=== PATIENT | female | born 1995 | race Caucasian/White ===

== ENCOUNTER 2023-01-01 10:57 | Outpatient (OUT) | payer MEDICAID, SELFPAY ==
--- NOTE | 2023-01-01 11:50 | ECG_ITS ---
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
--- NOTE | 2023-01-01 11:50 | XR_ITS ---
The [address] [address] Patient Name: LEYDA SEGAL MRN: [id number] date: 1995 Sex: F Assigned Patient Location: [facility] Current Patient Location: [facility] Accession/Order Number: [id number] Exam Date: 01/01/2023 12:02 Report Date: 01/01/2023 13:12 At the request of: TATY BALL Procedure: XR chest 2V EXAM: XR chest 2V HISTORY: Preop exam COMPARISON: None. TECHNIQUE: PA and lateral views of the chest. FINDINGS: The cardiomediastinal silhouette is normal. No focal consolidation is identified. There is no pneumothorax. No pleural effusion is noted. The osseous structures are intact. XR/XR chest 2V IMPRESSION: No acute cardiopulmonary process. Electronically authenticated by: OSWALD BARRERA Date: 01/01/2023 13:12
== END 2023-01-01 10:58 | disposition home or self-care (01) ==
LOC: PST 10:57
PROVIDERS: PCP Obstetrics & Gynecology; Visit Provider Obstetrics & Gynecology
DX: Z01.810 Encounter for preprocedural cardiovascular examination (principal); Z30.2 Encounter for sterilization
CPT/HCPCS: 71046; 93005

== ENCOUNTER 2023-01-13 07:46 | Day surgery (SDC) | payer MEDICAID, SELFPAY ==
[2023-01-01 11:23] VITALS: BMI 36.1
[2023-01-01 11:27] VITALS: BP 122/66; PULSE 82; RESP 16; TEMP 36.6; O2SAT 98
[2023-01-13] VITALS (9 sets, daily range): BP systolic 107–145; BP diastolic 76–91; PULSE 62–90; RESP 1–20; TEMP 36.3–36.4; O2SAT 96–100
[2023-01-13 07:58] LABS: Basophils Absolute Auto 0.1 10^3/uL (0.0-0.1); Basophils Percent Auto 0.6 % (0.2-2.0); Eosinophils Absolute Auto 0.4 10^3/uL (0.0-0.7); Eosinophils Percent Auto 3.9 % (0.9-7.0); Hematocrit 41.3 % (36.0-48.0); Hemoglobin 13.5 g/dL (12.0-16.0); Immature Granulocytes Abs Auto 0.01 10^3/uL (0.00-0.03); Immature Granulocytes Pct Auto 0.1 % (0.0-0.5); Lymphocytes Absolute Auto 2.3 10^3/uL (1.2-3.8); Lymphocytes Percent Auto 24.7 % (20.5-60.0); Mean Corpuscular HGB Conc 32.7 g/dL (29.9-35.2); Mean Corpuscular Hemoglobin 28.7 pg (26.7-34.0); Mean Corpuscular Volume 87.9 fL (81.0-99.0); Mean Platelet Volume 9.6 fL (9.5-13.5); Monocytes Absolute Auto 0.5 10^3/uL (0.3-0.8); Monocytes Percent Auto 5.6 % (1.7-12.0); Neutrophils Absolute Auto 6.1 10^3/uL (1.4-6.5); Neutrophils Percent Auto 65.1 % (43.0-75.0); Platelet Count 350 10^3/uL (150-450); Red Cell Distribution Width 11.9 % (11.0-15.0); White Blood Count 9.3 10^3/uL (4.0-11.0)
[2023-01-13 08:23] LABS: HCG Quantitative <1 mIU/mL
[2023-01-13] MEDS: LACTATED RINGER'S SOLUTION 1,000 ML 50 ML IV (08:24)
--- NOTE | 2023-01-13 10:28 | P.ON_ITS ---
Brief Operative Note Date of procedure: 01/13/23 Pre-op diagnosis: desires permenant sterilization Post-op diagnosis: same as pre-op Procedure: NAME OF PROCEDURE: robotic assisted bilateral laparoscopic salpingectomy with lt ovarian cystotomy PROCEDURE: The patient was taken back to the Operating Room where she was given general anesthesia without difficulty. She was then prepped and draped in the normal sterile fashion after being placed in a dorsal lithotomy position. A wet sponge stick was placed into the patient's vagina. Attention was then turned to the patient's abdomen, where a scalpel was used to make a small infraumbilical incision. The S retractors were then used to dissect the underlying layers until the fascia could be seen. The fascia was then grasped with Maurice clamps and tented up. A knife was then used to make a small incision to the fascia. The muscle was identified, at that time two sutures of #0 Vicryl on a GI needle was then used and placed through the fascia. the peritoneum was then identified and entered bluntly. The 10-4 Betty was then placed into the patient's abdomen. This was confirmed with direct visualization of the bowel, using the laparoscope. The patient's abdomen was then insufflated using approximately 4 liters of CO2 gas. Survey of the patient's abdomen demonstrated ovaries were normal in appearance as well as both tubes and uterus. A second and third rt and lt lateral robotic ports which were 8 mm in size, was then placed after the skin incision was made under direct visualization . The patient's tube on the patient's right side was identified and tented up using a grasper, the vessel sealer apparatus was then used to come across the mesosalpingx from the fimbriated end to the insertion site at the uterus, the tube was then amputated and removed in its entirety. This was done on the contralateral side. The tubes were the removed from the patients abdomen. Excellent hemostasis was noted. Please note vessel sealer was used to perform lt ovarian cystotomy. The lateral ports were then moved under direct visualization with excellent hemostasis. All instruments were removed from the patient's abdomen. The fascia was closed using the #0 Vicryl on GI needle. The skin was closed using 4-0 Vicryl subcuticularly. All instruments were removed from the patient's vagina as well. The patient was taken out of the dorsal lithotomy position and placed in the supine position and taken to recovery in stable condition. Sponge, lap and needle counts were correct x2. Anesthesia: EDOUARD Surgeon: Marcus Fields Framework Developer: Haley Clark Estimated blood loss (mL): 5 Pathology: other (tubes) Condition: stable Disposition: PACU
[2023-01-13] MEDS: PROMETHAZINE HCL 25 MG TABLET PO (11:56)
--- NOTE | 2023-01-13 12:07 | PC.NURSE ---
c/o nausea; no emesis; medicated with Phenergan oral as ordered; peripad dry
--- NOTE | 2023-01-13 12:39 | PC.NURSE ---
Up to bathroom and voids clear yellow without difficulty; peripad dry; no further c/o nausea
== END 2023-01-13 12:40 | disposition home or self-care (01) ==
PROVIDERS: Visit Provider Obstetrics & Gynecology
PROC: (CPT 840; principal; 2023-01-13 08:50)
DX: Z30.2 Encounter for sterilization (principal); N83.202 Unspecified ovarian cyst, left side; N83.8 Other noninflammatory disorders of ovary, fallopian tube and broad ligament; J45.909 Unspecified asthma, uncomplicated; E66.01 Morbid (severe) obesity due to excess calories; Z68.36 Body mass index [BMI] 36.0-36.9, adult
CPT/HCPCS: 49322; 58661; 36415; 84702; 85025; 88304; J2704

== ENCOUNTER 2023-03-10 22:02 | Outpatient (REF) | payer MEDICAID, SELFPAY ==
--- OUTSIDE RECORDS SUMMARY | 2023-03-10 22:05 | XMS_ITS | CCD ---
Author Name Unknown Address [address] [place] [address] Organization [facility] Care Team Providers Care Assistant Plant Controller Name Role Phone Damon BRUNER Primary Care Physician LIZZY ., DR POSEY Attending Unavailable REQUEST, DR MEDRANO LISTED Primary Care Unavaila ble LIZZY ., DR POSEY Admitting Unavailable HOY ., DR SERVIN Consulting Unavailable IRMA LLOYD Attending Unavailable IRMA LLOYD Admitting Unavailable MISC, DR ROCHA Primary Care Unavailable LIZZY ., DR POSEY Consulting Unavailable IRMA LLOYD Consulting Unavailable KARASIK ., DR ESTRADA Attending Unavailabl e KARASIK ., DR ESTRADA Consulting Unavailabl e KARASIK ., DR ESTRADA Admitting Unavailabl e MISC, DR ROCHA Primary Care Unavailable LIZZY ., DR POSEY Consulting Unavailable REQUEST, DR MEDRANO LISTED Primary Care Unavaila ble LIZZY ., DR POSEY Admitting Unavailable LIZZY ., DR POSEY Attending Unavailable LIZZY ., DR POSEY Admitting Unavailable LIZZY ., DR POSEY Attending Unavailable MISC, DR ROCHA Primary Care Unavailable REQUEST, DR MEDRANO LISTED Primary Care Unavaila ble LIZZY ., DR POSEY Admitting Unavailable LIZZY ., DR POSEY Attending Unavailable LIZZY ., DR POSEY Consulting Unavailable LIZZY ., DR POSEY Consulting Unavailable REQUEST, NONE LISTED Primary Care Unavaila ble LIZZY ., DR POSEY Admitting Unavailable LIZZY ., DR POSEY Attending Unavailable LIZZY ., DR POSEY Consulting Unavailable REQUEST, DR MEDRANO LISTED Primary Care Unavaila ble LIZZY ., DR POSEY Admitting Unavailable LIZZY ., DR POSEY Attending Unavailable ZIEBER, DR ELLEN Alfaro Consulting Unavailable LIZZY ., DR POSEY Attending Unavailable LIZZY ., DR POSEY Consulting Unavailable REQUEST, DR NONE LISTED Primary Care Unavaila ble LIZZY ., DR POSEY Admitting Unavailable LIZZY ., DR POSEY Admitting Unavailable MISC, DR ROCHA Primary Care Unavailable LIZZY ., DR POSEY Attending Unavailable KARASIK ., DR ESTRADA Admitting Unavailabl e REQUEST, DR NONE LISTED Primary Care Unavaila ble LIZZY ., DR POSEY Consulting Unavailable KARASIK ., DR ESTRADA Attending Unavailabl e LIZZY ., DR POSEY Procedure Practitioner Unavail able AGUBOSISriram, JIMMIE Consulting Unavailable JOEY, DR OSWALD Alfaro Consulting Unavailable MISC, DR ROCHA Primary Care Unavailable TERE ., BRIANNA Attending Unavailable TERE ., BRIANNA Admitting Unavailable KARASIK ., DR ESTRADA Consulting Unavailabl e TERE ., BRIANNA Consulting Unavailable STRAWSER, CARLO Consulting Unavailable Damon BRUNER Attending Unavailable FRANC, Damon Attending Unavailable FRANC, Damon Attending Unavailable Damon BRUNER Attending Unavailable Tabby Barnett Attending Unavailable Tabby Barnett Attending Unavailable Tabby Barnett Attending Unavailable NEIL SHARPE Attending Unavailable Allergies Allergy Classification Reported Allergen(s) Allergy Type Date of Onset Reaction(s) Facility (7 sources) Cat; Translations: [Cats] Drug allergy [facility] (7 sources) Dust; Translations: [Dust] Drug allergy [facility] (7 sources) Morphine; Translations: [morphine] Drug Allergy 4 Syncope (disorder) [facility] (7 sources) Ragweed; Translations: [Ragweed] Drug allergy [facility] (7 sources) Grass; Translations: [Grass] Drug allergy [facility] (1 source) Morphine Drug Allergy 2 [facility] Repository Medications Current Medications Medication Drug Class(es) Dates Sig (Normalized) Sig (Original) ARIPiprazole 2 mg oral tablet (4 sources) Atypical Antipsychotic Start: 10-23-2022 take 1 tablet by mouth once daily aripiprazole 2 mg Tab 2 mg = 1 tab(s), Oral, Daily, Refills(s) 0 Start Date: 10/23/22 Status: Ordered busPIRone hydrochloride 10 mg oral tablet (4 sources) Start: 10-23-2022 take 1 tablet by mouth twice daily busPIRone 10 mg Tab 10 mg = 1 tab(s), Oral, BID, Refills(s) 0 Start Date: 10/23/22 Status: Ordered dextromethorphan hydrobromide 3 mg/ml / promethazine hydrochloride 1.25 mg/ml oral solution (1 source) Phenothiazine, Uncompetitive T-gujlxk-P-aspartat e Receptor Antagonist, Sigma-1 Agonist Start: 02-20-2021 take 5 mL by mouth every six hours for cough dextromethorphan-pr omethazine 15 mg-6.25 mg/5 mL Oral Syrup 5 mL 5 mL, Oral, q6hr for cough, 120 mL, Refill(s) 0, [facility] [address], 165, cm, 02/20/21 11:45:00 EST, Height/Length Dosing, 114.9, kg, 02/20/21 11:45:00 EST, Weight Dosing Start Date: 02/20/21 Status: Ordered escitalopram 5 mg oral tablet (4 sources) Serotonin Reuptake Inhibitor Start: 10-23-2022 take 1 tablet by mouth once daily escitalopram 5 mg oral tablet TAKE 1 TABLET BY MOUTH EVERY DAY Start Date: 10/23/22 Status: Ordered fluticasone propionate 0.5 mg/ml topical cream (1 source) Corticosteroid Start: 02-13-2020 fluticasone topical 0.05% cream 1 kami, Topical, BID, 60 gram, Refill(s) 0, [facility] [address], 166, cm, 02/13/20 10:54:00 EST, Height/Length Dosing, 112.1, kg, 02/13/20 10:54:00 EST, Weight Dosing Start Date: 02/13/20 Status: Ordered ketoconazole 20 mg/ml topical cream (4 sources) Azole Antifungal Start: 10-23-2022 ketoconazole Top 2% Crm APPLY TOPICALLY TO AFFECTED AREAS twice a day if needed Start Date: 10/23/22 Status: Ordered 24 hr methylphenidate hydrochloride 18 mg extended release oral tablet (2 sources) Central Nervous System Stimulant Start: 12-28-2022 take 18 mg by mouth once daily in the morning methylphenidate 18 mg, Oral, qAM, Refills(s) 0 Start Date: 12/28/22 Status: Ordered ondansetron 4 mg oral tablet (1 source) Serotonin-3 Receptor Antagonist Start: 03-04-2021 take 1 tablet by mouth every eight hours as needed for nausea ondansetron 4 mg Tab 4 mg = 1 tab(s), Oral, q8hr, prn nausea, # 12 tab(s), Refills(s) 0, Pharmacy: [facility] [address], 165, cm, 02/20/21 11:45:00 EST, Height/Length Dosing, 114.9, kg, 02/20/21 11:45:00 EST, Weight Dosing Start Date: 03/04/21 Status: Ordered sodium fluoride 0.011 mg/mg toothpaste (2 sources) Start: 12-28-2022 PreviDent 5000 Booster 1.1% topical paste Refill(s) 0 Start Date: 12/28/22 Status: Ordered traZODone hydrochloride 50 mg oral tablet (4 sources) Serotonin Reuptake Inhibitor Start: 10-23-2022 take 1 tablet by mouth once daily at bedtime traZODONE 50 mg Tab 50 mg = 1 tab(s), Oral, Once a day (at bedtime), Refills(s) 0 Start Date: 10/23/22 Status: Ordered triamcinolone acetonide 0.25 mg/ml topical cream (1 source) Corticosteroid Start: 03-31-2022 triamcinolone Top 0.025% Crm 1 kami, Topical, BID, 60 gram, Refill(s) 1, [facility] [address], 165, cm, 03/31/22 17:35:00 EST, Height/Length Dosing, 100.5, kg, 03/31/22 17:35:00 EST, Weight Dosing Start Date: 03/31/22 Status: Ordered Completed/Discontinued Medications Medication Drug Class(es) Dates Sig (Normalized) Sig (Original) Albuterol (Eqv-ProAir HFA) 90 mcg/inh inhalation aerosol (6 sources) Start: 11-08-2020 take 1 dose by inhalation every six hours Albuterol (Eqv-ProAir HFA) 90 mcg/inh inhalation aerosol 2 puff(s), Inhalation, q6hr, 1 EA, Refill(s) 0, [facility] [address], 166, cm, 11/08/20 16:18:00 EDT, Height/Length Dosing, 113.5, kg, 11/08/20 16:18:00 EDT, Weight Dosing Start Date: 11/08/20 Status: Ordered betamethasone 0.5 mg/ml topical cream (4 sources) Corticosteroid Start: 10-23-2022 apply 45 g topically once daily betamethasone Top dipropionate 0.05% Crm 45 gram apply topically to affected area once daily AT THE SAME TIME EACH DAY Start Date: 10/23/22 Status: Ordered Problems Active Problems Problem Classification Problem Date Documented Date Episodic/Chronic Allergic reactions (7 sources) Atopic dermatitis; Translations: [Atopic dermatitis, unspecified] Onset: 03-29-2022 03-17-2020 Chronic Allergic reactions (6 sources) Eczema 03-17-2020 Episodic Asthma (9 sources) Asthma; Translations: [Intermittent asthma] Onset: 03-29-2022 03-11-2021 Chronic Attention-deficit, conduct, and disruptive behavior disorders (2 sources) Adult attention deficit hyperactivity disorder 03-31-2022 Chronic Disorders usually diagnosed in infancy, childhood, or adolescence (1 source) Behavioral and emotional disorder with onset in childhood; Translations: [Other specified behavioral and emotional disorders with onset usually occurring in childhood and adolescence] Onset: 03-31-2022 Chronic Menstrual disorders (4 sources) Irregular menstruation, unspecified; Translations: [IRREGULAR MENSTRUATION UNSPECIFIED] Onset: 05-23-2022 Chronic Mood disorders (6 sources) Depressive disorder; Translations: [Depression, unspecified] Onset: 10-23-2022 Chronic Other circulatory disease (6 sources) Postural orthostatic tachycardia syndrome ; Translations: [Postural orthostatic tachycardia syndrome [POTS]] Onset: 10-23-2022 Episodic Other nutritional; endocrine; and metabolic disorders (1 source) Body mass index 40+ - severely obese 03-19-2020 Chronic Other nutritional; endocrine; and metabolic disorders (12 sources) Severe obesity 03-19-2020 Chronic Other nutritional; endocrine; and metabolic disorders (1 source) Morbid obesity; Translations: [Morbid (severe) obesity due to excess calories] Onset: 03-29-2022 Chronic Other nutritional; endocrine; and metabolic disorders (3 sources) Obese class II; Translations: [Body mass index (BMI) 36.0-36.9, adult] Onset: 03-31-2022 Chronic Other nutritional; endocrine; and metabolic disorders (5 sources) Body mass index 30+ - obesity 03-31-2022 Chronic Other nutritional; endocrine; and metabolic disorders (7 sources) Obesity; Translations: [Other obesity due to excess calories] Onset: 10-21-2022 Chronic Other upper respiratory disease (7 sources) Allergic rhinitis; Translations: [Allergic rhinitis, unspecified] Onset: 10-21-2022 05-05-2013 Chronic Other upper respiratory infections (1 source) Common cold 02-20-2021 Episodic Skin and subcutaneous tissue infections (2 sources) Pilonidal cyst with abscess; Translations: [Pilonidal abscess] Onset: 01-03-2023 Episodic Unclassified (1 source) CONTACT W/AND (SUSP) EXPOS COVID-19; Translations: [CONTACT W/AND (SUSP) EXPOS COVID-19] Onset: 10-29-2021 Past or Other Problems Problem Classification Problem Date Documented Date Episodic/Chronic OB-related trauma to perineum and vulva (1 source) Other specified trauma to perineum and vulva; Translations: [OTHER SPEC TRAUMA PERINEUM AND VULVA] Onset: 10-29-2021 Episodic Other complications of (4 sources) Maternal care for excessive growth, third trimester, not applicable or unspecified; Translations: [MAT CARE EXCSS FTL GRTH 3RD TRI UNS] Onset: 09-09-2021 Episodic Other complications of (5 sources) Other specified related conditions, third trimester; Translations: [OTH SPEC PREG RELATED COND 3RD TRI] Onset: 08-07-2021 Episodic Other complications of (3 sources) Mild hyperemesis gravidarum; Translations: [MILD HYPEREMESIS GRAVIDARUM] Onset: 06-22-2021 Episodic Other complications of (4 sources) Hyperemesis gravidarum with metabolic disturbance; Translations: [HYPEREMESIS W/METAB DISTURB] Onset: 05-31-2021 Episodic Other and delivery including normal (2 sources) ; Translations: [Single live ] Onset: 10-29-2021 02-20-2021 Episodic Other screening for suspected conditions (not mental disorders or infectious disease) (6 sources) Encounter for screening for Streptococcus B; Translations: [Encounter for screening for diabetes mellitus] Onset: 06-04-2021 Episodic Residual codes; unclassified (1 source) Type O blood, Rh negative; Translations: [TYPE O BLOOD RH NEGATIVE] Onset: 10-29-2021 Episodic Residual codes; unclassified (1 source) 39 weeks gestation of ; Translations: [39 WEEKS GESTATION OF ] Onset: 10-29-2021 Episodic Residual codes; unclassified (1 source) 33 weeks gestation of ; Translations: [33 WEEKS GESTATION OF ] Onset: 09-09-2021 Episodic Residual codes; unclassified (1 source) Unspecified blood type, Rh negative; Translations: [UNSPECIFIED BLOOD TYPE RH NEGATIVE] Onset: 08-08-2021 Episodic Residual codes; unclassified (1 source) 28 weeks gestation of ; Translations: [28 WEEKS GESTATION OF ] Onset: 08-08-2021 Episodic Residual codes; unclassified (1 source) 22 weeks gestation of ; Translations: [22 WEEKS GESTATION OF ] Onset: 06-25-2021 Episodic Residual codes; unclassified (1 source) 19 weeks gestation of ; Translations: [19 WEEKS GESTATION OF ] Onset: 06-04-2021 Episodic Substance-related disorders (2 sources) Drug use complicating childbirth; Translations: [Cannabis use, unspecified, uncomplicated] Onset: 10-29-2021 Episodic Results Test Name Value Interpretation Reference Range Facility Family Medicine Office/Clini c Noteon 01-06-2023 Family Medicine Office/Clinic Note Chief Complaint Coccyx pain x 1 week HPI Staff C/O: Coccyx pain Onset: x1 week- had pain when wiping, now unable to sit. Location: coccyx Symptoms: Redness, unknown if any open areas or bumps History of Present Illness I have reviewed staff HPI and it is correct. Guerline Segal is a 27-year-old female presents to the office to discuss her concerns about pain at the top of her buttock. She experiences discomfort while wiping, and sitting is difficult for her. There is some redness, but it is uncertain if there are any visible lesions, masses, or areas of fluctuance. The patient is experiencing redness, and intense pain at the top of her buttock. She is unable to sleep. She takes ibuprofen to manage the pain, but it provided minimal relief. She also tried Epsom salt soaks. A similar symptom appeared between her chest, although it was not bothersome. The pain initially began 1 week ago, primarily during wiping, but it has persisted for 3 days. She denies having fever and chills but emphasizes the discomfort and pain. Patient has no other questions or concerns at this time. Review of Systems PHQ Score Initial Depression Screen Score: 0 All negative except as noted in the HPI. Physical Exam Vitals & Measurements T: 36.7 ?C(Temporal Artery) HR: 110(Peripheral) RR: 18 BP: 124/72 SpO2: 99% HT: 65 in HT: 165 cm WT: 97.1 kg WT: 213.62 lb BMI: 35.67 General:obese female, appears mildly uncomfortable in no acute distress Lungs: Normal respiratory effort and clear to auscultation Cardio: Regular rate and rhythm, normal S1 and S2, no murmur, no rub Neurologic: Grossly normal Lymph Nodes: No cervical adenopathy, nodes normal Mental Status: Alert and oriented x3. Normal mood and affect Procedure I&D Onset of lesion? 3 days Indication? infected lesion Consent? yes Size: baseball sized, erythematous, fluctuant, warm to the touch and tender. Location: superior to the gluteal cleft Procedure: I&D Instrument used: # 11 blade, foul smelling purulent material expressed, area flushed with sterile water until water ran clear. Anesthesia: 1% lidocaine with epinephrine Closure: none Deep Suture: none Wound prep: iodine Wound dressing: non-stick talfa dressing with tape, patient provided with feminine pad to put in underwear incase more drainage. Follow up in: 5-7 days Additional Comments or Instructions: Overall patient tolerated procedure fairly well. After procedure completed patient reported feeling lightheaded. Instructed to continue to lay down. Water provided. After 5 minutes patient felt significantly better. Assessment/Plan 1. Pilonidal abscess (L05.01: Pilonidal cyst with abscess) I & D preformed in office. Educated area will continue to drain. Advised warm soaks, tylenol/ibuprofen for pain management. If any concerns contact the office. FU for wound check in a week. Ordered: I&D pilonidal cyst simple 74021 2. BMI 35.0-35.9,adult (Z68.35: Body mass index [BMI] 35.0-35.9, adult) The standard range for ages 18 and older is >=18.5 and < 25 kg/m2. Your BMI today was above this range, this falls in the overweight to obese category and there are medical benefits to weight loss. We can offer counselling, referral, and/or medical support in addressing this problem. Your BMI and weight management will be followed at subsequent visits. 3. Class 2 obesity due to excess calories in adult (E66.09: Other obesity due to excess calories) see above Portions of this record may have been created with voice recognition artificial intelligence software, specifically [employer] and or [employer]. Substitutions may have occurred due to the inherent limitations of voice recognition and artificial intelligence software. Patient verbalized understanding and is agreeable to plan and course of treatment. This documentation was completed by voice-activated device and software. Inaccuracies compared to the original dictation of this provider are possible although this document has been overread and corrected. ATTESTATION: This note has been generated by [employer] and edited by Chandrika Moya, Quality Nurse Aide. Follow-up With When Contact Information Tabby Barnett PA-C In [address] [place] [phone] Additional Instructions: Problem List/Past Medical History Ongoing AD (atopic dermatitis) Allergic rhinitis BMI 36.0-36.9,adult Class 2 obesity due to excess calories in adult Mild intermittent asthma Moderate depressive episode POTS (postural orthostatic tachycardia syndrome) Historical Class 3 severe obesity due to excess calories with body mass index (BMI) of 40.0 to 44.9 in adult Class 3 severe obesity with body mass index (BMI) of 40.0 to 44.9 in adult Eczema Procedure/Surgical History None. Medications Albuterol (Eqv-ProAir HFA) 90 mcg/inh inhalation aerosol, 2 puff(s), Inhalation, q6hr aripiprazole 2 mg Tab, 2 mg= 1 (more content not included)... Normal [facility] Comment on above: Result Comment: Elec tronically Signed By: Tabby Barnett PA-C\.br\Date and Time Signed: 01/05/23 23:03 EST\.br\Electronically Co-Signed By: Chandrika Moya.br\Date and Time Co-Signed: 12/28/22 19:29 EST Patient Educationon 01-04-20 23 Patient Education Dermatology Pilonidal Cyst A pilonidal cyst is a fluid-filled sac that forms beneath the skin near the tailbone, at the top of the crease of the buttocks (pilonidal area). If the cyst is not large and not infected, it may not cause any problems. If the cyst becomes irritated or infected, it may get larger and fill with pus. An infected cyst is called an abscess. A pilonidal abscess may cause pain and swelling, and it may need to be drained or removed. What are the causes? The cause of this condition is not always known. In some cases, a hair that grows into your skin (ingrown hair) may be the cause. What increases the risk? You are more likely to get a pilonidal cyst if you: ? Are male. ? Have lots of hair near the crease of the buttocks. ? Are overweight. ? Have a dimple near the crease of the buttocks. ? Wear tight clothing. ? Do not bathe or shower often. ? Sit for long periods of time. What are the signs or symptoms? Signs and symptoms of a pilonidal cyst may include pain, swelling, redness, and warmth in the pilonidal area. Depending on how big the cyst is, you may be able to feel a lump near your tailbone. If your cyst becomes infected, symptoms may include: ? Pus or fluid drainage. ? Fever. ? Pain, swelling, and redness getting worse. ? The lump getting bigger. How is this diagnosed? This condition may be diagnosed based on: ? Your symptoms and medical history. ? A physical exam. ? A blood test to check for infection. ? Testing a pus sample, if applicable. How is this treated? If your cyst does not cause symptoms, you may not need any treatment. If your cyst bothers you or is infected, you may need a procedure to drain or remove the cyst. Depending on the size, location, and severity of your cyst, your health care provider may: ? Make an incision in the cyst and drain it (incision and drainage). ? Open and drain the cyst, and then stitch the wound so that it stays open while it heals (marsupialization). You will be given instructions about how to care for your open wound while it heals. ? Remove all or part of the cyst, and then close the wound (cyst removal). You may need to take antibiotic medicines before your procedure. Follow these instructions at home: Medicines ? Take [id number]-[id number] and prescription medicines only as told by your health care provider. ? If you were prescribed an antibiotic medicine, take it as told by your health care provider. Do not stop taking the antibiotic even if you start to feel better. General instructions ? Keep the area around your pilonidal cyst clean and dry. ? If there is fluid or pus draining from your cyst: ? Cover the area with a clean bandage (dressing) as needed. ? Wash the area gently with soap and water. Pat the area dry with a clean towel. Do not rub the area because that may cause bleeding. ? Remove hair from the area around the cyst only if your health care provider tells you to do this. ? Do not wear tight pants or sit in one position for long periods at a time. ? Keep all follow-up visits as told by your health care provider. This is important. Contact a health care provider if you have: ? New redness, swelling, or pain. ? A fever. ? Severe pain. Summary ? A pilonidal cyst is a fluid-filled sac that forms beneath the skin near the tailbone, at the top of the crease of the buttocks (pilonidal area). ? If the cyst becomes irritated or infected, it may get larger and fill with pus. An infected cyst is called an abscess. ? The cause of this condition is not always known. In some cases, a hair that grows into your skin (ingrown hair) may be the cause. ? If your cyst does not cause symptoms, you may not need any treatment. If your cyst bothers you or is infected, you may need a procedure to drain or remove the cyst. This information is not intended to replace advice given to you by your health care provider. Make sure you discuss any questions you have with your health care provider. Document Revised: 12/19/2020 Document Reviewed: 12/19/2020 [employer] Patient Education ? 2022 [employer] [facility] Ambulatory Visit Summaryon 1 02-27-2022 Ambulatory Visit Summary GUERLINE SEGAL :1995 Visit Date:12/28/2022 Ambulatory Visit Instructions Your Care Team Attending Physician - Anibal CUMMINGS, Tabby Gaytan Primary Care Physician - Damon BRUNER MD This Is Your Medications List albuterol (Albuterol (Eqv-ProAir HFA) 90 mcg/inh inhalation aerosol) aripiprazole (aripiprazole 2 mg Tab) betamethasone topical (betamethasone Top dipropionate 0.05% Crm 45 gram) busPIRone (busPIRone 10 mg Tab) escitalopram (escitalopram 5 mg oral tablet) fluoride topical (PreviDent 5000 Booster 1.1% topical paste) ketoconazole topical (ketoconazole Top 2% Crm) methylphenidate trazodone (traZODONE 50 mg Tab) Procedures Performed None. Discharge Vitals Temperature (Temporal Artery) 36.7 ?C Heart Rate (Peripheral) 110 Respiratory Rate 18 Blood Pressure 124/72 Height 165 cm Height 65 in Weight 97.1 kg Weight 213.62 lb BMI 35.67 What to do next Scheduled Follow-Up Appointments Wednesday 4:40 PM EST With: Damon BRUNER MD Where: [facility] [place] [facility] Provider Letteron 12-28-2022 Provider Letter December 28, 2022 GUERLINE SEGAL [address] [place] [address] : 1995 To Whom It May Concern, Please excuse above patient from work. Date of Illness: From: 12/28/2022 To: 12/29/2022 May Return to Work On: 12/30/2022 Sincerely, Family [facility] [address] [place] [address] [facility] Ambulatory Visit Summaryon 1 Ambulatory Visit Summary GUERLINE SEGAL :1995 Visit Date:12/21/2022 Ambulatory Visit Instructions Your Diagnosis Moderate depressive episode POTS (postural orthostatic tachycardia syndrome) Mild intermittent asthma Class 2 obesity due to excess calories in adult Your Care Team Attending Physician - Damon BRUNER MD Primary Care Physician - Damon BRUNER MD This Is Your Medications List albuterol (Albuterol (Eqv-ProAir HFA) 90 mcg/inh inhalation aerosol) aripiprazole (aripiprazole 2 mg Tab) betamethasone topical (betamethasone Top dipropionate 0.05% Crm 45 gram) busPIRone (busPIRone 10 mg Tab) escitalopram (escitalopram 5 mg oral tablet) ketoconazole topical (ketoconazole Top 2% Crm) trazodone (traZODONE 50 mg Tab) Procedures Performed None. Discharge Vitals Heart Rate (Peripheral) 84 Respiratory Rate 16 Blood Pressure 112/78 Height 165 cm Height 65 in Weight 98.2 kg Weight 216.04 lb BMI 36.07 What to do next You Need to Schedule the Following Appointments Follow Up with Damon BRUNER MD, FAM When: Only if needed Comments: pt to call pulse/HR to me in 4-6 weeks Where: Medications What How Much When Instructions Unchanged albuterol (Albuterol (Eqv-ProAir HFA) 90 mcg/ inh inhalation aerosol) 2 Puffs Inhalation Every 6 hours Unchanged aripiprazole (aripiprazole 2 mg Tab) 1 Tablets By Mouth Every day Unchanged betamethasone topical (betamethasone Top dipropionate 0.05% Crm 45 gram) apply topically to affected area once daily AT THE SAME TIME EACH DAY Unchanged busPIRone (busPIRone 10 mg Tab) 1 Tablets By Mouth 2 times a day Unchanged escitalopram (escitalopram 5 mg oral tablet) TAKE 1 TABLET BY MOUTH EVERY DAY Unchanged ketoconazole topical (ketoconazole Top 2% Crm) APPLY TOPICALLY TO AFFECTED AREAS twice a day if needed Unchanged trazodone (traZODONE 50 mg Tab) 1 Tablets By Mouth Once a day (at bedtime) Medications and Immunizations Administered Not Given influenza virus vaccine, inactivated, Postpone due to refusal SARS-CoV-2 mRNA (marcelln 5y-11y) vac, Postpone due to refusal Allergies Cats Dust Grass Ragweed morphine (Syncope) Problems Ongoing - Any problem that you are currently receiving treatment for. AD (atopic dermatitis) Adult attention deficit disorder Allergic rhinitis BMI 36.0-36.9,adult Class 2 obesity due to excess calories in adult Mild intermittent asthma Moderate depressive episode POTS (postural orthostatic tachycardia syndrome) Historical - Any problem that you are no longer receiving treatment for. Class 3 severe obesity due to excess calories with body mass index (BMI) of 40.0 to 44.9 in adult Class 3 severe obesity with body mass index (BMI) of 40.0 to 44.9 in adult Eczema Patient Survey You may receive a survey via text or e-mail asking about your office visit. Please share your experience with us by completing your survey. We appreciate your feedback and thank you for choosing us for your care. Education Materials Managing Depression, Adult Depression is a mental health condition that affects your thoughts, feelings, and actions. Being diagnosed with depression can bring you relief if you did not know why you have felt or behaved a certain way. It could also leave you feeling overwhelmed with uncertainty about your future. Preparing yourself to manage your symptoms can help you feel more positive about your future. How to manage lifestyle changes Managing stress Stress is your body's reaction to life changes and events, both good and bad. Stress can add to your feelings of depression. Learning to manage your stress can help lessen your feelings of depression. Try some of the following approaches to reducing your stress (stress reduction techniques): ? Listen to music that you enjoy and that inspires you. ? Try using a meditation kami or take a meditation class. ? Develop a practice that helps you connect with your spiritual self. Walk in nature, pray, or go to a place of baptist. ? Do some deep breathing. To do this, inhale slowly through your nose. Pause at the top of your inhale for a few seconds and then exhale slowly, letting your muscles relax. ? Practice yoga to help relax and work your muscles. Choose a stress reduction technique that suits your lifestyle and personality. These techniques take time and practice to develop. Set aside 5?15 minutes a day to do them. Therapists can offer training in these techniques. Other things you can do to manage stress include: ? Keeping a stress diary. ? Knowing your limits and saying no when you think something is too much. ? Paying attention to how you react to certain situations. You may not be able to control everything, but you can change your reaction. ? Adding humor to your life by watching funny films or TV shows. ? Making time for activities that yo (more content not included)... [facility] Medicine Office/Clini c Noteon 12-21-2022 Family Medicine Office/Clinic Note Chief Complaint 6wk rechk bp History of Present Illness The patient is here for recheck of mood and potential orthostasis. She has been checking her blood pressures at home and they have been normal. She is still having episodes as often but not as bad. She has not had any true pass out spells since she was last seen. The worst is when she is up and doing things. She went to the [employer] and was legitimately scared as her heart felt like it was about to explode states that she was climbing bleachers and this was aggravating.. She does not think she could physically make it up without passing out. When she is out and doing things, it is 10 times worse. She does not check her pulse when she feels dizzy Although she does have an Apple Watch which usually helps tell her if she is tachycardic. She just started back at work. 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 She is still following with psychiatry. She is on trazodone 50 mg for sleep. She has not adjusted her sleeping medication. She attributes sleep disturbance to being a new mother no matter what she takes. She is getting her tubes removed laparoscopically in 4 weeks. she thinks her anxiety is going to be through the roof because she has never had surgery. Reports that and thoughts of it caused PTSD symptomatology therefore she is very aware that this will be a permanent procedure. Review of Systems PHQ Score Initial Depression Screen Score: 0 See HPI otherwise negative Physical Exam Vitals & Measurements HR: 84(Peripheral) RR: 16 BP: 112/78 SpO2: 97% HT: 65 in HT: 165 cm WT: 98.2 kg WT: 216.04 lb BMI: 36.07 The patient is adequately groomed, reasonably hydrated. Normocephalic, atraumatic. Conjunctivae clear. Pupils are symmetric. Grossly normal hearing. Supple. No thyromegaly. Auscultation of lungs clear bilaterally. Currently regular rate and rhythm. No murmur, gallop, or rub. Abdomen: Overweight, nontender. No organomegaly. Well-developed. Reasonable posture. Pale. Cooperative, quite a bit anxious. Assessment/Plan 1. Moderate depressive episode (F32.A: Depression, unspecified) Patient is responded nicely with multidrug regimen under the care of psychiatry encouraging her to continue counseling appointments and compliance with meds. 2. POTS (postural orthostatic tachycardia syndrome) (G90.A: Postural orthostatic tachycardia syndrome [POTS]) Discussed with patient the tachycardia that she is experiencing. I would really like better documentation on what the heart rate is doing when she has these symptoms therefore she will wear the Apple Watch more compliantly and write down measurements that are consistently above 110?120 and note anything that she might be doing at the time. She will let me know what these are doing in 4 weeks and if there is persistent documented tachycardia would give consideration to a low-dose beta-mendoza but must exercise caution using this in light of her depression. Also understands potential need for Holter monitor or cardiac consult. 3. Mild intermittent asthma (J45.20: Mild intermittent asthma, uncomplicated) Currently not having any acute exacerbations but understands with winter weather and crops coming off this may be problematic she does keep albuterol available 4. Class 2 obesity due to excess calories in adult (E66.09: Other obesity due to excess calories) The standard range for ages 18 and older is >=18.5 and < 25 kg/m2. Your BMI today was above this range, this falls in the overweight to obese category and there are medical benefits to weight loss. We can offer counselling, referral, and/or medical support in addressing this problem. Your BMI and weight management will be followed at subsequent visits. 5. BMI 36.0-36.9,adult (Z68.36: Body mass index [BMI] 36.0-36.9, adult) See #4 Portions of this record may have been created with voice recognition artificial intelligence software, specifically [employer] and or [employer]. Substitutions may have occurred due to the inherent limitations of voice recognition and artificial intelligence software. Follow-up With When Contact Information Damon BRUNER MD, FAM Only if needed Additional Instructions: pt to call pulse/HR to me in 4-6 weeks Patient Education Managing Depression, Adult Problem List/Past Medical History Ongoing AD (atopic dermatitis) Allergic rhinitis BMI 36.0-36.9,adult Class 2 obesity due to excess calories in adult Mild intermittent asthma Moderate depressive episode POTS (postural orthostatic tachycardia syndrome) Historical Class 3 severe obesity due to excess calories with body mass index (BMI) of 40.0 to 44.9 in adult Class 3 severe obesity with body mass index (BMI) of 40.0 to 44.9 in adult Eczema Procedure/Surgical History None. Medications Albuterol (Eqv-ProAir HFA) 90 mcg/inh inhalation aerosol, 2 puff(s), Inhalation, q6hr aripiprazole 2 mg Tab, 2 mg= 1 tab(s), Oral, Da (more content not included)... [facility] Comment on above: Result Comment: Elec tronically Signed By: FRANC SULLIVAN, Damon\.br\Date and Time Signed: 12/21/22 12:34 EDT Patient Educationon 12-07-19 Patient Education Mental and Behavioral Health Managing Depression, Adult Depression is a mental health condition that affects your thoughts, feelings, and actions. Being diagnosed with depression can bring you relief if you did not know why you have felt or behaved a certain way. It could also leave you feeling overwhelmed with uncertainty about your future. Preparing yourself to manage your symptoms can help you feel more positive about your future. How to manage lifestyle changes Managing stress Stress is your body's reaction to life changes and events, both good and bad. Stress can add to your feelings of depression. Learning to manage your stress can help lessen your feelings of depression. Try some of the following approaches to reducing your stress (stress reduction techniques): ? Listen to music that you enjoy and that inspires you. ? Try using a meditation kami or take a meditation class. ? Develop a practice that helps you connect with your spiritual self. Walk in nature, pray, or go to a place of baptist. ? Do some deep breathing. To do this, inhale slowly through your nose. Pause at the top of your inhale for a few seconds and then exhale slowly, letting your muscles relax. ? Practice yoga to help relax and work your muscles. Choose a stress reduction technique that suits your lifestyle and personality. These techniques take time and practice to develop. Set aside 5?15 minutes a day to do them. Therapists can offer training in these techniques. Other things you can do to manage stress include: ? Keeping a stress diary. ? Knowing your limits and saying no when you think something is too much. ? Paying attention to how you react to certain situations. You may not be able to control everything, but you can change your reaction. ? Adding humor to your life by watching funny films or TV shows. ? Making time for activities that you enjoy and that relax you. Medicines Medicines, such as antidepressants, are often a part of treatment for depression. ? Talk with your pharmacist or health care provider about all the medicines, supplements, and herbal products that you take, their possible side effects, and what medicines and other products are safe to take together. ? Make sure to report any side effects you may have to your health care provider. Relationships Your health care provider may suggest family therapy, couples therapy, or individual therapy as part of your treatment. How to recognize changes Everyone responds differently to treatment for depression. As you recover from depression, you may start to: ? Have more interest in doing activities. ? Feel less hopeless. ? Have more energy. ? Overeat less often, or have a better appetite. ? Have better mental focus. It is important to recognize if your depression is not getting better or is getting worse. The symptoms you had in the beginning may return, such as: ? Tiredness (fatigue) or low energy. ? Eating too much or too little. ? Sleeping too much or too little. ? Feeling restless, agitated, or hopeless. ? Trouble focusing or making decisions. ? Unexplained physical complaints. ? Feeling irritable, angry, or aggressive. If you or your family members notice these symptoms coming back, let your health care provider know right away. Follow these instructions at home: Activity ? Try to get some form of exercise each day, such as walking, biking, swimming, or lifting weights. ? Practice stress reduction techniques. ? Engage your mind by taking a class or doing some volunteer work. Lifestyle ? Get the right amount and quality of sleep. ? Cut down on using caffeine, tobacco, alcohol, and other potentially harmful substances. ? Eat a healthy diet that includes plenty of vegetables, fruits, whole grains, low-fat dairy products, and lean protein. Do not eat a lot of foods that are high in solid fats, added sugars, or salt (sodium). General instructions ? Take [id number] and prescription medicines only as told by your health care provider. ? Keep all follow-up visits as told by your health care provider. This is important. Where to find support Talking to others Friends and family members can be sources of support and guidance. Talk to trusted friends or family members about your condition. Explain your symptoms to them, and let them know that you are working with a health care provider to treat your depression. Tell friends and family members how they also can be helpful. Finances ? Find appropriate mental health providers that fit with your financial situation. ? Talk with your health care provider about options to get reduced prices on your medicines. Where to find more information You can find support in your area from: ? Anxiety and Depression Association of [place] (ADAA): www.adaa.org ? Mental Health [place]: www.mentalhealth[place].ne (more content not included)... [facility] Ambulatory Visit Summaryon 0 10-23-2022 Ambulatory Visit Summary GUERLINE SEGAL :1995 Visit Date:10/23/2022 Ambulatory Visit Instructions Your Diagnosis POTS (postural orthostatic tachycardia syndrome) Moderate depressive episode Allergic rhinitis Class 2 obesity due to excess calories in adult BMI 36.0-36.9,adult Your Care Team Attending Physician - Damon BRUNER MD Primary Care Physician - Damon BRUNER MD This Is Your Medications List Contact prescribing physician if questions or concerns albuterol (Albuterol (Eqv-ProAir HFA) 90 mcg/inh inhalation aerosol) aripiprazole (aripiprazole 2 mg Tab) betamethasone topical (betamethasone Top dipropionate 0.05% Crm 45 gram) busPIRone (busPIRone 10 mg Tab) escitalopram (escitalopram 5 mg oral tablet) ketoconazole topical (ketoconazole Top 2% Crm) trazodone (traZODONE 50 mg Tab) Procedures Performed None. Discharge Vitals Heart Rate (Peripheral) 87 Respiratory Rate 16 Blood Pressure 118/78 Blood Pressure 118/78(Sitting) Blood Pressure 124/90(Standing) Blood Pressure 124/76(Supine) Height 65 in Height 165 cm Weight 215.6 lb Weight 98 kg BMI 36 What to do next Scheduled Follow-Up Appointments Wednesday 6:00 PM EDT With: Damon BRUNER MD Where: [facility] [place] [facility] Family Medicine Office/Clini c Noteon 10-23-2022 Family Medicine Office/Clinic Note Chief Complaint chk up, pt c/o dizziness with standing, needs tetanus, failed PHQ9 History of Present Illness Patient presenting with her toddler daughter. Complaints of dizziness primarily with position change. This been going on for several months. Has intensely worsened in the past 4 weeks. Does get occasional ringing in the ears. No severe hearing loss. Denies acute headaches or visual disturbances. Clearly recognizes that she gets tachycardia but has not actually measured the heart rate her Apple phone shows that it is fast. She has a friend that has POTS. She inquires if this could be the same. Unfortunately had a miscarriage requiring D&C back around [facility]. Has been very emotional since then. She is following with psychiatry and counseling receiving 4 different psych meds for mood anger sleep and irritability. Just started Lexapro this past week. Reports that she had tried Zoloft a year ago and that made her a zombie. Did not tolerate it. She denies any chest pains. Unaware of any acute shortness of breath. No acute bowel or bladder symptoms Review of Systems PHQ Score Initial Depression Screen Score: 6 Detailed Depression Screen Score: 13 Total Depression Screen Score: 19 See HPI otherwise negative Physical Exam Vitals & Measurements HR: 87(Peripheral) RR: 16 BP: 118/78 BP: 118/78(Sitting) BP: 124/90(Standing) BP: 124/76(Supine) SpO2: 98% HT: 65 in HT: 165 cm WT: 98 kg WT: 215.6 lb BMI: 36 Constitutional: Adequately groomed well-hydrated HEENT: Conjunctive are clear pupils are symmetric. Extraocular muscles intact. Neck is supple no JVD no bruits. No thyromegaly. TMs are clear scant cerumen. Grossly normal hearing. Oropharynx is pink and moist. Cardiothoracic: Regular rate and rhythm no murmur gallop or rub interestingly orthostatic blood pressure testing was unremarkable. Respiratory: CTA bilaterally Abdomen/GI: Overweight nontender no organomegaly Genitourinary: Deferred Musculoskeletal: Well-developed Neurologic: No acute neurologic deficits or tremors normal gait. Integument: Skin is pale adequate turgor Psychiatric: Cooperative extremely talkative. Fairly insightful but anxious Assessment/Plan 1. POTS (postural orthostatic tachycardia syndrome) (G90.A: Postural orthostatic tachycardia syndrome [POTS]) Discussed the possibility of POTS. Reviewed the importance of increasing fluids particularly sodium rich, more liberalization of salt in the diet. Recommend knee-high support stockings. She is already on an SSRI. Did review the potential for trial of beta-mendoza but hesitant as her blood pressure is relatively stable at this time. Also believe her symptoms could be related to her generalized anxiety therefore encouraging her to continue close observation and follow-up for recheck with me may need to give consideration of event monitor. 2. Moderate depressive episode (F32.A: Depression, unspecified) Applauded her efforts at continuing with psychiatry and multidrug regimen maintaining excellent sleep hygiene try to avoid stimulants such as monsters or energy drinks. 3. Allergic rhinitis (J30.9: Allergic rhinitis, unspecified) Allergies are relatively stable denies any significant decongestant use. Continue antihistamines as needed 4. Class 2 obesity due to excess calories in adult (E66.09: Other obesity due to excess calories) The standard range for ages 18 and older is >=18.5 and < 25 kg/m2. Your BMI today was above this range, this falls in the overweight to obese category and there are medical benefits to weight loss. We can offer counselling, referral, and/or medical support in addressing this problem. Your BMI and weight management will be followed at subsequent visits. 5. BMI 36.0-36.9,adult (Z68.36: Body mass index [BMI] 36.0-36.9, adult) See #4 Orders: triamcinolone topical, 1 kami, Topical, BID, 60 gram, Refill(s) 1, [facility] [place] #37, 165, cm, 03/31/22 17:35:00 EST, Height/Length Dosing, 100.5, kg, 03/31/22 17:35:00 EST, Weight Dosing Follow-up With When Contact Information FRANC SULLIVAN, JESUSITA Jose Within 6 weeks Additional Instructions: Patient Education Managing Depression, Adult Living With Attention Deficit Hyperactivity Disorder Problem List/Past Medical History Ongoing AD (atopic dermatitis) Adult attention deficit disorder Allergic rhinitis BMI 36.0-36.9,adult Class 2 obesity due to excess calories in adult Mild intermittent asthma Moderate depressive episode POTS (postural orthostatic tachycardia syndrome) Historical Class 3 severe obesity due to excess calories with body mass index (BMI) of 40.0 to 44.9 in adult Class 3 severe obesity with body mass index (BMI) of 40.0 to 44.9 in adult Eczema Procedure/Surgical History None. Medications Albuterol (Eqv-ProAir HFA) 90 mcg/inh inhalation aerosol, 2 puff(s), Inhalation, q6hr aripiprazole 2 mg Tab, 2 mg= 1 tab(s), Oral, Daily betamethasone Top dipropionate 0.05% Crm 45 gram busPIRone (more content not included)... [facility] Comment on above: Result Comment: Elec tronically Signed By: FRANC SULLIVAN, Damon\.br\Date and Time Signed: 10/23/22 15:27 EDT Patient Educationon 10-24-19 Patient Education Mental and Behavioral Health Managing Depression, Adult Depression is a mental health condition that affects your thoughts, feelings, and actions. Being diagnosed with depression can bring you relief if you did not know why you have felt or behaved a certain way. It could also leave you feeling overwhelmed with uncertainty about your future. Preparing yourself to manage your symptoms can help you feel more positive about your future. How to manage lifestyle changes Managing stress Stress is your body's reaction to life changes and events, both good and bad. Stress can add to your feelings of depression. Learning to manage your stress can help lessen your feelings of depression. Try some of the following approaches to reducing your stress (stress reduction techniques): ? Listen to music that you enjoy and that inspires you. ? Try using a meditation kami or take a meditation class. ? Develop a practice that helps you connect with your spiritual self. Walk in nature, pray, or go to a place of baptist. ? Do some deep breathing. To do this, inhale slowly through your nose. Pause at the top of your inhale for a few seconds and then exhale slowly, letting your muscles relax. ? Practice yoga to help relax and work your muscles. Choose a stress reduction technique that suits your lifestyle and personality. These techniques take time and practice to develop. Set aside 5?15 minutes a day to do them. Therapists can offer training in these techniques. Other things you can do to manage stress include: ? Keeping a stress diary. ? Knowing your limits and saying no when you think something is too much. ? Paying attention to how you react to certain situations. You may not be able to control everything, but you can change your reaction. ? Adding humor to your life by watching funny films or TV shows. ? Making time for activities that you enjoy and that relax you. Medicines Medicines, such as antidepressants, are often a part of treatment for depression. ? Talk with your pharmacist or health care provider about all the medicines, supplements, and herbal products that you take, their possible side effects, and what medicines and other products are safe to take together. ? Make sure to report any side effects you may have to your health care provider. Relationships Your health care provider may suggest family therapy, couples therapy, or individual therapy as part of your treatment. How to recognize changes Everyone responds differently to treatment for depression. As you recover from depression, you may start to: ? Have more interest in doing activities. ? Feel less hopeless. ? Have more energy. ? Overeat less often, or have a better appetite. ? Have better mental focus. It is important to recognize if your depression is not getting better or is getting worse. The symptoms you had in the beginning may return, such as: ? Tiredness (fatigue) or low energy. ? Eating too much or too little. ? Sleeping too much or too little. ? Feeling restless, agitated, or hopeless. ? Trouble focusing or making decisions. ? Unexplained physical complaints. ? Feeling irritable, angry, or aggressive. If you or your family members notice these symptoms coming back, let your health care provider know right away. Follow these instructions at home: Activity ? Try to get some form of exercise each day, such as walking, biking, swimming, or lifting weights. ? Practice stress reduction techniques. ? Engage your mind by taking a class or doing some volunteer work. Lifestyle ? Get the right amount and quality of sleep. ? Cut down on using caffeine, tobacco, alcohol, and other potentially harmful substances. ? Eat a healthy diet that includes plenty of vegetables, fruits, whole grains, low-fat dairy products, and lean protein. Do not eat a lot of foods that are high in solid fats, added sugars, or salt (sodium). General instructions ? Take lbcb-kxf-dqcetap and prescription medicines only as told by your health care provider. ? Keep all follow-up visits as told by your health care provider. This is important. Where to find support Talking to others Friends and family members can be sources of support and guidance. Talk to trusted friends or family members about your condition. Explain your symptoms to them, and let them know that you are working with a health care provider to treat your depression. Tell friends and family members how they also can be helpful. Finances ? Find appropriate mental health providers that fit with your financial situation. ? Talk with your health care provider about options to get reduced prices on your medicines. Where to find more information You can find support in your area from: ? Anxiety and Depression Association of [place] (ADAA): www.adaa.org ? Mental Health [place]: www.mentalhealth[place].ne (more content not included)... [facility] Consultation Noteon 06-24-19 Consultation Note [id number] #[id number]:[id number] [facility] PREG QUANT HCGon 05-23-2022 HCG QUANT 01131 mIU/mL Normal [facility] Comment on above: Performed By: #### U MICRO, UACSIND #### [facility] [address] [address] [address] Dillon Pepe HCG RANGE SEE BELOW [facility] Comment on above: Result Comment: 5-50 0.2-1 WEEK 50-500 1-2 WEEKS 100-5,000 2-3 WEEKS 500-10,000 3-4 WEEKS 1,000-50,000 4-5 WEEKS 10,000-100,000 5-6 WEEKS 15,000-200,000 6-8 WEEKS 10,000-100,000 2-3 MONTHS Performed By: #### U MICRO, UACSIND #### [facility] [address] [address] [address] Dillon Pepe Physician Referralon 023 Physician Referral [id number] #[id number] [facility] Ambulatory Visit Summaryon 0 05-05-2022 Ambulatory Visit Summary GUERLINE SEGAL :1995 Visit Date:05/05/2022 Ambulatory Visit Instructions Your Diagnosis Adult attention deficit disorder AD (atopic dermatitis) Class 2 obesity due to excess calories in adult BMI 37.0-37.9, adult Your Care Team Attending Physician - Damon BRUNER MD Primary Care Physician - Damon BRUNER MD This Is Your Medications List Contact prescribing physician if questions or concerns albuterol (Albuterol (Eqv-ProAir HFA) 90 mcg/inh inhalation aerosol) triamcinolone topical (triamcinolone Top 0.025% Crm) [Image Removed: STOP]Stop taking these medications methylphenidate (methylphenidate 5 mg oral tablet) Procedures Performed None. Discharge Vitals Heart Rate (Peripheral) 88 Respiratory Rate 16 Blood Pressure 120/76 Height 165 cm Height 65 in Weight 101.2 kg Weight 222.64 lb BMI 37.17 What to do next You Need to Schedule the Following Appointments Follow Up with FRANC SULLIVAN, JESUSITA Jose When: Only if needed Where: Someone Will Contact You Regarding These Appointments [facility] [place], Service not offered at [facility], [place]atology, Teofilo Bhardwaj and Daniella at [facility] please [facility] ok if needed, 05/05/22 17:41:00 EDT, AD (atopic dermatitis) Medications What How Much When Instructions Unchanged albuterol (Albuterol (Eqv-ProAir HFA) 90 mcg/ inh inhalation aerosol) 2 Puffs Inhalation Every 6 hours Contact prescribing physician if questions or concerns Unchanged triamcinolone topical (triamcinolone Top 0.025% Crm) 1 Application Topical 2 times a day Contact prescribing physician if questions or concerns What How Much When Why Comments Stop Taking methylphenidate (methylphenidate 5 mg oral tablet) 1 Tablets By Mouth 2 times a day Attention deficit disorder of adult Medications and Immunizations Administered Not Given influenza virus vaccine, inactivated, Postpone due to refusal SARS-CoV-2 mRNA (tozinameran 5y-11y) vac, Postpone due to refusal Allergies Cats Dust Grass Ragweed morphine (Syncope) Problems Ongoing - Any problem that you are currently receiving treatment for. AD (atopic dermatitis) Adult attention deficit disorder Allergic rhinitis BMI 37.0-37.9, adult Class 2 obesity due to excess calories in adult Mild intermittent asthma Historical - Any problem that you are no longer receiving treatment for. Class 3 severe obesity due to excess calories with body mass index (BMI) of 40.0 to 44.9 in adult Class 3 severe obesity with body mass index (BMI) of 40.0 to 44.9 in adult Eczema Education Materials Attention Deficit Hyperactivity Disorder, Adult Attention deficit hyperactivity disorder (ADHD) is a mental health disorder that starts during childhood (neurodevelopmental disorder). For many people with ADHD, the disorder continues into the adult years. Treatment can help you manage your symptoms. What are the causes? The exact cause of ADHD is not known. Most experts believe genetics and environmental factors contribute to ADHD. What increases the risk? The following factors may make you more likely to develop this condition: ? Having a family history of ADHD. ? Being male. ? Being born to a mother who smoked or drank alcohol during . ? Being exposed to lead or other toxins in the womb or early in life. ? Being born before 37 weeks of (prematurely) or at a low weight. ? Having experienced a brain injury. What are the signs or symptoms? Symptoms of this condition depend on the type of ADHD. The two main types are inattentive and hyperactive-impulsiv e. Some people may have symptoms of both types. Symptoms of the inattentive type include: ? Difficulty paying attention. ? Making careless mistakes. ? Not following instructions. ? Being disorganized. ? Avoiding tasks that require time and attention. ? Losing and forgetting things. ? Being easily distracted. Symptoms of the hyperactive-impulsiv e type include: ? Restlessness. ? Talking too much. ? Interrupting. ? Difficulty with: ? Sitting still. ? Feeling motivated. ? Relaxing. ? Waiting in line or waiting for a turn. In adults, this condition may lead to certain problems, such as: ? Keeping jobs. ? Performing tasks at work. ? Having stable relationships. ? Being on time or keeping to a schedule. How is this diagnosed? This condition is diagnosed based on your current symptoms and your history of symptoms. The diagnosis can be made by a health care provider such as a primary care provider or a mental health resident care manager rn. Your health care provider may use a symptom checklist or a behavior rating scale to evaluate your symptoms. He or she may also want to talk with people who have observed your behaviors throughout your life. How is this treated? This cond (more content not included)... [facility] Family Medicine Office/Clini c Noteon 03-14-2023 Family Medicine Office/Clinic Note Chief Complaint 6mo chk up, no rfs, pos home preg test History of Present Illness Patient presenting with her for discussion of attention deficit. When we had last met regarding her severe atopic dermatitis she had brought up the subject that she had chronic attention deficit was treated all through school and was recognizing further problems now with a 6-month-old child at home and wanted to try medication. Recommendation had been for methylphenidate once or twice a day and she was doing relatively well with this but then took a test this week finding it positive, I recognize that she was nauseated and had some suspicion. As stated first child is 6 months old. She is now planning to see Dr. Fields of gynecology. She would like a dermatology referral as she is still using triamcinolone but has some irritated skin. Not presently using a vitamin Review of Systems PHQ Score Initial Depression Screen Score: 0 See HPI otherwise negative Physical Exam Vitals & Measurements HR: 88(Peripheral) RR: 16 BP: 120/76 SpO2: 98% HT: 65 in HT: 165 cm WT: 101.2 kg WT: 222.64 lb BMI: 37.17 Constitutional: Adequately groomed well-hydrated HEENT: Grossly normal hearing. Conjunctive a clear pupils are symmetric neck is supple Cardiothoracic: Regular rate and rhythm no murmur gallop or rub Respiratory: CTA Abdomen/GI: Obese Genitourinary: Deferred Musculoskeletal: Well-developed Neurologic: No tremors Integument: Skin is pale. Does have eczematous patches primarily on the trunk and on the hands. Skin is pale Psychiatric: Talkative friendly insightful Assessment/Plan 1. Adult attention deficit disorder (F98.8: Other specified behavioral and emotional disorders with onset usually occurring in childhood and adolescence) Recommendation to discontinue the use of Ritalin. Will readdress possibility of retreatment after of next child. She will discuss with her lift electrician and even give consideration to counseling as that might be an option to provide some stabilization. 2. AD (atopic dermatitis) (L20.9: Atopic dermatitis, unspecified) May continue cautious use of triamcinolone referral was placed to wood floor layer Ordered: [facility] [place] Referral 3. Class 2 obesity due to excess calories in adult (E66.09: Other obesity due to excess calories) The standard range for ages 18 and older is >=18.5 and < 25 kg/m2. Your BMI today was above this range, this falls in the overweight to obese category and there are medical benefits to weight loss. We can offer counselling, referral, and/or medical support in addressing this problem. Your BMI and weight management will be followed at subsequent visits. 4. BMI 37.0-37.9, adult (Z68.37: Body mass index [BMI] 37.0-37.9, adult) See #3 5. (Z34.90: Encounter for supervision of normal , unspecified, unspecified trimester) Patient did have severe hyperemesis during her previous . Recommendation to try and restart the vitamin at this point for benefit of nutrition. She will contact lift electrician for immediate referral Follow-up With When Contact Information FRANC SULLIVAN, Damon [facility] Only if needed Additional Instructions: Patient Education Attention Deficit Hyperactivity Disorder, Adult Problem List/Past Medical History Ongoing AD (atopic dermatitis) Adult attention deficit disorder Allergic rhinitis BMI 37.0-37.9, adult Class 2 obesity due to excess calories in adult Mild intermittent asthma Historical Class 3 severe obesity due to excess calories with body mass index (BMI) of 40.0 to 44.9 in adult Class 3 severe obesity with body mass index (BMI) of 40.0 to 44.9 in adult Eczema Procedure/Surgical History None. 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 IV drug use: No. Drug use interferes with work/home: No. Ready to change: No. Household substance abuse concerns: No., 12/11/2020 Tobacco - Denies Tobacco Use, 08/05/2019 Never (less than 100 in lifetime) Tobacco Use:. Never Smokeless Tobacco Use:., 05/05/2022 Family History Depression: Mother. Diabetes mellitus type 2: Father. Peripheral vascular disease: Father. Psoriasis: Mother. Immunizations Vaccine Date Status Comments influenza virus vaccine, inactivated - Not Given Postpone due to refusal SARS-CoV-2 mRNA (tozinameran 5y-11y) vac - Not Given Postpone due to refu (more content not included)... [facility] Comment on above: Result Comment: Elec tronically Signed By: FRANC SULLIVAN, Damon\.br\Date and Time Signed: 05/05/22 17:47 EDT Patient Educationon 05-04-19 Patient Education Mental and Behavioral Health Attention Deficit Hyperactivity Disorder, Adult Attention deficit hyperactivity disorder (ADHD) is a mental health disorder that starts during childhood (neurodevelopmental disorder). For many people with ADHD, the disorder continues into the adult years. Treatment can help you manage your symptoms. What are the causes? The exact cause of ADHD is not known. Most experts believe genetics and environmental factors contribute to ADHD. What increases the risk? The following factors may make you more likely to develop this condition: ? Having a family history of ADHD. ? Being male. ? Being born to a mother who smoked or drank alcohol during . ? Being exposed to lead or other toxins in the womb or early in life. ? Being born before 37 weeks of (prematurely) or at a low weight. ? Having experienced a brain injury. What are the signs or symptoms? Symptoms of this condition depend on the type of ADHD. The two main types are inattentive and hyperactive-impulsiv e. Some people may have symptoms of both types. Symptoms of the inattentive type include: ? Difficulty paying attention. ? Making careless mistakes. ? Not following instructions. ? Being disorganized. ? Avoiding tasks that require time and attention. ? Losing and forgetting things. ? Being easily distracted. Symptoms of the hyperactive-impulsiv e type include: ? Restlessness. ? Talking too much. ? Interrupting. ? Difficulty with: ? Sitting still. ? Feeling motivated. ? Relaxing. ? Waiting in line or waiting for a turn. In adults, this condition may lead to certain problems, such as: ? Keeping jobs. ? Performing tasks at work. ? Having stable relationships. ? Being on time or keeping to a schedule. How is this diagnosed? This condition is diagnosed based on your current symptoms and your history of symptoms. The diagnosis can be made by a health care provider such as a primary care provider or a mental health resident care manager rn. Your health care provider may use a symptom checklist or a behavior rating scale to evaluate your symptoms. He or she may also want to talk with people who have observed your behaviors throughout your life. How is this treated? This condition can be treated with medicines and behavior therapy. Medicines may be the best option to reduce impulsive behaviors and improve attention. Your health care provider may recommend: ? Stimulant medicines. These are the most common medicines used for adult ADHD. They affect certain chemicals in the brain (neurotransmitters) and improve your ability to control your symptoms. ? A non-stimulant medicine for adult ADHD (atomoxetine). This medicine increases a neurotransmitter called norepinephrine. It may take weeks to months to see effects from this medicine. Counseling and behavioral management are also important for treating ADHD. Counseling is often used along with medicine. Your health care provider may suggest: ? Cognitive behavioral therapy (CBT). This type of therapy teaches you to replace negative thoughts and actions with positive thoughts and actions. When used as part of ADHD treatment, this therapy may also include: ? Coping strategies for organization, time management, impulse control, and stress reduction. ? Mindfulness and meditation training. ? Behavioral management. You may work with a dramatic coach who is specially trained to help people with ADHD manage and organize activities and function more effectively. Follow these instructions at home: Medicines ? Take bllq-tpp-xikrctc and prescription medicines only as told by your health care provider. ? Talk with your health care provider about the possible side effects of your medicines and how to manage them. Lifestyle ? Do not use drugs. ? Do not drink alcohol if: ? Your health care provider tells you not to drink. ? You are , may be , or are planning to become . ? If you drink alcohol: ? Limit how much you use to: ? 0?1 drink a day for women. ? 0?2 drinks a day for men. ? Be aware of how much alcohol is in your drink. In the [place] one drink equals one 12 oz bottle of beer (355 mL), one 5 oz glass of wine (148 mL), or one 1? oz glass of hard liquor (44 mL). ? Get enough sleep. ? Eat a healthy diet. ? Exercise regularly. Exercise can help to reduce stress and anxiety. General instructions ? Learn as much as you can about adult ADHD, and work closely with your health care providers to find the treatments that work best for you. ? Follow the same schedule each day. ? Use reminder devices like notes, calendars, and phone apps to stay on time and organized. ? Keep all follow-up visits as told by your health care provider and therapist. This is important. Where to find more information A health care provider may be able to recommend resources that are available online (more content not included)... [facility] Ambulatory Visit Summaryon 0 03-31-2022 Ambulatory Visit Summary GUERLINE SEGAL :1995 Visit Date:03/31/2022 Ambulatory Visit Instructions Your Diagnosis AD (atopic dermatitis) Mild intermittent asthma Adult attention deficit disorder Class 3 severe obesity due to excess calories with body mass index (BMI) of 40.0 to 44.9 in adult BMI 36.0-36.9,adult Your Care Team Attending Physician - Damon BRUNER MD Primary Care Physician - Damon BRUNER MD This Is Your Medications List albuterol (Albuterol (Eqv-ProAir HFA) 90 mcg/inh inhalation aerosol) triamcinolone topical (triamcinolone Top 0.025% Crm) [Image Removed: STOP]Stop taking these medications dextromethorphan-pro methazine (dextromethorphan-pr omethazine 15 mg-6.25 mg/5 mL Oral Syrup 5 mL) fluticasone topical (fluticasone topical 0.05% cream) ondansetron (ondansetron 4 mg Tab) Procedures Performed None. Discharge Vitals Heart Rate (Peripheral) 85 Respiratory Rate 20 Blood Pressure 122/74 Height 165 cm Height 65 in Weight 100.5 kg Weight 221.1 lb BMI 36.91 What to do next You Need to Schedule the Following Appointments Follow Up with Damon BRUNER MD, FAM When: Only if needed Comments: pt to call dermatology referral names to office soon Where: Medications What How Much When Instructions New triamcinolone topical (triamcinolone Top 0.025% Crm) 1 Application Topical 2 times a day Refills: 1 Pickup at [facility] Unchanged albuterol (Albuterol (Eqv-ProAir HFA) 90 mcg/ inh inhalation aerosol) 2 Puffs Inhalation Every 6 hours Pharmacy Information [facility]: [id number] [place], [place] [id number] [phone] What How Much When Comments Stop Taking dextromethorphan-pro methazine (dextromethorphan-pr omethazine 15 mg-6.25 mg/ 5 mL Oral Syrup 5 mL) 5 Milliliter By Mouth Every 6 hours as needed for for cough Stop Taking fluticasone topical (fluticasone topical 0.05% cream) 1 Application Topical 2 times a day Stop Taking ondansetron (ondansetron 4 mg Tab) 1 Tablets By Mouth Every 8 hours prn nausea Medications and Immunizations Administered Not Given influenza virus vaccine, inactivated, Postpone due to refusal Allergies Cats Dust Grass Ragweed morphine (Syncope) Problems Ongoing - Any problem that you are currently receiving treatment for. AD (atopic dermatitis) Adult attention deficit disorder Allergic rhinitis BMI 36.0-36.9,adult Class 3 severe obesity due to excess calories with body mass index (BMI) of 40.0 to 44.9 in adult Mild intermittent asthma Historical - Any problem that you are no longer receiving treatment for. Class 3 severe obesity with body mass index (BMI) of 40.0 to 44.9 in adult Eczema Education Materials BMI for Adults Body mass index (BMI) is a number that is calculated from a person's weight and height. BMI may help to estimate how much of a person's weight is composed of fat. BMI can help identify those who may be at higher risk for certain medical problems. How is BMI used with adults? BMI is used as a screening tool to identify possible weight problems. It is used to check whether a person is obese, overweight, healthy weight, or underweight. How is BMI calculated? BMI measures your weight and compares it to your height. This can be done either in [place] ([place] or metric measurements. Note that charts are available to help you find your BMI quickly and easily without having to do these calculations yourself. To calculate your BMI in [place] measurements, your health care provider will: 1. Measure your weight in pounds (lb). 2. Multiply the number of pounds by 703. ? For example, for a person who weighs 180 lb, multiply that number by 703, which equals 126,540. 3. Measure your height in inches (in). Then multiply that number by itself to get a measurement called inches squared. ? For example, for a person who is 70 in tall, the inches squared measurement is 70 in x 70 in, which equals 4900 inches squared. 4. Divide the total from Step 2 (number of lb x 703) by the total from Step 3 (inches squared): 126,540 ? 4900 = 25.8. This is your BMI. To calculate your BMI in metric measurements, your health care provider will: 1. Measure your weight in kilograms (kg). 2. Measure your height in meters (m). Then multiply that number by itself to get a measurement called meters squared. ? For example, for a person who is 1.75 m tall, the meters squared measurement is 1.75 m x 1.75 m, which is equal to 3.1 meters squared. 3. Divide the number of kilograms (your weight) by the meters squared number. In this example: 70 ? 3.1 = 22.6. This is your BMI. How is BMI interpreted? To interpret your results, your health care provider will use BMI charts to identify whether you are underweight, normal weight, overweight, or obese. The following guidelines will be used: ? Unde (more content not included)... [facility] Family Medicine Office/Clini c Noteon 03-31-2022 Family Medicine Office/Clinic Note Chief Complaint pt states eczema is flaring up and wants to discuss adhd med History of Present Illness Presents with her and her small . Had injured 5 months ago. Has done very nicely and enjoys motherhood. 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 accompanies her today. Reports recurrent increasing problems with chronic eczema which she has had since childhood. I took care of her when she was much younger and she had severe asthma and eczema necessitating constant topical regimens. Had improved into adulthood but has now become significantly worsened primarily the hands arms and back. She is very cautious about soaps lotions and creams. She takes cold showers very short only. Very cautious about any other topical exposures. She is using gloves for any dishes or work at home. Her asthma has been relatively stable does keep inhaler available as needed. Seldom using. She had very significant attention deficit when she was younger. Had utilized Adderall and Ritalin with good response. Clearly recognizes difficulty in maintaining consistent focus particularly with work and with items at home. Her confirms. Very frustrating for her. No sense of hyperactivity. Sleep is generally good except for breast-feeding every 3-4 hours. Review of Systems See HPI otherwise negative Physical Exam Vitals & Measurements HR: 85(Peripheral) RR: 20 BP: 122/74 SpO2: 99% HT: 65 in HT: 165 cm WT: 100.5 kg WT: 221.1 lb BMI: 36.91 Constitutional: Adequately groomed well-hydrated HEENT: Conjunctive a clear pupils are symmetric. Nares with clear rhinorrhea. Grossly normal hearing Cardiothoracic: Regular rate and rhythm no murmurs Respiratory: CTA Abdomen/GI: Obese hyperactive bowel sounds nontender Genitourinary: Deferred Musculoskeletal: Well-developed Neurologic: No acute neurologic deficits no tremors Integument: Skin is very dry. There are eczematous patches with erythema and slight scale various areas covering the hands arms upper back and thighs. Nothing appears impetiginous Psychiatric: Cooperative but difficult to keep on task. Assessment/Plan 1. AD (atopic dermatitis) (L20.9: Atopic dermatitis, unspecified) Chronic eczema. Suggesting triamcinolone topically, reduced frequency of bathing. Agreeable to seeking dermatology consult due to the many years she has had this understands that there are newer treatment regimen sometimes Biologics that can be beneficial. She will check insurance and let me know 2. Mild intermittent asthma (J45.20: Mild intermittent asthma, uncomplicated) May continue albuterol on a as needed basis avoid respiratory irritants. Suggesting flu vaccine 3. Adult attention deficit disorder (F98.8: Other specified behavioral and emotional disorders with onset usually occurring in childhood and adolescence) Patient would likely qualify for restart of medication as I had used this as a child for her many years but must be extremely cautious due to her breast-feeding. I would like to check to see with counseling centers what they recommend safely. May need to wait until she is done breast-feeding. 4. Class 3 severe obesity due to excess calories with body mass index (BMI) of 40.0 to 44.9 in adult (E66.01: Morbid (severe) obesity due to excess calories) The standard range for ages 18 and older is >=18.5 and < 25 kg/m2. Your BMI today was above this range, this falls in the overweight to obese category and there are medical benefits to weight loss. We can offer counselling, referral, and/or medical support in addressing this problem. Your BMI and weight management will be followed at subsequent visits. 5. BMI 36.0-36.9,adult (Z68.36: Body mass index [BMI] 36.0-36.9, adult) See #4 Orders: triamcinolone topical, 1 kami, Topical, BID, 60 gram, Refill(s) 1, [facility] #37, 165, cm, 03/31/22 17:35:00 EST, Height/Length Dosing, 100.5, kg, 03/31/22 17:35:00 EST, Weight Dosing Follow-up With When Contact Information Damon BRUNER MD, [facility] Only if needed Additional Instructions: pt to call dermatology referral names to office soon Patient Education Atopic Dermatitis BMI for Adults Problem List/Past Medical History Ongoing AD (atopic dermatitis) Adult attention deficit disorder Allergic rhinitis BMI 36.0-36.9,adult Class 3 severe obesity due to excess calories with body mass index (BMI) of 40.0 to 44.9 in adult Mild intermittent asthma Historical Class 3 severe obesity with body mass index (BMI) of 40.0 to 44.9 in adult Eczema Procedure/Surgical History None. Medications Albuterol (Eqv-ProAir HFA) 90 mcg/inh inhalation aerosol, 2 puff(s), Inhalation, q6hr triamcinolone Top 0.025% Crm, 1 kami, Topical, BID, 1 refills Allergies Cats Dust Grass Ragweed morphine (Syncope) Social History Alcohol - Denies Alcohol Use, 03/11/2021 Current, 12/11/2020 Employment/School Employed, Work/[employer] (more content not included)... Normal [facility] Comment on above: Result Comment: Elec tronically Signed By: Damon BRUNER MD\.br\Date and Time Signed: 03/31/22 18:04 EST Patient Educationon 03-31-19 Patient Education Immunology Atopic Dermatitis Atopic dermatitis is a skin disorder that causes inflammation of the skin. This is the most common type of eczema. Eczema is a group of skin conditions that cause the skin to be itchy, red, and swollen. This condition is generally worse during the cooler winter months and often improves during the warm summer months. Symptoms can vary from person to person. Atopic dermatitis usually starts showing signs in infancy and can last through adulthood. This condition cannot be passed from one person to another (non-contagious), but it is more common in families. Atopic dermatitis may not always be present. When it is present, it is called a flare-up. What are the causes? The exact cause of this condition is not known. Flare-ups of the condition may be triggered by: ? Contact with something that you are sensitive or allergic to. ? Stress. ? Certain foods. ? Extremely hot or cold weather. ? Harsh chemicals and soaps. ? Dry air. ? Chlorine. What increases the risk? This condition is more likely to develop in people who have a personal history or family history of eczema, allergies, asthma, or hay fever. What are the signs or symptoms? Symptoms of this condition include: ? Dry, scaly skin. ? Red, itchy rash. ? Itchiness, which can be severe. This may occur before the skin rash. This can make sleeping difficult. ? Skin thickening and cracking that can occur over time. How is this diagnosed? This condition is diagnosed based on your symptoms, a medical history, and a physical exam. How is this treated? There is no cure for this condition, but symptoms can usually be controlled. Treatment focuses on: ? Controlling the itchiness and scratching. You may be given medicines, such as antihistamines or steroid creams. ? Limiting exposure to things that you are sensitive or allergic to (allergens). ? Recognizing situations that cause stress and developing a plan to manage stress. If your atopic dermatitis does not get better with medicines, or if it is all over your body (widespread), a treatment using a specific type of light (phototherapy) may be used. Follow these instructions at home: Skin care ? Keep your skin well-moisturized. Doing this seals in moisture and helps to prevent dryness. ? Use unscented lotions that have petroleum in them. ? Avoid lotions that contain alcohol or water. They can dry the skin. ? Keep baths or showers short (less than 5 minutes) in warm water. Do not use hot water. ? Use mild, unscented cleansers for bathing. Avoid soap and bubble bath. ? Apply a moisturizer to your skin right after a bath or shower. ? Do not apply anything to your skin without checking with your health care provider. General instructions ? Dress in clothes made of cotton or cotton blends. Dress lightly because heat increases itchiness. ? When washing your clothes, rinse your clothes twice so all of the soap is removed. ? Avoid any triggers that can cause a flare-up. ? Try to manage your stress. ? Keep your fingernails cut short. ? Avoid scratching. Scratching makes the rash and itchiness worse. It may also result in a skin infection (impetigo) due to a break in the skin caused by scratching. ? Take or apply zlhy-[id number]-[id number] and prescription medicines only as told by your health care provider. ? Keep all follow-up visits as told by your health care provider. This is important. ? Do not be around people who have cold sores or fever blisters. If you get the infection, it may cause your atopic dermatitis to worsen. Contact a health care provider if: ? Your itchiness interferes with sleep. ? Your rash gets worse or it is not better within one week of starting treatment. ? You have a fever. ? You have a rash flare-up after having contact with someone who has cold sores or fever blisters. Get help right away if: ? You develop pus or soft yellow scabs in the rash area. Summary ? This condition causes a red rash and itchy, dry, scaly skin. ? Treatment focuses on controlling the itchiness and scratching, limiting exposure to things that you are sensitive or allergic to (allergens), recognizing situations that cause stress, and developing a plan to manage stress. ? Keep your skin well-moisturized. ? Keep baths or showers shorter than 5 minutes and use warm water. Do not use hot water. This information is not intended to replace advice given to you by your health care provider. Make sure you discuss any questions you have with your health care provider. Document Released: 02/05/2001 Document Revised: 05/30/2019 Document Reviewed: 03/12/2017 [employer] Patient Education ? 2019 [employer] Nutrition BMI for Adults Body mass index (BMI) is a number that is calculated from a person's weight and height. BMI may help to estimate how much of a person's weight is composed of fat. (more content not included)... Normal [facility] CANNABINOID (THC) CONFIRMATI ON, URINEon 10-24-2021 Cannabinoid Positive Abnormal [facility] Comment on above: Performed By: #### C MP #### [facility] [address] [place] [address] Dr. Dillon Pepe Carboxy THC GC/MS Conf >750 Normal Cutoff=10 Th e [facility] Comment on above: Performed By: #### C MP #### [facility] [address] [place] [address] Dr. Dillon Pepe CBC AUTO DIFFon 10-21-2021 BASO # 0.0 103/ul Normal 0.0-0.1 [facility] Comment on above: Performed By: #### C MP #### [facility] [address] [place] [address] Dr. Dillon Pepe Basophils/100 WBC (Bld) 0.2 % Normal 0.2-2.0 [facility] Comment on above: Performed By: #### C MP #### [facility] [address] [place] [address] Dr. Dillon Pepe EO # 0.4 103/ul Normal 0.0-0.7 [facility] Comment on above: Performed By: #### C MP #### [facility] [address] [place] [address] Dr. Dillon Pepe Eosinophils/100 WBC (Bld) 2.1 % Normal 0.9-7.0 [facility] Comment on above: Performed By: #### C MP #### [facility] [address] [place] [address] Dr. Dillon Pepe Erythrocyte distribution width (RBC) [Ratio] 13.7 % Normal 11.0-15.0 [facility] Comment on above: Performed By: #### C MP #### [facility] [address] [address] [address] Dillon Pepe Hematocrit (Bld) [Volume fraction] 32.7 % Critically low 36.0-48.0 [facility] Comment on above: Performed By: #### C MP #### [facility] [address] [address] [address] Dillon Pepe Hemoglobin (Bld) [Mass/Vol] 10.3 g/dL Critically low 12.0-16.0 [facility] Comment on above: Performed By: #### C MP #### [facility] [address] [address] [address] Dillon Pepe IG # 0.09 10e3/ul Critically high 0.00-0.03 [facility] Comment on above: Performed By: #### C MP #### [facility] [address] [address] [address] Dillon Pepe IG % 0.5 % Normal 0.0-0.5 [facility] Comment on above: Performed By: #### C MP #### [facility] [address] [address] [address] Dillon Pepe LYMPH # 2.2 103/ul Normal 1.2-3.8 [facility] Comment on above: Performed By: #### C MP #### [facility] [address] [address] [address] Dillon Pepe Lymphocytes/100 WBC (Bld) 13.2 % Critically low 20.5-60.0 [facility] Comment on above: Performed By: #### C MP #### [facility] [address] [address] [address] Dillon Pepe MANUAL DIFF REQ NO Normal [facility] Comment on above: Performed By: #### C MP #### [facility] [address] [address] [address] Dillon Pepe MCH (RBC) [Entitic mass] 27.2 pg Normal 26.7-34.0 [facility] Comment on above: Performed By: #### C MP #### [facility] [address] [address] [address] Dillon Pepe MCHC (RBC) [Mass/Vol] 31.5 g/dL Normal 29.9-35.2 [facility] Comment on above: Performed By: #### C MP #### [facility] [address] [address] [address] Dillon Pepe MCV (RBC) [Entitic vol] 86.3 fL Normal 81.0-99.0 [facility] Comment on above: Performed By: #### C MP #### [facility] [address] [address] [address] Dillon Pepe MONO # 1.5 103/ul Critically high 0.3-0.8 [facility] Comment on above: Performed By: #### C MP #### [facility] [address] [place] [address] Dr. Dillon Pepe Monocytes/100 WBC (Bld) 8.7 % Normal 1.7-12.0 [facility] Comment on above: Performed By: #### C MP #### [facility] [address] [address] [address] Dillon Pepe NEUT # 12.6 103/ul Critically high 1.4-6.5 [facility] Comment on above: Performed By: #### C MP #### [facility] [address] [place] [address] Dr. Dillon Pepe Neutrophils/100 WBC (Bld) 75.3 % Critically high 43.0-75.0 [facility] Comment on above: Performed By: #### C MP #### [facility] [address] [address] [address] Dillon Pepe Platelet mean volume (Bld) [Entitic vol] 10.5 fL Normal 9.5-13.5 [facility] Comment on above: Performed By: #### C MP #### [facility] [address] [address] [address] Dillon Peep PLT 331 103/ul Normal 150-450 [facility] Comment on above: Performed By: #### C MP #### [facility] [address] [address] [address] Dillon Pepe RBC 3.79 106/ul Critically low 4.20-5.40 [facility] Comment on above: Performed By: #### C MP #### [facility] [address] [place] [address] Dr. Dillon Pepe WBC 16.8 103/ul Critically high 4.0-11.0 [facility] Comment on above: Performed By: #### C MP #### [facility] [address] [place] [address] Dr. Dillon Pepe CBC AUTO DIFFon 10-19-2021 BASO # 0.0 103/ul Normal 0.0-0.1 [facility] Comment on above: Performed By: #### U MICRO, UACSIND #### [facility] [address] [place] [address] Dr. Dillon Pepe Basophils/100 WBC (Bld) 0.2 % Normal 0.2-2.0 [facility] Comment on above: Performed By: #### U MICRO, UACSIND #### [facility] [address] [place] [address] Dr. Dillon Pepe EO # 0.0 103/ul Normal 0.0-0.7 [facility] Comment on above: Performed By: #### U MICRO, UACSIND #### [facility] [address] [place] [address] Dr. Dillon Pepe Eosinophils/100 WBC (Bld) 0.2 % Critically low 0.9-7.0 [facility] Comment on above: Performed By: #### U MICRO, UACSIND #### [facility] [address] [place] [address] Dr. Dillon Pepe Erythrocyte distribution width (RBC) [Ratio] 13.2 % Normal 11.0-15.0 [facility] Comment on above: Performed By: #### U MICRO, UACSIND #### [facility] [address] [place] [address] Dr. Dillon Pepe Hematocrit (Bld) [Volume fraction] 37.7 % Normal 36.0-48.0 [facility] Comment on above: Performed By: #### U MICRO, UACSIND #### [facility] [address] [address] [address] Dillon Pepe Hemoglobin (Bld) [Mass/Vol] 12.1 g/dL Normal 12.0-16.0 [facility] Comment on above: Performed By: #### U MICRO, UACSIND #### [facility] [address] [address] [address] Dillon Pepe IG # 0.09 10e3/ul Critically high 0.00-0.03 [facility] Comment on above: Performed By: #### U MICRO, UACSIND #### [facility] [address] [place] [address] Dr. Dillon Pepe IG % 0.5 % Normal 0.0-0.5 [facility] Comment on above: Performed By: #### U MICRO, UACSIND #### [facility] [address] [address] [address] Dillon Pepe LYMPH # 0.9 103/ul Critically low 1.2-3.8 [facility] Comment on above: Performed By: #### U MICRO, UACSIND #### [facility] [address] [place] [address] Dr. Dillon Pepe Lymphocytes/100 WBC (Bld) 4.9 % Critically low 20.5-60.0 [facility] Comment on above: Performed By: #### U MICRO, UACSIND #### [facility] [address] [address] [address] Dillon Pepe MANUAL DIFF REQ NO Normal [facility] Comment on above: Performed By: #### U MICRO, UACSIND #### [facility] [address] [address] [address] Dillon Pepe MCH (RBC) [Entitic mass] 27.6 pg Normal 26.7-34.0 [facility] Comment on above: Performed By: #### U MICRO, UACSIND #### [facility] [address] [place] [address] Dr. Dillon Pepe MCHC (RBC) [Mass/Vol] 32.1 g/dL Normal 29.9-35.2 [facility] Comment on above: Performed By: #### U MICRO, UACSIND #### [facility] [address] [address] [address] Dillon Pepe MCV (RBC) [Entitic vol] 85.9 fL Normal 81.0-99.0 [facility] Comment on above: Performed By: #### U MICRO, UACSIND #### [facility] [address] [address] [address] Dillon Pepe MONO # 1.1 103/ul Critically high 0.3-0.8 [facility] Comment on above: Performed By: #### U MICRO, UACSIND #### [facility] [address] [place] [address] Dr. Dillon Pepe Monocytes/100 WBC (Bld) 5.8 % Normal 1.7-12.0 [facility] Comment on above: Performed By: #### U MICRO, UACSIND #### [facility] [address] [place] [address] Dr. Dillon Pepe NEUT # 16.4 103/ul Critically high 1.4-6.5 [facility] Comment on above: Performed By: #### U MICRO, UACSIND #### [facility] [address] [place] [address] Dr. Dillon Pepe Neutrophils/100 WBC (Bld) 88.4 % Critically high 43.0-75.0 [facility] Comment on above: Performed By: #### U MICRO, UACSIND #### [facility] [address] [place] [address] Dr. Dillon Pepe Platelet mean volume (Bld) [Entitic vol] 10.4 fL Normal 9.5-13.5 [facility] Comment on above: Performed By: #### U MICRO, UACSIND #### [facility] [address] [place] [address] Dr. Dillon Pepe PLT 357 103/ul Normal 150-450 [facility] Comment on above: Performed By: #### U MICRO, UACSIND #### [facility] [address] [address] [address] Dillon Pepe RBC 4.39 106/ul Normal 4.20-5.40 [facility] Comment on above: Performed By: #### U MICRO, UACSIND #### [facility] [address] [address] [address] Dillon Pepe WBC 18.5 103/ul Critically high 4.0-11.0 [facility] Comment on above: Performed By: #### U MICRO, UACSIND #### [facility] [address] [address] [address] Dillon Pepe Covid-19 PCR ([facility])on 09-23 SARS-CoV-2 (COVID-19) RNA ERIK+probe Ql (Unsp spec) Not detected Normal NOT DETECTED [facility] Comment on above: Result Comment: When diagnostic testing is negative, the possibility of a false negative should be considered in the context of a patient's recent exposures and the presence of clinical signs and symptoms consistent with SARS-CoV-2. This test is not yet approved or cleared by the [place] FDA. When there are no FDA-approved or cleared tests available, and other criteria are met, FDA can make tests available under an emergency access mechanism called an Emergency Use Authorization (EUA). The EUA for this test is supported by the [employer] of Health and Human Service's declaration that circumstances exist to justify the emergency use of in vitro diagnostics for the detection and/or diagnosis of the virus that causes COVID-19. This EUA will remain in effect for the duration of the COVID-19 declaration justifying emergency of IVDs, unless it is terminated or revoked by the FDA (after which the test may no longer be used). Performed By: #### U MICRO, UACSIND #### [facility] [address] [place] [address] Dr. Dillon Pepe DRUG SCREEN RAPID (URINE)on 10-19-2021 AMP Negative Normal NEGATIVE [facility] Comment on above: Performed By: #### D RUGRPD #### [facility] [address] [address] [address] Dillon Pepe BAR Negative Normal NEGATIVE [facility] Comment on above: Performed By: #### D RUGRPD #### [facility] [address] [place] [address] Dr. Dillon Pepe BUP Negative Normal NEGATIVE [facility] Comment on above: Performed By: #### D RUGRPD #### [facility] [address] [place] [address] Dr. Dillon Pepe BZO Negative Normal NEGATIVE [facility] Comment on above: Performed By: #### D RUGRPD #### [facility] [address] [place] [address] Dr. Dillon Pepe CECILIA Negative Normal NEGATIVE [facility] Comment on above: Performed By: #### D RUGRPD #### [facility] [address] [place] [address] Dr. Dillon Pepe CUT-OFFS SEE BELOW Normal [facility] Comment on above: Result Comment: AMP (Amphetamine): 500ng/mL, BAR (Barbituates): 200 ng/mL, BZO (Benzodiazepines): 150 ng/mL, BUP (Buprenorphine): 10 ng/mL, CECILIA (Cocaine): 150 ng/mL, mAMP (Methamphetamine): 500 ng/mL, MTD (Methadone): 200 ng/mL, OPI (Opiates): 100 ng/mL, OXY (Oxycodone): 100 ng/mL, PCP (Phencyclidine): 25 ng/mL, PPX (Propoxyphene): 300 ng/mL, THC (Cannabinoids): 50 ng/mL, TCA (Trycyclic Antidepressants): 300 ng/mL Performed By: #### D RUGRPD #### [facility] [address] [place] [address] Dr. Dillon Pepe DRUG CUT HEADER DRUG CLASS TEST SYSTEM CUT-OFF CONCENTRATIONS ARE FOLLOWS: Normal [facility] Comment on above: Performed By: #### D RUGRPD #### [facility] [address] [place] [address] Dr. Dillon Pepe mAMP Negative Normal NEGATIVE [facility] Comment on above: Performed By: #### D RUGRPD #### [facility] [address] [place] [address] Dr. Dillon Pepe MTD Negative Normal NEGATIVE [facility] Comment on above: Performed By: #### D RUGRPD #### [facility] [address] [place] [address] Dr. Dillon ePpe OPI Negative Normal NEGATIVE [facility] Comment on above: Performed By: #### D RUGRPD #### [facility] [address] [place] [address] Dr. Dillon Pepe OXY Negative Normal NEGATIVE [facility] Comment on above: Performed By: #### D RUGRPD #### [facility] [address] [place] [address] Dr. Dillon Pepe PCP Negative Normal NEGATIVE [facility] Comment on above: Performed By: #### D RUGRPD #### [facility] [address] [place] [address] Dr. Dillon Pepe PPX Negative Normal NEGATIVE [facility] Comment on above: Performed By: #### D RUGRPD #### [facility] [address] [place] [address] Dr. Dillon Pepe TCA Negative Normal NEGATIVE [facility] Comment on above: Performed By: #### D RUGRPD #### [facility] [address] [place] [address] Dr. Dillon Pepe THC Positive Abnormal NEGATIVE [facility] Comment on above: Performed By: #### D RUGRPD #### [facility] [address] [place] [address] Dr. Dillon Pepe TYPE AND SCREENon 10-19-2021 TYPE AND SCREEN Negative Normal [facility] Comment on above: Performed By: #### C MP #### [facility] [address] [place] [address] Dr. Dillon Pepe GROUP B STREP CULTUREon S. agalactiae Ag Ql (Unsp spec) Culture Observations: NEGATIVE FOR GROUP B STREPTOCOCCUS. Normal [facility] Comment on above: Performed By: #### G BSCX #### [facility] [address] [place] [address] Dr. Dillon Pepe US PREG GROWTHon 09-09-2021 US PREG GROWTH EXAMINATION: US PREG GROWTH HISTORY: Large for gestation age fetus COMPARISON: Ultrasound anatomy 05/31/2021 FINDINGS: Heart Rate: 153.0 bpm Number: 1.0 Position: CEPHALIC Amniotic Fluid Volume: 13.8 cm Maximum Vertical Pocket: 6.2 cm BIOMETRY: BPD: 8.5 cm cm; 34 weeks 2 days HC: 30.0 cmcm; 33 weeks 2 days AC: 28.9 cm cm; 32 weeks 6 days FL: 6.4 cm cm; 33 weeks 1 days EFW: 2124.6 grams; 33% FL/AC: 22.2 FL/BPD: 75.4 HC/AC: 1.0 GESTATIONAL AGE: Age by EDC: 33 weeks 3 days MIGUEL by EDC: 10/24/2021 Age by US: 33 weeks, 3 days MIGUEL by US: 10/24/2021 IMPRESSION: 1. Single live intrauterine with growth detailed above. Electronically authenticated by: ELLEN CORBETT Date: 2021-09-08 22:28 Normal [facility] GLYCOHEMOGLOBIN A1Con 2021 ADA RECOMMENDATION SEE BELOW Normal [facility] Comment on above: Result Comment: ADA RECOMMENDED LIMIT 4.0 - 6.0 ADA THERAPEUTIC TARGET < 7.0 ACTION SUGGESTED > 7.0 Performed By: #### C MP #### [facility] [address] [place] [address] Dr. Dillon Pepe Glucose [Mass/Vol] 105 mg/dL Normal [facility] Comment on above: Performed By: #### C MP #### [facility] [address] [address] [address] Dillon Pepe HbA1c (Bld) [Mass fraction] 5.3 % Normal 4.5-6.2 [facility] Comment on above: Performed By: #### C MP #### [facility] [address] [place] [address] Dr. Dillon Pepe HEMOGRAM AND PLATELon 2021 Hematocrit (Bld) [Volume fraction] 34.1 % Critically low 36.0-48.0 [facility] Comment on above: Performed By: #### U MICRO, UACSIND #### [facility] [address] [address] [address] Dillon Pepe Hemoglobin (Bld) [Mass/Vol] 11.4 g/dL Critically low 12.0-16.0 [facility] Comment on above: Performed By: #### U MICRO, UACSIND #### [facility] [address] [address] [address] Dillon Pepe MCH (RBC) [Entitic mass] 29.4 pg Normal 26.7-34.0 [facility] Comment on above: Performed By: #### U MICRO, UACSIND #### [facility] [address] [address] [address] Dillon Pepe MCHC (RBC) [Mass/Vol] 33.4 g/dL Normal 29.9-35.2 [facility] Comment on above: Performed By: #### U MICRO, UACSIND #### [facility] [address] [place] [address] Dr. iDllon Pepe MCV (RBC) [Entitic vol] 87.9 fL Normal 81.0-99.0 [facility] Comment on above: Performed By: #### U MICRO, UACSIND #### [facility] [address] [address] [address] Dillon Pepe PLT 398 103/ul Normal 150-450 [facility] Comment on above: Performed By: #### U MICRO, UACSIND #### [facility] [address] [address] [address] Dillon Pepe RBC 3.88 106/ul Critically low 4.20-5.40 [facility] Comment on above: Performed By: #### U MICRO, UACSIND #### [facility] [address] [address] [address] Dillon Pepe WBC 17.3 103/ul Critically high 4.0-11.0 [facility] Comment on above: Performed By: #### U MICRO, UACSIND #### [facility] [address] [place] [address] Dr. Dillon Pepe RHOGAMon 08-07-2021 RHOGAM Status Information Issued Quantity 1 Product ID Rh Immune Globulin Lot Number [id number] Issue Date/Time [id number] Normal [facility] Comment on above: Performed By: #### C MP #### [facility] [address] [address] [address] Dillon Pepe TYPE AND SCREENon 08-07-2021 TYPE AND SCREEN Negative Normal [facility] Comment on above: Performed By: #### T NS #### [facility] [address] [address] [address] Dillon Pepe CHEMISTRYOrdered By: Ran Armstrong on 08-06-2021 HbA1c (Bld) [Mass fraction] 5.1 % Normal <=5.9% [facility] HEMATOLOGYOrdered By: Elayne Chowdhury on 08-06-2021 Erythrocyte distribution width (RBC) [Ratio] 13.0 % Normal 10.9 - 14.2 % [facility] Hematocrit (Bld) [Volume fraction] 34.0 % Normal 34.0 - 46.0 % [facility] Hemoglobin (Bld) [Mass/Vol] 11.7 g/dL Low 12.0 - 16.0 gm/dL [facility] MCH (RBC) [Entitic mass] 29.2 pg Normal 27.0 - 34.0 pg [facility] MCHC (RBC) [Mass/Vol] 34.2 g/dL Normal 31.4 - 36.0 gm/dL [facility] MCV (RBC) [Entitic vol] 85.2 fL Normal 80.0 - 100.0 fL [facility] Platelet mean volume (Bld) [Entitic vol] 8.3 fL Normal 6.4 - 10.8 fL [facility] Platelets (Bld) [#/Vol] 390.0 E9/L Normal 150.0 - 500.0 E9/L [facility] RBC (Bld) [#/Vol] 4.0 E12/L Low 4.3 - 5.9 E12/L [facility] WBC corrected for nucl RBC Auto (Bld) [#/Vol] 16.6 E9/L High 4.0 - 11.0 E9/L [facility] PROF CHEM 8 (BAS METB)on Anion gap [Moles/Vol] 16.6 mmol/L Normal [facility] Comment on above: Performed By: #### C MP #### [facility] [address] [place] [address] Dr. Dillon Pepe Calcium [Mass/Vol] 8.4 mg/dL Critically low 8.5-10.1 [facility] Comment on above: Performed By: #### C MP #### [facility] [address] [place] [address] Dr. Dillon Pepe Chloride [Moles/Vol] 99 mmol/L Normal 98-107 [facility] Comment on above: Performed By: #### C MP #### [facility] [address] [place] [address] Dr. Dillon Pepe CO2 [Moles/Vol] 19.9 mmol/L Critically low 21.0-32.0 [facility] Comment on above: Performed By: #### C MP #### [facility] [address] [place] [address] Dr. Dillon Pepe Creatinine [Mass/Vol] 0.32 mg/dL Critically low 0.55-1.02 [facility] Comment on above: Performed By: #### C MP #### [facility] [address] [place] [address] Dr. Dillon Pepe EGFR-AF RUSSIAN >60 Normal >=60 [facility] Comment on above: Performed By: #### C MP #### [facility] [address] [place] [address] Dr. Dillon Pepe EGFR-NON AF RUSSIAN >60 Normal >=60 [facility] Comment on above: Performed By: #### C MP #### [facility] [address] [place] [address] Dr. Dillon Pepe Glucose [Mass/Vol] 97 mg/dL Normal 74-106 [facility] Comment on above: Performed By: #### C MP #### [facility] [address] [place] [address] Dr. Dillon Pepe Potassium [Moles/Vol] 3.5 mmol/L Normal 3.5-5.1 [facility] Comment on above: Performed By: #### C MP #### [facility] [address] [address] [address] Dillon Pepe Sodium [Moles/Vol] 132 mmol/L Critically low 136-145 [facility] Comment on above: Performed By: #### C MP #### [facility] [address] [address] [address] Dillon Pepe Urea nitrogen [Mass/Vol] 4.0 mg/dL Critically low 7.0-18.0 [facility] Comment on above: Performed By: #### C MP #### [facility] [address] [address] [address] Dillon Pepe Urea nitrogen/Creatinine [Mass ratio] 12.5 mg/mg Normal [facility] Comment on above: Performed By: #### C MP #### [facility] [address] [place] [address] Dr. Dillon Pepe PROF CHEM 8 (BAS METB)on Anion gap [Moles/Vol] 16.6 mmol/L Normal [facility] Comment on above: Performed By: #### B MP #### [facility] [address] [place] [address] Dr. Dillon Pepe Calcium [Mass/Vol] 8.3 mg/dL Critically low 8.5-10.1 [facility] Comment on above: Performed By: #### B MP #### [facility] [address] [place] [address] Dr. Dillon Pepe Chloride [Moles/Vol] 99 mmol/L Normal 98-107 [facility] Comment on above: Performed By: #### B MP #### [facility] [address] [address] [address] Dillon Pepe CO2 [Moles/Vol] 20.4 mmol/L Critically low 21.0-32.0 [facility] Comment on above: Performed By: #### B MP #### [facility] [address] [place] [address] Dr. Dillon Pepe Creatinine [Mass/Vol] 0.34 mg/dL Critically low 0.55-1.02 [facility] Comment on above: Performed By: #### B MP #### [facility] [address] [address] [address] Dillon Pepe EGFR-AF RUSSIAN >60 Normal >=60 [facility] Comment on above: Performed By: #### B MP #### [facility] [address] [address] [address] Dillon Pepe EGFR-NON AF RUSSIAN >60 Normal >=60 [facility] Comment on above: Performed By: #### B MP #### [facility] [address] [address] [address] Dillon Pepe Glucose [Mass/Vol] 94 mg/dL Normal 74-106 [facility] Comment on above: Performed By: #### B MP #### [facility] [address] [address] [address] Dillon Pepe Potassium [Moles/Vol] 3.0 mmol/L Critically low 3.5-5.1 [facility] Comment on above: Performed By: #### B MP #### [facility] [address] [address] [address] Dillon Pepe Sodium [Moles/Vol] 133 mmol/L Critically low 136-145 [facility] Comment on above: Performed By: #### B MP #### [facility] [address] [address] [address] Dillon Pepe Urea nitrogen [Mass/Vol] 4.0 mg/dL Critically low 7.0-18.0 [facility] Comment on above: Performed By: #### B MP #### [facility] [address] [address] [address] Dillon Pepe Urea nitrogen/Creatinine [Mass ratio] 11.8 mg/mg Normal [facility] Comment on above: Performed By: #### B MP #### [facility] [address] [address] [address] Dillon Pepe Anion gap [Moles/Vol] 17.7 mmol/L Normal [facility] Comment on above: Performed By: #### B MP #### [facility] [address] [address] [address] Dillon Pepe Calcium [Mass/Vol] 8.6 mg/dL Normal 8.5-10.1 [facility] Comment on above: Performed By: #### B MP #### [facility] [address] [address] [address] Dillon Pepe Chloride [Moles/Vol] 96 mmol/L Critically low 98-107 [facility] Comment on above: Performed By: #### B MP #### [facility] [address] [address] [address] Dillon Pepe CO2 [Moles/Vol] 22.4 mmol/L Normal 21.0-32.0 [facility] Comment on above: Performed By: #### B MP #### [facility] [address] [place] [address] Dr. Dillon Pepe Creatinine [Mass/Vol] 0.54 mg/dL Critically low 0.55-1.02 [facility] Comment on above: Performed By: #### B MP #### [facility] [address] [address] [address] Dillon Pepe EGFR-AF RUSSIAN >60 Normal >=60 [facility] Comment on above: Performed By: #### B MP #### [facility] [address] [place] [address] Dr. Dillon Pepe EGFR-NON AF RUSSIAN >60 Normal >=60 [facility] Comment on above: Performed By: #### B MP #### [facility] [address] [address] [address] Dillon Pepe Glucose [Mass/Vol] 116 mg/dL Critically high 74-106 [facility] Comment on above: Performed By: #### B MP #### [facility] [address] [address] [address] Dillon Pepe Potassium [Moles/Vol] 3.1 mmol/L Critically low 3.5-5.1 [facility] Comment on above: Performed By: #### B MP #### [facility] [address] [place] [address] Dr. Dillon Pepe Sodium [Moles/Vol] 133 mmol/L Critically low 136-145 [facility] Comment on above: Performed By: #### B MP #### [facility] [address] [place] [address] Dr. Dillon Pepe Urea nitrogen [Mass/Vol] 6.0 mg/dL Critically low 7.0-18.0 [facility] Comment on above: Performed By: #### B MP #### [facility] [address] [place] [address] Dr. Dillon Pepe Urea nitrogen/Creatinine [Mass ratio] 11.1 mg/mg Normal [facility] Comment on above: Performed By: #### B MP #### [facility] [address] [place] [address] Dr. Dillon Pepe UA (CLEAN/CATCH) CREATIVE SERVICES DESIGNER/MICRO I F IND.on 06-22-2021 Bilirubin Ql (U) Negative Normal NEGATIVE [facility] Comment on above: Performed By: #### U MICRO, UACSIND #### [facility] [address] [place] [address] Dr. Dillon Pepe Clarity (U) CLEAR Normal CLEAR [facility] Comment on above: Performed By: #### U MICRO, UACSIND #### [facility] [address] [place] [address] Dr. Dillon Pepe Color (U) YELLOW Normal YELLOW [facility] Comment on above: Performed By: #### U MICRO, UACSIND #### [facility] [address] [place] [address] Dr. Dillon Pepe Glucose Ql (U) Negative Normal NEGATIVE [facility] Comment on above: Performed By: #### U MICRO, UACSIND #### [facility] [address] [place] [address] Dr. Dillon Pepe Hemoglobin Ql (U) Negative Normal NEGATIVE [facility] Comment on above: Performed By: #### U MICRO, UACSIND #### [facility] [address] [place] [address] Dr. Dillon Pepe Ketones Ql (U) >=80 Abnormal NEGATIVE [facility] Comment on above: Performed By: #### U MICRO, UACSIND #### [facility] [address] [address] [address] Dillon Pepe LEUKOCYTES Negative Normal NEGATIVE [facility] Comment on above: Performed By: #### U MICRO, UACSIND #### [facility] [address] [address] [address] Dillon Pepe Nitrite Ql (U) Negative Normal NEGATIVE [facility] Comment on above: Performed By: #### U MICRO, UACSIND #### [facility] [address] [place] [address] Dr. Dillon Pepe pH (U) 6.0 [pH] Normal 5-9 [facility] Comment on above: Performed By: #### U MICRO, UACSIND #### [facility] [address] [place] [address] Dr. Dillon Pepe SPEC GRAVITY >=1.030 Abnormal 1.005-<=1.025 [facility] Comment on above: Performed By: #### U MICRO, UACSIND #### [facility] [address] [place] [address] Dr. Dillon Pepe UA PROTEIN 30 mg/dl Abnormal NEGATIVE/ TRACE [facility] Comment on above: Performed By: #### U MICRO, UACSIND #### [facility] [address] [place] [address] Dr. Dillon Pepe UR MICRO IND INDICATED Normal [facility] Comment on above: Performed By: #### U MICRO, UACSIND #### [facility] [address] [address] [address] Dillon Pepe Urobilinogen Qn (U) 0.2 {Elio'U}/dL Normal 0.2 - 1. 0 [facility] Comment on above: Performed By: #### U MICRO, UACSIND #### [facility] [address] [place] [address] Dr. Dillon Pepe URINE MICROSCOPIC ONLYon BACTERIA NONE SEEN Normal NONE SEEN [facility] Comment on above: Performed By: #### U MICRO, UACSIND #### [facility] [address] [place] [address] Dr. Dillon Pepe Bacteria identified Cx Nom (U) NOT INDICATED Normal [facility] Comment on above: Performed By: #### U MICRO, UACSIND #### [facility] [address] [place] [address] Dr. Dillon Pepe CAST NONE SEEN Normal NONE SEEN [facility] Comment on above: Performed By: #### U MICRO, UACSIND #### [facility] [address] [place] [address] Dr. Dillon Pepe Crystals LM Nom (Urine sed) NONE SEEN Normal NONE SEEN [facility] Comment on above: Performed By: #### U MICRO, UACSIND #### [facility] [address] [place] [address] Dr. Dillon Pepe Epithelial cells LM Ql (Urine sed) RARE Normal NONE SEEN /RARE [facility] Comment on above: Performed By: #### U MICRO, UACSIND #### [facility] [address] [place] [address] Dr. Dillon Pepe MUCOUS MODERATE Abnormal NONE SEEN [facility] Comment on above: Performed By: #### U MICRO, UACSIND #### [facility] [address] [place] [address] Dr. Dillon Pepe RBC NONE SEEN Abnormal 0-2 [facility] Comment on above: Performed By: #### U MICRO, UACSIND #### [facility] [address] [place] [address] Dr. Dillon Pepe WBC 0-2 Abnormal NONE SEEN [facility] Comment on above: Performed By: #### U MICRO, UACSIND #### [facility] [address] [place] [address] Dr. Dillon Pepe AMNISUREon 05-31-2021 AMNISURE Negative Normal NEGATIVE [facility] Comment on above: Performed By: #### A MNI #### [facility] [address] [place] [address] Dr. Dillon Pepe CBC AUTO DIFFon 05-31-2021 BASO # 0.0 103/ul Normal 0.0-0.1 [facility] Comment on above: Performed By: #### C BC #### [facility] [address] [address] [address] Dillon Pepe Basophils/100 WBC (Bld) 0.2 % Normal 0.2-2.0 [facility] Comment on above: Performed By: #### C BC #### [facility] [address] [place] [address] Dr. Dillon Pepe EO # 0.0 103/ul Normal 0.0-0.7 [facility] Comment on above: Performed By: #### C BC #### [facility] [address] [place] [address] Dr. Dillon Pepe Eosinophils/100 WBC (Bld) 0.0 % Critically low 0.9-7.0 [facility] Comment on above: Performed By: #### C BC #### [facility] [address] [place] [address] Dr. Dillon Pepe Erythrocyte distribution width (RBC) [Ratio] 12.5 % Normal 11.0-15.0 [facility] Comment on above: Performed By: #### C BC #### [facility] [address] [place] [address] Dr. Dillon Pepe Hematocrit (Bld) [Volume fraction] 38.2 % Normal 36.0-48.0 [facility] Comment on above: Performed By: #### C BC #### [facility] [address] [place] [address] Dr. Dillon Pepe Hemoglobin (Bld) [Mass/Vol] 13.2 g/dL Normal 12.0-16.0 [facility] Comment on above: Performed By: #### C BC #### [facility] [address] [place] [address] Dr. Dillon Pepe IG # 0.16 10e3/ul Critically high 0.00-0.03 [facility] Comment on above: Performed By: #### C BC #### [facility] [address] [place] [address] Dr. Dillon Pepe IG % 0.8 % Critically high 0.0-0.5 [facility] Comment on above: Performed By: #### C BC #### [facility] [address] [place] [address] Dr. Dillon Pepe LYMPH # 1.6 103/ul Normal 1.2-3.8 [facility] Comment on above: Performed By: #### C BC #### [facility] [address] [place] [address] Dr. Dillon Pepe Lymphocytes/100 WBC (Bld) 7.6 % Critically low 20.5-60.0 [facility] Comment on above: Performed By: #### C BC #### [facility] [address] [place] [address] Dr. Dillon Pepe MANUAL DIFF REQ NO Normal [facility] Comment on above: Performed By: #### C BC #### [facility] [address] [place] [address] Dr. Dillon Pepe MCH (RBC) [Entitic mass] 30.1 pg Normal 26.7-34.0 [facility] Comment on above: Performed By: #### C BC #### [facility] [address] [place] [address] Dr. Dillon Pepe MCHC (RBC) [Mass/Vol] 34.6 g/dL Normal 29.9-35.2 [facility] Comment on above: Performed By: #### C BC #### [facility] [address] [place] [address] Dr. Dillon Pepe MCV (RBC) [Entitic vol] 87.2 fL Normal 81.0-99.0 [facility] Comment on above: Performed By: #### C BC #### [facility] [address] [place] [address] Dr. Dillon Pepe MONO # 1.0 103/ul Critically high 0.3-0.8 [facility] Comment on above: Performed By: #### C BC #### [facility] [address] [place] [address] Dr. Dillon Pepe Monocytes/100 WBC (Bld) 4.6 % Normal 1.7-12.0 [facility] Comment on above: Performed By: #### C BC #### [facility] [address] [place] [address] Dr. Dillon Pepe NEUT # 18.4 103/ul Critically high 1.4-6.5 [facility] Comment on above: Performed By: #### C BC #### [facility] [address] [place] [address] Dr. Dillon Pepe Neutrophils/100 WBC (Bld) 86.8 % Critically high 43.0-75.0 [facility] Comment on above: Performed By: #### C BC #### [facility] [address] [place] [address] Dr. Dillon Pepe Platelet mean volume (Bld) [Entitic vol] 10.1 fL Normal 9.5-13.5 [facility] Comment on above: Performed By: #### C BC #### [facility] [address] [place] [address] Dr. Dillon Pepe PLT 402 103/ul Normal 150-450 [facility] Comment on above: Performed By: #### C BC #### [facility] [address] [place] [address] Dr. Dillon Pepe RBC 4.38 106/ul Normal 4.20-5.40 [facility] Comment on above: Performed By: #### C BC #### [facility] [address] [place] [address] Dr. Dillon Pepe WBC 21.2 103/ul Critically high 4.0-11.0 [facility] Comment on above: Performed By: #### C BC #### [facility] [address] [place] [address] Dr. Dillon Pepe CULTURE URINEon 05-31-2021 CULTURE URINE Culture Observations: MODERATE GROWTH OF MIXED GENITAL BLAIR. NO POTENTIAL PATHOGENS SEEN. Normal [facility] Comment on above: Performed By: #### C MP #### [facility] [address] [place] [address] Dr. Dillon Pepe [facility]on SARS-CoV-2 (COVID-19) RNA ERIK+probe Ql (Unsp spec) Not detected Normal NOT DETECTED [facility] Comment on above: Result Comment: This test is not yet approved or cleared by the [place] FDA. When there are no FDA-approved or cleared tests available, and other criteria are met, FDA can make tests available under an emergency access mechanism called an Emergency Use Authorization (EUA). The EUA for this test is supported by the [place] of Health and Human Service's (HHS's) declaration that circumstances exist to justify the emergency use of in vitro diagnostics for the detection and/or diagnosis of the virus that causes COVID-19. This EUA will remain in effect (meaning this test can be used) for the duration of the COVID-19 declaration justifying emergency of IVDs, unless it is terminated or revoked by FDA (after which the test may no longer be used). When diagnostic testing is negative, the possibility of a false negative should be considered in the context of a patient's recent exposures and the presence of clinical signs and symptoms consistent with SARS-CoV-2. Performed By: #### U MICRO, UACSIND #### [facility] [address] [place] [address] Dr. Dillon Pepe ER URINE PROFILEon 2 Bilirubin Ql (U) SMALL Abnormal NEGATIVE [facility] Comment on above: Performed By: #### C MP #### [facility] [address] [place] [address] Dr. Dillon Pepe Clarity (U) CLEAR Normal CLEAR [facility] Comment on above: Performed By: #### C MP #### [facility] [address] [place] [address] Dr. Dillon Pepe Color (U) YELLOW Normal YELLOW [facility] Comment on above: Performed By: #### C MP #### [facility] [address] [place] [address] Dr. Dillon Pepe ERUAHD A micrscopic examination will be performed if indicated. Normal [facility] Comment on above: Performed By: #### C MP #### [facility] [address] [place] [address] Dr. Dillon Pepe Glucose Ql (U) Negative Normal NEGATIVE [facility] Comment on above: Performed By: #### C MP #### [facility] [address] [address] [address] Dillon Pepe Hemoglobin Ql (U) Negative Normal NEGATIVE [facility] Comment on above: Performed By: #### C MP #### [facility] [address] [place] [address] Dr. Dillon Pepe Ketones Ql (U) >=80 Abnormal NEGATIVE [facility] Comment on above: Performed By: #### C MP #### [facility] [address] [address] [address] Dillon Pepe LEUKOCYTES Negative Normal NEGATIVE [facility] Comment on above: Performed By: #### C MP #### [facility] [address] [place] [address] Dr. Dillon Pepe Nitrite Ql (U) Negative Normal NEGATIVE [facility] Comment on above: Performed By: #### C MP #### [facility] [address] [place] [address] Dr. Dillon Pepe pH (U) 6.0 [pH] Normal 5-9 [facility] Comment on above: Performed By: #### C MP #### [facility] [address] [place] [address] Dr. Dillon Pepe Protein (U) [Mass/Vol] 30 mg/dL Abnormal NEGAT LENORE/ TRACE [facility] Comment on above: Performed By: #### C MP #### [facility] [address] [place] [address] Dr. Dillon Pepe SPEC GRAVITY >=1.030 Abnormal 1.005-<=1.025 [facility] Comment on above: Performed By: #### C MP #### [facility] [address] [place] [address] Dr. Dillon Pepe UR MICRO IND INDICATED Normal [facility] Comment on above: Performed By: #### C MP #### [facility] [address] [place] [address] Dr. Dillon Pepe Urobilinogen Qn (U) 1.0 {Elio'U}/dL Normal 0.2 - 1. 0 [facility] Comment on above: Performed By: #### C MP #### [facility] [address] [address] [address] Dillon Pepe PROF 14(COMP METB)on 022 Albumin [Mass/Vol] 3.5 g/dL Normal 3.4-5.0 [facility] Comment on above: Performed By: #### C MP #### [facility] [address] [address] [address] Dillon Pepe Albumin/Globulin [Mass ratio] 0.8 {ratio} Normal [facility] Comment on above: Performed By: #### C MP #### [facility] [address] [place] [address] Dr. Dillon Pepe ALP [Catalytic activity/Vol] 84 U/L Normal 46-116 [facility] Comment on above: Performed By: #### C MP #### [facility] [address] [place] [address] Dr. Dillon Pepe ALT [Catalytic activity/Vol] 17 U/L Normal 14-59 [facility] Comment on above: Performed By: #### C MP #### [facility] [address] [place] [address] Dr. Dillon Pepe Anion gap [Moles/Vol] 19.2 mmol/L Normal [facility] Comment on above: Performed By: #### C MP #### [facility] [address] [place] [address] Dr. Dillon Pepe AST [Catalytic activity/Vol] 10 U/L Critically low 15-37 [facility] Comment on above: Performed By: #### C MP #### [facility] [address] [place] [address] Dr. Dillon Pepe Bilirubin [Mass/Vol] 0.6 mg/dL Normal 0.2-1.3 [facility] Comment on above: Performed By: #### C MP #### [facility] [address] [place] [address] Dr. Dillon Pepe Calcium [Mass/Vol] 9.3 mg/dL Normal 8.5-10.1 [facility] Comment on above: Performed By: #### C MP #### [facility] [address] [address] [address] Dillon Pepe Chloride [Moles/Vol] 98 mmol/L Normal 98-107 [facility] Comment on above: Performed By: #### C MP #### [facility] [address] [address] [address] Dillon Pepe CO2 [Moles/Vol] 20.7 mmol/L Critically low 22.0-30.0 [facility] Comment on above: Performed By: #### C MP #### [facility] [address] [place] [address] Dr. Dillon Pepe Creatinine [Mass/Vol] 0.51 mg/dL Critically low 0.52-1.04 [facility] Comment on above: Performed By: #### C MP #### [facility] [address] [place] [address] Dr. Dillon Pepe EGFR-AF RUSSIAN =60 Normal >=60 [facility] Comment on above: Performed By: #### C MP #### [facility] [address] [place] [address] Dr. Dillon Pepe EGFR-NON AF RUSSIAN >60 Normal >=60 [facility] Comment on above: Performed By: #### C MP #### [facility] [address] [place] [address] Dr. Dillon Pepe Globulin (S) [Mass/Vol] 4.5 g/dL Normal [facility] Comment on above: Performed By: #### C MP #### [facility] [address] [place] [address] Dr. Dillon Pepe Glucose [Mass/Vol] 106 mg/dL Normal 74-106 [facility] Comment on above: Performed By: #### C MP #### [facility] [address] [place] [address] Dr. Dillon Pepe Potassium [Moles/Vol] 2.9 mmol/L Critically low 3.4-5.0 [facility] Comment on above: Performed By: #### C MP #### [facility] [address] [place] [address] Dr. Dillon Pepe Protein [Mass/Vol] 8.0 g/dL Normal 6.1-8.2 [facility] Comment on above: Performed By: #### C MP #### [facility] [address] [place] [address] Dr. Dillon Pepe Sodium [Moles/Vol] 136 mmol/L Critically low 137-145 [facility] Comment on above: Performed By: #### C MP #### [facility] [address] [place] [address] Dr. Dillon Pepe Urea nitrogen [Mass/Vol] 7.0 mg/dL Normal 7.0-18.0 [facility] Comment on above: Performed By: #### C MP #### [facility] [address] [place] [address] Dr. Dillon Pepe Urea nitrogen/Creatinine [Mass ratio] 13.7 mg/mg Normal [facility] Comment on above: Performed By: #### C MP #### [facility] [address] [place] [address] Dr. Dillon Pepe URINE MICROSCOPIC ONLYon BACTERIA SMALL Abnormal NONE SEEN [facility] Comment on above: Performed By: #### U MICRO, UACSIND #### [facility] [address] [place] [address] Dr. Dillon Pepe Bacteria identified Cx Nom (U) INDICATED Normal [facility] Comment on above: Performed By: #### U MICRO, UACSIND #### [facility] [address] [place] [address] Dr. Dillon Pepe CAST NONE SEEN Normal NONE SEEN [facility] Comment on above: Performed By: #### U MICRO, UACSIND #### [facility] [address] [place] [address] Dr. Dillon Pepe Crystals LM Nom (Urine sed) NONE SEEN Normal NONE SEEN [facility] Comment on above: Performed By: #### U MICRO, UACSIND #### [facility] [address] [place] [address] Dr. Dillon Pepe Epithelial cells LM Ql (Urine sed) FEW Abnormal NONE SEEN /RARE [facility] Comment on above: Performed By: #### U MICRO, UACSIND #### [facility] [address] [address] [address] Dillon Pepe MUCOUS LARGE Abnormal NONE SEEN [facility] Comment on above: Performed By: #### U MICRO, UACSIND #### [facility] [address] [address] [address] Dillon Pepe RBC NONE SEEN Abnormal 0-2 [facility] Comment on above: Performed By: #### U MICRO, UACSIND #### [facility] [address] [address] [address] Dillon Pepe WBC 0-2 Abnormal NONE SEEN [facility] Comment on above: Performed By: #### U MICRO, UACSIND #### [facility] [address] [address] [address] Dillon Pepe US PREG ANATOMY SINGLEon US PREG ANATOMY SINGLE OBSTETRICAL ULTRASOUND HISTORY: Supervision of normal . COMPARISON: 03/24/2021 TECHNIQUE: Real-time sonography of the fetus was performed. INTERPRETATION: Number: There is a live single intrauterine fetus. Presentation: The fetus is in breech position. Heart Rate: 153 beats per minute with a normal rhythm. Amniotic Fluid: Subjectively normal. Placenta: Normal anterior position with no placenta previa. anatomic survey: The lateral ventricles, cerebellum, posterior fossa looks/nose, orbits, four-chamber heart, outflow tracts, diaphragm, stomach, kidneys, abdominal cord insertion, bladder, umbilical arteries/three-vesse l cord, spine and extremities are visualized on this examination. No obvious suspicious anatomic defects are identified. Gestational Age Assessment: Biparietal Diameter: 4.63 cm 20 w 0 d Head Circumference: 17.26 cm 19 w 6 d Abdominal Circumference: 14.48 cm 19 w 6 d Femur Length: 3.49 cm 21 w 0 d Average gestational age based on current ultrasound: 20 w 1 d corresponding to an MIGUEL of 10/17/2021. There has been appropriate interval growth when compared to the previous exam. Estimated Weight: 344 gm +/- 51 gm, 96 percentile based on clinical dating. Growth assessment: Size is appropriate for dates. The cervical length is 3.4 cm without funneling. IMPRESSION: 1. Size is appropriate for dates. 2. anatomy is visualized as discussed above. No obvious abnormalities are identified. The amniotic fluid volume is visually within normal limits. Electronically authenticated by: CARLO DENNISON Date: 2021-05-31 19:53 Normal [facility] Vital Signs Date Time Vital Sign Value Performing Clinician Vineet pee 12-28-2022 15:50-0500 Blood Pressure Location Tabby Barnett [facility] 12-28-2022 15:50-0500 Body temperature 98.06 [degF] Tabby Barnett [facility] 12-28-2022 15:50-0500 Diastolic blood pressure 72 mm[Hg] Tabby Barnett [facility] 12-28-2022 15:50-0500 Heart rate 110 /min Tabby Barnett [facility] 12-28-2022 15:50-0500 Respiratory rate 18 /min Tabby Barnett [facility] 12-28-2022 15:50-0500 SaO2% (BldA) [Mass fraction] 99 % Tabby Barnett [facility] 12-28-2022 15:50-0500 Systolic blood pressure 124 mm[Hg] Tabby Barnett [facility] 12-21-2022 11:00-0400 Blood Pressure Location Damon BRUNER [facility] 12-21-2022 11:00-0400 Diastolic blood pressure 78 mm[Hg] Damon BRUNER [facility] 12-21-2022 11:00-0400 Heart rate 84 /min Damon BRUNER [facility] 12-21-2022 11:00-0400 Respiratory rate 16 /min Christopher BROWN [facility] 12-21-2022 11:00-0400 SaO2% (BldA) [Mass fraction] 97 % Christopher BROWN [facility] 12-21-2022 11:00-0400 Systolic blood pressure 112 mm[Hg] Christopher BROWN [facility] 10-23-2022 14:47-0400 Blood Pressure Location Christopher BROWN [facility] 10-23-2022 14:47-0400 Diastolic blood pressure 78 mm[Hg] Christopher BROWN [facility] 10-23-2022 14:47-0400 Heart rate 87 /min Christopher BROWN [facility] 10-23-2022 14:47-0400 Respiratory rate 16 /min Christopher BROWN [facility] 10-23-2022 14:47-0400 SaO2% (BldA) [Mass fraction] 98 % Christopher BROWN [facility] 10-23-2022 14:47-0400 Systolic blood pressure 118 mm[Hg] Christopher BROWN [facility] 03-31-2022 17:26-0500 Blood Pressure Location Christopher BROWN [facility] 03-31-2022 17:26-0500 Diastolic blood pressure 74 mm[Hg] Christopher BROWN [facility] 03-31-2022 17:26-0500 Heart rate 85 /min Damon BRUNER [facility] 03-31-2022 17:26-0500 Respiratory rate 20 /min Damon BRUNER [facility] 03-31-2022 17:26-0500 SaO2% (BldA) [Mass fraction] 99 % Damon BRUNER [facility] 03-31-2022 17:26-0500 Systolic blood pressure 122 mm[Hg] Damon BRUNER [facility] Encounters Encounter Date Encounter Type Care Provider Facility Start: 01-28-2023 End: 01-28-2023 ambulatory NEIL ANNEMARIE Not Available Start: 01-22-2023 ambulatory Tabby Barnett [facility] Start: 01-07-2023 End: 01-08-2023 ambulatory Tabby Barnett [facility] Start: 01-07-2023 End: 01-07-2023 Patient encounter procedure Tabby Barnett [facility] Start: 12-28-2022 End: 12-29-2022 ambulatory Tabby Barnett Facility: [place] Start: 12-28-2022 End: 12-28-2022 Patient encounter procedure Tabby Barnett [facility] [place] Start: 12-21-2022 End: 12-22-2022 ambulatory Damon BRUNER [facility]: [facility] Start: 12-21-2022 End: 12-21-2022 Patient encounter procedure Damon BRUNER [facility] [place] Start: 10-23-2022 End: 10-24-2022 ambulatory Damon BRUNER [facility]: [facility] Start: 10-23-2022 End: 10-23-2022 Patient encounter procedure Damon BRUNER [facility] Start: 05-23-2022 End: 05-24-[address] TATY FIELDS . Facility: Start: 05-09-[address] TATY FIELDS . Facili ty:[facility] Start: 05-05-2022 End: 05-06-2022 ambulatory [facility] Facility:[facility] Start: 03-31-2022 End: 04-01-2022 ambulatory [facility] Facility:[facility] Start: 03-31-2022 End: 03-31-2022 Patient encounter procedure Damon BRUNER [facility] Start: 10-19-2021 End: 10-21-2021 Evaluation and management of inpatient DR NATALIE ARTEAGA . Facility: Start: 09-29-2021 End: 09-29-[address] TATY FIELDS . Facility: Start: 09-08-2021 End: 09-09-[address] TATY FIELDS . Facility:[facility] Start: 08-08-[address] NONE LISTED REQUEST Facility: Start: 08-07-2021 End: 08-07-[address] NONE LISTED REQUEST Facility: Start: 08-06-2021 End: 08-06-2021 Patient encounter procedure Taty FIELDS [facility] Start: 07-17-[address] TATY FIELDS . Facili ty:[facility] Start: 06-22-2021 End: 06-23-[address] GARETH SANDS . Facility:[facility] Start: 06-17-[address] TATY FIELDS . Facili ty:[facility] Start: 05-31-2021 End: 06-01-[address] NATALIE ARTEAGA . Facility: Procedures Date Procedure Procedure Detail Performing Clinician Start: 10-20-2021 Delivery of Products of Conception, External Approach DR TATY FIELDS . Start: 10-20-2021 Repair Vulva, Shipping Lead al Approach DR TATY FIELDS . None (qualifier value) Taty FIELDS Immunizations Immunization Date Immunization Notes Care Provider [facility] 10-21-2021 measles, mumps and rubella virus vaccine Liamdamion BRUNER [facility] 01-08-2020 influenza virus vaccine, unspecified formulation Taty FIELDS [facility] NEGATED: Highlighted row has not occurred!12-21-2022 influenza virus vaccine, unspecified formulation Damon BRUNER [facility] [place] NEGATED: Highlighted row has not occurred!12-21-2022 SARS-CoV-2 mRNA (tozinameran 5y-11y) vaccine Damon BRUNER [facility] [place] NEGATED: Highlighted row has not occurred!10-23-2022 SARS-CoV-2 mRNA (tozinameran 5y-11y) vaccine Damon BRUNER [facility] [place] NEGATED: Highlighted row has not occurred!05-05-2022 influenza virus vaccine, unspecified formulation Damon BRUNER [facility] [place] NEGATED: Highlighted row has not occurred!05-05-2022 SARS-CoV-2 mRNA (tozinameran 5y-11y) vaccine Damon BRUNER [facility] [place] NEGATED: Highlighted row has not occurred!03-31-2022 influenza virus vaccine, unspecified formulation Damon BRUNER [facility] NEGATED: Highlighted row has not occurred!02-20-2021 SARS-CoV-2 (COVID-19) Ad26 vaccine, recombinant Taty FIELDS [facility] NEGATED: Highlighted row has not occurred!02-20-2021 influenza virus vaccine, unspecified formulation Taty FIELDS [facility] Payers Date Payer Category Payer Unknown [id number] 2.16.84 [id number] 1996 Unknown [id number] 2.16.84 [id number] 1996 Unknown [id number] 2.16.84 [id number] 1996 Unknown [id number] 2.16.84 [id number] 1996 Unknown [id number] 2.16.84 [id number] 1996 Unknown [id number] 2.16.84 [id number] 1996 Unknown [id number] 2.16.84 0.1.543994.3.579.2.593 1996 Unknown [id number] 2.16.84 [id number] 1996 Unknown [id number] 2.16.84 0.1.752935.3.579.2.593 1996 Unknown [id number] 2.16.84 0.1.497628.3.579.2.593 1996 Unknown [id number] 2.16.84 0.1.037141.3.579.2.593 1996 Unknown [id number] 2.16.84 0.1.777413.3.579.2.593 1996 Unknown [id number] 2.16.8 40.1.520333.3.579.2.727 1996 Unknown [id number] 2.16.8 40.1.521902.3.579.2.727 1996 Unknown [id number] 2.16.8 40.1.636245.3.579.2.727 1996 Unknown [id number] 2.16.8 40.1.209953.3.579.2.727 1996 Unknown [id number] 2.16.8 40.1.573777.3.579.2.727 1996 Unknown [id number] 2.16.8 40.1.613896.3.579.2.727 1996 Unknown [id number] 2.16.8 40.1.023705.3.579.2.727 1996 Unknown [id number] 2.16.840 .[id number] 1958 Medicaid [id number] 1958 Self-pay Social History Date Type Detail Facility Start: 02-20-2021 End: 12-28-2022 Tobacco smoking status Never smoked tobacco (finding) [facility] Sex Assigned At Female [facility] Functional Status Date Assessment Result Facility 12-28-2022 Functional Status N/A [facility] 12-21-2022 Functional Status N/A [facility] 10-23-2022 Functional Status N/A [facility] 03-31-2022 Functional Status N/A [facility] Hospital Discharge instructions 01-03-2023 Note Date & Type Note Facility 01-03-2023 Hospital Discharg e instructions Patient Education 01/03/2023 14:29:32 Pilonidal Cyst Pilonidal Cyst A pilonidal cyst is a fluid-filled sac that forms beneath the skin near the tailbone, at the top of the crease of the buttocks (pilonidal area). If the cyst is not large and not infected, it may not cause any problems. If the cyst becomes irritated or infected, it may get larger and fill with pus. An infected cyst is called an abscess. A pilonidal abscess may cause pain and swelling, and it may need to be drained or removed. What are the causes? The cause of this condition is not always known. In some cases, a hair that grows into your skin (ingrown hair) may be the cause. What increases the risk? You are more likely to get a pilonidal cyst if you: Are male. Have lots of hair near the crease of the buttocks. Are overweight. Have a dimple near the crease of the buttocks. Wear tight clothing. Do not bathe or shower often. Sit for long periods of time. What are the signs or symptoms? Signs and symptoms of a pilonidal cyst may include pain, swelling, redness, and warmth in the pilonidal area. Depending on how big the cyst is, you may be able to feel a lump near your tailbone. If your cyst becomes infected, symptoms may include: Pus or fluid drainage. Fever. Pain, swelling, and redness getting worse. The lump getting bigger. How is this diagnosed? This condition may be diagnosed based on: Your symptoms and medical history. A physical exam. A blood test to check for infection. Testing a pus sample, if applicable. How is this treated? If your cyst does not cause symptoms, you may not need any treatment. If your cyst bothers you or is infected, you may need a procedure to drain or remove the cyst. Depending on the size, location, and severity of your cyst, your health care provider may: Make an incision in the cyst and drain it (incision and drainage). Open and drain the cyst, and then stitch the wound so that it stays open while it heals (marsupialization). You will be given instructions about how to care for your open wound while it heals. Remove all or part of the cyst, and then close the wound (cyst removal). You may need to take antibiotic medicines before your procedure. Follow these instructions at home: Medicines Take gwux-gtn-xnoipev and prescription medicines only as told by your health care provider. If you were prescribed an antibiotic medicine, take it as told by your health care provider. Do not stop taking the antibiotic even if you start to feel better. General instructions Keep the area around your pilonidal cyst clean and dry. If there is fluid or pus draining from your cyst: ?Cover the area with a clean bandage (dressing) as needed. ?Wash the area gently with soap and water. Pat the area dry with a clean towel. Do not rub the area because that may cause bleeding. Remove hair from the area around the cyst only if your health care provider tells you to do this. Do not wear tight pants or sit in one position for long periods at a time. Keep all follow-up visits as told by your health care provider. This is important. Contact a health care provider if you have: New redness, swelling, or pain. A fever. Severe pain. Summary A pilonidal cyst is a fluid-filled sac that forms beneath the skin near the tailbone, at the top of the crease of the buttocks (pilonidal area). If the cyst becomes irritated or infected, it may get larger and fill with pus. An infected cyst is called an abscess. The cause of this condition is not always known. In some cases, a hair that grows into your skin (ingrown hair) may be the cause. If your cyst does not cause symptoms, you may not need any treatment. If your cyst bothers you or is infected, you may need a procedure to drain or remove the cyst. This information is not intended to replace advice given to you by your health care provider. Make sure you discuss any questions you have with your health care provider. Document Revised: 12/19/2020 Document Reviewed: 12/19/2020 [employer] Patient Education 2022 [employer]. [facility] Discharge instructions 12-06-2022 Note Date & Type Note Facility 12-06-2022 Hospital Discharg e instructions Patient Education 12/06/2022 20:23:50 Managing Depression, Adult Managing Depression, Adult Depression is a mental health condition that affects your thoughts, feelings, and actions. Being diagnosed with depression can bring you relief if you did not know why you have felt or behaved a certain way. It could also leave you feeling overwhelmed with uncertainty about your future. Preparing yourself to manage your symptoms can help you feel more positive about your future. How to manage lifestyle changes Managing stress Stress is your body's reaction to life changes and events, both good and bad. Stress can add to your feelings of depression. Learning to manage your stress can help lessen your feelings of depression. Try some of the following approaches to reducing your stress (stress reduction techniques): Listen to music that you enjoy and that inspires you. Try using a meditation kami or take a meditation class. Develop a practice that helps you connect with your spiritual self. Walk in nature, pray, or go to a place of baptist. Do some deep breathing. To do this, inhale slowly through your nose. Pause at the top of your inhale for a few seconds and then exhale slowly, letting your muscles relax. Practice yoga to help relax and work your muscles. Choose a stress reduction technique that suits your lifestyle and personality. These techniques take time and practice to develop. Set aside 5 15 minutes a day to do them. Therapists can offer training in these techniques. Other things you can do to manage stress include: Keeping a stress diary. Knowing your limits and saying no when you think something is too much. Paying attention to how you react to certain situations. You may not be able to control everything, but you can change your reaction. Adding humor to your life by watching funny films or TV shows. Making time for activities that you enjoy and that relax you. Medicines Medicines, such as antidepressants, are often a part of treatment for depression. Talk with your pharmacist or health care provider about all the medicines, supplements, and herbal products that you take, their possible side effects, and what medicines and other products are safe to take together. Make sure to report any side effects you may have to your health care provider. Relationships Your health care provider may suggest family therapy, couples therapy, or individual therapy as part of your treatment. How to recognize changes Everyone responds differently to treatment for depression. As you recover from depression, you may start to: Have more interest in doing activities. Feel less hopeless. Have more energy. Overeat less often, or have a better appetite. Have better mental focus. It is important to recognize if your depression is not getting better or is getting worse. The symptoms you had in the beginning may return, such as: Tiredness (fatigue) or low energy. Eating too much or too little. Sleeping too much or too little. Feeling restless, agitated, or hopeless. Trouble focusing or making decisions. Unexplained physical complaints. Feeling irritable, angry, or aggressive. If you or your family members notice these symptoms coming back, let your health care provider know right away. Follow these instructions at home: Activity Try to get some form of exercise each day, such as walking, biking, swimming, or lifting weights. Practice stress reduction techniques. Engage your mind by taking a class or doing some volunteer work. Lifestyle Get the right amount and quality of sleep. Cut down on using caffeine, tobacco, alcohol, and other potentially harmful substances. Eat a healthy diet that includes plenty of vegetables, fruits, whole grains, low-fat dairy products, and lean protein. Do not eat a lot of foods that are high in solid fats, added sugars, or salt (sodium). General instructions Take gqgu-lsk-rwwofot and prescription medicines only as told by your health care provider. Keep all follow-up visits as told by your health care provider. This is important. Where to find support Talking to others Friends and family members can be sources of support and guidance. Talk to trusted friends or family members about your condition. Explain your symptoms to them, and let them know that you are working with a health care provider to treat your depression. Tell friends and family members how they also can be helpful. Finances Find appropriate mental health providers that fit with your financial situation. Talk with your health care provider about options to get reduced prices on your medicines. Where to find more information You can find support in your area from: Anxiety and Depression Association of [place] (ADAA): www.adaa.org Mental Health [place]: www.mentalhealthamerica.net National [place] on Mental Illness: www.rakesh.org Contact a health care provider if: You stop taking your antidepressant medicines, and you have any of these symptoms: ?Nausea. ?Headache. ?Light-headedness. ?Chills and body aches. ?Not being able to sleep (insomnia). You or your friends and family think your depression is getting worse. Get help right away if: You have thoughts of hurting yourself or others. If you ever feel like you may hurt yourself or others, or have thoughts about taking your own life, get help right away. Go to your nearest emergency department or: Call your local emergency services (911 in the [place] Call a suicide crisis helpline, such as the National Suicide Prevention Lifeline at or 030 in the [place] This is open 24 hours a day in the [place] Text the Crisis Text Line at 366320 (in the [place] Summary If you are diagnosed with depression, preparing yourself to manage your symptoms is a good way to feel positive about your future. Work with your health care provider on a management plan that includes stress reduction techniques, medicines (if applicable), therapy, and healthy lifestyle habits. Keep talking with your health care provider about how your treatment is working. If you have thoughts about taking your own life, call a suicide crisis helpline or text a crisis text line. This information is not intended to replace advice given to you by your health care provider. Make sure you discuss any questions you have with your health care provider. Document Revised: 09/03/2021 Document Reviewed: 12/20/2019 [employer] Patient Education 2022 [employer]. Follow Up Care 10/23/2022 15:26:01 With:FRANC SULLIVAN, JESUSITA Jose Address: When: only if needed Comments:pt to call pulse/HR to me in 4-[address] [facility] Discharge instructions 10-23-2022 Note Date & Type Note Facility 10-23-2022 Hospital Discharg e instructions Patient Education 10/23/2022 15:27:29 Managing Depression, Adult Managing Depression, Adult Depression is a mental health condition that affects your thoughts, feelings, and actions. Being diagnosed with depression can bring you relief if you did not know why you have felt or behaved a certain way. It could also leave you feeling overwhelmed with uncertainty about your future. Preparing yourself to manage your symptoms can help you feel more positive about your future. How to manage lifestyle changes Managing stress Stress is your body's reaction to life changes and events, both good and bad. Stress can add to your feelings of depression. Learning to manage your stress can help lessen your feelings of depression. Try some of the following approaches to reducing your stress (stress reduction techniques): Listen to music that you enjoy and that inspires you. Try using a meditation kami or take a meditation class. Develop a practice that helps you connect with your spiritual self. Walk in nature, pray, or go to a place of baptist. Do some deep breathing. To do this, inhale slowly through your nose. Pause at the top of your inhale for a few seconds and then exhale slowly, letting your muscles relax. Practice yoga to help relax and work your muscles. Choose a stress reduction technique that suits your lifestyle and personality. These techniques take time and practice to develop. Set aside 5 15 minutes a day to do them. Therapists can offer training in these techniques. Other things you can do to manage stress include: Keeping a stress diary. Knowing your limits and saying no when you think something is too much. Paying attention to how you react to certain situations. You may not be able to control everything, but you can change your reaction. Adding humor to your life by watching funny films or TV shows. Making time for activities that you enjoy and that relax you. Medicines Medicines, such as antidepressants, are often a part of treatment for depression. Talk with your pharmacist or health care provider about all the medicines, supplements, and herbal products that you take, their possible side effects, and what medicines and other products are safe to take together. Make sure to report any side effects you may have to your health care provider. Relationships Your health care provider may suggest family therapy, couples therapy, or individual therapy as part of your treatment. How to recognize changes Everyone responds differently to treatment for depression. As you recover from depression, you may start to: Have more interest in doing activities. Feel less hopeless. Have more energy. Overeat less often, or have a better appetite. Have better mental focus. It is important to recognize if your depression is not getting better or is getting worse. The symptoms you had in the beginning may return, such as: Tiredness (fatigue) or low energy. Eating too much or too little. Sleeping too much or too little. Feeling restless, agitated, or hopeless. Trouble focusing or making decisions. Unexplained physical complaints. Feeling irritable, angry, or aggressive. If you or your family members notice these symptoms coming back, let your health care provider know right away. Follow these instructions at home: Activity Try to get some form of exercise each day, such as walking, biking, swimming, or lifting weights. Practice stress reduction techniques. Engage your mind by taking a class or doing some volunteer work. Lifestyle Get the right amount and quality of sleep. Cut down on using caffeine, tobacco, alcohol, and other potentially harmful substances. Eat a healthy diet that includes plenty of vegetables, fruits, whole grains, low-fat dairy products, and lean protein. Do not eat a lot of foods that are high in solid fats, added sugars, or salt (sodium). General instructions Take oaiy-zra-nfvcprq and prescription medicines only as told by your health care provider. Keep all follow-up visits as told by your health care provider. This is important. Where to find support Talking to others Friends and family members can be sources of support and guidance. Talk to trusted friends or family members about your condition. Explain your symptoms to them, and let them know that you are working with a health care provider to treat your depression. Tell friends and family members how they also can be helpful. Finances Find appropriate mental health providers that fit with your financial situation. Talk with your health care provider about options to get reduced prices on your medicines. Where to find more information You can find support in your area from: Anxiety and Depression Association of [place] (ADAA): www.adaa.org Mental Health [place]: www.mentalhealthamerica.net National [place] on Mental Illness: www.rakesh.org Contact a health care provider if: You stop taking your antidepressant medicines, and you have any of these symptoms: ?Nausea. ?Headache. ?Light-headedness. ?Chills and body aches. ?Not being able to sleep (insomnia). You or your friends and family think your depression is getting worse. Get help right away if: You have thoughts of hurting yourself or others. If you ever feel like you may hurt yourself or others, or have thoughts about taking your own life, get help right away. Go to your nearest emergency department or: Call your local emergency services (114 in the [place] Call a suicide crisis helpline, such as the National Suicide Prevention Lifeline at or 504 in the [place] This is open 24 hours a day in the [place] Text the Crisis Text Line at 888720 (in the [place] Summary If you are diagnosed with depression, preparing yourself to manage your symptoms is a good way to feel positive about your future. Work with your health care provider on a management plan that includes stress reduction techniques, medicines (if applicable), therapy, and healthy lifestyle habits. Keep talking with your health care provider about how your treatment is working. If you have thoughts about taking your own life, call a suicide crisis helpline or text a crisis text line. This information is not intended to replace advice given to you by your health care provider. Make sure you discuss any questions you have with your health care provider. Document Revised: 09/03/2021 Document Reviewed: 12/20/2019 [employer] Patient Education 2022 [employer]. 10/21/2022 20:33:36 Living With Attention Deficit Hyperactivity Disorder Living With Attention Deficit Hyperactivity Disorder If you have been diagnosed with attention deficit hyperactivity disorder (ADHD), you may be relieved that you now know why you have felt or behaved a certain way. Still, you may feel overwhelmed about the treatment ahead. You may also wonder how to get the support you need and how to deal with the condition day-to-day. With treatment and support, you can live with ADHD and manage your symptoms. How to manage lifestyle changes Managing stress Stress is your body's reaction to life changes and events, both good and bad. To cope with the stress of an ADHD diagnosis, it may help to: Learn more about ADHD. Exercise regularly. Even a short daily walk can lower stress levels. Participate in training or education programs (including social skills training classes) that teach you to deal with symptoms. Medicines Your health care provider may suggest certain medicines if he or she feels that they will help to improve your condition. Stimulant medicines are usually prescribed to treat ADHD, and therapy may also be prescribed. It is important to: Avoid using alcohol and other substances that may prevent your medicines from working properly (may interact). Talk with your pharmacist or health care provider about all the medicines that you take, their possible side effects, and what medicines are safe to take together. Make it your goal to take part in all treatment decisions (shared decision-making). Ask about possible side effects of medicines that your health care provider recommends, and tell him or her how you feel about having those side effects. It is best if shared decision-making with your health care provider is part of your total treatment plan. Relationships To strengthen your relationships with family members while treating your condition, consider taking part in family therapy. You might also attend self-help groups alone or with a loved one. Be honest about how your symptoms affect your relationships. Make an effort to communicate respectfully instead of fighting, and find ways to show others that you care. Psychotherapy may be useful in helping you cope with how ADHD affects your relationships. How to recognize changes in your condition The following signs may mean that your treatment is working well and your condition is improving: Consistently being on time for appointments. Being more organized at home and work. Other people noticing improvements in your behavior. Achieving goals that you set for yourself. Thinking more clearly. The following signs may mean that your treatment is not working very well: Feeling impatience or more confusion. Missing, forgetting, or being late for appointments. An increasing sense of disorganization and messiness. More difficulty in reaching goals that you set for yourself. Loved ones becoming angry or frustrated with you. Follow these instructions at home: Take xcdi-kgg-pljciga and prescription medicines only as told by your health care provider. Check with your health care provider before taking any new medicines. Create structure and an organized atmosphere at home. For example: ?Make a list of tasks, then rank them from most important to least important. Work on one task at a time until your listed tasks are done. ?Make a daily schedule and follow it consistently every day. ?Use an appointment calendar, and check it 2 or 3 times a day to keep on track. Keep it with you when you leave the house. ?Create spaces where you keep certain things, and always put things back in their places after you use them. Keep all follow-up visits as told by your health care provider. This is important. Where to find support Talking to others Keep emotion out of important discussions and speak in a calm, logical way. Listen closely and patiently to your loved ones. Try to understand their point of view, and try to avoid getting defensive. Take responsibility for the consequences of your actions. Ask that others do not take your behaviors personally. Aim to solve problems as they come up, and express your feelings instead of bottling them up. Talk openly about what you need from your loved ones and how they can support you. Consider going to family therapy sessions or having your family meet with a specialist who deals with ADHD-related behavior problems. Finances Not all insurance plans cover mental health care, so it is important to check with your insurance carrier. If paying for co-pays or counseling services is a problem, search for a local or community health mental health care center. Public mental health care services may be offered there at a low cost or no cost when you are not able to see a private health care provider. If you are taking medicine for ADHD, you may be able to get the generic form, which may be less expensive than brand-name medicine. Some makers of prescription medicines also offer help to patients who cannot afford the medicines that they need. Questions to ask your health care provider: What are the risks and benefits of taking medicines? Would I benefit from therapy? How often should I follow up with a health care provider? Contact a health care provider if: You have side effects from your medicines, such as: ?Repeated muscle twitches, coughing, or speech outbursts. ?Sleep problems. ?Loss of appetite. ?Depression. ?New or worsening behavior problems. ?Dizziness. ?Unusually fast heartbeat. ?Stomach pains. ?Headaches. Get help right away if: You have a severe reaction to a medicine. Your behavior suddenly gets worse. Summary With treatment and support, you can live with ADHD and manage your symptoms. The medicines that are most often prescribed for ADHD are stimulants. Consider taking part in family therapy or self-help groups with family members or friends. When you talk with friends and family about your ADHD, be patient and communicate openly. Take rxwf-xcr-lupdyxt and prescription medicines only as told by your health care provider. Check with your health care provider before taking any new medicines. This information is not intended to replace advice given to you by your health care provider. Make sure you discuss any questions you have with your health care provider. Document Revised: 06/21/2020 Document Reviewed: 07/24/2020 [employer] Patient Education 2022 [employer]. Follow Up Care 09/10/2022 14:54:18 With:Damon BRUNER MD, FAM Address: When:6 weeks Comments: [facility] Discharge instructions 03-31-2022 Note Date & Type Note Facility 03-31-2022 Hospital Discharg e instructions Patient Education 03/31/2022 18:03:45 Atopic Dermatitis Atopic Dermatitis Atopic dermatitis is a skin disorder that causes inflammation of the skin. This is the most common type of eczema. Eczema is a group of skin conditions that cause the skin to be itchy, red, and swollen. This condition is generally worse during the cooler winter months and often improves during the warm summer months. Symptoms can vary from person to person. Atopic dermatitis usually starts showing signs in infancy and can last through adulthood. This condition cannot be passed from one person to another (non-contagious), but it is more common in families. Atopic dermatitis may not always be present. When it is present, it is called a flare-up. What are the causes? The exact cause of this condition is not known. Flare-ups of the condition may be triggered by: Contact with something that you are sensitive or allergic to. Stress. Certain foods. Extremely hot or cold weather. Harsh chemicals and soaps. Dry air. Chlorine. What increases the risk? This condition is more likely to develop in people who have a personal history or family history of eczema, allergies, asthma, or hay fever. What are the signs or symptoms? Symptoms of this condition include: Dry, scaly skin. Red, itchy rash. Itchiness, which can be severe. This may occur before the skin rash. This can make sleeping difficult. Skin thickening and cracking that can occur over time. How is this diagnosed? This condition is diagnosed based on your symptoms, a medical history, and a physical exam. How is this treated? There is no cure for this condition, but symptoms can usually be controlled. Treatment focuses on: Controlling the itchiness and scratching. You may be given medicines, such as antihistamines or steroid creams. Limiting exposure to things that you are sensitive or allergic to (allergens). Recognizing situations that cause stress and developing a plan to manage stress. If your atopic dermatitis does not get better with medicines, or if it is all over your body (widespread), a treatment using a specific type of light (phototherapy) may be used. Follow these instructions at home: Skin care Keep your skin well-moisturized. Doing this seals in moisture and helps to prevent dryness. ?Use unscented lotions that have petroleum in them. ?Avoid lotions that contain alcohol or water. They can dry the skin. Keep baths or showers short (less than 5 minutes) in warm water. Do not use hot water. ?Use mild, unscented cleansers for bathing. Avoid soap and bubble bath. ?Apply a moisturizer to your skin right after a bath or shower. Do not apply anything to your skin without checking with your health care provider. General instructions Dress in clothes made of cotton or cotton blends. Dress lightly because heat increases itchiness. When washing your clothes, rinse your clothes twice so all of the soap is removed. Avoid any triggers that can cause a flare-up. Try to manage your stress. Keep your fingernails cut short. Avoid scratching. Scratching makes the rash and itchiness worse. It may also result in a skin infection (impetigo) due to a break in the skin caused by scratching. Take or apply puqi-pfk-erwkvtw and prescription medicines only as told by your health care provider. Keep all follow-up visits as told by your health care provider. This is important. Do not be around people who have cold sores or fever blisters. If you get the infection, it may cause your atopic dermatitis to worsen. Contact a health care provider if: Your itchiness interferes with sleep. Your rash gets worse or it is not better within one week of starting treatment. You have a fever. You have a rash flare-up after having contact with someone who has cold sores or fever blisters. Get help right away if: You develop pus or soft yellow scabs in the rash area. Summary This condition causes a red rash and itchy, dry, scaly skin. Treatment focuses on controlling the itchiness and scratching, limiting exposure to things that you are sensitive or allergic to (allergens), recognizing situations that cause stress, and developing a plan to manage stress. Keep your skin well-moisturized. Keep baths or showers shorter than 5 minutes and use warm water. Do not use hot water. This information is not intended to replace advice given to you by your health care provider. Make sure you discuss any questions you have with your health care provider. Document Released: 02/05/2001 Document Revised: 05/30/2019 Document Reviewed: 03/12/2017 [employer] Patient Education 2020 [employer] 03/29/2022 19:21:47 BMI for Adults BMI for Adults Body mass index (BMI) is a number that is calculated from a person's weight and height. BMI may help to estimate how much of a person's weight is composed of fat. BMI can help identify those who may be at higher risk for certain medical problems. How is BMI used with adults? BMI is used as a screening tool to identify possible weight problems. It is used to check whether a person is obese, overweight, healthy weight, or underweight. How is BMI calculated? BMI measures your weight and compares it to your height. This can be done either in [place] ([place] or metric measurements. Note that charts are available to help you find your BMI quickly and easily without having to do these calculations yourself. To calculate your BMI in [place] ([place] measurements, your health care provider will: 1.Measure your weight in pounds (lb). 2.Multiply the number of pounds by 703. For example, for a person who weighs 180 lb, multiply that number by 703, which equals 126,540. 3.Measure your height in inches (in). Then multiply that number by itself to get a measurement called inches squared. For example, for a person who is 70 in tall, the inches squared measurement is 70 in x 70 in, which equals 4900 inches squared. 4.Divide the total from Step 2 (number of lb x 703) by the total from Step 3 (inches squared): 126,540 4900 = 25.8. This is your BMI. To calculate your BMI in metric measurements, your health care provider will: 1.Measure your weight in kilograms (kg). 2.Measure your height in meters (m). Then multiply that number by itself to get a measurement called meters squared. For example, for a person who is 1.75 m tall, the meters squared measurement is 1.75 m x 1.75 m, which is equal to 3.1 meters squared. 3.Divide the number of kilograms (your weight) by the meters squared number. In this example: 70 3.1 = 22.6. This is your BMI. How is BMI interpreted? To interpret your results, your health care provider will use BMI charts to identify whether you are underweight, normal weight, overweight, or obese. The following guidelines will be used: Underweight: BMI less than 18.5. Normal weight: BMI between 18.5 and 24.9. Overweight: BMI between 25 and 29.9. Obese: BMI of 30 and above. Please note: Weight includes both fat and muscle, so someone with a muscular build, such as an athlete, may have a BMI that is higher than 24.9. In cases like these, BMI is not an accurate measure of body fat. To determine if excess body fat is the cause of a BMI of 25 or higher, further assessments may need to be done by a health care provider. BMI is usually interpreted in the same way for men and women. Why is BMI a useful tool? BMI is useful in two ways: Identifying a weight problem that may be related to a medical condition, or that may increase the risk for medical problems. Promoting lifestyle and diet changes in order to reach a healthy weight. Summary Body mass index (BMI) is a number that is calculated from a person's weight and height. BMI may help to estimate how much of a person's weight is composed of fat. BMI can help identify those who may be at higher risk for certain medical problems. BMI can be measured using [place] measurements or metric measurements. To interpret your results, your health care provider will use BMI charts to identify whether you are underweight, normal weight, overweight, or obese. This information is not intended to replace advice given to you by your health care provider. Make sure you discuss any questions you have with your health care provider. Document Released: 10/20/2004 Document Revised: 01/21/2018 Document Reviewed: 12/22/2017 [employer] Patient Education [employer]. Follow Up Care 03/19/2022 11:26:33 With:Damon BRUNER MD [facility] Address: When: only if needed Comments:pt to call dermatology referral names to office soon [facility] Evaluation + Plan note Note Date & Type Note Facility Evaluation + Plan note No data available for this section [facility] Evaluation + Plan note Note Date & Type Note Facility Evaluation + Plan note Future Appointments Appointment Date:12/08/2022 06:00:00 PM Scheduled Provider:Damon BRUNER MD Location:[facility] Appointment Type: Open [facility] [place] Evaluation + Plan note Note Date & Type Note Facility Evaluation + Plan note Future Appointments Appointment Date:01/04/2023 04:40:00 PM Scheduled Provider:Damon BRUNER MD Location:[facility] Appointment Type: Open [facility] Evaluation + Plan note Note Date & Type Note Facility Evaluation + Plan note Future Appointments Appointment Date:01/22/2023 11:00:00 AM Scheduled Provider:Tabby Barnett PA-C Location:[facility] Appointment Type:[facility] [facility] Discharge instructions Note Date & Type Note Facility Hospital Discharge instructions No data available for this section [facility] Progress note Note Date & Type Note Facility Progress note No data available for this section [facility] Summary Purpose Family History No Family History Records Found No data available for this section No data available for this section No data available for this section No Family History Records FoundNo Family History Records Found Advance Directives No Advanced Directives Records FoundNo Advanced Directives Records FoundNo Advanced Directives Records Found Additional Source Comments Care Team (unrecognized sect ion and content) Personnel Name: Damon BRUNER MD Address: [address] [place] [address] Personnel Name: Damon BRUNER MD Address: Address: [address] [place] [address] Personnel Name: Damon BRUNER MD Address: Address: [address] [place] [address] Personnel Name: Damon BRUNER MD Address: Address: [address] [place] [address] Personnel Name: Damon BRUNER MD Address: Address: [address] [place] [address] Personnel Name: Damon BRUNER MD Address: Address: [address] [place] [address] INFORMATION SOURCE (unrecogn ized section and content) DATE CREATED AUTHOR 05/30/[address] [facility] DATE CREATED AUTHOR AUTHOR'S ORGANIZ ATION 01/10/2023 [facility] DATE CREATED AUTHOR AUTHOR'S ORGANIZ ATION 01/30/2023 [facility] EPIC FOR RECORDS PERTAINING TO PATIENTS WHO ARE OR HAVE BEEN ENROLLED IN A CHEMICAL DEPENDENCY/SUBSTANCEABUSE PROGRAM, SOME INFORMATION MAY BE OMITTED. This clinical summary was aggregated from multiple sources. Caution should be exercised in using it in the provision of clinical care. This summary normalizes information from multiple sources, and as a consequence, information in this document may materially change the coding, format and clinical context of patient data. In addition, data may be omitted in some cases. CLINICAL DECISIONS SHOULD BE BASED ON THE PRIMARY CLINICAL RECORDS. [facility]. provides no warranty or guarantee of the accuracy or completeness of information in this document.
[2023-03-15 14:08] LABS: Age Gdln ACOG Testing Note (.); IGP, rfx Aptima HPV ASCU Note (.)
== END 2023-03-10 22:03 | disposition home or self-care (01) ==
LOC: LAB 22:02
PROVIDERS: Visit Provider Obstetrics & Gynecology
DX: Z01.419 Encounter for gynecological examination (general) (routine) without abnormal findings (principal)
CPT/HCPCS: G0145

== ENCOUNTER 2023-03-18 14:00 | Outpatient (REF) | payer MEDICAID, SELFPAY ==
--- OUTSIDE RECORDS SUMMARY | 2023-03-23 14:04 | XMS_ITS | CCD ---
Author Name Unknown Address [address] [place] [address] Organization [facility] Care Team Providers Care Confidential Investigator Name Role Phone Damon BRUNER Primary Care [...] ., DR POSEY Procedure Practitioner Unavail able AGUBCEDRICK, JIMMIE Consulting Unavailable JOEY, DR OSWALD Alfaro Consulting Unavailable MISC, DR ROCHA Primary Care Unavailable TERE ., BRIANNA Attending Unavailable TERE ., BRIANNA Admitting Unavailable KARASIK ., DR ESTRADA Consulting Unavailabl e TERE ., BRIANNA Consulting Unavailable STRAWSER, CARLO Consulting Unavailable FRANC, Damon Attending Unavailable FRANC, Christdamion Attending Unavailable FRANC, Christophshaq Attending Unavailable BROWN, Christophshaq Attending Unavailable Tabby Barnett Attending Unavailable Anibal, Tabby Gaytan Attending Unavailable Tabby Barnett Attending Unavailable LIZZYTATY Attending Unavailable LIZZYTATY Attending Unavailable ANNEMAIRENEIL Attending Unavailable Taty Fields Attending Unavailable Taty Fields Admitting Unavailable Allergies Allergy Classification Reported Allergen(s) Allergy Type Date of Onset Reaction(s) Facility (7 sources) Cat; Translations: [Cats] Drug allergy [facility] (7 sources) Dust; Translations: [Dust] Drug allergy [facility] (7 sources) Morphine; Translations: [morphine] Drug Allergy 4 Syncope (disorder) [facility] (7 sources) Ragweed; Translations: [Ragweed] Drug allergy [facility] (7 sources) Grass; Translations: [Grass] Drug allergy [facility] (1 source) Morphine Drug Allergy 2 [facility] Repository Medications Current Medications Medication Drug [...] mg/ml oral solution (1 source) Phenothiazine, Uncompetitive C-pvnogg-P-aspartat e Receptor Antagonist, Sigma-1 Agonist Start: 02-20-2021 take 5 mL by mouth every six hours for cough dextromethorphan-pr omethazine 15 mg-6.25 mg/5 mL Oral Syrup 5 mL 5 mL, Oral, q6hr for cough, 120 mL, Refill(s) 0, [facility], 165, cm, 02/20/21 11:45:00 EST, Height/Length [...] kami, Topical, BID, 60 gram, Refill(s) 0, [facility], 166, cm, 02/13/20 10:54:00 EST, Height/Length [...] nausea, # 12 tab(s), Refills(s) 0, Pharmacy: [facility], 165, cm, 02/20/21 11:45:00 EST, Height/Length [...] kami, Topical, BID, 60 gram, Refill(s) 1, [facility], 165, cm, 03/31/22 17:35:00 EST, Height/Length [...] puff(s), Inhalation, q6hr, 1 EA, Refill(s) 0, [facility], 166, cm, 11/08/20 16:18:00 EDT, Height/Length [...] Test Name Value Interpretation Reference Range Facility [facility] 03-18-2023 L Specimen: [id number] Received: 03/19/23 Status: KEON Rothman Num: [id number] Spec Type: Surgical Subm : Taty Fields Tissues: A Skin-Other than Cyst, tag, debridement or plastic repair (SKIN TAG MID BaCK) B Skin-Other than Cyst, tag, debridement or plastic repair (RT BREAST MOLE) Procedures: HE/2, Gross/Micro L4, Gross/Micro L3 Age/ Patient Sex Location Account Attending Physician Guerline Segal 28/ LABELL [id number] Taty Fields SPEC NUM: [id number] RECD: 03/19/23 STATUS: KEON ROTHMAN NUM: [id number] ALLISON: 03/18/23- SUBM DR: Taty Fields ENTERED: 03/19/23 [facility] DR: Juanito,Lab SPEC TYPE: Surgical DEPT: NEVAEH BARR ORDERED: HE/2, Gross/Micro L4, Gross/Micro L3 ORDERED: HE/2, Gross/Micro L4, Gross/Micro L3 Pathological Diagnosis A. 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 - Completely Excised. B. Skin lesion, Right Breast, Excision: Compound Melanocytic Nevus. Clinical Information Skin tags Gross Description A. Received in formalin labeled with the patient's name, date of and mid back is a 0.6 x 0.4 cm shave of a ochoa-birch granular papule. The margin is inked blue, and the specimen is bisected. Entirely submitted in one cassette labeled A1. B. Received in formalin labeled with the patient's name, date of and right breast mole is a shave of a 0.6 x 0.5 cm soft birch-ochoa papule. The margin is inked green, and the specimen is bisected. Entirely submitted in one cassette labeled B1. Specimen: [id number] Received: 03/19/23 Status: KEON Rothman Num: [id number] Spec Type: Surgical Subm Dr: Taty Fields Tissues: A Skin-Other than Cyst, tag, debridement or plastic repair (SKIN TAG MID BaCK) B Skin-Other than Cyst, tag, debridement or plastic repair (RT BREAST MOLE) Procedures: HE/2, Gross/Micro L4, Gross/Micro L3 Patient: Guerline Segal [id number] (Continued) Specimen: [id number] Received: 03/19/23 (Continued) Signed (signature on file) Aravind Duncan MD 03/22/23 2239 Specimen: [id number] Received: 03/19/23 Status: KEON Rothman Num: [id number] Spec Type: Surgical Subm Dr: Taty Fields Tissues: A Skin-Other than Cyst, tag, debridement or plastic repair (SKIN TAG MID BaCK) B Skin-Other than Cyst, tag, debridement or plastic repair (RT BREAST MOLE) Procedures: HE/2, Gross/Micro L4, Gross/Micro L3 Patient: Guerline Segal [id number] (Continued) Specimen: [id number] Received: 03/19/23 (Continued) CPT Codes 87129a6 Specimen: [id number] Received: 03/19/23 Status: KEON Rothman Num: [id number] Spec Type: Surgical Subm Dr: Taty Fields Tissues: A Skin-Other than Cyst, tag, debridement or plastic repair (SKIN TAG MID BaCK) B Skin-Other than Cyst, tag, debridement or plastic repair (RT BREAST MOLE) Procedures: HE/2, Gross/Micro L4, Gross/Micro L3 Patient: Guerline Segal [id number] (Continued) Signed (signature on file) Aravind Duncan MD 03/22/23 0766 [facility] Family Medicine Office/Clini c Noteon 01-06-2023 Family [...] a week. Ordered: I&D pilonidal cyst simple 83788 2. BMI 35.0-35.9,adult (Z68.35: Body mass index [...] with voice recognition artificial intelligence software, specifically [employer], [employer] and or [employer]. Substitutions may have occurred due to the inherent limitations of voice recognition and artificial intelligence software. Patient verbalized understanding and is agreeable to plan and course of treatment. This documentation was completed by voice-activated device and software. Inaccuracies compared to the original dictation of this provider are possible although this document has been overread and corrected. ATTESTATION: This note has been generated by [employer] and edited by Chandrika Moya, Quality Software Analyst. Follow-up With When Contact Information Tabby Barnett PA-C In 1 week [address] [place] [address]- [phone] Additional Instructions: Problem List/Past Medical History Ongoing [...] mg= 1 (more content not included)... [facility] Comment on above: Result Comment: Elec tronically Signed By: Tabby Barnett PA-C\.br\Date and Time Signed: 01/05/23 23:03 EST\.br\Electronically Co-Signed By: Chandrika Moya\.br\Date and Time Co-Signed: 12/28/22 19:29 EST Patient [...] these instructions at home: Medicines ? Take xzzb-ydk-sogkznm and prescription medicines only as told by [...] provider. Document Revised: 12/19/2020 Document Reviewed: 12/19/2020 [employer] Patient Education ? 2022 [employer] [facility] Ambulatory Visit Summaryon 1 02-27-2022 Ambulatory [...] PM EST With: Damon BRUNER MD Where: [facility] Provider Letteron 12-28-2022 Provider Letter December 28, 2022 GUERLINE SEGAL [address] [place] [address] : 1995 To Whom It May Concern, Please excuse above patient from work. Date of Illness: From: 12/28/2022 To: 12/29/2022 May Return to Work On: 12/30/2022 Sincerely, [address] [address] [facility] Ambulatory Visit Summaryon 1 Ambulatory Visit [...] SULLIVAN, JESUSITA Jose When: Only if needed Comments: pt to [...] pray, or go to a place of yarsani. ? Do some deep breathing. To do [...] that yo (more content not included)... [facility] Family Medicine Office/Clini c Noteon 12-21-2022 [...] and doing things. She went to the [employer] game and was legitimately scared as her heart [...] with voice recognition artificial intelligence software, specifically [employer], [employer] and or Kid[employer]om. Substitutions may have occurred due to the inherent limitations of voice recognition and artificial intelligence software. Follow-up With When Contact Information Damon BRUNER MD, [facility] Only if needed Additional Instructions: pt [...] Oral, Da (more content not included)... [facility] Comment on above: Result Comment: Elec tronically Signed By: Damon BRUNER MD\.br\Date and Time Signed: 12/21/22 12:34 EDT Patient [...] pray, or go to a place of yarsani. ? Do some deep breathing. To do [...] or salt (sodium). General instructions ? Take wgos-qbc-qsrgtjx and prescription medicines only as told by [...] www.mentalhealth[facility].ne (more content not included)... [facility] Ambulatory Visit Summaryon 0 10-23-2022 Ambulatory [...] PM EDT With: Damon BRUNER MD Where: [facility] [place] [facility] Family Medicine Office/Clini c Noteon 10-23-2022 [...] had a miscarriage requiring D&C back around [facility]. Has been very emotional since then. She [...] kami, Topical, BID, 60 gram, Refill(s) 1, [facility], 165, cm, 03/31/22 17:35:00 EST, Height/Length Dosing, 100.5, kg, 03/31/22 17:35:00 EST, Weight Dosing Follow-up With When Contact Information Damon BRUNER MD, FAM Within 6 weeks Additional Instructions: Patient Education [...] gram busPIRone (more content not included)... [facility] Comment on above: Result Comment: Elec tronically Signed By: Damon BRUNER MD\.br\Date and Time Signed: 10/23/22 15:27 EDT Patient [...] pray, or go to a place of yarsani. ? Do some deep breathing. To do [...] or salt (sodium). General instructions ? Take xjkz-zgh-setbvfu and prescription medicines only as told by [...] www.mentalhealth[facility].ne (more content not included)... [facility] Consultation Noteon 06-24-19 Consultation Note [id number] #1.00CD:127 [facility] PREG QUANT HCGon 05-23-2022 HCG QUANT 07450 mIU/mL [facility] Comment on above: Performed By: #### U MICRO, UACSIND #### [facility] [address] [address] [address] Dillon Pepe HCG RANGE SEE BELOW [facility] Comment on above: Result Comment: 5-50 0.2-1 WEEK 50-500 1-2 WEEKS 100-5,000 2-3 WEEKS 500-10,000 3-4 WEEKS 1,000-50,000 4-5 WEEKS 10,000-100,000 5-6 WEEKS 15,000-200,000 6-8 WEEKS 10,000-100,000 2-3 MONTHS Performed By: #### U MICRO, UACSIND #### [facility] [address] [place] [address] Dr. Dillon Pepe Physician Referralon 023 Physician Referral [id number] #1.00CD:127 [facility] Ambulatory Visit Summaryon 0 05-05-2022 Ambulatory [...] Someone Will Contact You Regarding These Appointments [facility] [place], Service not offered at [facility], [place]ermatology, Teofilo Bhardwaj and Daniella at [place] please NOMS ok if needed, 05/05/22 17:41:00 [...] primary care provider or a mental health childcare attendant. Your health care provider may use a symptom checklist or a behavior rating scale to evaluate your symptoms. He or she may also want to talk with people who have observed your behaviors throughout your life. How is this treated? This cond (more content not included)... [facility] Family Medicine Office/Clini c Noteon 05-05-2022 Family Medicine Office/Clinic Note Chief Complaint 6mo [...] next child. She will discuss with her traffic control flagger and even give consideration to counseling as that might be an option to provide some stabilization. 2. AD (atopic dermatitis) (L20.9: Atopic dermatitis, unspecified) May continue cautious use of triamcinolone referral was placed to sausage grinder Ordered: [facility] External Ambulatory Referral 3. Class 2 obesity [...] for benefit of nutrition. 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 [facility] Comment on above: Result Comment: Elec tronically Signed By: Damon BRUNER MD\.br\Date and Time Signed: 05/05/22 17:47 EDT Patient [...] primary care provider or a mental health childcare attendant. Your health care provider may use a [...] Behavioral management. You may work with a health coach who is specially trained to help people with ADHD manage and organize activities and function more effectively. Follow these instructions at home: Medicines ? Take ibnm-cqk-rcjzdul and prescription medicines only as told by [...] available online (more content not included)... [facility] Ambulatory Visit Summaryon 0 03-31-2022 Ambulatory [...] Schedule the Following Appointments Follow Up with RFANC SULLIVAN, JESUSITA Jose When: Only if needed Comments: pt to call dermatology referral names to office soon Where: Medications What How Much When Instructions New triamcinolone topical (triamcinolone Top 0.025% Crm) 1 Application Topical 2 times a day Refills: 1 Pickup at [facility] Unchanged albuterol (Albuterol (Eqv-ProAir HFA) 90 mcg/ inh inhalation aerosol) 2 Puffs Inhalation Every 6 hours Pharmacy Information [facility]: [address], [place] [phone] What How Much When Comments Stop Taking [...] height. This can be done either in [place]ian (U.S[place] or metric measurements. Note that charts are available to help you find your BMI quickly and easily without having to do these calculations yourself. To calculate your BMI in [place]ian ([place] measurements, your health care provider will: [...] ? Unde (more content not included)... [facility] Family Medicine Office/Clini c Noteon 03-31-2022 [...] kami, Topical, BID, 60 gram, Refill(s) 1, [facility], 165, cm, 03/31/22 17:35:00 EST, Height/Length Dosing, 100.5, kg, 03/31/22 17:35:00 EST, Weight Dosing Follow-up With When Contact Information FRANC SULLIVAN, Damon, JESUSITA Only if needed Additional Instructions: pt to [...] Employed, Work/Scho (more content not included)... [facility] Comment on above: Result Comment: Elec [...] caused by scratching. ? Take or apply nmtf-vgw-jgcfmcp and prescription medicines only as told by [...] 02/05/2001 Document Revised: 05/30/2019 Document Reviewed: 03/12/2017 [employer] Patient Education ? 2019 [employer] Nutrition BMI for Adults Body mass index (BMI) is a number that is calculated from a person's weight and height. BMI may help to estimate how much of a person's weight is composed of fat. (more content not included)... [facility] CANNABINOID (THC) CONFIRMATI ON, URINEon 10-24-2021 Cannabinoid Positive Abnormal [facility] Comment on above: Performed By: #### C MP #### [facility] [address] [address] [address] Dillon Pepe Carboxy THC GC/MS Conf >750 Normal Cutoff=10 Th e [facility] Comment on above: Performed By: #### C MP #### [facility] [address] [place] [address] Dr. Dillon Pepe CBC AUTO DIFFon 10-21-2021 BASO # 0.0 103/ul Normal 0.0-0.1 [facility] Comment on above: Performed By: #### C MP #### [facility] [address] [place] [address] Dr. Dillon Pepe Basophils/100 WBC (Bld) 0.2 % Normal 0.2-2.0 [facility] Comment on above: Performed By: #### C MP #### [facility] [address] [place] [address] Dr. Dillon Pepe EO # 0.4 103/ul Normal 0.0-0.7 [facility] Comment on above: Performed By: #### C MP #### [facility] [address] [place] [address] Dr. Dillon Pepe Eosinophils/100 WBC (Bld) 2.1 % Normal 0.9-7.0 [facility] Comment on above: Performed By: #### C MP #### [facility] [address] [place] [address] Dr. Dillon Pepe Erythrocyte distribution width (RBC) [Ratio] 13.7 % Normal 11.0-15.0 [facility] Comment on above: Performed By: #### C MP #### [facility] [address] [place] [address] Dr. Dillon Pepe Hematocrit (Bld) [Volume fraction] 32.7 % Critically low 36.0-48.0 [facility] Comment on above: Performed By: #### C MP #### [facility] [address] [place] [address] Dr. Dillon Pepe Hemoglobin (Bld) [Mass/Vol] 10.3 g/dL Critically low 12.0-16.0 [facility] Comment on above: Performed By: #### C MP #### [facility] [address] [place] [address] Dr. Dillon Pepe IG # 0.09 10e3/ul Critically high 0.00-0.03 [facility] Comment on above: Performed By: #### C MP #### [facility] [address] [place] [address] Dr. Dillon Pepe IG % 0.5 % Normal 0.0-0.5 [facility] Comment on above: Performed By: #### C MP #### [facility] [address] [place] [address] Dr. Dillon Pepe LYMPH # 2.2 103/ul Normal 1.2-3.8 [facility] Comment on above: Performed By: #### C MP #### [facility] [address] [place] [address] Dr. Dillon Pepe Lymphocytes/100 WBC (Bld) 13.2 % Critically low 20.5-60.0 [facility] Comment on above: Performed By: #### C MP #### [facility] [address] [place] [address] Dr. Dillon Pepe MANUAL DIFF REQ NO Normal [facility] Comment on above: Performed By: #### C MP #### [facility] [address] [place] [address] Dr. Dillon Pepe MCH (RBC) [Entitic mass] 27.2 pg Normal 26.7-34.0 [facility] Comment on above: Performed By: #### C MP #### [facility] [address] [place] [address] Dr. Dillon Pepe MCHC (RBC) [Mass/Vol] 31.5 g/dL Normal 29.9-35.2 [facility] Comment on above: Performed By: #### C MP #### [facility] [address] [place] [address] Dr. Dillon Pepe MCV (RBC) [Entitic vol] 86.3 fL Normal 81.0-99.0 [facility] Comment on above: Performed By: #### C MP #### [facility] [address] [place] [address] Dr. Dillon Pepe MONO # 1.5 103/ul Critically high 0.3-0.8 [facility] Comment on above: Performed By: #### C MP #### [facility] [address] [place] [address] Dr. Dillon Pepe Monocytes/100 WBC (Bld) 8.7 % Normal 1.7-12.0 [facility] Comment on above: Performed By: #### C MP #### [facility] [address] [place] [address] Dr. Dillon Pepe NEUT # 12.6 103/ul Critically high 1.4-6.5 [facility] Comment on above: Performed By: #### C MP #### [facility] [address] [place] [address] Dr. Dillon Pepe Neutrophils/100 WBC (Bld) 75.3 % Critically high 43.0-75.0 [facility] Comment on above: Performed By: #### C MP #### [facility] [address] [place] [address] Dr. Dillon Pepe Platelet mean volume (Bld) [Entitic vol] 10.5 fL Normal 9.5-13.5 [facility] Comment on above: Performed By: #### C MP #### [facility] [address] [place] [address] Dr. Dillon Pepe PLT 331 103/ul Normal 150-450 [facility] Comment on above: Performed By: #### C MP #### [facility] [address] [place] [address] Dr. Dillon Pepe RBC 3.79 106/ul Critically low 4.20-5.[address] [facility] Comment on above: Performed By: #### C MP #### [facility] [address] [place] [address] Dr. Dillon Pepe WBC 16.8 103/ul Critically high 4.0-11.0 [facility] Comment on above: Performed By: #### C MP #### [facility] [address] [place] [address] Dr. Dillon Pepe CBC AUTO DIFFon 10-19-2021 BASO # 0.0 103/ul Normal 0.0-0.1 [facility] Comment on above: Performed By: #### U MICRO, UACSIND #### [facility] [address] [place] [address] Dr. Dillon Pepe Basophils/100 WBC (Bld) 0.2 % Normal 0.2-2.0 [facility] Comment on above: Performed By: #### U MICRO, UACSIND #### [facility] [address] [place] [address] Dr. Dillon Pepe EO # 0.0 103/ul Normal 0.0-0.7 [facility] Comment on above: Performed By: #### U MICRO, UACSIND #### [facility] [address] [place] [address] Dr. Dillon Pepe Eosinophils/100 WBC (Bld) 0.2 % Critically low 0.9-7.0 [facility] Comment on above: Performed By: #### U MICRO, UACSIND #### [facility] [address] [place] [address] Dr. Dillon Pepe Erythrocyte distribution width (RBC) [Ratio] 13.2 % Normal 11.0-15.0 [facility] Comment on above: Performed By: #### U MICRO, UACSIND #### [facility] [address] [place] [address] Dr. Dillon Pepe Hematocrit (Bld) [Volume fraction] 37.7 % Normal 36.0-48.0 [facility] Comment on above: Performed By: #### U MICRO, UACSIND #### [facility] [address] [place] [address] Dr. Dillon Pepe Hemoglobin (Bld) [Mass/Vol] 12.1 g/dL Normal 12.0-16.0 [facility] Comment on above: Performed By: #### U MICRO, UACSIND #### [facility] [address] [place] [address] Dr. Dillon Pepe IG # 0.09 10e3/ul Critically high 0.00-0.03 [facility] Comment on above: Performed By: #### U MICRO, UACSIND #### [facility] [address] [address] [address] Dillon Pepe IG % 0.5 % Normal 0.0-0.5 [facility] Comment on above: Performed By: #### U MICRO, UACSIND #### [facility] [address] [place] [address] Dr. Dillon Pepe LYMPH # 0.9 103/ul Critically low 1.2-3.8 [facility] Comment on above: Performed By: #### U MICRO, UACSIND #### [facility] [address] [place] [address] Dr. Dillon Pepe Lymphocytes/100 WBC (Bld) 4.9 % Critically low 20.5-60.0 [facility] Comment on above: Performed By: #### U MICRO, UACSIND #### [facility] [address] [place] [address] Dr. Dillon Pepe MANUAL DIFF REQ NO Normal [facility] Comment on above: Performed By: #### U MICRO, UACSIND #### [facility] [address] [place] [address] Dr. Dillon Pepe MCH (RBC) [Entitic mass] 27.6 pg Normal 26.7-34.0 [facility] Comment on above: Performed By: #### U MICRO, UACSIND #### [facility] [address] [place] [address] Dr. Dillon Pepe MCHC (RBC) [Mass/Vol] 32.1 g/dL Normal 29.9-35.2 [facility] Comment on above: Performed By: #### U MICRO, UACSIND #### [facility] [address] [place] [address] Dr. Dillon Pepe MCV (RBC) [Entitic vol] 85.9 fL Normal 81.0-99.0 [facility] Comment on above: Performed By: #### U MICRO, UACSIND #### [facility] [address] [place] [address] Dr. Dillon Pepe MONO # 1.1 103/ul Critically high 0.3-0.[address] [facility] Comment on above: Performed By: #### U MICRO, UACSIND #### [facility] [address] [address] [address] Dillon Pepe Monocytes/100 WBC (Bld) 5.8 % Normal 1.7-12.0 [facility] Comment on above: Performed By: #### U MICRO, UACSIND #### [facility] [address] [address] [address] Dillon Pepe NEUT # 16.4 103/ul Critically high 1.4-6.5 [facility] Comment on above: Performed By: #### U MICRO, UACSIND #### [facility] [address] [address] [address] Dillon Pepe Neutrophils/100 WBC (Bld) 88.4 % Critically high 43.0-75.0 [facility] Comment on above: Performed By: #### U MICRO, UACSIND #### [facility] [address] [address] [address] Dillon Pepe Platelet mean volume (Bld) [Entitic vol] 10.4 fL Normal 9.5-13.5 [facility] Comment on above: Performed By: #### U MICRO, UACSIND #### [facility] [address] [address] [address] Dillon Pepe PLT 357 103/ul Normal 150-450 [facility] Comment on above: Performed By: #### U MICRO, UACSIND #### [facility] [address] [address] [address] Dillon Pepe RBC 4.39 106/ul Normal 4.20-5.40 [facility] Comment on above: Performed By: #### U MICRO, UACSIND #### [facility] [address] [address] [address] Dillon Pepe WBC 18.5 103/ul Critically high 4.0-11.0 [facility] Comment on above: Performed By: #### U MICRO, UACSIND #### [facility] [address] [place] [address] Dr. Dillon Pepe Covid-19 PCR (CVDTB)on 09-23 SARS-CoV-2 (COVID-19) RNA ERIK+probe Ql (Unsp spec) Not detected Normal NOT DETECTED [facility] Comment on above: Result Comment: When [...] for this test is supported by the [place] of [employer] and Human Service's declaration that [...] Performed By: #### U MICRO, UACSIND #### [facility] [address] [place] [address] Dr. Dillon Pepe DRUG SCREEN RAPID (URINE)on 10-19-2021 AMP Negative Normal NEGATIVE [facility] Comment on above: Performed By: #### D RUGRPD #### [facility] [address] [place] [address] Dr. Dillon Pepe BAR Negative Normal NEGATIVE [facility] Comment on above: Performed By: #### D RUGRPD #### [facility] [address] [place] [address] Dr. Dillon Pepe BUP Negative Normal NEGATIVE [facility] Comment on above: Performed By: #### D RUGRPD #### [facility] [address] [place] [address] Dr. Dillon Pepe BZO Negative Normal NEGATIVE [facility] Comment on above: Performed By: #### D RUGRPD #### [facility] [address] [place] [address] Dr. Dillon Pepe CECILIA Negative Normal NEGATIVE [facility] Comment on above: Performed By: #### D RUGRPD #### [facility] [address] [place] [address] Dr. Dillon Pepe CUT-OFFS SEE BELOW Normal [facility] Comment on above: Result Comment: AMP (Amphetamine): 500ng/mL, BAR (Barbituates): 200 ng/mL, BZO (Benzodiazepines): 150 ng/mL, BUP (Buprenorphine): 10 ng/mL, CECILIA (Cocaine): 150 ng/mL, mAMP (Methamphetamine): 500 ng/mL, MTD (Methadone): 200 ng/mL, OPI (Opiates): 100 ng/mL, OXY (Oxycodone): 100 ng/mL, PCP (Phencyclidine): 25 ng/mL, PPX (Propoxyphene): 300 ng/mL, THC (Cannabinoids): 50 ng/mL, TCA (Trycyclic Antidepressants): 300 ng/mL Performed By: #### D RUGRPD #### [facility] [address] [place] [address] Dr. Dillon Pepe DRUG CUT HEADER DRUG CLASS TEST SYSTEM CUT-OFF CONCENTRATIONS ARE FOLLOWS: Normal [facility] Comment on above: Performed By: #### D RUGRPD #### [facility] [address] [place] [address] Dr. Dillon Pepe mAMP Negative Normal NEGATIVE [facility] Comment on above: Performed By: #### D RUGRPD #### [facility] [address] [place] [address] Dr. Dillon Pepe MTD Negative Normal NEGATIVE [facility] Comment on above: Performed By: #### D RUGRPD #### [facility] [address] [place] [address] Dr. Dillon Pepe OPI Negative Normal NEGATIVE [facility] Comment on above: Performed By: #### D RUGRPD #### [facility] [address] [place] [address] Dr. Dillon Pepe OXY Negative Normal NEGATIVE [facility] Comment on above: Performed By: #### D RUGRPD #### [facility] [address] [place] [address] Dr. Dillon Pepe PCP Negative Normal NEGATIVE [facility] Comment on above: Performed By: #### D RUGRPD #### [facility] [address] [address] [address] Dillon Pepe PPX Negative Normal NEGATIVE [facility] Comment on above: Performed By: #### D RUGRPD #### [facility] [address] [place] [address] Dr. Dillon Pepe TCA Negative Normal NEGATIVE [facility] Comment on above: Performed By: #### D RUGRPD #### [facility] [address] [place] [address] Dr. Dillon Pepe THC Positive Abnormal NEGATIVE [facility] Comment on above: Performed By: #### D RUGRPD #### [facility] [address] [place] [address] Dr. Dillon Pepe TYPE AND SCREENon 10-19-2021 TYPE AND SCREEN Negative Normal [facility] Comment on above: Performed By: #### C MP #### [facility] [address] [place] [address] Dr. Dillon Pepe GROUP B STREP CULTUREon S. agalactiae Ag Ql (Unsp spec) Culture Observations: NEGATIVE FOR GROUP B STREPTOCOCCUS. Normal [facility] Comment on above: Performed By: #### G BSCX #### [facility] [address] [place] [address] Dr. Dillon Pepe US PREG GROWTHon 09-09-2021 [...] growth detailed above. Electronically authenticated by: ELLEN MACEDOSHAQ Date: 2021-09-08 22:28 Normal [facility] GLYCOHEMOGLOBIN A1Con 2021 ADA RECOMMENDATION SEE BELOW Normal [facility] Comment on above: Result Comment: ADA RECOMMENDED LIMIT 4.0 - 6.0 ADA THERAPEUTIC TARGET < 7.0 ACTION SUGGESTED > 7.0 Performed By: #### C MP #### [facility] [address] [address] [address] Dillon Pepe Glucose [Mass/Vol] 105 mg/dL Normal [facility] Comment on above: Performed By: #### C MP #### [facility] [address] [place] [address] Dr. Dillon Pepe HbA1c (Bld) [Mass fraction] 5.3 % Normal 4.5-6.2 [facility] Comment on above: Performed By: #### C MP #### [facility] [address] [address] [address] Dillon Pepe HEMOGRAM AND PLATELon 2021 Hematocrit (Bld) [Volume fraction] 34.1 % Critically low 36.0-48.0 [facility] Comment on above: Performed By: #### U MICRO, UACSIND #### [facility] [address] [address] [address] Dillon Pepe Hemoglobin (Bld) [Mass/Vol] 11.4 g/dL Critically low 12.0-16.0 [facility] Comment on above: Performed By: #### U MICRO, UACSIND #### [facility] [address] [address] [address] Dillon Pepe MCH (RBC) [Entitic mass] 29.4 pg Normal 26.7-34.0 [facility] Comment on above: Performed By: #### U MICRO, UACSIND #### [facility] [address] [address] [address] Dillon Pepe MCHC (RBC) [Mass/Vol] 33.4 g/dL Normal 29.9-35.2 [facility] Comment on above: Performed By: #### U MICRO, UACSIND #### [facility] [address] [address] [address] Dillon Pepe MCV (RBC) [Entitic vol] 87.9 fL Normal 81.0-99.0 [facility] Comment on above: Performed By: #### U MICRO, UACSIND #### [facility] [address] [address] [address] Dillon Pepe PLT 398 103/ul Normal 150-450 [facility] Comment on above: Performed By: #### U MICRO, UACSIND #### [facility] [address] [place] [address] Dr. Dillon Pepe RBC 3.88 106/ul Critically low 4.20-5.[address] [facility] Comment on above: Performed By: #### U MICRO, UACSIND #### [facility] [address] [place] [address] Dr. Dillon Pepe WBC 17.3 103/ul Critically high 4.0-11.0 [facility] Comment on above: Performed By: #### U MICRO, UACSIND #### [facility] [address] [place] [address] Dr. Dillon Pepe RHOGAMon 08-07-2021 RHOGAM Status Information Issued Quantity 1 Product ID Rh Immune Globulin Lot Number [id number] Issue Date/Time [id number] Normal [facility] Comment on above: Performed By: #### C MP #### [facility] [address] [place] [address] Dr. Dillon Pepe TYPE AND SCREENon 08-07-2021 TYPE AND SCREEN Negative Normal [facility] Comment on above: Performed By: #### T NS #### [facility] [address] [place] [address] Dr. Dillon Pepe CHEMISTRYOrdered By: Ran Armstrong on 08-06-2021 HbA1c (Bld) [Mass fraction] 5.1 % Normal <=5.9% [facility] HEMATOLOGYOrdered By: Elayne Chowdhury on 08-06-2021 Erythrocyte distribution width (RBC) [Ratio] 13.0 % Normal 10.9 - 14.2 % [facility] Hematocrit (Bld) [Volume fraction] 34.0 % Normal 34.0 - 46.0 % [facility] Hemoglobin (Bld) [Mass/Vol] 11.7 g/dL Low 12.0 - 16.0 gm/dL [facility] MCH (RBC) [Entitic mass] 29.2 pg Normal 27.0 - 34.0 pg [facility] MCHC (RBC) [Mass/Vol] 34.2 g/dL Normal 31.4 - 36.0 gm/dL [facility] MCV (RBC) [Entitic vol] 85.2 fL Normal 80.0 - 100.0 fL [facility] Platelet mean volume (Bld) [Entitic vol] 8.3 fL Normal 6.4 - 10.8 fL [facility] Platelets (Bld) [#/Vol] 390.0 E9/L Normal 150.0 - 500.0 E9/L [facility] RBC (Bld) [#/Vol] 4.0 E12/L Low 4.3 - 5.9 E12/L [facility] WBC corrected for nucl RBC Auto (Bld) [#/Vol] 16.6 E9/L High 4.0 - 11.0 E9/L [facility] PROF CHEM 8 (BAS METB)on Anion gap [Moles/Vol] 16.6 mmol/L Normal [facility] Comment on above: Performed By: #### C MP #### [facility] [address] [place] [address] Dr. Dillon Pepe Calcium [Mass/Vol] 8.4 mg/dL Critically low 8.5-10.1 [facility] Comment on above: Performed By: #### C MP #### [facility] [address] [address] [address] Dillon Pepe Chloride [Moles/Vol] 99 mmol/L Normal 98-107 [facility] Comment on above: Performed By: #### C MP #### [facility] [address] [address] [address] Dillon Pepe CO2 [Moles/Vol] 19.9 mmol/L Critically low 21.0-32.0 [facility] Comment on above: Performed By: #### C MP #### [facility] [address] [address] [address] Dillon Pepe Creatinine [Mass/Vol] 0.32 mg/dL Critically low 0.55-1.02 [facility] Comment on above: Performed By: #### C MP #### [facility] [address] [address] [address] Dillon Pepe EGFR-AF CENTRAL AFRICAN >60 Normal >=60 [facility] Comment on above: Performed By: #### C MP #### [facility] [address] [place] [address] Dr. Dillon Pepe EGFR-NON AF CENTRAL AFRICAN >60 Normal >=60 [facility] Comment on above: Performed By: #### C MP #### [facility] [address] [address] [address] Dillon Pepe Glucose [Mass/Vol] 97 mg/dL Normal 74-106 [facility] Comment on above: Performed By: #### C MP #### [facility] [address] [address] [address] Dillon Pepe Potassium [Moles/Vol] 3.5 mmol/L Normal 3.5-5.1 [facility] Comment on above: Performed By: #### C MP #### [facility] [address] [address] [address] Dillon Pepe Sodium [Moles/Vol] 132 mmol/L Critically low 136-145 [facility] Comment on above: Performed By: #### C MP #### [facility] [address] [place] [address] Dr. Dillon Pepe Urea nitrogen [Mass/Vol] 4.0 mg/dL Critically low 7.0-18.0 [facility] Comment on above: Performed By: #### C MP #### [facility] [address] [place] [address] Dr. Dillon Pepe Urea nitrogen/Creatinine [Mass ratio] 12.5 mg/mg Normal [facility] Comment on above: Performed By: #### C MP #### [facility] [address] [place] [address] Dr. Dillon Pepe PROF CHEM 8 (BAS METB)on Anion gap [Moles/Vol] 16.6 mmol/L Normal [facility] Comment on above: Performed By: #### B MP #### [facility] [address] [place] [address] Dr. Dillon Pepe Calcium [Mass/Vol] 8.3 mg/dL Critically low 8.5-10.1 [facility] Comment on above: Performed By: #### B MP #### [facility] [address] [place] [address] Dr. Dillon Pepe Chloride [Moles/Vol] 99 mmol/L Normal 98-107 [facility] Comment on above: Performed By: #### B MP #### [facility] [address] [place] [address] Dr. Dillon Pepe CO2 [Moles/Vol] 20.4 mmol/L Critically low 21.0-32.0 [facility] Comment on above: Performed By: #### B MP #### [facility] [address] [place] [address] Dr. Dillon Pepe Creatinine [Mass/Vol] 0.34 mg/dL Critically low 0.55-1.02 [facility] Comment on above: Performed By: #### B MP #### [facility] [address] [place] [address] Dr. Dillon Pepe EGFR-AF CENTRAL AFRICAN >60 Normal >=60 [facility] Comment on above: Performed By: #### B MP #### [facility] [address] [place] [address] Dr. Dillon Pepe EGFR-NON AF CENTRAL AFRICAN >60 Normal >=60 [facility] Comment on above: Performed By: #### B MP #### [facility] [address] [place] [address] Dr. Dillon Pepe Glucose [Mass/Vol] 94 mg/dL Normal 74-106 [facility] Comment on above: Performed By: #### B MP #### [facility] [address] [address] [address] Dillon Pepe Potassium [Moles/Vol] 3.0 mmol/L Critically low 3.5-5.1 [facility] Comment on above: Performed By: #### B MP #### [facility] [address] [address] [address] Dillon Pepe Sodium [Moles/Vol] 133 mmol/L Critically low 136-145 [facility] Comment on above: Performed By: #### B MP #### [facility] [address] [address] [address] Dillon Pepe Urea nitrogen [Mass/Vol] 4.0 mg/dL Critically low 7.0-18.0 [facility] Comment on above: Performed By: #### B MP #### [facility] [address] [address] [address] Dillon Pepe Urea nitrogen/Creatinine [Mass ratio] 11.8 mg/mg Normal [facility] Comment on above: Performed By: #### B MP #### [facility] [address] [address] [address] Dillon Pepe Anion gap [Moles/Vol] 17.7 mmol/L Normal [facility] Comment on above: Performed By: #### B MP #### [facility] [address] [address] [address] Dillon Pepe Calcium [Mass/Vol] 8.6 mg/dL Normal 8.5-10.1 [facility] Comment on above: Performed By: #### B MP #### [facility] [address] [address] [address] Dillon Pepe Chloride [Moles/Vol] 96 mmol/L Critically low 98-107 [facility] Comment on above: Performed By: #### B MP #### [facility] [address] [address] [address] Dillon Pepe CO2 [Moles/Vol] 22.4 mmol/L Normal 21.0-32.0 [facility] Comment on above: Performed By: #### B MP #### [facility] [address] [address] [address] Dillon Pepe Creatinine [Mass/Vol] 0.54 mg/dL Critically low 0.55-1.02 [facility] Comment on above: Performed By: #### B MP #### [facility] [address] [address] [address] Dillon Pepe EGFR-AF CENTRAL AFRICAN >60 Normal >=60 [facility] Comment on above: Performed By: #### B MP #### [facility] [address] [address] [address] Dillon Pepe EGFR-NON AF CENTRAL AFRICAN >60 Normal >=60 [facility] Comment on above: Performed By: #### B MP #### [facility] [address] [address] [address] Dillon Pepe Glucose [Mass/Vol] 116 mg/dL Critically high 74-[address] [facility] Comment on above: Performed By: #### B MP #### [facility] [address] [address] [address] Dillon Pepe Potassium [Moles/Vol] 3.1 mmol/L Critically low 3.5-5.1 [facility] Comment on above: Performed By: #### B MP #### [facility] [address] [address] [address] Dillon Pepe Sodium [Moles/Vol] 133 mmol/L Critically low 136-145 [facility] Comment on above: Performed By: #### B MP #### [facility] [address] [address] [address] Dillon Pepe Urea nitrogen [Mass/Vol] 6.0 mg/dL Critically low 7.0-18.0 [facility] Comment on above: Performed By: #### B MP #### [facility] [address] [address] [address] Dillon Pepe Urea nitrogen/Creatinine [Mass ratio] 11.1 mg/mg Normal [facility] Comment on above: Performed By: #### B MP #### [facility] [address] [address] [address] Dillon Pepe UA (CLEAN/CATCH) FAMILY MEDICINE PHYSICIAN ASSISTANT/MICRO I F IND.on 06-22-2021 Bilirubin Ql (U) Negative Normal NEGATIVE [facility] Comment on above: Performed By: #### U MICRO, UACSIND #### [facility] [address] [place] [address] Dr. Dillon Pepe Clarity (U) CLEAR Normal CLEAR [facility] Comment on above: Performed By: #### U MICRO, UACSIND #### [facility] [address] [address] [address] Dillon Pepe Color (U) YELLOW Normal YELLOW [facility] Comment on above: Performed By: #### U MICRO, UACSIND #### [facility] [address] [place] [address] Dr. Dillon Pepe Glucose Ql (U) Negative Normal NEGATIVE [facility] Comment on above: Performed By: #### U MICRO, UACSIND #### [facility] [address] [place] [address] Dr. Dillon Pepe Hemoglobin Ql (U) Negative Normal NEGATIVE [facility] Comment on above: Performed By: #### U MICRO, UACSIND #### [facility] [address] [place] [address] Dr. Dillon Pepe Ketones Ql (U) >=80 Abnormal NEGATIVE [facility] Comment on above: Performed By: #### U MICRO, UACSIND #### [facility] [address] [address] [address] Dillon Pepe LEUKOCYTES Negative Normal NEGATIVE [facility] Comment on above: Performed By: #### U MICRO, UACSIND #### [facility] [address] [address] [address] Dillon Pepe Nitrite Ql (U) Negative Normal NEGATIVE [facility] Comment on above: Performed By: #### U MICRO, UACSIND #### [facility] [address] [place] [address] Dr. Dillon Pepe pH (U) 6.0 [pH] Normal 5-9 [facility] Comment on above: Performed By: #### U MICRO, UACSIND #### [facility] [address] [address] [address] Dillon Pepe SPEC GRAVITY >=1.030 Abnormal 1.005-<=1.025 [facility] Comment on above: Performed By: #### U MICRO, UACSIND #### [facility] [address] [address] [address] Dillon Pepe UA PROTEIN 30 mg/dl Abnormal NEGATIVE/ TRACE [facility] Comment on above: Performed By: #### U MICRO, UACSIND #### [facility] [address] [address] [address] Dillon Pepe UR MICRO IND INDICATED Normal [facility] Comment on above: Performed By: #### U MICRO, UACSIND #### [facility] [address] [place] [address] Dr. Dillon Pepe Urobilinogen Qn (U) 0.2 {Elio'U}/dL Normal 0.2 - 1. 0 [facility] Comment on above: Performed By: #### U MICRO, UACSIND #### [facility] [address] [address] [address] Dillon Pepe URINE MICROSCOPIC ONLYon BACTERIA NONE SEEN Normal NONE SEEN [facility] Comment on above: Performed By: #### U MICRO, UACSIND #### [facility] [address] [address] [address] Dillon Pepe Bacteria identified Cx Nom (U) NOT INDICATED Normal [facility] Comment on above: Performed By: #### U MICRO, UACSIND #### [facility] [address] [address] [address] Dillon Pepe CAST NONE SEEN Normal NONE SEEN [facility] Comment on above: Performed By: #### U MICRO, UACSIND #### [facility] [address] [address] [address] Dillon Pepe Crystals LM Nom (Urine sed) NONE SEEN Normal NONE SEEN [facility] Comment on above: Performed By: #### U MICRO, UACSIND #### [facility] [address] [place] [address] Dr. Dillon Pepe Epithelial cells LM Ql (Urine sed) RARE Normal NONE SEEN /RARE [facility] Comment on above: Performed By: #### U MICRO, UACSIND #### [facility] [address] [place] [address] Dr. Dillon Pepe MUCOUS MODERATE Abnormal NONE SEEN [facility] Comment on above: Performed By: #### U MICRO, UACSIND #### [facility] [address] [place] [address] Dr. Dillon Pepe RBC NONE SEEN Abnormal 0-2 [facility] Comment on above: Performed By: #### U MICRO, UACSIND #### [facility] [address] [place] [address] Dr. Dillon Pepe WBC 0-2 Abnormal NONE SEEN [facility] Comment on above: Performed By: #### U MICRO, UACSIND #### [facility] [address] [place] [address] Dr. Dillon Pepe AMNISUREon 05-31-2021 AMNISURE Negative Normal NEGATIVE [facility] Comment on above: Performed By: #### A MNI #### [facility] [address] [place] [address] Dr. Dillon Pepe CBC AUTO DIFFon 05-31-2021 BASO # 0.0 103/ul Normal 0.0-0.1 [facility] Comment on above: Performed By: #### C BC #### [facility] [address] [place] [address] Dr. Dillon Pepe Basophils/100 WBC (Bld) 0.2 % Normal 0.2-2.0 [facility] Comment on above: Performed By: #### C BC #### [facility] [address] [place] [address] Dr. Dillon Pepe EO # 0.0 103/ul Normal 0.0-0.7 [facility] Comment on above: Performed By: #### C BC #### [facility] [address] [place] [address] Dr. Dillon Pepe Eosinophils/100 WBC (Bld) 0.0 % Critically low 0.9-7.0 [facility] Comment on above: Performed By: #### C BC #### [facility] [address] [place] [address] Dr. Dillon Pepe Erythrocyte distribution width (RBC) [Ratio] 12.5 % Normal 11.0-15.0 [facility] Comment on above: Performed By: #### C BC #### [facility] [address] [place] [address] Dr. Dillon Pepe Hematocrit (Bld) [Volume fraction] 38.2 % Normal 36.0-48.0 [facility] Comment on above: Performed By: #### C BC #### [facility] [address] [place] [address] Dr. Dillon Pepe Hemoglobin (Bld) [Mass/Vol] 13.2 g/dL Normal 12.0-16.0 [facility] Comment on above: Performed By: #### C BC #### [facility] [address] [place] [address] Dr. Dillon Pepe IG # 0.16 10e3/ul Critically high 0.00-0.03 [facility] Comment on above: Performed By: #### C BC #### [facility] [address] [place] [address] Dr. Dillon Pepe IG % 0.8 % Critically high 0.0-0.5 [facility] Comment on above: Performed By: #### C BC #### [facility] [address] [place] [address] Dr. Dillon Pepe LYMPH # 1.6 103/ul Normal 1.2-3.8 [facility] Comment on above: Performed By: #### C BC #### [facility] [address] [place] [address] Dr. Dillon Pepe Lymphocytes/100 WBC (Bld) 7.6 % Critically low 20.5-60.0 [facility] Comment on above: Performed By: #### C BC #### [facility] [address] [place] [address] Dr. Dillon Pepe MANUAL DIFF REQ NO Normal The [facility] Comment on above: Performed By: #### C BC #### [facility] [address] [place] [address] Dr. Dillon Pepe MCH (RBC) [Entitic mass] 30.1 pg Normal 26.7-34.0 [facility] Comment on above: Performed By: #### C BC #### [facility] [address] [place] [address] Dr. Dillon Pepe MCHC (RBC) [Mass/Vol] 34.6 g/dL Normal 29.9-35.2 [facility] Comment on above: Performed By: #### C BC #### [facility] [address] [place] [address] Dr. Dillon Pepe MCV (RBC) [Entitic vol] 87.2 fL Normal 81.0-99.0 [facility] Comment on above: Performed By: #### C BC #### [facility] [address] [place] [address] Dr. Dillon Pepe MONO # 1.0 103/ul Critically high 0.3-0.8 [facility] Comment on above: Performed By: #### C BC #### [facility] [address] [place] [address] Dr. Dillon Pepe Monocytes/100 WBC (Bld) 4.6 % Normal 1.7-12.0 [facility] Comment on above: Performed By: #### C BC #### [facility] [address] [place] [address] Dr. Dillon Pepe NEUT # 18.4 103/ul Critically high 1.4-6.5 [facility] Comment on above: Performed By: #### C BC #### [facility] [address] [place] [address] Dr. Dillon Pepe Neutrophils/100 WBC (Bld) 86.8 % Critically high 43.0-75.0 [facility] Comment on above: Performed By: #### C BC #### [facility] [address] [place] [address] Dr. Dillon Pepe Platelet mean volume (Bld) [Entitic vol] 10.1 fL Normal 9.5-13.5 [facility] Comment on above: Performed By: #### C BC #### [facility] [address] [place] [address] Dr. Dillon Pepe PLT 402 103/ul Normal 150-450 [facility] Comment on above: Performed By: #### C BC #### [facility] [id number] Dillon Pepe RBC 4.38 106/ul Normal 4.20-5.40 [facility] Comment on above: Performed By: #### C BC #### [facility] [address] [place] [address] Dr. Dillon Pepe WBC 21.2 103/ul Critically high 4.0-11.0 [facility] Comment on above: Performed By: #### C BC #### [facility] [address] [place] [address] Dr. Dillon Pepe CULTURE URINEon 05-31-2021 CULTURE URINE Culture Observations: MODERATE GROWTH OF MIXED GENITAL BLAIR. NO POTENTIAL PATHOGENS SEEN. Normal [facility] Comment on above: Performed By: #### C MP #### [facility] [address] [place] [address] Dr. Dillon Pepe Covid-19 PCR (CVDTB)on SARS-CoV-2 (COVID-19) RNA ERIK+probe Ql (Unsp spec) Not detected Normal NOT DETECTED [facility] Comment on above: Result Comment: This test is not yet approved or cleared by the [place] FDA. When there are no FDA-approved or cleared tests available, and other criteria are met, FDA can make tests available under an emergency access mechanism called an Emergency Use Authorization (EUA). The EUA for this test is supported by the Tutoring Clinician of Health and Human Service's (HHS's) declaration [...] Performed By: #### U MICRO, UACSIND #### [facility] [address] [place] [address] Dr. Dillon Pepe ER URINE PROFILEon 2 Bilirubin Ql (U) SMALL Abnormal NEGATIVE [facility] Comment on above: Performed By: #### C MP #### [facility] [address] [place] [address] Dr. Dillon Pepe Clarity (U) CLEAR Normal CLEAR [facility] Comment on above: Performed By: #### C MP #### [facility] [address] [place] [address] Dr. Dillon Pepe Color (U) YELLOW Normal YELLOW [facility] Comment on above: Performed By: #### C MP #### [facility] [address] [place] [address] Dr. Dillon Pepe ERUAHD A micrscopic examination will be performed if indicated. Normal [facility] Comment on above: Performed By: #### C MP #### [facility] [address] [place] [address] Dr. Dillon Pepe Glucose Ql (U) Negative Normal NEGATIVE [facility] Comment on above: Performed By: #### C MP #### [facility] [address] [place] [address] Dr. Dillon Pepe Hemoglobin Ql (U) Negative Normal NEGATIVE The [facility] Comment on above: Performed By: #### C MP #### [facility] [address] [place] [address] Dr. Dillon Pepe Ketones Ql (U) >=80 Abnormal NEGATIVE [facility] Comment on above: Performed By: #### C MP #### [facility] [address] [place] [address] Dr. Dillon Pepe LEUKOCYTES Negative Normal NEGATIVE [facility] Comment on above: Performed By: #### C MP #### [facility] [address] [place] [address] Dr. Dillon Pepe Nitrite Ql (U) Negative Normal NEGATIVE [facility] Comment on above: Performed By: #### C MP #### [facility] [address] [place] [address] Dr. Dillon Pepe pH (U) 6.0 [pH] Normal 5-9 [facility] Comment on above: Performed By: #### C MP #### [facility] [address] [place] [address] Dr. Dillon Pepe Protein (U) [Mass/Vol] 30 mg/dL Abnormal NEGAT LENORE/ TRACE [facility] Comment on above: Performed By: #### C MP #### [facility] [address] [place] [address] Dr. Dillon Pepe SPEC GRAVITY >=1.030 Abnormal 1.005-<=1.025 [facility] Comment on above: Performed By: #### C MP #### [facility] [address] [place] [address] Dr. Dillon Pepe UR MICRO IND INDICATED Normal [facility] Comment on above: Performed By: #### C MP #### [facility] [address] [place] [address] Dr. Dillon Pepe Urobilinogen Qn (U) 1.0 {Elio'U}/dL Normal 0.2 - 1. 0 [facility] Comment on above: Performed By: #### C MP #### [facility] [address] [place] [address] Dr. Dillon Pepe PROF 14(COMP METB)on 022 Albumin [Mass/Vol] 3.5 g/dL Normal 3.4-5.0 [facility] Comment on above: Performed By: #### C MP #### [facility] [address] [place] [address] Dr. Dillon Pepe Albumin/Globulin [Mass ratio] 0.8 {ratio} Normal [facility] Comment on above: Performed By: #### C MP #### [facility] [address] [place] [address] Dr. Dillon Pepe ALP [Catalytic activity/Vol] 84 U/L Normal 46-116 [facility] Comment on above: Performed By: #### C MP #### [facility] [address] [place] [address] Dr. Dillon Pepe ALT [Catalytic activity/Vol] 17 U/L Normal 14-59 [facility] Comment on above: Performed By: #### C MP #### [facility] [address] [address] [address] Dillon Ppee Anion gap [Moles/Vol] 19.2 mmol/L Normal [facility] Comment on above: Performed By: #### C MP #### [facility] [address] [place] [address] Dr. Dillon Pepe AST [Catalytic activity/Vol] 10 U/L Critically low 15-37 [facility] Comment on above: Performed By: #### C MP #### [facility] [address] [place] [address] Dr. Dillon Pepe Bilirubin [Mass/Vol] 0.6 mg/dL Normal 0.2-1.3 [facility] Comment on above: Performed By: #### C MP #### [facility] [address] [place] [address] Dr. Dillon Pepe Calcium [Mass/Vol] 9.3 mg/dL Normal 8.5-10.1 [facility] Comment on above: Performed By: #### C MP #### [facility] [address] [address] [address] Dillon Pepe Chloride [Moles/Vol] 98 mmol/L Normal 98-107 [facility] Comment on above: Performed By: #### C MP #### [facility] [address] [address] [address] Dillon Pepe CO2 [Moles/Vol] 20.7 mmol/L Critically low 22.0-30.0 [facility] Comment on above: Performed By: #### C MP #### [facility] [address] [place] [address] Dr. Dillon Pepe Creatinine [Mass/Vol] 0.51 mg/dL Critically low 0.52-1.04 [facility] Comment on above: Performed By: #### C MP #### [facility] [address] [address] [address] Dillon Pepe EGFR-AF CENTRAL AFRICAN =60 Normal >=60 [facility] Comment on above: Performed By: #### C MP #### [facility] [address] [address] [address] Dillon Pepe EGFR-NON AF CENTRAL AFRICAN >60 Normal >=60 [facility] Comment on above: Performed By: #### C MP #### [facility] [address] [address] [address] Dillon Pepe Globulin (S) [Mass/Vol] 4.5 g/dL Normal [facility] Comment on above: Performed By: #### C MP #### [facility] [address] [place] [address] Dr. Dillon Pepe Glucose [Mass/Vol] 106 mg/dL Normal 74-106 [facility] Comment on above: Performed By: #### C MP #### [facility] [address] [address] [address] Dillon Pepe Potassium [Moles/Vol] 2.9 mmol/L Critically low 3.4-5.0 [facility] Comment on above: Performed By: #### C MP #### [facility] [address] [place] [address] Dr. Dillon Pepe Protein [Mass/Vol] 8.0 g/dL Normal 6.1-8.2 [facility] Comment on above: Performed By: #### C MP #### [facility] [address] [address] [address] Dillon Pepe Sodium [Moles/Vol] 136 mmol/L Critically low 137-145 [facility] Comment on above: Performed By: #### C MP #### [facility] [address] [address] [address] Dillon Pepe Urea nitrogen [Mass/Vol] 7.0 mg/dL Normal 7.0-18.0 [facility] Comment on above: Performed By: #### C MP #### [facility] [address] [address] [address] Dillon Pepe Urea nitrogen/Creatinine [Mass ratio] 13.7 mg/mg Normal [facility] Comment on above: Performed By: #### C MP #### [facility] [address] [place] [address] Dr. Dillon Pepe URINE MICROSCOPIC ONLYon BACTERIA SMALL Abnormal NONE SEEN [facility] Comment on above: Performed By: #### U MICRO, UACSIND #### [facility] [address] [place] [address] Dr. Dillon Pepe Bacteria identified Cx Nom (U) INDICATED Normal [facility] Comment on above: Performed By: #### U MICRO, UACSIND #### [facility] [address] [place] [address] Dr. Dillon Pepe CAST NONE SEEN Normal NONE SEEN [facility] Comment on above: Performed By: #### U MICRO, UACSIND #### [facility] [address] [place] [address] Dr. Dillon Pepe Crystals LM Nom (Urine sed) NONE SEEN Normal NONE SEEN [facility] Comment on above: Performed By: #### U MICRO, UACSIND #### [facility] [address] [place] [address] Dr. Dillon Pepe Epithelial cells LM Ql (Urine sed) FEW Abnormal NONE SEEN /RARE [facility] Comment on above: Performed By: #### U MICRO, UACSIND #### [facility] [address] [place] [address] Dr. Dillon Pepe MUCOUS LARGE Abnormal NONE SEEN [facility] Comment on above: Performed By: #### U MICRO, UACSIND #### [facility] [address] [place] [address] Dr. Dillon Pepe RBC NONE SEEN Abnormal 0-2 [facility] Comment on above: Performed By: #### U MICRO, UACSIND #### [facility] [address] [place] [address] Dr. Dillon Pepe WBC 0-2 Abnormal NONE SEEN [facility] Comment on above: Performed By: #### U MICRO, UACSIND #### [facility] [address] [address] [address] Dillon Pepe US PREG ANATOMY SINGLEon [...] by: CARLO DENNISON Date: 2021-05-31 19:53 Normal [facility] Vital Signs Date Time Vital Sign Value Performing Clinician Vineet glasgow 12-28-2022 15:50-0500 Blood Pressure Location Tabby Barnett [facility] 12-28-2022 15:50-0500 Body temperature 98.06 [degF] Tabby Barnett [facility] 12-28-2022 15:50-0500 Diastolic blood pressure 72 mm[Hg] Tabby Bainzier [facility] 12-28-2022 15:50-0500 Heart rate 110 /min Tabby Bainzier [facility] 12-28-2022 15:50-0500 Respiratory rate 18 /min Tabby Bainzier [facility] 12-28-2022 15:50-0500 SaO2% (BldA) [Mass fraction] 99 % Tabby Bainzier [facility] 12-28-2022 15:50-0500 Systolic blood pressure 124 mm[Hg] Tabby Bainzier [facility] 12-21-2022 11:00-0400 Blood Pressure Location Damon BRUNER [facility] 12-21-2022 11:00-0400 Diastolic blood pressure 78 mm[Hg] Christopher BROWN [facility] 12-21-2022 11:00-0400 Heart rate 84 /min Anthonyer FRANC [facility] 12-21-2022 11:00-0400 Respiratory rate 16 /min Damon BRUNER [facility] 12-21-2022 11:00-0400 SaO2% (BldA) [Mass fraction] 97 % Christcarler BROWN [facility] 12-21-2022 11:00-0400 Systolic blood pressure 112 mm[Hg] Anthonyer BROWN [facility] 10-23-2022 14:47-0400 Blood Pressure Location Christopher BROWN [facility] 10-23-2022 14:47-0400 Diastolic blood pressure 78 mm[Hg] Christopher BROWN [facility] 10-23-2022 14:47-0400 Heart rate 87 /min Christopher BROWN [facility] 10-23-2022 14:47-0400 Respiratory rate 16 /min Christopher BROWN [facility] 10-23-2022 14:47-0400 SaO2% (BldA) [Mass fraction] 98 % Christopher BROWN [facility] 10-23-2022 14:47-0400 Systolic blood pressure 118 mm[Hg] Christopher BROWN [facility] 03-31-2022 17:26-0500 Blood Pressure Location Christopher BROWN [facility] 03-31-2022 17:26-0500 Diastolic blood pressure 74 mm[Hg] Christopher BROWN [facility] 03-31-2022 17:26-0500 Heart rate 85 /min Christopher BROWN [facility] 03-31-2022 17:26-0500 Respiratory rate 20 /min Christopher BROWN [facility] 03-31-2022 17:26-0500 SaO2% (BldA) [Mass fraction] 99 % Christopher BROWN [facility] 03-31-2022 17:26-0500 Systolic blood pressure 122 mm[Hg] Christopher BROWN [facility] Encounters Encounter Date Encounter Type Care Provider Facility Start: 03-18-2023 End: 03-18-2023 ambulatory TATY FIELDS Not Available Start: 03-10-2023 End: 03-10-2023 ambulatory TATY FIELDS Not Available Start: 01-28-2023 End: 01-28-2023 ambulatory NEIL SHARPE Not Available Start: 01-22-2023 ambulatory Tabby Barnett Facili ty: [facility] Start: 01-07-2023 End: 01-08-2023 ambulatory Tabby Barnett [facility] Start: 01-07-2023 End: 01-07-2023 Patient encounter procedure Tabby Barnett [facility] Start: 12-28-2022 End: 12-29-2022 ambulatory Tabby Barnett Facility:[facility] Start: 12-28-2022 End: 12-28-2022 Patient encounter procedure Tabby Barnett [facility] Start: 12-21-2022 End: 12-22-2022 ambulatory Damon BRUNER Facility:[facility] Start: 12-21-2022 End: 12-21-2022 Patient encounter procedure Damon BRUNER [facility] Start: 10-23-2022 End: 10-24-2022 ambulatory Damon BRUNER Facility:[facility] Start: 10-23-2022 End: 10-23-2022 Patient encounter procedure Damon BRUNER [facility] Start: 05-23-2022 End: 05-24-[address] TATY FIELDS . Facility:[facility] Start: 05-09-[address] TATY FIELDS . Facili ty:[facility] Start: 05-05-2022 End: 05-06-2022 ambulatory Damon FRANC Facility: [facility] Start: 03-31-2022 End: 04-01-2022 ambulatory Liamdamion BRUNER [facility] Start: 03-31-2022 End: 03-31-2022 Patient encounter procedure Damon BRUNER [facility] Start: 10-19-2021 End: 10-21-2021 Evaluation and management of inpatient DR NATALIE ARTEAGA . Facility: Start: 09-29-2021 End: 09-29-[address] TATY FIELDS . Facility:[facility] Start: 09-08-2021 End: 09-09-[address] TATY FIELDS . Facility: Start: 08-08-2021 ambulatory NONE LISTED REQUEST Facility: Start: 08-07-2021 End: 08-07-2021 ambulatory NONE LISTED REQUEST Facility: Start: 08-06-2021 End: 08-06-2021 Patient encounter procedure Taty FIELDS [facility] Start: 07-17-[address] TATY FIELDS . Facili ty:[facility] Start: 06-22-2021 End: 06-23-[address] GARETH SANDS . Facility: Start: 06-17-[address] TATY FIELDS . Facili ty:[facility] Start: 05-31-2021 End: 06-01-[address] NATALIE ARTEAGA . Facility: Procedures Date Procedure Procedure Detail Performing Clinician Start: 10-20-2021 Delivery of Products of Conception, External Approach DR TATY FIELDS . Start: 10-20-2021 Repair Vulva, Lead Installer al Approach DR TATY FIELDS . None (qualifier value) Taty FIELDS Immunizations Immunization Date Immunization Notes Care Provider Fa cili 10-21-2021 measles, mumps and rubella virus vaccine Liamdamion BRUNER [facility] 01-08-2020 influenza virus vaccine, unspecified formulation Taty LIZZY [facility] NEGATED: Highlighted row has not occurred!12-21-2022 influenza virus vaccine, unspecified formulation [facility]: Highlighted row has not occurred!12-21-2022 SARS-CoV-2 mRNA (tozinameran 5y-11y) vaccine Damon BRUNER [facility] NEGATED: Highlighted row has not occurred!10-23-2022 SARS-CoV-2 mRNA (tozinameran 5y-11y) vaccine Damon BRUNER [facility] NEGATED: Highlighted row has not occurred!05-05-2022 influenza virus vaccine, unspecified formulation [facility] NEGATED: Highlighted row has not occurred!05-05-2022 SARS-CoV-2 mRNA (tozinameran 5y-11y) vaccine [facility] NEGATED: Highlighted row has not occurred!03-31-2022 influenza virus vaccine, unspecified formulation Damon BRUNER [facility] NEGATED: Highlighted row has not occurred!02-20-2021 SARS-CoV-2 (COVID-19) Ad26 vaccine, recombinant Taty LIZZY [facility] NEGATED: Highlighted row has not occurred!02-20-2021 influenza virus vaccine, unspecified formulation Taty LIZZY [facility] Payers Date Payer Category Payer Unknown [id number] 2.16.84 [id number] 1996 Unknown [id number] 2.16.84 [id number] 1996 Unknown [id number] 2.16.84 0.1.006577.3.579.2.593 1996 Unknown [id number] 2.16.84 0.1.031606.3.579.2.593 1996 Unknown [id number] 2.16.84 0.1.971162.3.579.2.593 1996 Unknown [id number] 2.16.84 0.1.928193.3.579.2.593 1996 Unknown [id number] 2.16.84 0.1.565203.3.579.2.593 1996 Unknown [id number] 2.16.84 0.1.247179.3.579.2.593 1996 Unknown [id number] 2.16.84 0.1.694087.3.579.2.593 1996 Unknown [id number] 2.16.84 0.1.069516.3.579.2.593 1996 Unknown [id number] 2.16.84 0.1.545759.3.579.2.593 1996 Unknown [id number] 2.16.84 0.1.956503.3.579.2.593 1996 Unknown [id number] 2.16.8 40.1.562600.3.579.2.727 1996 Unknown [id number] 2.16.8 40.1.085493.3.579.2.727 1996 Unknown [id number] 2.16.8 40.1.380029.3.579.2.727 1996 Unknown [id number] 2.16.8 40.1.300248.3.579.2.727 1996 Unknown [id number] 2.16.8 40.1.756872.3.579.2.727 1996 Unknown [id number] 2.16.8 40.1.879810.3.579.2.727 1996 Unknown [id number] 2.16.8 40.1.140684.3.579.2.727 1996 Unknown [id number] 2.16.84 0.1.766925.3.579.2.1259 1996 Unknown [id number] 2.16.84 0.1.761258.3.579.2.1259 1996 Unknown [id number] 2.16.840 .1.308822.3.579.2.1259 1958 Medicaid [id number] 1958 Self-pay Unknown [id number] 2.16.8 40.1.965353.3.579.2.531 Social History Date Type Detail Facility Start: 02-20-2021 End: 12-28-2022 Tobacco smoking status Never smoked tobacco (finding) [facility] Tobacco smoking status Never [facility] Sex Assigned At Female [facility] Functional Status Date Assessment Result Facility 12-28-2022 Functional Status N/A [facility] 12-21-2022 Functional Status N/A [facility] 10-23-2022 Functional Status N/A [facility] 03-31-2022 Functional Status N/A [facility] Hospital Discharge instructions 01-03-2023 Note Date [...] Follow these instructions at home: Medicines Take [id number] and prescription medicines only as told by [...] provider. Document Revised: 12/19/2020 Document Reviewed: 12/19/2020 [employer] Patient Education 2022 [employer]. [facility] Discharge instructions 12-06-2022 [...] pray, or go to a place of yarsani. Do some deep breathing. To do this, [...] sugars, or salt (sodium). General instructions Take rhzu-yru-qbhsflw and prescription medicines only as told by [...] (ADAA): www.adaa.org Mental Health Saritha: www.mentalhealthamerica.net National [place] on Mental Illness: www.rakesh.org Contact a health [...] department or: Call your local emergency services (416 in the [place] Call a suicide crisis helpline, such as the National Suicide Prevention Lifeline at or 915 in the [place] This is open 24 hours a day in the [place] Text the Crisis Text Line at 444446 (in the [place] Summary If you are [...] provider. Document Revised: 09/03/2021 Document Reviewed: 12/20/2019 [employer] Patient Education 2022 [employer]. Follow Up Care 10/23/2022 15:26:01 With:FRANC SULLIVAN, JESUSITA Jose Address: When: only if needed Comments:pt to call pulse/HR to me in 4-6 weeks [facility] Discharge instructions 10-23-2022 [...] pray, or go to a place of yarsani. Do some deep breathing. To do this, [...] sugars, or salt (sodium). General instructions Take vgpy-zyi-ernposg and prescription medicines only as told by [...] (ADAA): www.adaa.org Mental Health Saritha: www.mentalhealthamerica.net National [place] on Mental Illness: www.rakesh.org Contact a health [...] department or: Call your local emergency services (424 in the [place] Call a suicide crisis helpline, such as the National Suicide Prevention Lifeline at or 908 in the [place] This is open 24 hours a day in the [place] Text the Crisis Text Line at 397209 (in the [place] Summary If you are [...] provider. Document Revised: 09/03/2021 Document Reviewed: 12/20/2019 [employer] Patient Education 2022 [employer]. 10/21/2022 20:33:36 Living With Attention Deficit Hyperactivity [...] you. Follow these instructions at home: Take msqk-pxl-qrcegbr and prescription medicines only as told by [...] a problem, search for a local or [facility]. Public mental health [...] ADHD, be patient and communicate openly. Take kivd-bjc-raipawj and prescription medicines only as told by your health care provider. Check with your health care provider before taking any new medicines. This information is not intended to replace advice given to you by your health care provider. Make sure you discuss any questions you have with your health care provider. Document Revised: 06/21/2020 Document Reviewed: 07/24/2020 [employer] Patient Education 2022 [employer]. Follow Up Care 09/10/2022 14:54:18 With:Damon BRUNER MD [facility] Address: When:6 weeks Comments: [facility] Discharge instructions 03-31-2022 Note Date & [...] skin caused by scratching. Take or apply abrg-qkr-xqxirvc and prescription medicines only as told by [...] 02/05/2001 Document Revised: 05/30/2019 Document Reviewed: 03/12/2017 [employer] Patient Education 2020 [employer]. 03/29/2022 19:21:47 BMI for Adults BMI for [...] height. This can be done either in [place] ([place] or metric measurements. Note that charts are available to help you find your BMI quickly and easily without having to do these calculations yourself. To calculate your BMI in [place] ([place] measurements, your health care provider will: [...] medical problems. BMI can be measured using Estonian measurements or metric measurements. To interpret your [...] 10/20/2004 Document Revised: 01/21/2018 Document Reviewed: 12/22/2017 [employer] Patient Education [employer]. Follow Up Care 03/19/2022 11:26:33 With:Damon BRUNER MD [facility] Address: When: only if needed Comments:pt to call dermatology referral names to office soon [facility] + Plan note Note Date & Type Note Facility Evaluation + Plan note No data available for this section [facility] Evaluation + Plan note Note Date & Type Note Facility Evaluation + Plan note Future Appointments Appointment Date:12/08/2022 06:00:00 PM Scheduled Provider:Damon BRUNER MD Location:[facility] Appointment Type: Open [facility] + Plan note Note Date & Type Note Facility Evaluation + Plan note Future Appointments Appointment Date:01/04/2023 04:40:00 PM Scheduled Provider:Damon BRUNER MD Location:[facility] Appointment Type: Open [facility] Evaluation + Plan note Note Date & Type Note Facility Evaluation + Plan note Future Appointments Appointment Date:01/22/2023 11:00:00 AM Scheduled Provider:Tabby Barnett PA-C Location:[facility] Appointment Type: Open [facility] Discharge instructions Note Date & Type Note Facility Hospital Discharge instructions No data available for this section [facility] Progress note Note Date & Type Note Facility Progress note No data available for this section [facility] Summary Purpose Family History No Family History Records Found No data available for this section No data available for this section No data available for this section No Family History Records FoundNo Family History Records FoundNo Family History Records Found Advance Directives No Advanced Directives Records FoundNo Advanced Directives Records FoundNo Advanced Directives Records FoundNo Advanced Directives Records Found Additional Source Comments Care Team (unrecognized sect ion and content) Personnel Name: Damon BRUNER MD Address: [address] [place] [address] Personnel Name: Damon BRUNER MD Address: Address: [address] [place] [address] Personnel Name: Damon BRUNER MD Address: Address: [address] [place] [address] Personnel Name: Damon BRUNER MD Address: Address: [address] [place] [address] Personnel Name: Damon BRUNER MD Address: Address: [address] [place] [address] Personnel Name: Damon BRUNER MD Address: Address: [address] [place] [address] INFORMATION SOURCE (unrecogn ized section and content) DATE CREATED AUTHOR 05/30/2022 [facility] DATE CREATED AUTHOR AUTHOR'S ORGANIZ ATION 01/10/2023 [facility] DATE CREATED AUTHOR AUTHOR'S ORGANIZ ATION 03/19/2023 [facility] DATE CREATED AUTHOR AUTHOR'S ORGANIZ ATION 03/23/2023 [facility] FOR RECORDS PERTAINING TO PATIENTS WHO ARE [...] BE BASED ON THE PRIMARY CLINICAL RECORDS. [employer] [facility]. provides no warranty or guarantee of the accuracy or completeness of information in this document.
== END 2023-03-18 14:01 | disposition home or self-care (01) ==
LOC: LAB 14:00
PROVIDERS: Visit Provider Obstetrics & Gynecology
DX: L91.8 Other hypertrophic disorders of the skin (principal)
CPT/HCPCS: 88305

== ENCOUNTER 2024-08-02 15:22 | Outpatient (REF) | payer MEDICAID, SELFPAY ==
--- OUTSIDE RECORDS SUMMARY | 2024-08-10 15:41 | XMS_ITS | CCD ---
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 Name Role Phone Damon KIRBY Primary Care Physician DIAMOND ., DR POSEY Attending Unavailable REQUEST, NONE LISTED Primary Care Unavaila ble DIAMOND ., DR POSEY Admitting Unavailable HOY ., DR SERVIN Consulting Unavailable IRMA LLOYD Attending Unavailable IRMA LLOYD Admitting Unavailable MISC, DR ROCHA Primary Care Unavailable DIAMOND ., DR POSEY Consulting Unavailable IRMA LLOYD Consulting Unavailable KARASIK ., DR ESTRADA Attending Unavailabl e KARASIK ., DR ESTRADA Consulting Unavailabl e KARASIK ., DR ESTRADA Admitting Unavailabl e MISC, DR ROCHA Primary Care Unavailable DIAMOND ., DR POSEY Consulting Unavailable REQUEST, NONE LISTED Primary Care Unavaila ble DIAMOND ., DR POSEY Admitting Unavailable DIAMOND ., DR POSEY Attending Unavailable DIAMOND ., DR POSEY Admitting Unavailable DIAMOND ., DR POSEY Attending Unavailable MISC, DR ROCHA Primary Care Unavailable REQUEST, NONE LISTED Primary Care Unavaila ble DIAMOND ., DR POSEY Admitting Unavailable DIAMOND ., DR POSEY Attending Unavailable DIAMOND ., DR POSEY Consulting Unavailable DIAMOND ., DR POSEY Consulting Unavailable REQUEST, NONE LISTED Primary Care Unavaila ble DIAMOND ., DR POSEY Admitting Unavailable DIAMOND ., DR POSEY Attending Unavailable DIAMOND ., DR POSEY Consulting Unavailable REQUEST, NONE LISTED Primary Care Unavaila ble DIAMOND ., DR POSEY Admitting Unavailable DIAMOND ., DR POSEY Attending Unavailable ZIEBER, DR ELLEN Alfaro Consulting Unavailable DIAMOND ., DR POSEY Attending Unavailable DIAMOND ., DR POSEY Consulting Unavailable REQUEST, DR NONE LISTED Primary Care Unavaila ble DIAMOND ., DR POSEY Admitting Unavailable DIAMOND ., DR POSEY Admitting Unavailable MISC, DR ROCHA Primary Care Unavailable DIAMOND ., DR POSEY Attending Unavailable KARASIK ., DR ESTRADA Admitting Unavailabl e REQUEST, DR MEDRANO LISTED Primary Care Unavaila ble DIAMOND ., DR POSEY Consulting Unavailable KARASIK ., DR ESTRADA Attending Unavailabl e DIAMOND ., DR POSEY Procedure Practitioner Unavail able JIMMIE BAZAN Consulting Unavailable JOEY, DR OSWALD Alfaro Consulting Unavailable MISC, DR ROCHA Primary Care Unavailable TERE ., BRIANNA Attending Unavailable TERE ., BRIANNA Admitting Unavailable KARASIK ., DR ESTRADA Consulting Unavailabl e TERE ., BRIANNA Consulting Unavailable STRAWSER, CARLO Consulting Unavailable Damon KIRBY Primary Care Physician [phone] Damon KIRBY Attending Unavailable Damon KIRBY Attending Unavailable Pedro Mckeon Attending Unavailable Mallory Leary Attending Unavailable Damon Kirby MD Primary Care Provider [phone] MARCUS FIELDS Attending Unavailable MARCUS FIELDS Attending Unavailable Marcus Fields Attending Unavailable Marcus Fields Admitting Unavailable Allergies Allergy Classification Reported Allergen(s) Allergy Type Date of Onset Reaction(s) Facility Cats (1 source) Cat Animal Allergy (Dander) [facility] Dust (1 source) Dust Substance Allergy [facility] Opioid Agonists (1 source) Morphine; Translations: [morphine] Drug Allergy 02-22-19 14 Syncope (disorder) [facility] Sulfamethoxazole / Trimethoprim (1 source) Sulfamethoxazole / Trimethoprim; Translations: [sulfamethoxazole-t rimethoprim] Drug Allergy 02-22-19 23 Hemoptysis (finding) [facility] Ruth Comment on above: seen thru [facility] (11 sources) Cat; Translations: [Cats] Drug allergy [facility] (11 sources) Dust; Translations: [Dust] Drug allergy [facility] (15 sources) Morphine; Translations: [morphine] Drug Allergy 02-22-19 14 Syncope (disorder), Unknown [facility] (12 sources) Ragweed; Translations: [Ragweed] Drug allergy [facility] (12 sources) Grass; Translations: [Grass] Drug allergy [facility] (1 source) Morphine Drug Allergy 03-11-19 [facility] Repository (5 sources) Sulfamethoxazole / Trimethoprim; Translations: [sulfamethoxazole-t rimethoprim] Drug Allergy 02-22-19 Hemoptysis (finding) [facility] Dick Comment on above: seen thru [facility] (1 source) Sulfamethoxazole / Trimethoprim; Translations: [Bactrim] Drug Allergy 02-17-20 23 [facility] Repository (4 sources) Grass pollen Drug Allergy 03-10-19 24 [facility] (4 sources) House dust mite Allergy to substance 03-10-19 [facility] (4 sources) Cat Dander Allergy to substance 03-10-19 [facility] Work Phone: (4 sources) Tall Ragweed Drug Allergy 03-10-19 [facility] Medications Current Medications Medication Drug Class(es) Dates Sig (Normalized) Sig (Original) ARIPiprazole 10 mg oral tablet (15 sources) Atypical Antipsychotic Start: 03-04-2023 End: 07-24-2024 ARIPiprazole (Abilify) 10 MG tablet 03/04/2023 07/24/2024 Discontinued (Other) Start: 10-23-2022 End: 07-24-2024 take 1 tablet by mouth once daily aripiprazole 2 mg Tab 2 mg = 1 tab(s), Oral, Daily, Refills(s) 0 Start Date: 10/23/22 Status: Ordered busPIRone hydrochloride 10 mg oral tablet (12 sources) Start: 10-23-2022 End: 07-24-2024 take 1 tablet by mouth twice daily busPIRone 10 mg Tab 10 mg = 1 tab(s), Oral, BID, Refills(s) 0 Start Date: 10/23/22 Status: Ordered cephalexin 500 mg oral capsule (2 sources) Cephalosporin Antibacterial Start: 07-19-2023 End: 07-26-2023 take 1 capsule by mouth every six hours Keflex 500 mg Cap 500 mg = 1 cap(s), Oral, q6hr, X 7 day(s), # 28 cap(s), Refills(s) 0, Pharmacy: [facility], 764.1, cm, 07/19/23 15:05:00 EDT, Height/Length Dosing, 113.2, kg, 07/19/23 15:05:00 EDT, Weight Dosing Start Date: 07/19/23 Stop Date: 07/26/23 Status: Ordered dextromethorphan hydrobromide 3 mg/ml / promethazine hydrochloride 1.25 mg/ml oral solution (1 source) Phenothiazine, Uncompetitive T-dwmfre-X-aspartat e Receptor Antagonist, Sigma-1 Agonist Start: 02-20-2021 take 5 mL by mouth every six hours for cough dextromethorphan- promethazine 15 mg-6.25 mg/5 mL Oral Syrup 5 mL 5 mL, Oral, q6hr for cough, 120 mL, Refill(s) 0, [facility], 165, cm, 02/20/21 11:45:00 EST, Height/Length Dosing, 114.9, kg, 02/20/21 11:45:00 EST, Weight Dosing Start Date: 02/20/21 Status: Ordered escitalopram 10 mg oral tablet (15 sources) Serotonin Reuptake Inhibitor Start: 02-11-2023 End: 07-24-2024 take 1 tablet by mouth in the morning escitalopram (Lexapro) 10 MG tablet Take 10 mg by mouth in the morning. 02/11/2023 07/24/2024 Discontinued (Other) Start: 10-23-2022 End: 07-24-2024 take 1 tablet by mouth once daily escitalopram 5 mg oral tablet TAKE 1 TABLET BY MOUTH EVERY DAY Start Date: 10/23/22 Status: Ordered fluticasone propionate 0.5 mg/ml topical cream (1 source) Corticosteroid Start: 02-13-2020 fluticasone topical 0.05% cream 1 kami, Topical, BID, 60 gram, Refill(s) 0, [facility], 166, cm, 02/13/20 10:54:00 EST, Height/Length Dosing, 112.1, kg, 02/13/20 10:54:00 EST, Weight Dosing Start Date: 02/13/20 Status: Ordered ketoconazole 20 mg/ml topical cream (9 sources) Azole Antifungal Start: 10-23-2022 ketoconazole Top 2% Crm APPLY TOPICALLY TO AFFECTED AREAS twice a day if needed Start Date: 10/23/22 Status: Ordered bx rating 24 hr methylphenidate hydrochloride 27 mg extended release oral tablet (13 sources) Central Nervous System Stimulant Start: 02-26-2023 End: 07-24-2024 take 1 tablet by mouth in the morning, then take 1 tablet by mouth every twenty-four hours Methylphenidate HCl (methylphenidate ER) 27 MG 24 hr tablet Take 27 mg by mouth in the morning. 02/26/2023 07/24/2024 Discontinued (Other) Start: 12-23-2022 End: 07-24-2024 take 1 tablet by mouth in the morning methylphenidate ER (Concerta) 18 MG CR tablet Take 18 mg by mouth in the morning. 12/23/2022 07/24/2024 Discontinued (Other) ondansetron 4 mg oral tablet (1 source) Serotonin-3 Receptor Antagonist Start: 03-04-2021 take 1 tablet by mouth every eight hours as needed for nausea ondansetron 4 mg Tab 4 mg = 1 tab(s), Oral, q8hr, prn nausea, # 12 tab(s), Refills(s) 0, Pharmacy: [facility]37, 165, cm, 02/20/21 11:45:00 EST, Height/Length Dosing, 114.9, kg, 02/20/21 11:45:00 EST, Weight Dosing Start Date: 03/04/21 Status: Ordered pantoprazole 20 mg delayed release oral tablet (5 sources) Proton Pump Inhibitor Start: 07-22-2023 take 2 tablets by mouth once daily Protonix 20 mg Tab-DR 40 mg = 2 tab(s), Oral, Daily, # 60 tab(s), Refills(s) 2, Pharmacy: [facility]37, 165, cm, 07/22/23 10:36:00 EDT, Height/Length Dosing, 114, kg, 07/22/23 10:36:00 EDT, Weight Dosing Start Date: 07/22/23 Status: Ordered Start: 07-19-2023 take 2 tablets by mo [facility] once daily Protonix 20 mg Tab-DR 40 mg = 2 tab(s), Oral, Daily, # 60 tab(s), Refills(s) 0, Pharmacy: [facility]37, 165, cm, 07/19/23 17:41:00 EDT, Height/Length Dosing, 113, kg, 07/19/23 17:41:00 EDT, Weight Dosing Start Date: 07/19/23 Status: Ordered QUEtiapine 25 mg oral tablet (6 sources) Atypical Antipsychotic Start: 11-19-2022 End: 07-24-2024 QUEtiapine (SEROquel) 25 MG tablet 1 (one) time each day at the same time 11/19/2022 07/24/2024 Discontinued (Other) sodium fluoride 0.011 mg/mg toothpaste (10 sources) Start: 12-28-2022 PreviDent 5000 Booster 1.1% topical paste Refill(s) 0 Start Date: 12/28/22 Status: Ordered Start: 12-28-2022 End: 07-24-2024 sodium flouride (PreviDent) 1.1 % dental gel Refill(s) 0 12/28/2022 07/24/2024 Discontinued (Other) sucralfate 1000 mg oral tablet (2 sources) Aluminum Complex Start: 07-19-2023 End: 07-26-2023 take 1 tablet by mouth four times daily Carafate 1 gram Tab 1 gm = 1 tab(s), Oral, QID, X 7 day(s), # 28 tab(s), Refills(s) 0, Pharmacy: [facility]37, 165, cm, 07/19/23 17:41:00 EDT, Height/Length Dosing, 113, kg, 07/19/23 17:41:00 EDT, Weight Dosing Start Date: 07/19/23 Stop Date: 07/26/23 Status: Ordered sulfamethoxazole 800 mg / trimethoprim 160 mg oral tablet (2 sources) Dihydrofolate Reductase Inhibitor Antibacterial, Sulfonamide Antimicrobial Start: 07-19-2023 End: 07-26-2023 Bactrim D.S. 800 mg-160 mg Tab 1 tab(s), Oral, BID for 7 day(s), 14 tab(s), Refill(s) 0, [facility]37, 165.1, cm, 07/19/23 15:05:00 EDT, Height/Length Dosing, 113.2, kg, 07/19/23 15:05:00 EDT, Weight Dosing Start Date: 07/19/23 Stop Date: 07/26/23 Status: Ordered traZODone hydrochloride 50 mg oral tablet (6 sources) Serotonin Reuptake Inhibitor Start: 10-23-2022 take 1 tablet by mouth once daily at bedtime traZODONE 50 mg Tab 50 mg = 1 tab(s), Oral, Once a day (at bedtime), Refills(s) 0 Start Date: 10/23/22 Status: Ordered triamcinolone acetonide 0.25 mg/ml topical cream (1 source) Corticosteroid Start: 03-31-2022 triamcinolone Top 0.025% Crm 1 kami, Topical, BID, 60 gram, Refill(s) 1, [facility]37, 165, cm, 03/31/22 17:35:00 EST, Height/Length Dosing, 100.5, kg, 03/31/22 17:35:00 EST, Weight Dosing Start Date: 03/31/22 Status: Ordered Zofran ODT 4 mg Tab-Dis (5 sources) Start: 07-19-2023 take 1 tablet by mouth every eight hours as needed for nausea Zofran ODT 4 mg Tab-Dis 4 mg = 1 tab(s), Oral, q8hr, PRN Nausea/Vomiting, # 12 tab(s), Refills(s) 0, Pharmacy: [facility] #37, 165, cm, 07/19/23 17:41:00 EDT, Height/Length Dosing, 113, kg, 07/19/23 17:41:00 EDT, Weight Dosing Start Date: 07/19/23 Status: Ordered Completed/Discontinued Medications Medication Drug Class(es) Dates Sig (Normalized) Sig (Original) Albuterol (Eqv-ProAir HFA) 90 mcg/inh inhalation aerosol (11 sources) Start: 11-17-2023 take 1 dose by inhalation every six hours Albuterol (Eqv-ProAir HFA) 90 mcg/inh inhalation aerosol 2 puff(s), Inhalation, q6hr, 1 EA, Refill(s) 1, [facility], 166, cm, 11/17/23 11:30:00 EDT, Height/Length Dosing, 121.3, kg, 11/17/23 11:30:00 EDT, Weight Dosing Start Date: 11/17/23 Status: Ordered Start: 11-08-2020 take 1 dose by inhal ation every six hours Albuterol (Eqv-ProAir HFA) 90 mcg/inh inhalation aerosol 2 puff(s), Inhalation, q6hr, 1 EA, Refill(s) 0, [facility] #37, 166, cm, 11/08/20 16:18:00 EDT, Height/Length Dosing, 113.5, kg, 11/08/20 16:18:00 EDT, Weight Dosing Start Date: 11/08/20 Status: Ordered betamethasone 0.5 mg/ml topical cream (9 sources) Corticosteroid Start: 10-23-2022 apply 45 g topically once daily betamethasone Top dipropionate 0.05% Crm 45 gram apply topically to affected area once daily AT THE SAME TIME EACH DAY Start Date: 10/23/22 Status: Ordered Problems Active Problems Problem Classification Problem Date Documented Da te Episodic/Chronic Abdominal pain (1 source) Pain in pelvis; Translations: [Pelvic and perineal pain] 08-02-2024 Episodic Allergic reactions (16 sources) Atopic dermatitis; Translations: [Atopic dermatitis, unspecified] Onset: 03-29-2022 03-17-2020 Chronic Allergic reactions (11 sources) Eczema 03-17-2020 Episodic Asthma (15 sources) Asthma; Translations: [Intermittent asthma] Onset: 03-29-2022 03-11-2021 Chronic Attention-deficit, conduct, and disruptive behavior disorders (2 sources) Adult attention deficit hyperactivity disorder 03-31-2022 Chronic Disorders usually diagnosed in infancy, childhood, or adolescence (1 source) Behavioral and emotional disorder with onset in childhood; Translations: [Other specified behavioral and emotional disorders with onset usually occurring in childhood and adolescence] Onset: 03-31-2022 Chronic Esophageal disorders (5 sources) Gastro-esophageal reflux disease with esophagitis; Translations: [Gastro-esophageal reflux disease with esophagitis, without bleeding] Onset: 07-22-2023 Chronic Gastrointestinal hemorrhage (3 sources) Hematemesis; Translations: [Hematemesis] Onset: 07-19-2023 Episodic Menstrual disorders (7 sources) Irregular menstruation, unspecified; Translations: [Menorrhagia] Onset: 05-23-2022 Chronic Mood disorders (14 sources) Depressive disorder; Translations: [Depression, unspecified] Onset: 10-23-2022 Chronic Nausea and vomiting (2 sources) Nausea and vomiting; Translations: [Nausea with vomiting, unspecified] Onset: 07-22-2023 Episodic Other circulatory disease (11 sources) Postural orthostatic tachycardia syndrome ; Translations: [Postural orthostatic tachycardia syndrome [POTS]] Onset: 10-23-2022 Episodic Other female genital disorders (3 sources) Pain in female genitalia on intercourse; Translations: [Unspecified dyspareunia] 07-24-2024 Chronic Other nutritional; endocrine; and metabolic disorders (6 sources) Body mass index 40+ - severely obese; Translations: [Body mass index (BMI) 40.0-44.9, adult] Onset: 07-22-2023 03-19-2020 Chronic Other nutritional; endocrine; and metabolic disorders (20 sources) Severe obesity 03-19-2020 Chronic Other nutritional; endocrine; and metabolic disorders (4 sources) Morbid obesity; Translations: [Morbid (severe) obesity due to excess calories] Onset: 03-29-2022 Chronic Other nutritional; endocrine; and metabolic disorders (3 sources) Obese class II; Translations: [Body mass index (BMI) 36.0-36.9, adult] Onset: 03-31-2022 Chronic Other nutritional; endocrine; and metabolic disorders (7 sources) Body mass index 30+ - obesity 03-31-2022 Chronic Other nutritional; endocrine; and metabolic disorders (12 sources) Obesity; Translations: [Other obesity due to excess calories] Onset: 10-21-2022 Chronic Other nutritional; endocrine; and metabolic disorders (1 source) Obese class III 11-17-2023 Chronic Other upper respiratory disease (12 sources) Allergic rhinitis; Translations: [Allergic rhinitis, unspecified] Onset: 10-21-2022 05-05-2013 Chronic Other upper respiratory infections (1 source) Common cold 02-20-2021 Episodic Poisoning by other medications and drugs (3 sources) Adverse reaction to cannabis 07-22-2023 Episodic Skin and subcutaneous tissue infections (7 sources) Pilonidal cyst with abscess; Translations: [Pilonidal abscess] Onset: 01-03-2023 Episodic Substance-related disorders (3 sources) Drug use complicating childbirth; Translations: [Cannabis use, unspecified, uncomplicated] Onset: 10-29-2021 Episodic Unclassified (1 source) CONTACT W/AND (SUSP) [...] WEEKS GESTATION OF ] Onset: 06-04-2021 Episodic Results Test Name Value Interpretation Reference Range Facility Biopsy endometriumon 025 Alethea Hadley LPN 08/02/2024 4:43 PM Biopsy endometrium Date/Time: 08/02/2024 4:38 PM Performed by: Marcus Fields DO Authorized by: Marcus Fields DO Consent: Consent obtained: written Consent given by: patient Risks discussed: bleeding Alternatives discussed: alternative treatment Patient agrees, verbalizes understanding, and wants to proceed: yes Procedure explained and questions answered to patient or proxy's satisfaction: yes Indications: Indications: abnormal uterine bleeding and abnormal bleeding from female genital tract Pre-procedure: Urine test: negative Procedure: A bimanual exam was performed: no Prepped with: none Tenaculum used: yes A local block was performed: no Local anesthetic: none Cervix dilated: no Findings: Cervix: normal Specimen collected: specimen collected and sent to pathology Patient tolerance: tolerated well, no immediate complications Comments: Procedure comments: EMBX: Patient was placed in dorsal lithotomy position with feet in stirrups. A sterile speculum was placed into the vagina and the cervix was visualized. The cervix was grasped with a single tooth tenaculum. The endometrial pipette was placed through the cervix into the uterus, endometrial curettage was performed and sampling was obtained, endometrial curettings were placed in formalin, and single tooth tenaculum was removed. Excellent hemostasis was assured. All instruments were removed from vagina. Follow Up: Patient is to return for annual preop exam. [facility] HCG ( test) Ql (U)o n 08-02-2024 Interpretation and review of laboratory results Normal [facility] Preg Test, Ur Negative Negative [facility] Alfred 08-02-2024 L -- ---- Specimen: [id number] Received: 08/03/24 Status: KEON Rothman Num: [id number] Spec Type: Surgical Subm Dr: Marcus Fields Tissues: A Endometrium - Biopsy (ENDOMETRIAL BIOPSY) Procedures: HE/2, Gross/Micro L4 ---- Age/ Patient Sex Location Account Attending Physician ---- Leyda Segal 29/F [place] [id number] Marcus Fields ---- SPEC NUM: [id number] RECD: 08/03/24 STATUS: KEON ROTHMAN NUM: [id number] ALLISON: 08/02/24-0000 SUBM : Marcus Fields ENTERED: 08/03/[address] [facility] [address]: Juanito,Lab SPEC TYPE: Surgical DEPT: NEVAEH BARR ENTERED BY: [id number] RECV BY: [id number] ORDERED: HE/2, Gross/Micro L4 ORDERED: HE/2, Gross/Micro L4 Pathological Diagnosis Endometrium, biopsy: - Proliferative phase endometrium. - No evidence of hyperplasia or malignancy identified. Clinical Information Menorrhagia N92.0, dyspareunia in female N94.10 Gross Description Received in formalin labeled with the patients name, date of , and EM BX are ochoa-pink to red-brown, delicate tissue fragments, 1.2 x 1 x 0.2 cm in aggregate. The specimen is filtered and entirely submitted in a single cassette. (1, ns, [id number]) Microscopic Description Microscopic examination is performed. CPT Codes 81696 ---- ---- Specimen: [id number] Received: 08/03/24 Status: KEON Rothman Num: [id number] Spec Type: Surgical Subm Dr: Marcus Fields Tissues: A Endometrium - Biopsy (ENDOMETRIAL BIOPSY) Procedures: HE/2, Gross/Micro L4 ---- Patient: Leyda Segal [id number] (Continued) ---- Signed (signature on file) Mook Alexander MD 08/07/24 [id number] Normal [facility] Patient Letter FTon 2024 Patient Letter [facility] Patient Letter [facility] July 14, 2024 LEYDA SEGAL [address] [place] [address] : 1995 To Whom it May Concern: 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 Sincerely, [place] [id number] Normal [facility] Ambulatory Visit Summaryon 0 11-17-2023 Ambulatory Visit Summary Ambulatory Visit Summary LEYDA SEGAL :1995 Visit Date:11/17/2023 Ambulatory Visit Instructions Your Diagnosis Abnormal physical evaluation Mild intermittent asthma Bipolar 2 disorder BMI 40.0-44.9, adult Class 3 obesity Your Care Team Attending Physician - Gibran CIFUENTES, Mallory Sánchez Primary Care Physician - Damon KIRBY MD This Is Your Medications List albuterol (Albuterol (Eqv-ProAir HFA) 90 mcg/inh inhalation aerosol) Contact prescribing physician if questions or concerns aripiprazole (aripiprazole 2 mg Tab) betamethasone topical (betamethasone Top dipropionate 0.05% Crm 45 gram) busPIRone (busPIRone 10 mg Tab) escitalopram (escitalopram 5 mg oral tablet) fluoride topical (PreviDent 5000 Booster 1.1% topical paste) ketoconazole topical (ketoconazole Top 2% Crm) methylphenidate ondansetron (Zofran ODT 4 mg Tab-Dis) pantoprazole (Protonix 20 mg Tab-DR) quetiapine (quetiapine 25 mg Tab) Procedures Performed Bilateral tubal ligation (12/2022), None. Discharge Vitals Temperature (Oral) 37 ?C Heart Rate (Peripheral) 88 Respiratory Rate 18 Blood Pressure 130/72 Height 166 cm Height 65 in Weight 121.3 kg Weight 266.86 lb BMI 44.02 Medications What How Much When Instructions Unchanged albuterol (Albuterol (Eqv-ProAir HFA) 90 mcg/ inh inhalation aerosol) 2 Puffs Inhalation Every 6 hours Pickup at [facility] Unchanged aripiprazole (aripiprazole 2 mg Tab) 1 Tablets By Mouth Every day Contact prescribing physician if questions or concerns Unchanged betamethasone topical (betamethasone Top dipropionate 0.05% Crm 45 gram) apply topically to affected area once daily AT THE SAME TIME EACH DAY Contact prescribing physician if questions or concerns Unchanged busPIRone (busPIRone 10 mg Tab) 1 Tablets By Mouth 2 times a day Contact prescribing physician if questions or concerns Unchanged escitalopram (escitalopram 5 mg oral tablet) TAKE 1 TABLET BY MOUTH EVERY DAY Contact prescribing physician if questions or concerns Unchanged fluoride topical (PreviDent 5000 Booster 1.1% topical paste) Contact prescribing physician if questions or concerns Unchanged ketoconazole topical (ketoconazole Top 2% Crm) APPLY TOPICALLY TO AFFECTED AREAS twice a day if needed Contact prescribing physician if questions or concerns Unchanged methylphenidate 18 Milligram By Mouth Once a day (in the morning) Contact prescribing physician if questions or concerns Unchanged ondansetron (Zofran ODT 4 mg Tab-Dis) 1 Tablets By Mouth Every 8 hours as needed for Nausea/Vomiting Contact prescribing physician if questions or concerns Unchanged pantoprazole (Protonix 20 mg Tab-DR) 2 Tablets By Mouth Every day Contact prescribing physician if questions or concerns Unchanged quetiapine (quetiapine 25 mg Tab) 1 Tablets By Mouth Every day TAKE 1 TABLET BY MOUTH EVERY DAY Contact prescribing physician if questions or concerns Pharmacy Information [facility]: [address] [place], [place] [id number] [phone] Allergies Bactrim (Hemoptysis) Cats Dust Grass Ragweed morphine (Syncope) Problems Ongoing - Any problem that you are currently receiving treatment for. AD (atopic dermatitis) Allergic rhinitis Bipolar 2 disorder BMI 40.0-44.9, adult Cannabinoid hyperemesis syndrome Class 3 obesity GERD with esophagitis Mild intermittent asthma POTS (postural orthostatic tachycardia syndrome) Historical - Any problem that you are no longer receiving treatment for. Class 2 obesity due to excess calories in adult Class 3 severe obesity due to excess [...] choosing us for your care. Education Materials Asthma Action Plan, Adult An asthma action plan helps you understand how to manage your asthma and what to do when you have an asthma attack. The action plan is a color-coded plan that lists the symptoms that indicate whether or not your condition is under control and what actions to take. ? If you have symptoms in the green zone, you are doing well. ? If you have symptoms in the yellow zone, you are having problems. ? If you have symptoms in the red zone, you need medical care right away. Follow the plan that you and your health care provider develop. Review your plan with your health care provider at each visit. What triggers your asthma? Knowing the things that can trigger an asthma attack or make your asthma symptoms worse is very important. Talk to your health care provider about your asthma triggers and how to avoid them. Record your known asthma triggers here: (more content not included)... Normal [facility] Family Medicine Office/Clini c Noteon 11-17-2023 Family Medicine Office/Clinic Note Family Medicine Office/Clinic Note HPI Staff AWV Concerns: Patient fasting? _ last labs 06/2023 Any changes to medical history? no Recent hospitalizations/ER visits? no Do you see any specialists for any chronic conditions? no If yes, list: Sleep: Good, 6-8 hours Appetite: adequate Diet: Balanced: Fruits, Vegetables, Protein, some Carbs Vitamins or supplements? no Fatigue? no Mood concerns: depression/anxiety? Yes, depressionWelbutrin Last dental exam? Goes every 6 months UTD: yes Last eye exam? Once a year UTD no Corrective lenses: no Last Pap/Pelvic: Within the last 3 years Result: Normal Mammogram: N/A DEXA: N/A Colon cancer screening: N/A Influenza vaccine: no _ History of Present Illness Pt is a 28 yr old female presenting in office today for employee wellness physical exam. She states she is in over all good health and has no health concerns. She has a hx of mild intermittent asthma which she reports is well controlled with albuterol inhaler as needed. She also reports she is doing well with Abilify for mood stability. She denies any recent complaints of chest pain, SOB, or fever. Pt reports she is UTD on PAP / pelvic exam as her last exam was less than three years ago. Review of Systems PHQ Score Initial Depression Screen Score: 0 SCORE See HPI otherwise negative. Physical Exam Vitals & Measurements T: 37 ?C(Oral) HR: 88(Peripheral) RR: 18 BP: 130/72 SpO2: 99% HT: 65 in HT: 166 cm WT: 121.3 kg WT: 266.86 lb BMI: 44.02 Constitutional: Well-groomed, well-nourished, no signs of acute distress. HEENT: Head normocephalic, sclera is clear. Cardiothoracic: Heart rate and rhythm is regular strong, normal S1 and S2. No murmurs, rubs, or bruits auscultated. No peripheral edema, peripheral pulses +2 Respiratory: Lung sounds are clear throughout, respirations regular nonlabored. Abdomen/GI: Abdomen soft nondistended. Musculoskeletal: Gait is steady, full range of motion. Integument: No rashes or lesions noted to the exposed skin. Psychiatric: Alert and oriented x 3, pleasant, no mood changes. Assessment/Plan 1. Abnormal physical evaluation (Z00.01: Encounter for general adult medical examination with abnormal findings) physical exam with abnormalities as noted. Pt given completed paperwork at the end of her exam for her work physical. 2. Mild intermittent asthma (J45.20: Mild intermittent asthma, uncomplicated) Well controlled with albuterol inhaler. 3. Bipolar 2 disorder (F31.81: Bipolar II disorder) Pt reports controlled and stable with Abilify 2mg daily 4. BMI 40.0-44.9, adult (Z68.41: Body mass index [BMI] 40.0-44.9, adult) The standard range for ages 18 and older is >=18.5 and < 25 kg/m2. Your BMI today was above this range, this falls in the overweight to obese category and there are medical benefits to weight loss. We can offer counselling, referral, and/or medical support in addressing this problem. Your BMI and weight management will be followed at subsequent visits. 5. Class 3 obesity (E66.01: Morbid (severe) obesity due to excess calories) See #4 Orders: albuterol, 2 puff(s), Inhalation, q6hr, 1 EA, Refill(s) 1, [facility], 166, cm, 11/17/23 11:30:00 EDT, Height/Length Dosing, 121.3, kg, 11/17/23 11:30:00 EDT, Weight Dosing Follow-up No qualifying data available Patient Education Asthma Action Plan, Adult Problem List/Past Medical History Ongoing AD (atopic dermatitis) Allergic rhinitis Bipolar 2 disorder BMI 40.0-44.9, adult Cannabinoid hyperemesis syndrome Class 3 obesity GERD with esophagitis Mild intermittent asthma POTS (postural orthostatic tachycardia syndrome) Historical Class 2 obesity due to excess calories in adult Class 3 severe obesity due to excess calories with body mass index (BMI) of 40.0 to 44.9 in adult Class 3 severe obesity with body mass index (BMI) of 40.0 to 44.9 in adult Eczema Procedure/Surgical History Bilateral tubal ligation (12/2022), None. Medications Albuterol (Eqv-ProAir HFA) 90 mcg/inh inhalation aerosol, 2 puff(s), Inhalation, q6hr, 1 refills aripiprazole 2 mg Tab, 2 mg= 1 tab(s), Oral, Daily betamethasone Top dipropionate 0.05% Crm 45 gram busPIRone 10 mg Tab, 10 mg= 1 tab(s), Oral, BID escitalopram 5 mg oral tablet, Not taking ketoconazole Top 2% Crm, Not taking methylphenidate, 18 mg, Oral, qAM, Not taking PreviDent 5000 Booster 1.1% topical paste, Not taking Protonix 20 mg Tab-DR, 40 mg= 2 tab(s), Oral, Daily, 2 refills, Not taking quetiapine 25 mg Tab, 25 mg= 1 tab(s), Oral, Daily, Not taking Zofran ODT 4 mg Tab-Dis, 4 mg= 1 tab(s), Oral, q8hr, PRN Allergies Bactrim (Hemoptysis) Cats Dust Grass Ragweed morphine (Syncope) Social History Alcohol - Denies Alcohol Use, 03/11/2021 Current, 12/11/2020 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 Normal [facility] Comment on above: Result Comment: Elec tronically Signed By: Mallory Wu\.br\Date and Time Signed: 11/17/23 11:57 EDT Ambulatory Visit Summaryon 0 07-22-2023 Ambulatory Visit Summary SEGAL LEYDA JUAREZ :1995 Visit Date:07/22/2023 Ambulatory Visit Instructions Your Diagnosis Abscess of right thigh Hematemesis Class 3 severe obesity due to excess calories in adult Cannabinoid hyperemesis syndrome GERD with esophagitis Cannabis use, unspecified, uncomplicated Your Care Team Attending Physician - Damon KIRBY MD Primary Care Physician - Damon KIRBY MD This Is Your Medications List pantoprazole (Protonix 20 mg Tab-DR) Contact prescribing physician if questions or concerns albuterol (Albuterol (Eqv-ProAir HFA) 90 mcg/inh inhalation aerosol) aripiprazole (aripiprazole 2 mg Tab) betamethasone topical (betamethasone Top dipropionate 0.05% Crm 45 gram) busPIRone (busPIRone 10 mg Tab) escitalopram (escitalopram 5 mg oral tablet) fluoride topical (PreviDent 5000 Booster 1.1% topical paste) ketoconazole topical (ketoconazole Top 2% Crm) methylphenidate ondansetron (Zofran ODT 4 mg Tab-Dis) quetiapine (quetiapine 25 mg Tab) [Image Removed: STOP]Stop taking these medications cephalexin (Keflex 500 mg Cap) sucralfate (Carafate 1 gram Tab) sulfamethoxazole-trime thoprim (Bactrim D.S. 800 mg-160 mg Tab) trazodone (traZODONE 50 mg Tab) Procedures Performed Bilateral tubal ligation (12/2022), None. Discharge Vitals Heart Rate (Peripheral) 88 Respiratory Rate 16 Blood Pressure 134/80 Height 165 cm Height 65 in Weight 114 kg Weight 250.8 lb BMI 41.87 What to do next You Need to Schedule the Following Appointments Follow Up with FRANC SULLIVAN, JESUSITA Jose When: In 2 months Where: Medications What How Much When Instructions Unchanged pantoprazole (Protonix 20 mg Tab-DR) 2 Tablets By Mouth Every day Pickup at [facility] Unchanged albuterol (Albuterol (Eqv-ProAir HFA) 90 mcg/ inh inhalation aerosol) 2 Puffs Inhalation Every 6 hours Contact prescribing physician if questions or concerns Unchanged aripiprazole (aripiprazole 2 mg Tab) 1 Tablets By Mouth Every day Contact prescribing physician if questions or concerns Unchanged betamethasone topical (betamethasone Top dipropionate 0.05% Crm 45 gram) apply topically to affected area once daily AT THE SAME TIME EACH DAY Contact prescribing physician if questions or concerns Unchanged busPIRone (busPIRone 10 mg Tab) 1 Tablets By Mouth 2 times a day Contact prescribing physician if questions or concerns Unchanged escitalopram (escitalopram 5 mg oral tablet) TAKE 1 TABLET BY MOUTH EVERY DAY Contact prescribing physician if questions or concerns Unchanged fluoride topical (PreviDent 5000 Booster 1.1% topical paste) Contact prescribing physician if questions or concerns Unchanged ketoconazole topical (ketoconazole Top 2% Crm) APPLY TOPICALLY TO AFFECTED AREAS twice a day if needed Contact prescribing physician if questions or concerns Unchanged methylphenidate 18 Milligram By Mouth Once a day (in the morning) Contact prescribing physician if questions or concerns Unchanged ondansetron (Zofran ODT 4 mg Tab-Dis) 1 Tablets By Mouth Every 8 hours as needed for Nausea/Vomiting Contact prescribing physician if questions or concerns Unchanged quetiapine (quetiapine 25 mg Tab) 1 Tablets By Mouth Every day TAKE 1 TABLET BY MOUTH EVERY DAY Contact prescribing physician if questions or concerns Pharmacy Information [facility]: [address] [place] [id number] [phone] What How Much When Comments Stop Taking cephalexin (Keflex 500 mg Cap) 1 Capsules By Mouth Every 6 hours Duration: 7 Days Stop Taking sucralfate (Carafate 1 gram Tab) 1 Tablets By Mouth 4 times a day Duration: 7 Days Stop Taking sulfamethoxazole-trime thoprim (Bactrim D.S. 800 mg-160 mg Tab) 1 Tablets By Mouth 2 times a day Duration: 7 Days Stop Taking trazodone (traZODONE 50 mg Tab) 1 Tablets By Mouth Once a day (at bedtime) Allergies Bactrim (Hemoptysis) Cats Dust Grass Ragweed morphine (Syncope) Problems Ongoing - Any problem that you are currently receiving treatment for. Abscess of right thigh AD (atopic dermatitis) Allergic rhinitis BMI 40.0-44.9, adult Cannabinoid hyperemesis syndrome GERD with esophagitis Hematemesis Mild intermittent asthma Moderate depressive episode POTS (postural orthostatic tachycardia syndrome) Historical - Any problem that you are no longer receiving treatment for. Class 2 obesity due to excess calories in adult Class 3 severe obesity due to excess [...] choosing us for your care. Education Materials Cannabinoid Hyperemesis Syndrome (more content not included)... Normal [facility] Family Medicine Office/Clini c Noteon 07-22-2023 Family Medicine Office/Clinic Note Chief Complaint pt presents today for [facility] er f/u for rt inner thigh fold abscess that was I&D and rx'ed atb, same day 2nd er visit for rxn to bactrim (chest pain and hemoptysis) History of Present Illness The patient presents for follow-up for abscess on the thigh and chest pain. The patient sought emergency care on two separate occasions same day due to two non-coexisting conditions. The initial episode was an abscess on her thigh, which was subsequently incised and drained. She was initially prescribed two antibiotics, Bactrim and Keflex, but discontinued Bactrim during her second emergency room visit. Currently, she is on a regimen of cephalexin, administered thrice daily. She has no history of MRSA. The abscess has shown significant improvement, but she continues to experience pain upon palpation. The patient experienced an episode of hematemesis, a symptom she had not previously encountered. Emergency room physician thought this was related to complications of chronic GERD as well as the antibiotic. The patient experiences significant vomiting and heartburn chronic in nature, which impedes her ability to lie flat. She was advised to consult a metal dealer but has not seen one in the past.. She was prescribed pantoprazole and sucralfate during her ER visit. Prior to her ER visit, she experienced daily heartburn. Her dietary habits have significantly impacted her ability to consume pizza or orange juice. She consumes a Monster energy drink every three days, albeit not daily. She denies tobacco use but admits to smoking marijuana for mood regulation on a daily basis she has to sleep on her left side due to the constant heartburn and vomiting. Supplemental Information She is still on Abilify, buspirone, Lexapro, Seroquel, and methylphenidate. She follows with psychiatry. Review of Systems PHQ Score Initial Depression Screen Score: 0 SCORE See HPI otherwise negative Physical Exam Vitals & Measurements HR: 88(Peripheral) RR: 16 BP: 134/80 SpO2: 100% HT: 65 in HT: 165 cm WT: 114 kg WT: 250.8 lb BMI: 41.87 Patient is well-groomed, hydrated, very talkative, fairly insightful, maybe a little bit anxious. No psychomotor agitation. Head is normocephalic and atraumatic. Hearing is grossly normal. Pierced nostrils bilaterally present. Conjunctiva is clear. Oropharynx is pink and moist. No obvious lesions or excoriations. Neck is thick, but supple. No thyromegaly. Lungs are diminished but clear. Heart has a regular rate and rhythm. No murmur, gallop, or rub. Abdomen is obese with hyperactive bowel sounds. Tenderness is present in the epigastric region, but no rebound or guarding. Rectal and genital exam deferred. Well-developed somewhat stooped posture Assessment/Plan 1. Abscess of right thigh (L02.415: Cutaneous abscess of right lower limb) Lesion appears to be healing nicely with complete the oral antibiotic. Continue moist heat do not manipulate the area notify me of any recurrence continue exercising caution to prevent any transmission to others at home in case this was MRSA 2. Hematemesis (K92.0: Hematemesis) Likely related to reflux complicated by the use of oral antibiotics. Would not consider her allergic to Bactrim but more of an intolerance. At this point we will aggressively treat with pantoprazole twice daily sucralfate for up to a week 4 times daily. See #3 3. GERD with esophagitis (K21.00: Gastro-esophageal reflux disease with esophagitis, without bleeding) Suggesting the pantoprazole up to 6 weeks and then tried to cut back to a as needed basis. Strong recommendation for dietary compliance. See problem #4 would be happy to make a referral to gastroenterology if symptoms persist 4. Cannabinoid hyperemesis syndrome (R11.2: Nausea with vomiting, unspecified) We did discuss the etiology of this and recommendations for cessation of THC. Chronic long-term use can certainly lead to recurrent bouts of emesis and even Rosalva-Cao tears 5. Cannabis use, unspecified, uncomplicated (F12.90: Cannabis use, unspecified, uncomplicated) Strong recommendation to cease illicit substance use. Would ask her to discuss this with her psychiatrist recognizing that this could certainly exacerbate mental health. 6. Bipolar 2 disorder (F31.81: Bipolar II disorder) Very important to continue with multidrug regimen under the care of psychiatry 7. Class 3 severe obesity due to excess calories in adult (E66.01: Morbid (severe) obesity due [...] management will be followed at subsequent visits. 8. BMI 40.0-44.9, adult (Z68.41: Body mass index [BMI] 40.0-44.9, adult) See #7 Orders: pantoprazole, 40 mg = 2 tab(s), Oral, Daily, # (more content not included)... Normal [facility] Comment on above: Result Comment: Elec tronically Signed By: FRANC SULLIVAN, Damon\.br\Date and Time Signed: 07/22/23 11:18 EDT Patient Educationon 05-30-20 24 Patient Education Gastroenterology Cannabinoid Hyperemesis Syndrome Cannabinoid hyperemesis syndrome (CHS) is a condition that causes repeated nausea, vomiting, and abdominal pain after long-term use of marijuana (cannabis). People with CHS typically use marijuana 3?5 times a day for many years before they have symptoms, although it is possible to develop CHS with far less daily use. Symptoms of CHS may be mild at first but can get worse and more frequent. In some cases, CHS may cause severe daily vomiting, which can lead to weight loss and dehydration. What are the causes? The exact cause of CHS is not known. Long-term use of marijuana may overstimulate certain proteins in the brain and digestive tract that react with chemicals in marijuana (cannabinoid receptors). This overstimulation may cause CHS. What are the signs or symptoms? Symptoms of CHS are often mild during the first few episodes, but they can get worse over time. Symptoms may include: ? Frequent nausea, especially early in the morning. ? Vomiting. This can become severe. ? Abdominal pain. ? Feeling very tired (lethargic). ? Headaches. CHS may go away and come back many times (recur). People may not have symptoms or may otherwise be healthy in between CHS episodes. Taking hot showers can relieve the symptoms of CHS, so feeling the need to take several hot showers throughout the day can be a sign of this condition. How is this diagnosed? CHS may be diagnosed based on: ? Your symptoms and medical history, including any drug use. ? A physical exam. You may have tests done to rule out other problems that could cause your symptoms. These tests may include: ? Blood tests. ? Urine tests. ? Imaging tests, such as an X-ray or a CT scan. How is this treated? Treatment for this condition involves stopping marijuana use. Treatment may include: ? A drug rehab program, if you have trouble stopping marijuana use. ? Medicines for nausea. These may be given at the hospital through an IV inserted into one of your veins, or they may be medicines that you take by mouth (orally). ? Certain creams that contain a substance called capsaicin. These may improve symptoms when applied to the abdomen. ? Hot showers to help relieve symptoms. In severe cases, you may need treatment at a hospital. You may be given IV fluids to prevent or treat dehydration as well as medicines to treat nausea, vomiting, and pain. Follow these instructions at home: During an episode of CHS ? Stay in bed and rest in a dark, quiet room. ? Take anti-nausea medicine as told by your health care provider. ? Try taking hot showers to relieve your symptoms. After an episode of CHS ? Drink small amounts of clear fluids. Slowly add more if you can keep the fluids down without vomiting. ? Once you are able to eat without vomiting, eat soft foods in small amounts every 3?4 hours. General instructions ? Do not use any products that contain marijuana.If you need help quitting, ask your health care provider for resources and treatment options. ? Drink enough fluid to keep your urine pale yellow. Avoid drinking fluids that have a lot of sugar or caffeine, such as coffee and soda. ? Take and apply [id number] and prescription medicines only as told by your health care provider. Ask your health care provider before starting any new medicines or treatments. ? Keep all follow-up visits. This includes any recommended programs for substance use disorders. Contact a health care provider if: ? Your symptoms get worse. ? You cannot drink fluids without vomiting or severe pain. ? You have pain and trouble swallowing after an episode. Get help right away if: ? You cannot stop vomiting. ? You have blood in your vomit or your vomit looks like coffee grounds. ? You have severe abdominal pain. ? You have stools that are bloody or black, or stools that look like tar. ? You have symptoms of dehydration, such as: ? Sunken eyes. ? Inability to make tears. ? Cracked lips or dry mouth. ? Decreased urine production. ? Weakness. ? Sleepiness. ? Dizziness, light-headedness, or fainting. These symptoms may be an emergency. Get help right away. Call 911. ? Do not wait to see if the symptoms will go away. ? Do not drive yourself to the hospital. Summary ? Cannabinoid hyperemesis syndrome (CHS) is a condition that causes repeated nausea, vomiting, and abdominal pain after long-term use of marijuana. ? Treatment for this condition involves stopping marijuana use. Hot showers and capsaicin creams may also help relieve symptoms. ? Your health care provider may prescribe medicines to help with nausea. ? Ask your health care provider before starting any medicines or other treatments. This information is not intended to replace advice given to you by your health care provider. Make sure you discuss any questions you have with your health care provider. Document Revised: 06/08/2022 Docu (more content not included)... Normal [facility] ED Note-Physicianon 07-20-19 24 ED Note-Physician Basic Information Time Seen: George CUMMINGS Henrique ChenErin 07/19/2023 17:39 Chief Complaint started around 530pm with chest pain and vomiting blood History of Present Illness 28-year-old female reports to the emergency department with a chief complaint of vomiting blood. Reports this happened at 530 this evening. Reports that she ate, and immediately threw up. Reports it was bright red blood. States that the only new medication that she started was Bactrim and Keflex, which she took care after incision and drainage. She states that she still feels little nauseous. Reports only 1 episode of throwing up. She states never had this before. Denies any fevers or chills. States that again it hurts in her chest because she threw up. Denies any abdominal pain at this time. Denies any blood thinner use. Review of Systems A 10 point review of systems is negative except as noted above. Medical and Surgical History: Reviewed and noted Social history: Lives at home Family History: Reviewed. Tobacco: denies Physical Exam Vitals & Measurements T: 37.4 ?C(Tympanic) HR: 87(Monitored) RR: 16 BP: 118/80 SpO2: 100% HT: 165 cm WT: 113 kg BMI: 41.51 General: The patient appears well and in no apparent distress. Patient is resting comfortably on bed. Afebrile Skin: Warm, dry, no pallor noted. Head: Normocephalic, atraumatic Neck: No JVD Eye: PERRLA, EOMI ENT: Moist mucus membranes Cardiovascular: Regular rate normal peripheral perfusion. Radial pulses +2 bilaterally Respiratory: No respiratory distress no accessory muscle use no obvious audible wheezing. Lung sounds clear to auscultation Chest Wall: no deformity Musculoskeletal: normal ROM, no deformity, no swelling GI: No obvious distention soft nontender nondistended no guarding rebounding or rigidity Neurological: A&O moves all extremities equal strength and symmetry Psychiatric: Cooperative and appropriate Medical Decision Making MEDICAL DECISION MAKING Number and Complexity of Problems Differential Diagnosis: [] [facility] Data External documents reviewed: [] My EKG interpretation: [Reviewed My CT interpretation: [Reviewed My X-ray interpretation: Reviewed My Ultrasound interpretation: [] Decision rules/scores evaluated: [] Discussed with: [] Treatment and Disposition ED Course: 28-year-old female reports to the emergency department after an episode of hematemesis. Reports that this happened after she ate lunch. Reports that she did take Bactrim and Keflex which only new medications that she is recently taken. Denies any preceding symptoms. Reports that she had belly time returned, and then threw up. She states is not on any blood thinners. Exam of the patient relatively benign. No acute findings. Due to concerns, did do a full workup on the patient. Lab work reviewed noted. No acute changes seen. Negative troponin. Patient was given Zofran, did not vomit again. Did feel improved after GI cocktail, and was given pantoprazole. Discussed unknown origin of the hematemesis, but likely from new antibiotic that may have been started. She denies any red food that she eaten recently. No obvious findings on screening labs. Did not have another episode. Camargo comfortable with follow-up as outpatient. Discussed return precautions. Follow-up with your primary care provider in 3 to 5 days. If symptoms worsen, do not improve, or new symptoms arise please report back to emergency department for further evaluation. The patient was understanding and agreeable to plan moving forward. Shared decision making: [] Code status: [] Assessment/Plan Hematemesis (K92.0: Hematemesis) Orders: Al hydroxide/Mg hydroxide/simethicone, 30 mL, Susp-Oral, Oral, Once, Stop date 07/19/23 18:25:00 EDT, STAT, Start date 07/19/23 18:25:00 EDT atropine/hyoscyamine/P B/scopolamine, 10 mL, Elixir, Oral, Once, Stop date 07/19/23 18:25:00 EDT, STAT, Start date 07/19/23 18:25:00 EDT cephalexin, 500 mg = 1 cap(s), Cap, Oral, Once, Stop date 07/19/23 15:26:00 EDT, STAT, Start date 07/19/23 15:26:00 EDT, 07/19/23 15:26:00 EDT cephalexin, 500 mg = 1 cap(s), Oral, q6hr, X 7 day(s), # 28 cap(s), Refills(s) 0, Pharmacy: [facility], 165.1, cm, 07/19/23 15:05:00 EDT, Height/Length Dosing, 113.2, kg, 07/19/23 15:05:00 EDT, Weight Dosing famotidine, 20 mg = 1 tab(s), Tab, Oral, Once, Stop date 07/19/23 19:29:00 EDT, STAT, Start date 07/19/23 19:29:00 EDT, 07/19/23 19:29:00 EDT lidocaine, 100 mg, 10 mL, Injection, TransDermal, Once, Stop date 07/19/23 15:13:00 EDT, STAT, Start date 07/19/23 15:13:00 EDT lidocaine topical, 200 mg, 10 mL, Soln-Oral, Oral, Once, Stop date 07/19/23 18:25:00 EDT, STAT, Start date 07/19/23 18:25:00 EDT ondansetron, 4 mg = 2 mL, Injection, IV Push, Once, Stop date 07/19/23 17:46:00 EDT, STAT, Start date 07/19/23 17:46:00 EDT, 07/19/23 17:46:00 EDT ondansetron, 12 mg = 3 tab(s), Tab-Dis, Oral, Once, Stop date 07/19/23 19:31:00 EDT, STAT, Start date 07/19/23 19:31:00 ED (more content not included)... Normal [facility] Comment on above: Result Comment: Elec tronically Signed By: Henrique Vazquez PA-C\.br\Date and Time Signed: 07/19/23 22:41 EDT\.br\Electronically Co-Signed By: Pedro Mckeon DO\.br\Date and Time Co-Signed: 07/20/23 09:03 EDT XR Chest Single Viewon 07-19 XR Chest Single View Exam Date/Time: 07/19/2023 18:21 EDT Reason for Exam: Chest pain Report IMPRESSION: NO RADIOGRAPHIC EVIDENCE OF ACUTE INTRATHORACIC PROCESS. EXAM: XR Chest Single View History: Chest pain Technique: Portable AP view of the chest. Comparison: None available Findings: The cardiomediastinal silhouette is within normal limits. No pneumothorax, pleural effusion, or consolidation. Chronic deformity of the right clavicle. No acute osseous abnormality. Ordering Provider: Henrique Vazquez FINAL REPORT Dictated: 07/20/2023 9:42 am Cortez Dangelo DO Signed (Electronic Signature): 07/20/2023 9:42 am Signed by: Cortez Dangelo DO Transcribed by: JORDYN Technologist: JARRET Technical Comments Radiation Dose: Ka,r in mGy = 0 DAP = 0 Normal [facility] BMPon 07-19-2023 Anion gap [Moles/Vol] 10 mmol/L Normal 6-16 [facility] Comment on above: Performed By: #### 2 [id number] #### [facility] [address] [place] [address] Calcium [Mass/Vol] 8.2 mg/dL Low 8.9-11.1 [facility] Comment on above: Performed By: #### 2 [id number] #### [facility] [address] [place] [address] Chloride [Moles/Vol] 109 mmol/L Normal 101-111 [facility] Comment on above: Performed By: #### 2 [id number] #### [facility] [address] [place] [address] CO2 [Moles/Vol] 22 mmol/L Normal 21-31 [facility] Comment on above: Performed By: #### 2 [id number] #### [facility] [address] [place] [address] Creatinine [Mass/Vol] 0.7 mg/dL Normal 0.5-1.3 [facility] Comment on above: Performed By: #### 2 [id number] #### [facility] [address] [place] [address] Glucose [Mass/Vol] 70 mg/dL Normal 55-199 [facility] Comment on above: Performed By: #### 2 [id number] #### [facility] [address] [place] [address] Potassium [Moles/Vol] 4.0 mmol/L Normal 3.5-5.3 [facility] Comment on above: Performed By: #### 2 [id number] #### [facility] [address] [place] [address] Sodium [Moles/Vol] 137 mmol/L Normal 135-145 [facility] Comment on above: Performed By: #### 2 110855 #### [facility] [address] [place] [address] Urea nitrogen [Mass/Vol] 14 mg/dL Normal 5-21 [facility] Comment on above: Performed By: #### 2 [id number] #### [facility] [address] [place] [address] Urea nitrogen/Creatinine [Mass ratio] 20 No Units Normal 10-20 [facility] Comment on above: Performed By: #### 2 [id number] #### [facility] [address] [place] [address] CBC w/ Auto Diffon 4 Basophils/100 WBC (Bld) 0.6 % Normal 0.0-2.0 [facility] Comment on above: Performed By: #### 2 [id number] #### [facility] [address] [place] [address] Basophils/Leukocytes Auto (Bld) [Pure # fraction] 0.1 E9/L Normal 0.0-0.2 [facility] Comment on above: Performed By: #### 2 [id number] #### [facility] [address] [place] [address] Eosinophils (Bld) [#/Vol] 0.6 E9/L High 0.0-0.5 [facility] Comment on above: Performed By: #### 2 [id number] #### [facility] [address] [place] [address] Eosinophils/100 WBC (Bld) 4.1 % Normal 0.0-8.0 [facility] Comment on above: Performed By: #### 2 [id number] #### [facility] [address] [place] [address] Erythrocyte distribution width (RBC) [Ratio] 12.8 % Normal 10.9-14.2 [facility] Comment on above: Performed By: #### 2 777778 #### [facility] [address] [place] [address] Hematocrit (Bld) [Volume fraction] 37.9 % Normal 34.0-46.0 [facility] Comment on above: Performed By: #### 2 [id number] #### [facility] [address] [place] [address] Hemoglobin (Bld) [Mass/Vol] 12.7 g/dL Normal 12.0-16.0 [facility] Comment on above: Performed By: #### 2 [id number] #### [facility] [address] [place] [address] Lymphocytes (Bld) [#/Vol] 2.9 E9/L Normal 1.0-4.0 [facility] Comment on above: Performed By: #### 2 [id number] #### [facility] [address] [place] [address] Lymphocytes/100 WBC (Bld) 20.8 % Normal 14.0-50.0 [facility] Comment on above: Performed By: #### 2 [id number] #### [facility] [address] [place] [address] MCH (RBC) [Entitic mass] 28.3 pg Normal 27.0-34.0 [facility] Comment on above: Performed By: #### 2 [id number] #### [facility] [address] [place] [address] MCHC (RBC) [Mass/Vol] 33.4 g/dL Normal 31.4-36.0 [facility] Comment on above: Performed By: #### 2 198775 #### [facility] [address] [place] [address] MCV (RBC) [Entitic vol] 84.9 fL Normal 80.0-100.0 [facility] Comment on above: Performed By: #### 2 [id number] #### [facility] [address] [place] [address] Monocytes (Bld) [#/Vol] 0.9 E9/L Normal 0.2-1.0 [facility] Comment on above: Performed By: #### 2 122945 #### [facility] [address] [place] [address] Neutrophils (Bld) [#/Vol] 9.6 E9/L High 2.0-7.5 [facility] Comment on above: Performed By: #### 2 501177 #### [facility] [address] [place] [address] Neutrophils/100 WBC (Bld) 68.0 % Normal 36.0-75.0 [facility] Comment on above: Performed By: #### 2 [id number] #### [facility] [address] [place] [address] Platelet mean volume (Bld) [Entitic vol] 7.8 fL Normal 6.4-10.8 [facility] Comment on above: Performed By: #### 2 [id number] #### [facility] [address] [place] [address] Platelets (Bld) [#/Vol] 356.0 E9/L Normal 150.0-500.0 [facility] Comment on above: Performed By: #### 2 [id number] #### [facility] [address] [place] [address] RBC (Bld) [#/Vol] 4.5 E12/L Normal 4.3-5.9 [facility] Comment on above: Performed By: #### 2 [id number] #### [facility] [address] [place] [address] WBC corrected for nucl RBC Auto (Bld) [#/Vol] 14.2 E9/L High 4.0-11.0 [facility] Comment on above: Performed By: #### 2 [id number] #### [facility] [address] [place] [address] CHEMISTRYOrdered By: SYSTEM SYSTEM on 07-19-2023 Albumin [Mass/Vol] 4.0 g/dL Normal 3.3 - 5.0 gm/dL [facility] Albumin/Globulin [Mass ratio] 1.3 {ratio} Normal 1.1 - 2.2 [facility] ALP [Catalytic activity/Vol] 65 [iU]/d Normal 21 - 98 Int._Unit/L [facility] ALT No additional P-5'-P [Catalytic activity/Vol] 12 [iU]/d Normal 6 - 46 Int._Unit/L [facility] Anion gap [Moles/Vol] 10 mmol/L Normal 6 - 16 mEq/L R emisol Chem AST [Catalytic activity/Vol] 12 [iU]/d Normal 5 - 43 Int._Unit/L [facility] Bilirubin [Mass/Vol] 0.2 mg/dL Normal 0.0 - 1 .1 mg/dL [facility] Bilirubin.direct [Mass/Vol] 0.0 mg/dL Normal 0.0 - 0.4 mg/dL [facility] Bilirubin.indirect [Mass or moles/Vol] 0.2 mg/dL Normal 0.1 - 0.9 mg/dL [facility] Calcium [Mass/Vol] 8.2 mg/dL Low 8.9 - 11. 1 mg/dL [facility] Chloride [Moles/Vol] 109 mmol/L Normal 101 - 1 11 mmol/L [facility] CO2 [Moles/Vol] 22 mmol/L Normal 21 - 31 mmol/L [facility] Creatinine [Mass/Vol] 0.7 mg/dL Normal 0.5 - 1.3 mg/dL [facility] eGFR 121 mL/min/1.73 m2 Normal >=59mL/mi n/1 .73 m2 [facility] Globulin (S) [Mass/Vol] 3.1 g/dL Normal 1.4 - 4.0 gm/dL [facility] Glucose [Mass/Vol] 70 mg/dL Normal 55 - 199 mg/dL [facility] Lipase [Catalytic activity/Vol] 29 U/L Normal 13 - 58 unit/L [facility] Magnesium [Mass/Vol] 2.0 mg/dL Normal 1.3 - 2 .4 mg/dL [facility] Potassium [Moles/Vol] 4.0 mmol/L Normal 3.5 - 5.3 mmol/L [facility] Protein [Mass/Vol] 7.1 g/dL Normal 6.0 - 7.8 gm/dL [facility] Sodium [Moles/Vol] 137 mmol/L Normal 135 - 145 mmol/L [facility] Troponin pg/mL Low 10.10 - 27.10 pg/mL [facility] Comment on above: Interpretive Data: T he 95% CI (Confidence Interval) PPV (Positive Predictive Value) for myocardial infarction in females is 38 pg/mL, in males 51 pg/mL. The results should be used in conjunction with clinical conditions of myocardial infarction. (Access High Sensitivity Troponin I Instructions For Use, Jaden Caryl, September 2017) Urea nitrogen [Mass/Vol] 14 mg/dL Normal 5 - 21 mg/dL [facility] Urea nitrogen/Creatinine [Mass ratio] 20 mg/mg Normal 10 - 20 [facility] COAGULATIONOrdered By: Марина Mccollum on 07-19-2023 aPTT Coag (PPP) [Time] 38.6 s High 25.1 - 36.5 second(s) [facility] Comment on above: Interpretive Data: P arameter 15 days - 4 weeks 1 - 5 months 6 - 11 months 1 - 5 years 6 - 10 years 11 - 17 years PTT Mean: 35.4 (27.6-45.6) Mean: 33.5 (24.8-40.7) Mean: 32.4 (25.1-40.7) Mean: 31.6 (24.0-39.2) Mean: 31.6 (26.9-38.7) Mean: 31.0 (24.6-38.4) Pediatric Reference ranges were obtained from a study by Adalberto Donato et al. prepared from 1437 samples obtained at 7 different centers using the same coagulation reagent and instrumentation as [facility]. Currently there are no coagulation studies available worldwide for children to 14 days, and no normal ranges. Heparin therapeutic range (represented by Anti-Factor Xa activity of 0.2 - 0.4 U/mL) corresponds to PTT of 56.6 - 109.0 sec. INR Coag (PPP) [Relative time] 0.94 {INR} Invalid Interpretation Code [facility] Comment on above: Interpretive Data: I NR results are specifically intended to assess patients stabilized on long-term Anticoagulation therapy suggested INR s Less Intensive Anticoagulation 2.0 3.0 Conventional Range 3.0 4.5 PT Coag (PPP) [Time] 10.5 s Normal 9.4 - 1 2.5 second(s) [facility] Comment on above: Interpretive Data: 1 5 days - 4 weeks 1 - 5 months 6 -11 months 1 5 years 6 10 years 11 -17 years Mean: 11.2 (9.5 12.6) Mean: 11.0 (9.7 12.8) Mean: 11.0 (9.8 13.0) Mean: 11.3 (9.9 13.4) Mean: 11.7 (10.0 14.6) Mean: 11.8 (10.0 - 14.1) Pediatric Reference ranges were obtained from a study by mariel Saldaña al. prepared from 1437 samples obtained at 7 different centers using the same coagulation reagent and instrumentation as [facility]. Currently there are no coagulation studies available worldwide for children to 14 days, and no normal ranges. Discharge Instructionson Discharge Instructions [id number] Normal [facility] ED Clinical Summaryon 2023 ED Clinical Summary [place] [id number] ED Clinical Summary Person Information Name: LEYDA SEGAL Saritha/[facility] Age: 28 Years : 1995 Sex: Female Language: Micronesian PCP: Damon KIRBY MD Marital Status: Single Phone: [phone] Visit Id: Visit Reason: Vomiting; Chest pain; VOMITTING BLOOD, CHEST PAIN Speciality: Acuity: 3 Enc Type: Emergency Med Service: Emergency Arrival: 07/19/2023 17:35:48 Discharge: 07/19/2023 20:03:49 LOS: 000 02:28 Checkin: 07/19/2023 17:35:48 Checkout: 07/19/2023 20:03:49 Dispo Type: Home (Routine DC) EVENTS: Event Name Event Status Request Date/Time Start Date/Time Complete Date/Time Arrive Complete 07/19/2023 17:35:48 07/19/2023 17:35:48 07/19/2023 17:35:48 Document Home Meds Request 07/19/2023 17:35:48 Triage Complete 07/19/2023 17:35:48 07/19/2023 17:41:32 07/19/2023 17:41:32 Bed Assign Complete 07/19/2023 17:38:37 07/19/2023 17:38:37 07/19/2023 17:38:37 Dr Exam Complete 07/19/2023 17:38:37 07/19/2023 17:39:40 07/19/2023 17:39:40 RN Exam Complete 07/19/2023 17:38:37 07/19/2023 18:05:20 07/19/2023 18:05:20 Registration Complete 07/19/2023 17:38:43 07/19/2023 17:38:43 07/19/2023 17:38:43 Reg Complete Request 07/19/2023 17:38:43 Reg Bed Request Complete 07/19/2023 17:38:43 07/19/2023 17:38:43 07/19/2023 17:38:43 Registration Request 07/19/2023 17:39:40 EKG Complete 07/19/2023 17:40:12 07/19/2023 17:42:32 Dr Exam Complete 07/19/2023 17:44:18 07/19/2023 17:44:18 07/19/2023 17:44:18 Meds Admin Complete 07/19/2023 17:47:28 07/19/2023 18:00:44 Pending Labs Request 07/19/2023 17:47:28 Lab Complete 07/19/2023 17:47:28 07/19/2023 18:20:29 Patient Care Request 07/19/2023 17:47:28 X-Ray Complete 07/19/2023 17:47:28 07/19/2023 17:57:10 07/19/2023 18:21:10 Pending Labs Complete 07/19/2023 17:57:38 07/19/2023 17:57:38 07/19/2023 18:20:29 Lab Complete 07/19/2023 17:57:38 07/19/2023 17:57:38 07/19/2023 18:20:29 Wet Read Request 07/19/2023 18:21:10 Meds Admin Complete 07/19/2023 18:26:10 07/19/2023 18:38:24 Pending Labs Complete 07/19/2023 18:47:14 07/19/2023 18:47:14 07/19/2023 18:47:14 Meds Admin Complete 07/19/2023 19:30:55 07/19/2023 19:46:59 Meds Admin Complete 07/19/2023 19:31:19 07/19/2023 19:48:18 Discharge Complete 07/19/2023 19:32:55 07/19/2023 20:03:53 07/19/2023 20:03:53 Transfer Complete 07/19/2023 20:03:53 07/19/2023 20:03:53 07/19/2023 20:03:53 ADDRESS: [address] [facility] [id number] PHYS DOC NOTES: MEDICAL INFORMATION: Prescriptions Given: New Medications [facility], [address] [place], [place] [id number], [phone] ondansetron (Zofran ODT 4 mg Tab-Dis) 1 Tablets By Mouth every 8 hours as needed Nausea/Vomiting. Refills: 0. pantoprazole (Protonix 20 mg Tab-DR) 2 Tablets By Mouth every day. Refills: 0. sucralfate (Carafate 1 gram Tab) 1 Tablets By Mouth 4 times a day for 7 Days. Refills: 0. Medications to Continue with No Changes Other Medications albuterol (Albuterol (Eqv-ProAir HFA) 90 mcg/inh inhalation aerosol) 2 Puffs Inhalation every 6 hours. Refills: 0. aripiprazole (aripiprazole 2 mg Tab) 1 Tablets By Mouth every day. betamethasone topical (betamethasone Top dipropionate 0.05% Crm 45 gram) apply topically to affected area once daily AT THE SAME TIME EACH DAY. busPIRone (busPIRone 10 mg Tab) 1 Tablets By Mouth 2 times a day. cephalexin (Keflex 500 mg Cap) 1 Capsules By Mouth every 6 hours for 7 Days. Refills: 0. escitalopram (escitalopram 5 mg oral tablet) TAKE 1 TABLET BY MOUTH EVERY DAY. fluoride topical (PreviDent 5000 Booster 1.1% topical paste) ketoconazole topical (ketoconazole Top 2% Crm) APPLY TOPICALLY TO AFFECTED AREAS twice a day if needed. methylphenidate 18 Milligram By Mouth once a day (in the morning). sulfamethoxazole-trime thoprim (Bactrim D.S. 800 mg-160 mg Tab) 1 Tablets By Mouth 2 times a day for 7 Days. Refills: 0. trazodone (traZODONE 50 mg Tab) 1 Tablets By Mouth once a day (at bedtime). PATIENT EDUCATION INFORMATION: Instructions: Nausea and Vomiting, Adult, Livg-wm-Enbc; Hematemesis Follow up: With: Address: When: Shirley Naranjo [address] [place] [address] [phone] [employer] (1) In 3 days 07/22/2023 Comments: Call Dr for diagnosis based follow up With: Address: When: Damon KIRBY [address] [place] [phone] [employer] (1) In 3 days 07/22/2023 Comments: Call Dr for diagnosis based follow up DIAGNOSIS: Hematemesis Normal [facility] ED Patient Education Noteon 07-19-2023 ED Patient Education Note Gastroenterology Nausea and Vomiting, Adult Nausea is feeling that you have an upset stomach and that you are about to vomit. Vomiting is when food in your stomach forcefully comes out of your mouth. Vomiting can make you feel weak. If you vomit, or if you are not able to drink enough fluids, you may not have enough water in your body (get dehydrated). If you do not have enough water in your body, you may: ? Feel tired. ? Feel thirsty. ? Have a dry mouth. ? Have cracked lips. ? Pee (urinate) less often. Older adults and people with other diseases or a weak body defense system (immune system) are at higher risk for not having enough water in the body. If you feel like you may vomit or you vomit, it is important to follow instructions from your doctor about how to take care of yourself. Follow these instructions at home: Watch your symptoms for any changes. Tell your doctor about them. Eating and drinking ? Take an ORS (oral rehydration solution). This is a drink that is sold at pharmacies and stores. ? Drink clear fluids in small amounts as you are able, such as: ? Water. ? Ice chips. ? Fruit juice that has water added (diluted fruit juice). ? Low-calorie sports drinks. ? Eat bland, quyw-lt-wabfvf foods in small amounts as you are able, such as: ? Bananas. ? Applesauce. ? Rice. ? Low-fat (lean) meats. ? Herrin. ? Crackers. ? Avoid drinking fluids that have a lot of sugar or caffeine in them. This includes energy drinks, sports drinks, and soda. ? Avoid alcohol. ? Avoid spicy or fatty foods. General instructions ? Take jovo-okm-vnkozdj and prescription medicines only as told by your doctor. ? Drink enough fluid to keep your pee (urine) pale yellow. ? Wash your hands often with soap and water for at least 20 seconds. If you cannot use soap and water, use hand customer solutions representative. ? Make sure that everyone in your home washes their hands well and often. ? Rest at home until you feel better. ? Watch your condition for any changes. ? Take slow and deep breaths when you feel like you may vomit. ? Keep all follow-up visits. Contact a doctor if: ? Your symptoms get worse. ? You have new symptoms. ? You have a fever. ? You cannot drink fluids without vomiting. ? You feel like you may vomit for more than 2 days. ? You feel light-headed or dizzy. ? You have a headache. ? You have muscle cramps. ? You have a rash. ? You have pain while peeing. Get help right away if: ? You have pain in your chest, neck, arm, or jaw. ? You feel very weak or you faint. ? You vomit again and again. ? You have vomit that is bright red or looks like black coffee grounds. ? You have bloody or black poop (stools) or poop that looks like tar. ? You have a very bad headache, a stiff neck, or both. ? You have very bad pain, cramping, or bloating in your belly (abdomen). ? You have trouble breathing. ? You are breathing very quickly. ? Your heart is beating very quickly. ? Your skin feels cold and clammy. ? You feel confused. ? You have signs of losing too much water in your body, such as: ? Dark pee, very little pee, or no pee. ? Cracked lips. ? Dry mouth. ? Sunken eyes. ? Sleepiness. ? Weakness. These symptoms may be an emergency. Get help right away. Call 911. ? Do not wait to see if the symptoms will go away. ? Do not drive yourself to the hospital. Summary ? Nausea is feeling that you have an upset stomach and that you are about to vomit. Vomiting is when food in your stomach comes out of your mouth. ? Follow instructions from your doctor about eating and drinking. ? Take mowb-rqm-bpdrgqq and prescription medicines only as told by your doctor. ? Contact your doctor if your symptoms get worse or you have new symptoms. ? Keep all follow-up visits. This information is not intended to replace advice given to you by your health care provider. Make sure you discuss any questions you have with your health care provider. Document Revised: 08/15/2021 Document Reviewed: 08/15/2021 [employer] Patient Education ? 2022 [employer]. Hematemesis Hematemesis is when you vomit blood. It is a sign of bleeding in the upper GI tract (gastrointestinal tract). The upper GI tract includes the mouth, throat, esophagus, stomach, and the upper part of the small intestine (duodenum). Hematemesis is usually caused by bleeding in the esophagus or stomach. You may suddenly vomit bright red blood. Or the blood may look like coffee grounds. You may also have other symptoms, such as: ? Stomach pain. ? Heartburn. ? Stool (feces) that looks black and tarry. Follow these instructions at home: ? Take qkre-lao-dspxgop and prescription medicines only as told by your health care provider. ? Do not take NSAIDs, including aspirin and ibuprofen, unless your health care provider approves. These medicines can increa (more content not included)... Normal [facility] ED Patient Summaryon 024 ED Patient Summary [place] [id number] Patient Discharge Instructions Person Information Name: LEYDA SEGAL Age: 28 Years Arrival Date: 07/19/2023 17:35:48 Discharge Diagnosis: Hematemesis Primary Care Physician: Damon KIRBY MD Provider Information Primary Provider: Pedro Mckeon DO Advanced Black Jack Dealer:None The exam and treatment you received in the Emergency Department were for an urgent problem and are not intended as complete care. It is important that you follow up with a doctor, nurse practitioner, or physician?s assistant track coach for ongoing care. If your symptoms become worse or you do not improve as expected and you are unable to reach your usual health care provider, you should return to the Emergency Department. We are available 24 hours a day. LEYDA SEGAL has been given the following list of patient education materials, prescriptions and follow-up instructions: Follow-up Instructions: With: Address: When: Shirley Naranjo [address] [place] [address], [address] [place] [id number] [phone] [facility] (1) In 3 days 07/22/2023 Comments: Call Dr for diagnosis based follow up With: Address: When: Damon KIRBY [address] [place] [phone] [facility] (1) In 3 days 07/22/2023 Comments: Call Dr for diagnosis based follow up In the event that this physician does not participate in your insurance network, please consult with your insurance company to find a nearby participating provider. Patient Education Materials: Nausea and Vomiting, Adult, Zgxo-dh-Xnda; Hematemesis A MESSAGE TO ALL PATIENTS REGARDING OPIOIDS PRESCRIPTION OPIOIDS: WHAT YOU NEED TO KNOW Prescription opioids can be used to help relieve omkeenhy-yi-jgaffc pain and are often prescribed following a surgery or injury, or for certain health conditions. These medications can be an important part of the treatment but also come with serious risks. It is important to work with your healthcare provider to make sure you are getting the safest, most effective care. WHAT ARE THE RISKS AND SIDE EFFECTS OF OPIOID USE? Prescription opioids carry serious risks of addiction and overdose, especially with prolonged use. An opioid overdose, often marked by slowed breathing, can cause sudden . The use of prescription opioids can have a number of side effects as well, even when taken as directed: ? Tolerance?meaning you might need to take more of the medication for the same pain relief ? Physical dependence?meaning you have symptoms of withdrawal when a medication is stopped ? Increased sensitivity to pain ? Constipation ? Nausea, vomiting, and dry mouth ? Sleepiness and dizziness ? Confusion ? Depression ? Low levels of testosterone that can result in lower sex drive, energy, and strength ? Itching and sweating RISKS ARE GREATER WITH: ? History of drug misuse, substance use disorder, or overdose ? Mental health conditions (such as depression or anxiety) ? Sleep apnea ? Older age (65 years and older) ? Avoid alcohol while taking prescription opioids. Also, unless specifically advised by your health care provider, medications to avoid include: ? Benzodiazepines (such as Xanax or Valium) ? Muscle relaxants (such as Soma or Flexeril) ? Hypnotics (such as Ambien or Lunesta) ? Other prescription opioids KNOW YOUR OPTIONS Talk to your health care provider about ways to manage your pain that don?t involve prescription opioids. Some of these options may actually work better and have fewer risks and side effects. Options may include: ? Pain relievers such as acetaminophen, ibuprofen, and naproxen ? Some medication that are also used for depression or seizures ? Physical therapy and exercise ? Cognitive behavioral therapy, a psychological, goal-directed approach, in which patients learn how to modify physical, behavioral, and emotional triggers of pain and stress. IF YOU ARE PRESCRIBED OPIOIDS FOR PAIN: ? Never take opioids in greater amounts or more often than prescribed. ? Follow up with your primary health care provider. o Work together to create a plan on how to manage your pain. o Talk about ways to help manage your pain that don?t involve prescription opioids. o Talk about any and all concerns and side effects. ? Help prevent misuse and abuse o Never sell or share prescription opioids. o Never use another person?s prescription opioids. ? Store prescription opioids in a secure place and out of reach of others (this may include visitors, children, friends, and family). ? Safely dispose of unused prescription opioids: Find your community drug take-back program or your pharmacy mail-back program, or flush them down the toilet, following guidance from the Food and Drug Administration (www.fda.gov/Drugs/Res ourcesForYou). ? Visit www.cdc.gov/drugov (more content not included)... Normal [facility] HEMATOLOGYOrdered By: SYSTEM SYSTEM on 07-19-2023 Basophils/100 WBC (Bld) 0.6 % Normal 0.0 - 2.0 % Remisol Heme Basophils/Leukocytes Auto (Bld) [Pure # fraction] 0.1 E9/L Normal 0.0 - 0.2 E9/L Remisol Heme Eosinophils (Bld) [#/Vol] 0.6 E9/L High 0.0 - 0.5 E9/L Remisol Heme Eosinophils/100 WBC (Bld) 4.1 % Normal 0.0 - 8.0 % Remisol Heme Erythrocyte distribution width (RBC) [Ratio] 12.8 % Normal 10.9 - 14.2 % Remisol Heme Hematocrit (Bld) [Volume fraction] 37.9 % Normal 34.0 - 46.0 % Remisol Heme Hemoglobin (Bld) [Mass/Vol] 12.7 g/dL Normal 12.0 - 16.0 gm/dL Remisol Heme Lymphocytes (Bld) [#/Vol] 2.9 E9/L Normal 1.0 - 4.0 E9/L Rem[facility]e Lymphocytes/100 WBC (Bld) 20.8 % Normal 14.0 - 50.0 % Remisol Heme MCH (RBC) [Entitic mass] 28.3 pg Normal 27.0 - 34.0 pg Remisol Heme MCHC (RBC) [Mass/Vol] 33.4 g/dL Normal 31.4 - 36.0 gm/dL [facility]e MCV (RBC) [Entitic vol] 84.9 fL Normal 80.0 - 100.0 fL Remisol Heme Monocytes (Bld) [#/Vol] 0.9 E9/L Normal 0.2 - 1.0 E9/L Remisol Heme Monocytes/100 WBC (Bld) 6.5 % Normal 4.0 - 14.0 % Remisol Heme Neutrophils (Bld) [#/Vol] 9.6 E9/L High 2.0 - 7.5 E9/L [facility] Heme Neutrophils/100 WBC (Bld) 68.0 % Normal 36.0 - 75.0 % [facility]e Platelet mean volume (Bld) [Entitic vol] 7.8 fL Normal 6.4 - 10.8 fL [facility] Platelets (Bld) [#/Vol] 356.0 E9/L Normal 150.0 - 500.0 E9/L [facility] Heme RBC (Bld) [#/Vol] 4.5 E12/L Normal 4.3 - 5.9 E12/L [facility] WBC corrected for nucl RBC Auto (Bld) [#/Vol] 14.2 E9/L High 4.0 - 11.0 E9/L [facility] Heme Hep Func Panelon 07-19-2023 Albumin [Mass/Vol] 4.0 g/dL Normal 3.3-5.0 [facility] Comment on above: Performed By: #### 2 [id number] #### [facility] [address] [place] [address] Albumin/Globulin (S) [Mass conc ratio] 1.3 Normal 1.1-2.2 [facility] Comment on above: Performed By: #### 2 [id number] #### [facility] [address] [place] [address] ALP [Catalytic activity/Vol] 65 Int._Unit/L Normal 21-98 [facility] Comment on above: Performed By: #### 2 [id number] #### [facility] [address] [place] [address] ALT No additional P-5'-P [Catalytic activity/Vol] 12 Int._Unit/L Normal 6-46 [facility] Comment on above: Performed By: #### 2 [id number] #### [facility] [address] [place] [address] AST [Catalytic activity/Vol] 12 Int._Unit/L Normal 5-43 [facility] Comment on above: Performed By: #### 2 [id number] #### [facility] [address] [place] [address] Bilirubin [Mass/Vol] 0.2 mg/dL Normal 0.0-1.1 [facility] Comment on above: Performed By: #### 2 [id number] #### [facility] [address] [place] [address] Bilirubin.direct [Mass/Vol] 0.0 mg/dL Normal 0.0-0.4 [facility] Comment on above: Performed By: #### 2 [id number] #### [facility] [address] [place] [address] Bilirubin.indirect [Mass or moles/Vol] 0.2 mg/dL Normal 0.1-0.9 [facility] Comment on above: Performed By: #### 2 [id number] #### [facility] [address] [place] [address] Globulin (S) [Mass/Vol] 3.1 g/dL Normal 1.4-4.0 [facility] Comment on above: Performed By: #### 2 [id number] #### [facility] [address] [place] [address] Protein [Mass/Vol] 7.1 g/dL Normal 6.0-7.8 [facility] Comment on above: Performed By: #### 2 [id number] #### [facility] [address] [place] [address] Lipase Levelon 07-19-2023 Lipase [Catalytic activity/Vol] 29 U/L Normal 13-58 [facility] Comment on above: Performed By: #### 2 [id number] #### [facility] [address] [place] [address] Magnesiumon 07-19-2023 Magnesium [Mass/Vol] 2.0 mg/dL Normal 1.3-2.4 [facility] Comment on above: Performed By: #### 2 [id number] #### [facility] [address] [place] [address] Monitor Recordon 07-19-2023 Monitor Record [id number]. [id number] Normal [facility] PT & PTTon 07-19-2023 aPTT Coag (PPP) [Time] 38.6 second(s) High 25.1-36.5 [facility] Comment on above: Result Comment: Para meter 15 days - 4 weeks 1 - 5 months 6 - 11 months 1 - 5 years 6 - 10 years 11 - 17 years PTT Mean: 35.4 (27.6-45.6) Mean: 33.5 (24.8-40.7) Mean: 32.4 (25.1-40.7) Mean: 31.6 (24.0-39.2) Mean: 31.6 (26.9-38.7) Mean: 31.0 (24.6-38.4) Pediatric Reference ranges were obtained from a study by Adalberto Donato et al. prepared from 1437 samples obtained at 7 different centers using the same coagulation reagent and instrumentation as [facility]. Currently there are no coagulation studies available worldwide for children to 14 days, and no normal ranges. Heparin therapeutic range (represented by Anti-Factor Xa activity of 0.2 - 0.4 U/mL) corresponds to PTT of 56.6 - 109.0 sec. Performed By: #### 1 [id number] ####[facility] [address] [place] [address] INR Coag (PPP) [Relative time] 0.94 {INR} Invalid Interpretation Code [facility] Comment on above: Result Comment: INR results are specifically intended to assess patients stabilized on long-term Anticoagulation therapy suggested INR?s ?Less Intensive Anticoagulation? 2.0 ? 3.0 Conventional Range 3.0 ? 4.5 Performed By: #### 1 [id number] ####[facility] [address] [place] [address] PT Coag (PPP) [Time] 10.5 second(s) Normal 9.4-12.5 [facility] Comment on above: Result Comment: 15 d ays - 4 weeks 1 - 5 months 6 -11 months 1 ? 5 years 6 ? 10 years 11 -17 years Mean: 11.2 (9.5 ? 12.6) Mean: 11.0 (9.7 ? 12.8) Mean: 11.0 (9.8 ? 13.0) Mean: 11.3 (9.9 ? 13.4) Mean: 11.7 (10.0 ? 14.6) Mean: 11.8 (10.0 - 14.1) Pediatric Reference ranges were obtained from a study by Adalberto Donato et al. prepared from 1437 samples obtained at 7 different centers using the same coagulation reagent and instrumentation as [facility]. Currently there are no coagulation studies available worldwide for children to 14 days, and no normal ranges. Performed By: #### 1 [id number] ####[facility] [address] [place] [address] Troponin 0 Hr.on 07-19-2023 Troponin I.cardiac [Mass/Vol] ng/mL Low 10.10-27.10 [facility] Comment on above: Result Comment: The 95% CI (Confidence Interval) PPV (Positive Predictive Value) for myocardial infarction in females is 38 pg/mL, in males 51 pg/mL. The results should be used in conjunction with clinical conditions of myocardial infarction. (Access High Sensitivity Troponin I Instructions For Use, Jaden Caryl, September 2017) Performed By: #### 1 [id number] #### [facility] [address] [place] [address] eGFRon 07-19-2023 eGFR 121 mL/min/1.73 m2 Normal >=59 [facility] Comment on above: Order Comment: Order added by Discern Expert. Performed By: #### 1 [id number] #### [facility] [address] [place] [address] PREG QUANT HCGon 05-23-2022 HCG QUANT 36707 mIU/mL Normal [facility] Comment on above: Performed By: #### U BLAYNE, UACSIND #### [facility] [address] [place], [place] [address] Dr. Dillon Pepe HCG RANGE SEE BELOW Normal [facility] Comment on above: Result Comment: 5-50 0.2-1 WEEK 50-500 1-2 WEEKS 100-5,000 2-3 WEEKS 500-10,000 3-4 WEEKS 1,000-50,000 4-5 WEEKS 10,000-100,000 5-6 WEEKS 15,000-200,000 6-8 WEEKS 10,000-100,000 2-3 MONTHS Performed By: #### U MICRO, UACSIND #### [facility] [address] [place] [address] Dr. Dillon Pepe CANNABINOID (THC) CONFIRMATI ON, URINEon 10-24-2021 Cannabinoid Positive Abnormal [facility] Comment on above: Performed By: #### C MP #### [facility] [address] [place] [address] Dr. Dillon Pepe Carboxy THC GC/MS Conf >750 Normal Cutoff=10 [facility] Comment on above: Performed By: #### C MP #### [facility] [address] [place] [address] Dr. Dillon Pepe CBC AUTO DIFFon 10-21-2021 BASO # 0.0 103/ul Normal 0.0-0.1 [facility] Comment on above: Performed By: #### C MP #### [facility] [address] [place] [address] Dr. Dillon Pepe Basophils/100 WBC (Bld) 0.2 % Normal 0.2-2.0 [facility] Comment on above: Performed By: #### C MP #### [facility] [address] [place] [address] Dr. Dillon Pepe EO # 0.4 103/ul Normal 0.0-0.7 [facility] Comment on above: Performed By: #### C MP #### [facility] [address] [place] [address] Dr. Dillon Pepe Eosinophils/100 WBC (Bld) 2.1 % Normal 0.9-7.0 [facility] Comment on above: Performed By: #### C MP #### [facility] [address] [place] [address] Dr. Dillon Pepe Erythrocyte distribution width (RBC) [Ratio] 13.7 % Normal 11.0-15.0 [facility] Comment on above: Performed By: #### C MP #### [facility] [address] [place] [address] Dr. Dillon Pepe Hematocrit (Bld) [Volume fraction] 32.7 % Critically low 36.0-48.0 [facility] Comment on above: Performed By: #### C MP #### [facility] [address] [place] [address] Dr. Dillon Pepe Hemoglobin (Bld) [Mass/Vol] 10.3 g/dL Critically low 12.0-16.0 [facility] Comment on above: Performed By: #### C MP #### [facility] [address] [place] [address] Dr. Dillon Pepe IG # 0.09 10e3/ul Critically high 0.00-0.03 [facility] Comment on above: Performed By: #### C MP #### [facility] [address] [place] [address] Dr. Dillon Pepe IG % 0.5 % Normal 0.0-0.5 [facility] Comment on above: Performed By: #### C MP #### [facility] [address] [place] [address] Dr. Dillon Pepe LYMPH # 2.2 103/ul Normal 1.2-3.8 [facility] Comment on above: Performed By: #### C MP #### [facility] [address] [place] [address] Dr. Dillon Pepe Lymphocytes/100 WBC (Bld) 13.2 % Critically low 20.5-60.0 [facility] Comment on above: Performed By: #### C MP #### [facility] [address] [place] [address] Dr. Dillon Pepe MANUAL DIFF REQ NO Normal [facility] Comment on above: Performed By: #### C MP #### [facility] [address] [place] [address] Dr. Dillon Pepe MCH (RBC) [Entitic mass] 27.2 pg Normal 26.7-34.0 [facility] Comment on above: Performed By: #### C MP #### [facility] [address] [place] [address] Dr. Dillon Pepe MCHC (RBC) [Mass/Vol] 31.5 g/dL Normal 29.9-35.2 [facility] Comment on above: Performed By: #### C MP #### [facility] [address] [place] [address] [address] Dillon Pepe MCV (RBC) [Entitic vol] 86.3 fL Normal 81.0-99.0 [facility] Comment on above: Performed By: #### C MP #### [facility] [address] [place] [address] [address] Dillon Pepe MONO # 1.5 103/ul Critically high 0.3-0.8 [facility] Comment on above: Performed By: #### C MP #### [facility] [address] [place] [address] Dr. Dillon Pepe Monocytes/100 WBC (Bld) 8.7 % Normal 1.7-12.0 [facility] Comment on above: Performed By: #### C MP #### [facility] [address] [place] [address] Dr. Dillon Pepe NEUT # 12.6 103/ul Critically high 1.4-6.5 [facility] Comment on above: Performed By: #### C MP #### [facility] [address] [place] [address] Dr. Dillon Pepe Neutrophils/100 WBC (Bld) 75.3 % Critically high 43.0-75.0 [facility] Comment on above: Performed By: #### C MP #### [facility] [address] [place] [address] Dr. Dillon Pepe Platelet mean volume (Bld) [Entitic vol] 10.5 fL Normal 9.5-13.5 [facility] Comment on above: Performed By: #### C MP #### [facility] [address] [place] [address] Dr. Dillon Pepe PLT 331 103/ul Normal 150-450 [facility] Comment on above: Performed By: #### C MP #### [facility] [address] [place] [address] Dr. Dillon Pepe RBC 3.79 106/ul Critically low 4.20-5.40 [facility] Comment on above: Performed By: #### C MP #### [facility] [address] [place] [address] Dr. Dillon Pepe WBC 16.8 103/ul Critically high 4.0-11.0 [facility] Comment on above: Performed By: #### C MP #### [facility] [address] [place] [address] Dr. Dillon Pepe CBC AUTO DIFFon 10-19-2021 BASO # 0.0 103/ul Normal 0.0-0.1 [facility] Comment on above: Performed By: #### U MICRO, UACSIND #### [facility] [address] [place] [address] Dr. Dillon Pepe Basophils/100 WBC (Bld) 0.2 % Normal 0.2-2.0 [facility] Comment on above: Performed By: #### U MICRO, UACSIND #### [facility] [address] [place] [address] Dr. Dillon Pepe EO # 0.0 103/ul Normal 0.0-0.7 [facility] Comment on above: Performed By: #### U MICRO, UACSIND #### [facility] [address] [place] [address] Dr. Dillon Pepe Eosinophils/100 WBC (Bld) 0.2 % Critically low 0.9-7.0 [facility] Comment on above: Performed By: #### U MICRO, UACSIND #### [facility] [address] [place] [address] Dr. Dillon Pepe Erythrocyte distribution width (RBC) [Ratio] 13.2 % Normal 11.0-15.0 [facility] Comment on above: Performed By: #### U MICRO, UACSIND #### [facility] [address] [place] [address] Dr. Dillon Pepe Hematocrit (Bld) [Volume fraction] 37.7 % Normal 36.0-48.0 [facility] Comment on above: Performed By: #### U MICRO, UACSIND #### [facility] [address] [address] [address] Dillon Pepe Hemoglobin (Bld) [Mass/Vol] 12.1 g/dL Normal 12.0-16.0 [facility] Comment on above: Performed By: #### U MICRO, UACSIND #### [facility] [address] [address] [address] Dillon Pepe IG # 0.09 10e3/ul Critically high 0.00-0.03 [facility] Comment on above: Performed By: #### U MICRO, UACSIND #### [facility] [address] [place] [address] [address] Dillon Pepe IG % 0.5 % Normal 0.0-0.5 [facility] Comment on above: Performed By: #### U MICRO, UACSIND #### [facility] [address] [place] [address] Dr. Dillon Pepe LYMPH # 0.9 103/ul Critically low 1.2-3.8 [facility] Comment on above: Performed By: #### U MICRO, UACSIND #### [facility] [address] [address] [address] Dillon Pepe Lymphocytes/100 WBC (Bld) 4.9 % Critically low 20.5-60.0 [facility] Comment on above: Performed By: #### U MICRO, UACSIND #### [facility] [address] [address] [address] Dillon Pepe MANUAL DIFF REQ NO Normal [facility] Comment on above: Performed By: #### U MICRO, UACSIND #### [facility] [address] [address] [address] Dillon Pepe MCH (RBC) [Entitic mass] 27.6 pg Normal 26.7-34.0 [facility] Comment on above: Performed By: #### U MICRO, UACSIND #### [facility] [address] [address] [address] Dillon Pepe MCHC (RBC) [Mass/Vol] 32.1 g/dL Normal 29.9-35.2 [facility] Comment on above: Performed By: #### U MICRO, UACSIND #### [facility] [address] [address] [address] Dillon Pepe MCV (RBC) [Entitic vol] 85.9 fL Normal 81.0-99.0 [facility] Comment on above: Performed By: #### U MICRO, UACSIND #### [facility] [address] [place] [address] Dr. Dillon Pepe MONO # 1.1 103/ul Critically high 0.3-0.8 [facility] Comment on above: Performed By: #### U MICRO, UACSIND #### [facility] [address] [place] [address] Dr. Dillon Pepe Monocytes/100 WBC (Bld) 5.8 % Normal 1.7-12.0 [facility] Comment on above: Performed By: #### U MICRO, UACSIND #### [facility] [address] [place] [address] Dr. Dillon Pepe NEUT # 16.4 103/ul Critically high 1.4-6.5 [facility] Comment on above: Performed By: #### U MICRO, UACSIND #### [facility] [address] [place] [address] Dr. Dillon Pepe Neutrophils/100 WBC (Bld) 88.4 % Critically high 43.0-75.0 [facility] Comment on above: Performed By: #### U MICRO, UACSIND #### [facility] [address] [place] [address] Dr. Dillon Pepe Platelet mean volume (Bld) [Entitic vol] 10.4 fL Normal 9.5-13.5 [facility] Comment on above: Performed By: #### U MICRO, UACSIND #### [facility] [address] [place] [address] Dr. Dillon Pepe PLT 357 103/ul Normal 150-450 [facility] Comment on above: Performed By: #### U MICRO, UACSIND #### [facility] [address] [place] [address] Dr. Dillon Pepe RBC 4.39 106/ul Normal 4.20-5.40 [facility] Comment on above: Performed By: #### U MICRO, UACSIND #### [facility] [address] [address] [address] Dillon Pepe WBC 18.5 103/ul Critically high 4.0-11.0 [facility] Comment on above: Performed By: #### U MICRO, UACSIND #### [facility] [address] [address] [address] Dillon Pepe Covid-19 PCR ([facility])on 09-23 SARS-CoV-2 (COVID-19) RNA ERIK+probe Ql (Unsp spec) Not detected Normal NOT DETECTED [facility] Comment on above: Result Comment: When [...] for this test is supported by the [place] of Health and Human Service's declaration that [...] Performed By: #### U MICRO, UACSIND #### [facility] [address] [place] [address] Dr. Dillon Pepe DRUG SCREEN RAPID (URINE)on 10-19-2021 AMP Negative Normal NEGATIVE [facility] Comment on above: Performed By: #### D RUGRPD #### [facility] [address] [address] [address] Dillon Pepe BAR Negative Normal NEGATIVE [facility] Comment on above: Performed By: #### D RUGRPD #### [facility] [address] [place] [address] Dr. Dillon Pepe BUP Negative Normal NEGATIVE [facility] Comment on above: Performed By: #### D RUGRPD #### [facility] [address] [place] [address] Dr. Dillon Pepe BZO Negative Normal NEGATIVE [facility] Comment on above: Performed By: #### D RUGRPD #### [facility] [address] [place] [address] Dr. Dillon Pepe CECILIA Negative Normal NEGATIVE [facility] Comment on above: Performed By: #### D RUGRPD #### [facility] [address] [place] [address] Dr. Dillon Pepe CUT-OFFS SEE BELOW Normal [facility] Comment on above: Result Comment: AMP (Amphetamine): 500ng/mL, BAR (Barbituates): 200 ng/mL, BZO (Benzodiazepines): 150 ng/mL, BUP (Buprenorphine): 10 ng/mL, CECILIA (Cocaine): 150 ng/mL, mAMP (Methamphetamine): 500 ng/mL, MTD (Methadone): 200 ng/mL, OPI (Opiates): 100 ng/mL, OXY (Oxycodone): 100 ng/mL, PCP (Phencyclidine): 25 ng/mL, PPX (Propoxyphene): 300 ng/mL, THC (Cannabinoids): 50 ng/mL, TCA (Trycyclic Antidepressants): 300 ng/mL Performed By: #### D RUGRPD #### [facility] [address] [place] [address] Dr. Dillon Pepe DRUG CUT HEADER DRUG CLASS TEST SYST EM CUT-OFF CONCENTRATIONS ARE FOLLOWS: Normal [facility] Comment on above: Performed By: #### D RUGRPD #### [facility] [address] [place] [address] Dr. Dillon Pepe mAMP Negative Normal NEGATIVE [facility] Comment on above: Performed By: #### D RUGRPD #### [facility] [address] [place] [address] Dr. Dillon Pepe MTD Negative Normal NEGATIVE [facility] Comment on above: Performed By: #### D RUGRPD #### [facility] [address] [address] [address] Dillon Pepe OPI Negative Normal NEGATIVE [facility] Comment on above: Performed By: #### D RUGRPD #### [facility] [address] [address] [address] Dillon Pepe OXY Negative Normal NEGATIVE [facility] Comment on above: Performed By: #### D RUGRPD #### [facility] [address] [address] [address] Dillon Pepe PCP Negative Normal NEGATIVE [facility] Comment on above: Performed By: #### D RUGRPD #### [facility] [address] [place] [address] Dr. Dillon Pepe PPX Negative Normal NEGATIVE [facility] Comment on above: Performed By: #### D RUGRPD #### [facility] [address] [place] [address] Dr. Dillon Pepe TCA Negative Normal NEGATIVE [facility] Comment on above: Performed By: #### D RUGRPD #### [facility] [address] [address] [address] Dillon Pepe THC Positive Abnormal NEGATIVE [facility] Comment on above: Performed By: #### D RUGRPD #### [facility] [address] [place] [address] Dr. Dillon Pepe TYPE AND SCREENon 10-19-2021 TYPE AND SCREEN Negative Normal [facility] Comment on above: Performed By: #### C MP #### [facility] [address] [place] [address] Dr. Dillon Pepe GROUP B STREP CULTUREon S. agalactiae Ag Ql (Unsp spec) Culture Observations: NEGATIVE FOR GROUP B STREPTOCOCCUS. Normal [facility] Comment on above: Performed By: #### G BSCX #### [facility] [address] [place] [address] Dr. Dillon Pepe US PREG GROWTHon 09-09-2021 [...] ELLEN CORBETT Date: 2021-09-08 22:28 Normal [facility] GLYCOHEMOGLOBIN A1Con 2021 ADA RECOMMENDATION SEE BELOW Normal [facility] Comment on above: Result Comment: ADA RECOMMENDED LIMIT 4.0 - 6.0 ADA THERAPEUTIC TARGET < 7.0 ACTION SUGGESTED > 7.0 Performed By: #### C MP #### [facility] [address] [place] [address] Dr. Dillon Pepe Glucose [Mass/Vol] 105 mg/dL Normal [facility] Comment on above: Performed By: #### C MP #### [facility] [address] [address] [address] Dillon Pepe HbA1c (Bld) [Mass fraction] 5.3 % Normal 4.5-6.2 [facility] Comment on above: Performed By: #### C MP #### [facility] [address] [address] [address] Dillon Pepe HEMOGRAM AND PLATELon 2021 Hematocrit (Bld) [Volume fraction] 34.1 % Critically low 36.0-48.0 [facility] Comment on above: Performed By: #### U MICRO, UACSIND #### [facility] [address] [place] [address] Dr. Dillon Pepe Hemoglobin (Bld) [Mass/Vol] 11.4 g/dL Critically low 12.0-16.0 [facility] Comment on above: Performed By: #### U MICRO, UACSIND #### [facility] [address] [place] [address] Dr. Dillon Pepe MCH (RBC) [Entitic mass] 29.4 pg Normal 26.7-34.0 [facility] Comment on above: Performed By: #### U MICRO, UACSIND #### [facility] [address] [place] [address] Dr. Dillon Pepe MCHC (RBC) [Mass/Vol] 33.4 g/dL Normal 29.9-35.2 [facility] Comment on above: Performed By: #### U MICRO, UACSIND #### [facility] [address] [place] [address] Dr. Dillon Pepe MCV (RBC) [Entitic vol] 87.9 fL Normal 81.0-99.0 [facility] Comment on above: Performed By: #### U MICRO, UACSIND #### [facility] [address] [place] [address] Dr. Dillon Pepe PLT 398 103/ul Normal 150-450 [facility] Comment on above: Performed By: #### U MICRO, UACSIND #### [facility] [address] [place] [address] Dr. Dillon Pepe RBC 3.88 106/ul Critically low 4.20-5.40 [facility] Comment on above: Performed By: #### U MICRO, UACSIND #### [facility] [address] [place] [address] Dr. Dillon Pepe WBC 17.3 103/ul Critically high 4.0-11.0 [facility] Comment on above: Performed By: #### U MICRO, UACSIND #### [facility] [address] [place] [address] Dr. Dillon Pepe RHOGAMon 08-07-2021 RHOGAM Status Information Issued Quantity 1 Product ID Rh Immune Globulin Lot Number [id number] Issue Date/Time Normal [facility] Comment on above: Performed By: #### C MP #### [facility] [address] [place], [place] [address] Dr. Dillon Pepe TYPE AND SCREENon 08-07-2021 TYPE AND SCREEN Negative Normal [facility] Comment on above: Performed By: #### T NS #### [facility] [address] [place], [place] [address] Dr. Dillon Pepe CHEMISTRYOrdered By: Ran Armstrong [...] 16.6 E9/L High 4.0 - 11.0 E9/L [facility] HemeAutoSS PROF CHEM 8 (BAS METB)on Anion gap [Moles/Vol] 16.6 mmol/L Normal [facility] Comment on above: Performed By: #### C MP #### [facility] [address] [address] [address] Dillon Pepe Calcium [Mass/Vol] 8.4 mg/dL Critically low 8.5-10.1 [facility] Comment on above: Performed By: #### C MP #### [facility] [address] [address] [address] Dillon Pepe Chloride [Moles/Vol] 99 mmol/L Normal 98-107 [facility] Comment on above: Performed By: #### C MP #### [facility] [address] [address] [address] Dillon Pepe CO2 [Moles/Vol] 19.9 mmol/L Critically low 21.0-32.0 [facility] Comment on above: Performed By: #### C MP #### [facility] [address] [address] [address] Dillon Pepe Creatinine [Mass/Vol] 0.32 mg/dL Critically low 0.55-1.02 [facility] Comment on above: Performed By: #### C MP #### [facility] [address] [address] [address] Dillon Pepe EGFR-AF AUSTRIAN >60 Normal >=60 [facility] Comment on above: Performed By: #### C MP #### [facility] [address] [address] [address] Dillon Pepe EGFR-NON AF AUSTRIAN >60 Normal >=60 [facility] Comment on above: Performed By: #### C MP #### [facility] [address] [address] [address] Dillon Pepe Glucose [Mass/Vol] 97 mg/dL Normal 74-[address] [facility] Comment on above: Performed By: #### C MP #### [facility] [address] [address] [address] Dillon Pepe Potassium [Moles/Vol] 3.5 mmol/L Normal 3.5-5.1 [facility] Comment on above: Performed By: #### C MP #### [facility] [address] [address] [address] Dillon Pepe Sodium [Moles/Vol] 132 mmol/L Critically low 136-145 [facility] Comment on above: Performed By: #### C MP #### [facility] [address] [place] [address] Dr. Dillon Pepe Urea nitrogen [Mass/Vol] 4.0 mg/dL Critically low 7.0-18.0 [facility] Comment on above: Performed By: #### C MP #### [facility] [address] [place] [address] Dr. Dillon Pepe Urea nitrogen/Creatinine [Mass ratio] 12.5 mg/mg Normal [facility] Comment on above: Performed By: #### C MP #### [facility] [address] [place] [address] Dr. Dillon Pepe PROF CHEM 8 (BAS METB)on Anion gap [Moles/Vol] 16.6 mmol/L Normal [facility] Comment on above: Performed By: #### B MP #### [facility] [address] [place] [address] Dr. Dillon Pepe Calcium [Mass/Vol] 8.3 mg/dL Critically low 8.5-10.1 [facility] Comment on above: Performed By: #### B MP #### [facility] [address] [place] [address] Dr. Dillon Pepe Chloride [Moles/Vol] 99 mmol/L Normal 98-107 [facility] Comment on above: Performed By: #### B MP #### [facility] [address] [place] [address] Dr. Dillon Pepe CO2 [Moles/Vol] 20.4 mmol/L Critically low 21.0-32.0 [facility] Comment on above: Performed By: #### B MP #### [facility] [address] [place] [address] Dr. Dillon Pepe Creatinine [Mass/Vol] 0.34 mg/dL Critically low 0.55-1.02 [facility] Comment on above: Performed By: #### B MP #### [facility] [address] [address] [address] Dillon Pepe EGFR-AF AUSTRIAN >60 Normal >=60 [facility] Comment on above: Performed By: #### B MP #### [facility] [address] [address] [address] Dillon Pepe EGFR-NON AF AUSTRIAN >60 Normal >=60 [facility] Comment on above: Performed By: #### B MP #### [facility] [address] [address] [address] Dillon Pepe Glucose [Mass/Vol] 94 mg/dL Normal 74-[address] [facility] Comment on above: Performed By: #### B MP #### [facility] [address] [address] [address] Dillon Pepe Potassium [Moles/Vol] 3.0 mmol/L Critically low 3.5-5.1 [facility] Comment on above: Performed By: #### B MP #### [facility] [address] [place] [address] Dr. Dillon Pepe Sodium [Moles/Vol] 133 mmol/L Critically low 136-145 [facility] Comment on above: Performed By: #### B MP #### [facility] [address] [place] [address] Dr. Dillon Pepe Urea nitrogen [Mass/Vol] 4.0 mg/dL Critically low 7.0-18.0 [facility] Comment on above: Performed By: #### B MP #### [facility] [address] [place] [address] Dr. Dillon Pepe Urea nitrogen/Creatinine [Mass ratio] 11.8 mg/mg Normal [facility] Comment on above: Performed By: #### B MP #### [facility] [address] [place] [address] Dr. Dillon Pepe Anion gap [Moles/Vol] 17.7 mmol/L Normal [facility] Comment on above: Performed By: #### B MP #### [facility] [address] [place] [address] Dr. Dillon Pepe Calcium [Mass/Vol] 8.6 mg/dL Normal 8.5-10.[address] [facility] Comment on above: Performed By: #### B MP #### [facility] [address] [address] [address] Dillon Pepe Chloride [Moles/Vol] 96 mmol/L Critically low 98-107 [facility] Comment on above: Performed By: #### B MP #### [facility] [address] [address] [address] Dillon Pepe CO2 [Moles/Vol] 22.4 mmol/L Normal 21.0-32.0 [facility] Comment on above: Performed By: #### B MP #### [facility] [address] [place] [address] Dr. Dillon Peep Creatinine [Mass/Vol] 0.54 mg/dL Critically low 0.55-1.02 [facility] Comment on above: Performed By: #### B MP #### [facility] [address] [address] [address] Dillon Pepe EGFR-AF AUSTRIAN >60 Normal >=60 [facility] Comment on above: Performed By: #### B MP #### [facility] [address] [address] [address] Dillon Pepe EGFR-NON AF AUSTRIAN >60 Normal >=60 [facility] Comment on above: Performed By: #### B MP #### [facility] [address] [address] [address] Dillon Ppee Glucose [Mass/Vol] 116 mg/dL Critically high 74-106 [facility] Comment on above: Performed By: #### B MP #### [facility] [address] [address] [address] Dillon Pepe Potassium [Moles/Vol] 3.1 mmol/L Critically low 3.5-5.1 [facility] Comment on above: Performed By: #### B MP #### [facility] [address] [address] [address] Dillon Pepe Sodium [Moles/Vol] 133 mmol/L Critically low 136-145 [facility] Comment on above: Performed By: #### B MP #### [facility] [address] [address] [address] Dillon Pepe Urea nitrogen [Mass/Vol] 6.0 mg/dL Critically low 7.0-18.0 [facility] Comment on above: Performed By: #### B MP #### [facility] [address] [address] [address] Dillon Pepe Urea nitrogen/Creatinine [Mass ratio] 11.1 mg/mg Normal [facility] Comment on above: Performed By: #### B MP #### [facility] [address] [address] [address] Dillon Pepe UA (CLEAN/CATCH) MANGANESE BREAKER/MICRO I F IND.on 06-22-2021 Bilirubin Ql (U) Negative Normal NEGATIVE [facility] Comment on above: Performed By: #### U MICRO, UACSIND #### [facility] [address] [address] [address] Dillon Pepe Clarity (U) CLEAR Normal CLEAR [facility] Comment on above: Performed By: #### U MICRO, UACSIND #### [facility] [address] [address] [address] Dillon Pepe Color (U) YELLOW Normal YELLOW [facility] Comment on above: Performed By: #### U MICRO, UACSIND #### [facility] [address] [address] [address] Dillon Pepe Glucose Ql (U) Negative Normal NEGATIVE [facility] Comment on above: Performed By: #### U MICRO, UACSIND #### [facility] [address] [address] [address] Dillon Pepe Hemoglobin Ql (U) Negative Normal NEGATIVE [facility] Comment on above: Performed By: #### U MICRO, UACSIND #### [facility] [address] [place] [address] Dr. Dillon Pepe Ketones Ql (U) >=80 Abnormal NEGATIVE [facility] Comment on above: Performed By: #### U MICRO, UACSIND #### [facility] [address] [place] [address] Dr. Dillon Pepe LEUKOCYTES Negative Normal NEGATIVE [facility] Comment on above: Performed By: #### U MICRO, UACSIND #### [facility] [address] [address] [address] Dillon Pepe Nitrite Ql (U) Negative Normal NEGATIVE [facility] Comment on above: Performed By: #### U MICRO, UACSIND #### [facility] [address] [place] [address] Dr. Dillon Pepe pH (U) 6.0 [pH] Normal 5-9 [facility] Comment on above: Performed By: #### U MICRO, UACSIND #### [facility] [address] [place] [address] Dr. Dillon Pepe SPEC GRAVITY >=1.030 Abnormal 1.005-<=1.02 5 [facility] Comment on above: Performed By: #### U MICRO, UACSIND #### [facility] [address] [place] [address] Dr. Dillon Pepe UA PROTEIN 30 mg/dl Abnormal NEGATIVE/ TRACE [facility] Comment on above: Performed By: #### U MICRO, UACSIND #### [facility] [address] [place] [address] Dr. Dillon Pepe UR MICRO IND INDICATED Normal [facility] Comment on above: Performed By: #### U MICRO, UACSIND #### [facility] [address] [place] [address] Dr. Dillon Pepe Urobilinogen Qn (U) 0.2 {Elio'U}/dL Normal 0.2 - 1. 0 [facility] Comment on above: Performed By: #### U MICRO, UACSIND #### [facility] [address] [place] [address] Dr. Dillon Pepe URINE MICROSCOPIC ONLYon BACTERIA NONE SEEN Normal NONE SEEN [facility] Comment on above: Performed By: #### U MICRO, UACSIND #### [facility] [address] [place] [address] Dr. Dillon Pepe Bacteria identified Cx Nom (U) NOT INDICATED Normal [facility] Comment on above: Performed By: #### U MICRO, UACSIND #### [facility] [address] [place] [address] Dr. Dillon Pepe CAST NONE SEEN Normal NONE SEEN [facility] Comment on above: Performed By: #### U MICRO, UACSIND #### [facility] [address] [place] [address] Dr. Dillon Pepe Crystals LM Nom (Urine sed) NONE SEEN Normal NONE SEEN [facility] Comment on above: Performed By: #### U MICRO, UACSIND #### [facility] [address] [place] [address] Dr. Dillon Pepe Epithelial cells LM Ql (Urine sed) RARE Normal NONE SEEN /RARE [facility] Comment on above: Performed By: #### U MICRO, UACSIND #### [facility] [address] [place] [address] Dr. Dillon Pepe MUCOUS MODERATE Abnormal NONE SEEN [facility] Comment on above: Performed By: #### U MICRO, UACSIND #### [facility] [address] [place] [address] Dr. Dillon Pepe RBC NONE SEEN Abnormal 0-2 [facility] Comment on above: Performed By: #### U MICRO, UACSIND #### [facility] [address] [place] [address] Dr. Dillon Pepe WBC 0-2 Abnormal NONE SEEN [facility] Comment on above: Performed By: #### U MICRO, UACSIND #### [facility] [address] [place] [address] Dr. Dillon Pepe AMNISUREon 05-31-2021 AMNISURE Negative Normal NEGATIVE [facility] Comment on above: Performed By: #### A MNI #### [facility] [address] [place] [address] Dr. Dillon Pepe CBC AUTO DIFFon 05-31-2021 BASO # 0.0 103/ul Normal 0.0-0.1 [facility] Comment on above: Performed By: #### C BC #### [facility] [address] [address] [address] Dillon Pepe Basophils/100 WBC (Bld) 0.2 % Normal 0.2-2.0 [facility] Comment on above: Performed By: #### C BC #### [facility] [address] [place] [address] Dr. Dillon Pepe EO # 0.0 103/ul Normal 0.0-0.7 [facility] Comment on above: Performed By: #### C BC #### [facility] [address] [place] [address] Dr. Dillon Pepe Eosinophils/100 WBC (Bld) 0.0 % Critically low 0.9-7.0 [facility] Comment on above: Performed By: #### C BC #### [facility] [address] [place] [address] Dr. Dillon Pepe Erythrocyte distribution width (RBC) [Ratio] 12.5 % Normal 11.0-15.0 [facility] Comment on above: Performed By: #### C BC #### [facility] [address] [place] [address] Dr. Dillon Pepe Hematocrit (Bld) [Volume fraction] 38.2 % Normal 36.0-48.0 [facility] Comment on above: Performed By: #### C BC #### [facility] [address] [place] [address] Dr. Dillon Pepe Hemoglobin (Bld) [Mass/Vol] 13.2 g/dL Normal 12.0-16.0 [facility] Comment on above: Performed By: #### C BC #### [facility] [address] [place] [address] Dr. Dillno Pepe IG # 0.16 10e3/ul Critically high 0.00-0.03 [facility] Comment on above: Performed By: #### C BC #### [facility] [address] [place] [address] Dr. Dillon Pepe IG % 0.8 % Critically high 0.0-0.5 [facility] Comment on above: Performed By: #### C BC #### [facility] [address] [address] [address] Dillon Pepe LYMPH # 1.6 103/ul Normal 1.2-3.8 [facility] Comment on above: Performed By: #### C BC #### [facility] [address] [place] [address] Dr. Dillon Pepe Lymphocytes/100 WBC (Bld) 7.6 % Critically low 20.5-60.0 [facility] Comment on above: Performed By: #### C BC #### [facility] [address] [place] [address] Dr. Dillon Pepe MANUAL DIFF REQ NO Normal [facility] Comment on above: Performed By: #### C BC #### [facility] [address] [place] [address] Dr. Dillon Pepe MCH (RBC) [Entitic mass] 30.1 pg Normal 26.7-34.0 [facility] Comment on above: Performed By: #### C BC #### [facility] [address] [place] [address] Dr. Dillon Pepe MCHC (RBC) [Mass/Vol] 34.6 g/dL Normal 29.9-35.2 [facility] Comment on above: Performed By: #### C BC #### [facility] [address] [place] [address] Dr. Dillon Pepe MCV (RBC) [Entitic vol] 87.2 fL Normal 81.0-99.0 [facility] Comment on above: Performed By: #### C BC #### [facility] [address] [place] [address] Dr. Dillon Pepe MONO # 1.0 103/ul Critically high 0.3-0.8 [facility] Comment on above: Performed By: #### C BC #### [facility] [address] [place] [address] Dr. Dillon Pepe Monocytes/100 WBC (Bld) 4.6 % Normal 1.7-12.0 [facility] Comment on above: Performed By: #### C BC #### [facility] [address] [place] [address] Dr. Dillon Pepe NEUT # 18.4 103/ul Critically high 1.4-6.5 [facility] Comment on above: Performed By: #### C BC #### [facility] [address] [place] [address] Dr. Dillon Pepe Neutrophils/100 WBC (Bld) 86.8 % Critically high 43.0-75.0 [facility] Comment on above: Performed By: #### C BC #### [facility] [address] [place] [address] Dr. Dillon Pepe Platelet mean volume (Bld) [Entitic vol] 10.1 fL Normal 9.5-13.5 [facility] Comment on above: Performed By: #### C BC #### [facility] [address] [place] [address] Dr. Dillon Pepe PLT 402 103/ul Normal 150-450 [facility] Comment on above: Performed By: #### C BC #### [facility] [address] [place] [address] Dr. Dillon Pepe RBC 4.38 106/ul Normal 4.20-5.40 [facility] Comment on above: Performed By: #### C BC #### [facility] [address] [place] [address] Dr. Dillon Pepe WBC 21.2 103/ul Critically high 4.0-11.0 [facility] Comment on above: Performed By: #### C BC #### [facility] [address] [place] [address] Dr. Dillon Pepe CULTURE URINEon 05-31-2021 CULTURE URINE Culture Observations : MODERATE GROWTH OF MIXED GENITAL BLAIR. NO POTENTIAL PATHOGENS SEEN. Normal [facility] Comment on above: Performed By: #### C MP #### [facility] [address] [place] [address] Dr. Dillon Pepe Covid-19 PCR (CVDTB)on SARS-CoV-2 (COVID-19) RNA ERIK+probe Ql (Unsp spec) Not detected Normal NOT DETECTED [facility] Comment on above: Result Comment: This test is not yet approved or cleared by the [place] FDA. When there are no FDA-approved or cleared tests available, and other criteria are met, FDA can make tests available under an emergency access mechanism called an Emergency Use Authorization (EUA). The EUA for this test is supported by the [place] of Health and Human Service's (HHS's) declaration [...] Performed By: #### U MICRO, UACSIND #### [facility] [address] [place] [address] Dr. Dillon Pepe ER URINE PROFILEon 2 Bilirubin Ql (U) SMALL Abnormal NEGATIVE [facility] Comment on above: Performed By: #### C MP #### [facility] [address] [place] [address] Dr. Dillon Pepe Clarity (U) CLEAR Normal CLEAR [facility] Comment on above: Performed By: #### C MP #### [facility] [address] [place] [address] Dr. Dillon Pepe Color (U) YELLOW Normal YELLOW [facility] Comment on above: Performed By: #### C MP #### [facility] [address] [place] [address] Dr. Dillon Pepe ERUAHD A micrscopic examination will be performed if indicated. Normal [facility] Comment on above: Performed By: #### C MP #### [facility] [address] [place] [address] Dr. Dillon Pepe Glucose Ql (U) Negative Normal NEGATIVE [facility] Comment on above: Performed By: #### C MP #### [facility] [address] [place] [address] Dr. Dillon Pepe Hemoglobin Ql (U) Negative Normal NEGATIVE [facility] Comment on above: Performed By: #### C MP #### [facility] [address] [place] [address] Dr. Dillon Pepe Ketones Ql (U) >=80 Abnormal NEGATIVE [facility] Comment on above: Performed By: #### C MP #### [facility] [address] [place] [address] Dr. Dillon Pepe LEUKOCYTES Negative Normal NEGATIVE [facility] Comment on above: Performed By: #### C MP #### [facility] [address] [place] [address] Dr. Dillon Pepe Nitrite Ql (U) Negative Normal NEGATIVE [facility] Comment on above: Performed By: #### C MP #### [facility] [address] [place] [address] Dr. Dillon Pepe pH (U) 6.0 [pH] Normal 5-9 [facility] Comment on above: Performed By: #### C MP #### [facility] [address] [place] [address] Dr. Dillon Pepe Protein (U) [Mass/Vol] 30 mg/dL Abnormal NEGATIVE/ TRACE [facility] Comment on above: Performed By: #### C MP #### [facility] [address] [place] [address] Dr. Dillon Pepe SPEC GRAVITY >=1.030 Abnormal 1.005-<=1.02 5 [facility] Comment on above: Performed By: #### C MP #### [facility] [address] [place] [address] Dr. Dillon Pepe UR MICRO IND INDICATED Normal [facility] Comment on above: Performed By: #### C MP #### [facility] [address] [place] [address] Dr. Dillon Pepe Urobilinogen Qn (U) 1.0 {Elio'U}/dL Normal 0.2 - 1. 0 [facility] Comment on above: Performed By: #### C MP #### [facility] [address] [place] [address] Dr. Dillon Pepe PROF 14(COMP METB)on 022 Albumin [Mass/Vol] 3.5 g/dL Normal 3.4-5.[address] [facility] Comment on above: Performed By: #### C MP #### [facility] [address] [address] [address] Dillon Pepe Albumin/Globulin [Mass ratio] 0.8 {ratio} Normal [facility] Comment on above: Performed By: #### C MP #### [facility] [address] [place] [address] Dr. Dillon Pepe ALP [Catalytic activity/Vol] 84 U/L Normal 46-116 [facility] Comment on above: Performed By: #### C MP #### [facility] [address] [place] [address] Dr. Dillon Pepe ALT [Catalytic activity/Vol] 17 U/L Normal 14-59 [facility] Comment on above: Performed By: #### C MP #### [facility] [address] [place] [address] Dr. Dillon Pepe Anion gap [Moles/Vol] 19.2 mmol/L Normal [facility] Comment on above: Performed By: #### C MP #### [facility] [address] [place] [address] Dr. Dillon Pepe AST [Catalytic activity/Vol] 10 U/L Critically low 15-37 [facility] Comment on above: Performed By: #### C MP #### [facility] [address] [address] [address] Dillon Pepe Bilirubin [Mass/Vol] 0.6 mg/dL Normal 0.2-1.3 [facility] Comment on above: Performed By: #### C MP #### [facility] [address] [place] [address] Dr. Dillon Pepe Calcium [Mass/Vol] 9.3 mg/dL Normal 8.5-10.[address] [facility] Comment on above: Performed By: #### C MP #### [facility] [address] [place] [address] Dr. Dillon Pepe Chloride [Moles/Vol] 98 mmol/L Normal 98-107 [facility] Comment on above: Performed By: #### C MP #### [facility] [address] [address] [address] Dillon Pepe CO2 [Moles/Vol] 20.7 mmol/L Critically low 22.0-30.0 [facility] Comment on above: Performed By: #### C MP #### [facility] [address] [address] [address] Dillon Pepe Creatinine [Mass/Vol] 0.51 mg/dL Critically low 0.52-1.04 [facility] Comment on above: Performed By: #### C MP #### [facility] [address] [place] [address] Dr. Dillon Pepe EGFR-AF AUSTRIAN =60 Normal >=60 [facility] Comment on above: Performed By: #### C MP #### [facility] [address] [place] [address] Dr. Dillon Pepe EGFR-NON AF AUSTRIAN >60 Normal >=60 [facility] Comment on above: Performed By: #### C MP #### [facility] [address] [place] [address] Dr. Dillon Pepe Globulin (S) [Mass/Vol] 4.5 g/dL Normal [facility] Comment on above: Performed By: #### C MP #### [facility] [address] [place] [address] Dr. Dillon Pepe Glucose [Mass/Vol] 106 mg/dL Normal 74-106 [facility] Comment on above: Performed By: #### C MP #### [facility] [address] [address] [address] Dillon Pepe Potassium [Moles/Vol] 2.9 mmol/L Critically low 3.4-5.0 [facility] Comment on above: Performed By: #### C MP #### [facility] [address] [place] [address] Dr. Dillon Pepe Protein [Mass/Vol] 8.0 g/dL Normal 6.1-8.2 [facility] Comment on above: Performed By: #### C MP #### [facility] [address] [address] [address] Dillon Pepe Sodium [Moles/Vol] 136 mmol/L Critically low 137-145 [facility] Comment on above: Performed By: #### C MP #### [facility] [address] [address] [address] Dillon Pepe Urea nitrogen [Mass/Vol] 7.0 mg/dL Normal 7.0-18.0 [facility] Comment on above: Performed By: #### C MP #### [facility] [address] [address] [address] Dillon Pepe Urea nitrogen/Creatinine [Mass ratio] 13.7 mg/mg Normal [facility] Comment on above: Performed By: #### C MP #### [facility] [address] [address] [address] Dillon Pepe URINE MICROSCOPIC ONLYon BACTERIA SMALL Abnormal NONE SEEN [facility] Comment on above: Performed By: #### U MICRO, UACSIND #### [facility] [address] [address] [address] Dillon Pepe Bacteria identified Cx Nom (U) INDICATED Normal [facility] Comment on above: Performed By: #### U MICRO, UACSIND #### [facility] [address] [address] [address] Dillon Pepe CAST NONE SEEN Normal NONE SEEN [facility] Comment on above: Performed By: #### U MICRO, UACSIND #### [facility] [address] [address] [address] Dillon Pepe Crystals LM Nom (Urine sed) NONE SEEN Normal NONE SEEN [facility] Comment on above: Performed By: #### U MICRO, UACSIND #### [facility] [address] [address] [address] Dillon Pepe Epithelial cells LM Ql (Urine sed) FEW Abnormal NONE SEEN /RARE [facility] Comment on above: Performed By: #### U MICRO, UACSIND #### [facility] [address] [address] [address] Dillon Pepe MUCOUS LARGE Abnormal NONE SEEN [facility] Comment on above: Performed By: #### U MICRO, UACSIND #### [facility] [address] [address] [address] Dillon Pepe RBC NONE SEEN Abnormal 0-2 [facility] Comment on above: Performed By: #### U MICRO, UACSIND #### [facility] [address] [address] [address] Dillon Pepe WBC 0-2 Abnormal NONE SEEN [facility] Comment on above: Performed By: #### U MICRO, UACSIND #### [facility] [address] [address] [address] Dillon Pepe US PREG ANATOMY SINGLEon [...] stomach, kidneys, abdominal cord insertion, bladder, umbilical arteries/three-vessel cord, spine and extremities are visualized on [...] by: CARLO DENNISON Date: 2021-05-31 19:53 Normal [facility] Vital Signs Date Time Vital Sign Value Performing Clinician Koffinile pee 08-02-2024 15:57-0400 Body mass index (BMI) [Ratio] 41.57 kg/m2 Marcus Diamond DO Work Phone: [facility] 08-02-2024 15:57-0400 Body weight 113.31 kg Marcus Diamond DO Work Phone: [facility] 08-02-2024 15:57-0400 Diastolic blood pressure 70 mm[Hg] Marcus Diamond DO Work Phone: [facility] 08-02-2024 15:57-0400 Systolic blood pressure 122 mm[Hg] Marcus Diamond DO Work Phone: [facility] 11-17-2023 11:23-0400 Blood Pressure Location [facility] 11-17-2023 11:23-0400 Body temperature 98.6 [degF] [facility] 11-17-2023 11:23-0400 Diastolic blood pressure 72 mm[Hg] [facility] 11-17-2023 11:23-0400 Heart rate 88 /min [facility] 11-17-2023 11:23-0400 Respiratory rate 18 /min [facility] 11-17-2023 11:23-0400 SaO2% (BldA) [Mass fraction] 99 % [facility] 11-17-2023 11:23-0400 Systolic blood pressure 130 mm[Hg] [facility] 07-22-2023 10:26-0400 Blood Pressure Location Damon KIRBY [facility] 07-22-2023 10:26-0400 Diastolic blood pressure 80 mm[Hg] Damon KIRBY [facility] 07-22-2023 10:26-0400 Heart rate 88 /min Damon KIRBY [facility] 07-22-2023 10:26-0400 Respiratory rate 16 /min Damon KIRBY [facility] 07-22-2023 10:26-0400 SaO2% (BldA) [Mass fraction] 100 % Damon KIRBY [facility] 07-22-2023 10:26-0400 Systolic blood pressure 134 mm[Hg] Damon BROWN [facility] 07-19-2023 20:02-0400 Diastolic blood pressure 80 mm[Hg] Pedro Randlee [facility] 07-19-2023 20:02-0400 Heart rate 87 /min Pedro Mike [facility] 07-19-2023 20:02-0400 Mean blood pressure 93 mm[Hg] Pedro Mike [facility] 07-19-2023 20:02-0400 Respiratory rate 16 /min Pedro Mike [facility] 07-19-2023 20:02-0400 SaO2% (BldA) [Mass fraction] 100 % Pedro Mike [facility] 07-19-2023 20:02-0400 Systolic blood pressure 118 mm[Hg] Pedro Mike [facility] 07-19-2023 18:54-0400 Heart rate 84 /min Pedor Mike [facility] 07-19-2023 18:54-0400 Respiratory rate 18 /min Pedro Mike [facility] 07-19-2023 18:54-0400 SaO2% (BldA) [Mass fraction] 100 % Pedro Randlee [facility] 07-19-2023 17:39-0400 Body temperature 99.32 [degF] Pedro Mike [facility] 07-19-2023 17:39-0400 Diastolic blood pressure 60 mm[Hg] Pedro Mike [facility] 07-19-2023 17:39-0400 Heart rate 102 /min Pedro Randlee [facility] 07-19-2023 17:39-0400 Respiratory rate 20 /min Pedro Randlee [facility] 07-19-2023 17:39-0400 SaO2% (BldA) [Mass fraction] 97 % Pedro Randlee [facility] 07-19-2023 17:39-0400 Systolic blood pressure 117 mm[Hg] Pedro Randlee [facility] 07-19-2023 15:03-0400 Body temperature 97.52 [degF] Pedro Randlee [facility] 07-19-2023 15:03-0400 Diastolic blood pressure 84 mm[Hg] Pedro Randlee [facility] 07-19-2023 15:03-0400 Heart rate 95 /min Pedro Mike [facility] 07-19-2023 15:03-0400 Respiratory rate 18 /min Pedro Mike [facility] 07-19-2023 15:03-0400 SaO2% (BldA) [Mass fraction] 99 % Pedro Randlee [facility] 07-19-2023 15:03-0400 Systolic blood pressure 165 mm[Hg] Pedro Mckeon [facility] 12-28-2022 15:50-0500 Blood Pressure Location Tabby Barnett [facility] 12-28-2022 15:50-0500 Body temperature 98.06 [degF] Tabby Barnett [facility] 12-28-2022 15:50-0500 Diastolic blood pressure 72 mm[Hg] Tabby Barnett [facility] 12-28-2022 15:50-0500 Heart rate 110 /min Tabby Branett [facility] 12-28-2022 15:50-0500 Respiratory rate 18 /min Tabby Barnett [facility] 12-28-2022 15:50-0500 SaO2% (BldA) [Mass fraction] 99 % Tabby Barnett [facility] 12-28-2022 15:50-0500 Systolic blood pressure 124 mm[Hg] Tabby Barnett [facility] 12-21-2022 11:00-0400 Blood Pressure Location Damon KIRBY [facility] 12-21-2022 11:00-0400 Diastolic blood pressure 78 mm[Hg] Damon KIRBY [facility] 12-21-2022 11:00-0400 Heart rate 84 /min Damon KIRBY [facility] 12-21-2022 11:00-0400 Respiratory rate 16 /min Christopher BROWN [facility] 12-21-2022 11:00-0400 SaO2% (BldA) [Mass fraction] 97 % Christopher BROWN [facility] 12-21-2022 11:00-0400 Systolic blood pressure 112 mm[Hg] Christopher BROWN [facility] 10-23-2022 14:47-0400 Blood Pressure Location Christopher BROWN [facility] 10-23-2022 14:47-0400 Diastolic blood pressure 78 mm[Hg] Christopher BROWN [facility] 10-23-2022 14:47-0400 Heart rate 87 /min Christopher BROWN [facility] 10-23-2022 14:47-0400 Respiratory rate 16 /min Christopher BROWN [facility] 10-23-2022 14:47-0400 SaO2% (BldA) [Mass fraction] 98 % Christopher BROWN [facility] 10-23-2022 14:47-0400 Systolic blood pressure 118 mm[Hg] Christopher BROWN [facility] 03-31-2022 17:26-0500 Blood Pressure Location Christopher BROWN [facility] 03-31-2022 17:26-0500 Diastolic blood pressure 74 mm[Hg] Christopher BROWN [facility] 03-31-2022 17:26-0500 Heart rate 85 /min Christopher BROWN [facility] 03-31-2022 17:26-0500 Respiratory rate 20 /min Damon KIRBY [facility] 03-31-2022 17:26-0500 SaO2% (BldA) [Mass fraction] 99 % Damon KIRBY [facility] 03-31-2022 17:26-0500 Systolic blood pressure 122 mm[Hg] Damon KIRBY [facility] Encounters Encounter Date Encounter Type Care Provider Facility Start: 08-02-2024 End: 08-02-2024 Patient encounter procedure Marcus Diamond DO Work Phone: [facility] Comment on above: Menorrhagia with reg ular cycle; Dyspareunia in female; Pelvic pain Start: 08-02-2024 End: 08-02-2024 ambulatory MARCUS DIAMOND Not Available Start: 07-24-2024 End: 07-24-2024 Bamboo flowsheet Marcus Diamond DO Work Phone: [facility] Start: 07-24-2024 End: 07-24-2024 Bamboo flowsheet Marcus Diamond DO Work Phone: [facility] Start: 07-24-2024 End: 07-24-2024 Office outpatient visit 15 minutes Marcus Diamond DO Work Phone: [facility] Comment on above: Dyspareunia in femal e (Primary Dx); Menorrhagia with regular cycle Start: 07-24-2024 End: 07-24-2024 ambulatory MARCUS DIAMOND Not Available Start: 11-17-2023 End: 11-17-2023 ambulatory Mallory Leary Facility:[facility] Start: 11-17-2023 End: 11-17-2023 Encounter for general adult medical [facility] Start: 11-17-2023 End: 11-17-2023 Patient encounter procedure Mallory Leary [facility] Start: 09-21-2023 End: 09-21-2023 ambulatory Damon KIRBY Facility: [facility] Start: 09-21-2023 End: 09-21-2023 Patient encounter procedure aDmon KIRBY [facility] Start: 07-22-2023 End: 07-22-2023 [facility]ulatory [facility] Start: 07-22-2023 End: 07-22-2023 Patient encounter procedure Damon KIRBY [facility] Start: 07-19-2023 End: 07-19-2023 Emergency department patient visit Pedro Mckeon [facility] Start: 07-19-2023 End: 07-19-2023 Emergency department patient visit Pedro Mckeon [facility] Start: 01-07-2023 End: 01-07-2023 Patient encounter procedure Tabby Barnett [facility] Start: 12-28-2022 End: 12-28-2022 Patient encounter procedure Tabby Barnett [facility] Start: 12-21-2022 End: 12-21-2022 Patient encounter procedure Damon KIRBY [facility] Start: 10-23-2022 End: 10-23-2022 Patient encounter procedure Damon KIRBY [facility] Start: 05-23-2022 End: 05-24-[address] MARCUS FIELDS . Facility:[facility] Start: 05-09-[address] MARCUS FIELDS . Facili ty:[facility] Start: 03-31-2022 End: 03-31-2022 Patient encounter procedure Damon KIRBY [facility] Start: 10-19-2021 End: 10-21-2021 Evaluation and management of inpatient DR NATALIE ARTEAGA . Facility:[facility] Start: 09-29-2021 End: 09-29-[address] MARCUS FIELDS . Facility:[facility] Start: 09-08-2021 End: 09-09-[address] MARCUS FIELDS . Facility:[facility] Start: 08-08-2021 ambulatory NONE LISTED REQUEST Facility:[facility] Start: 08-07-2021 End: 08-07-[address] NONE LISTED REQUEST Facility:[facility] Start: 08-06-2021 End: 08-06-2021 Patient encounter procedure Marcus FIELDS [facility] Start: 07-17-[address] MARCUS FIELDS . Facili ty:[facility] Start: 06-22-2021 End: 06-23-[address] GARETH SANDS . Facility:[facility] Start: 06-17-[address] MARCUS FIELDS . Facili ty:[facility] Start: 05-31-2021 End: 06-01-[address] NATALIE ARTEAGA . Facility:[facility] Procedures Date Procedure Procedure Detail Performing Clinician Start: 08-02-2024 ENDOMETRIAL BIOPSY Core y Diamond DO Work Phone: Start: 08-02-2024 Urine test visual color cmprsn meths Marcus Diamond DO Work Phone: Start: 12-23-2022 Bilateral tubal ligation Damon KIRBY Start: 10-20-2021 Delivery of Products of Conception, External Approach DR MARCUS FIELDS . Start: 10-20-2021 Repair Vulva, Auto Service Dispatcher al Approach DR MARCUS FIELDS . None (qualifier value) Marcus FIELDS Plan of Treatment Date Care Activity Detail Author Start: 08-23-2024 End: 08-23-2024 Patient encounter procedure 08/23/2024 3:40 PM EDT Office [facility] [address] [facility] [place] [place] [address] Marcus Fields, DO [address] [place], [place] [address] [facility] Start: 08-02-2024 End: 08-02-2024 Patient encounter procedure 08/02/2024 3:30 PM EDT Procedure [facility] [address] [facility] [place], [id number] Marcus Fields, DO [address], [place] [address] [facility] Start: 07-24-2024 End: 07-24-2024 Patient encounter procedure 07/24/2024 9:10 AM EDT Office Visit [facility] [address] [facility] [place] [address] Marcus Fields, DO [address], [place] [address] Arrived [facility] Comment on above: Arrived Immunizations Immunization Date Immunization Notes Care Provider [facility] 10-21-2021 measles, mumps and rubella virus vaccine Damon KIRBY [facility] 01-08-2020 influenza virus vaccine, unspecified formulation Marcus FIELDS [facility] NEGATED: Highlighted row has not occurred!12-21-2022 influenza virus vaccine, unspecified formulation Damon KIRBY [facility] NEGATED: Highlighted row has not occurred!12-21-2022 SARS-CoV-2 mRNA (tozinameran 5y-11y) vaccine Damon KIRBY [facility] NEGATED: Highlighted row has not occurred!10-23-2022 SARS-CoV-2 mRNA (tozinameran 5y-11y) vaccine Damon KIRBY [facility] NEGATED: Highlighted row has not occurred!05-05-2022 influenza virus vaccine, unspecified formulation Damon KIRBY [facility] NEGATED: Highlighted row has not occurred!05-05-2022 SARS-CoV-2 mRNA (tozinameran 5y-11y) vaccine Damon KIRBY [facility] NEGATED: Highlighted row has not occurred!03-31-2022 influenza virus vaccine, unspecified formulation Damon KIRBY [facility] NEGATED: Highlighted row has not occurred!02-20-2021 SARS-CoV-2 (COVID-19) Ad26 vaccine, recombinant Marcus DIAMOND [facility] NEGATED: Highlighted row has not occurred!02-20-2021 influenza virus vaccine, unspecified formulation Marcus DIAMOND [facility] Payers Date Payer Category Payer Medicaid [employer] [place] [id number] 1996 Unknown [id number] 1996 Unknown [id number] [id number] 1996 Unknown [id number] [id number] 1996 Unknown [id number] 2.16.840.1.397975.3.579.2.593 1996 Unknown [id number] 2.16.840.1.747049.3.579.2.593 1996 Unknown [id number] 2.16.840.1.020803.3.579.2.593 1996 Unknown [id number] 2.16.840.1.679024.3.579.2.593 1996 Unknown [id number] 2.16.840.1.344469.3.579.2.593 1996 Unknown [id number] 2.16.840.1.868432.3.579.2.593 1996 Unknown [id number] 2.16.840.1.046855.3.579.2.593 1996 Unknown [id number] 2.16.840.1.415966.3.579.2.593 1996 Unknown [id number] 2.16.840.1.587167.3.579.2.593 1996 Unknown [id number] 2.16.840.1.338882.3.579.2.727 1996 Unknown [id number] 2.16.840.1.946099.3.579.2.727 1996 Unknown [id number] 2.16.840.1.666873.3.579.2.727 1996 Unknown [id number] 2.16.840.1.728635.3.579.2.727 1996 Unknown [id number] 2.16.840.1.481908.3.579.2.1259 1996 Unknown [id number] 2.16.840.1.066425.3.579.2.1259 1958 Medicaid [id number] 1958 Self-pay Unknown [id number] [id number] Social History Date Type Detail Facility Start: 02-20-2021 End: 07-16-2022 Tobacco smoking status Never smoked tobacco (finding) [facility] Tobacco smoking status Never [facility] Start: 03-18-2023 Sex Assigned At Female F [facility] Start: 07-16-2022 Tobacco use and exposure Smokeless tobacco non-user [facility] Start: 03-18-2023 Alcoholic beverage intake Current drinker of alcohol (finding) [facility] Start: 03-18-2023 History of Social function [facility] Start: 07-15-[address] syed alcohol [facility] Start: 1995 Sex assigned at Not on file [facility] Functional Status Date Assessment Result Facility 11-17-2023 Functional Status N/A [facility] 07-22-2023 Functional Status N/A [facility] 07-19-2023 Functional Status N/A [facility] 07-19-2023 Functional Status N/A [facility] 12-28-2022 Functional Status N/A [facility] 12-21-2022 Functional Status N/A [facility] 10-23-2022 Functional Status N/A [facility] 03-31-2022 Functional Status N/A [facility] Clinical Notes 03-31-2022 to 08-02-2024 Alethea Hadley, NORMAN - 08/02/2024 3:30 PM EDTYolande Hickey NP - 07/24/2024 9:10 AM EDT Note Date & Type Note Facility 08-02-2024 History of Present illness Narrative Associated Order(s): Biopsy endometrium Pre-Procedure Diagnose(s): Menorrhagia with regular cycle; Dyspareunia in female Post-Procedure Diagnose(s): Menorrhagia with regular cycle; Dyspareunia in female Reason for Appointment: Patient ID: Leyda Segal is a 29 y.o. female who presents for EMBX Patient presents today for a Endometrial Biopsy appointment. MEDICATIONS No current outpatient medications ALLERGIES Allergies Allergen Reactions Sulfamethoxazole-Trimethoprim Other Reaction(s): Hemoptysis seen thru [facility] er Cat Dander Dust Mite Extract Grass Pollen(K-O-R-T-Swt Prosper) Morphine Unknown Other Reaction(s): Syncope, Vomiting, vomiting and loss of consciousness [place] PROBLEMS Active Ambulatory Problems Diagnosis Date Noted Other atopic dermatitis 07/06/2022 Resolved Ambulatory Problems Diagnosis Date Noted No Resolved Ambulatory Problems Past Medical History: Diagnosis Date 6 weeks follow-up Abdominal pain affecting , antepartum Acute asthma exacerbation (CMS/HCC) ADHD (attention deficit hyperactivity disorder) ([facility]) Encounter for Rh incompatibility status Encounter for supervision of normal first Hyperemesis gravidarum (HHS-HCC) Large for gestational age fetus affecting management of mother, delivered Mood changes Nausea/vomiting in Obesity (BMI 30-39.9) Vaginal delivery HISTORY PAST MEDICAL HISTORY SOCIAL HISTORY Past Medical History: Diagnosis Date 6 weeks follow-up Abdominal pain affecting , antepartum Acute asthma exacerbation (CMS/HCC) ADHD (attention deficit hyperactivity disorder) ([facility]) Encounter for Rh incompatibility status Encounter for supervision of normal first Hyperemesis gravidarum (HHS-HCC) Large for gestational age fetus affecting management of mother, delivered Mood changes Nausea/vomiting in Obesity (BMI 30-39.9) Vaginal delivery Social History Tobacco Use Smoking status: Never Smokeless tobacco: Never Substance Use Topics Alcohol use: Yes Comment: ocasionally drinks alcohol Drug use: Yes Types: Marijuana FAMILY HISTORY Family History Problem Relation Name Age of Onset Arthritis Mother Arthritis Father Heart disease Father SURGICAL HISTORY Past Surgical History: Procedure Laterality Date SALPINGECTOMY Bilateral 01/13/2023 REVIEW OF SYSTEMS Review of Systems: Review of Systems Constitutional: Negative. HENT: Negative. Eyes: Negative. Respiratory: Negative. Cardiovascular: Negative. Gastrointestinal: Negative. Genitourinary: Positive for dyspareunia and menstrual problem. Musculoskeletal: Negative. Skin: Negative. Neurological: Negative. All other systems reviewed and are negative. Hematological: Negative. Endocrine: Negative. Allergic/Immunologic: Negative. OBJECTIVE Objective: Physical Exam Constitutional: Appearance: Normal appearance. She is well-developed. Genitourinary: Vulva normal. Cardiovascular: Rate and Rhythm: Normal rate and regular rhythm. Pulmonary: Effort: Pulmonary effort is normal. Breath sounds: Normal breath sounds. Abdominal: General: Bowel sounds are normal. There is no distension. Palpations: Abdomen is soft. Tenderness: There is no abdominal tenderness. There is no guarding or rebound. Musculoskeletal: General: No swelling. Normal range of motion. Right lower leg: No edema. Left lower leg: No edema. Neurological: Mental Status: She is alert and oriented to person, place, and time. Skin: General: Skin is warm and dry. Psychiatric: Mood and Affect: Mood normal. Behavior: Behavior normal. Vitals and nursing note reviewed. Exam conducted with a web software engineer present. Vitals: Estimated body mass index is 41.57 kg/m as calculated from the following: Height as of 06/18/22: 5' 5 . Weight as of this encounter: 249 lb 12.8 oz. BP: 122/70 No LMP recorded. ASSESSMENT & PLAN Assessment/Plan Encounter Diagnosis: ICD-10-CM 1. Menorrhagia with regular cycle N92.0 Biopsy endometrium POCT , urine manually resulted 2. Dyspareunia in female N94.10 Biopsy endometrium POCT , urine manually resulted 3. Pelvic pain R10.2 Biopsy endometrium Date/Time: 08/02/2024 4:38 PM Performed by: Marcus Fields DO Authorized by: Marcus Fields DO Consent: Consent obtained: written Consent given by: patient Risks discussed: bleeding Alternatives discussed: alternative treatment Patient agrees, verbalizes understanding, and wants to proceed: yes Procedure explained and questions answered to patient or proxy's satisfaction: yes Indications: Indications: abnormal uterine bleeding and abnormal bleeding from female genital tract Pre-procedure: Urine test: negative Procedure: A bimanual exam was performed: no Prepped with: none Tenaculum used: yes A local block was performed: no Local anesthetic: none Cervix dilated: no Findings: Cervix: normal Specimen collected: specimen collected and sent to pathology Patient tolerance: tolerated well, no immediate complications Comments: Procedure comments: EMBX: Patient was placed in dorsal lithotomy position with feet in stirrups. A sterile speculum was placed into the vagina and the cervix was visualized. The cervix was grasped with a single tooth tenaculum. The endometrial pipette was placed through the cervix into the uterus, endometrial curettage was performed and sampling was obtained, endometrial curettings were placed in formalin, and single tooth tenaculum was removed. Excellent hemostasis was assured. All instruments were removed from vagina. Follow Up: Patient is to return for annual preop exam. Documented by Alethea Hadley LPN on behalf of: Marcus Fields DO documented in this encounter [facility] 07-24-2024 History of Present illness Narrative Reason for Appointment: Patient ID: Leyda Segal is a 29 y.o. female who presents for discuss periods Patient presents today for Acute Visit. MEDICATIONS No current outpatient medications ALLERGIES Allergies Allergen Reactions Sulfamethoxazole-Trimethoprim Other Reaction(s): Hemoptysis seen thru [facility] er Cat Dander Dust Mite Extract Grass Pollen(K-O-[id number]-T-Swt Prosper) Morphine Unknown Other Reaction(s): Syncope, Vomiting, vomiting and loss of consciousness Tall Ragweed PROBLEMS Active Ambulatory Problems Diagnosis Date Noted Other atopic dermatitis 07/06/2022 Resolved Ambulatory Problems Diagnosis Date Noted No Resolved Ambulatory Problems Past Medical History: Diagnosis Date 6 weeks follow-up Abdominal pain affecting , antepartum Acute asthma exacerbation ([facility]) ADHD (attention deficit hyperactivity disorder) ([facility]) Encounter for Rh incompatibility status Encounter for supervision of normal first Hyperemesis gravidarum Large for gestational age fetus affecting management of mother, delivered Mood changes Nausea/vomiting in Obesity (BMI 30-39.9) Vaginal delivery HISTORY PAST MEDICAL HISTORY SOCIAL HISTORY Past Medical History: Diagnosis Date 6 weeks follow-up Abdominal pain affecting , antepartum Acute asthma exacerbation ([facility]) ADHD (attention deficit hyperactivity disorder) ([facility]) Encounter for Rh incompatibility status Encounter for supervision of normal first Hyperemesis gravidarum Large for gestational age fetus affecting management of mother, delivered Mood changes Nausea/vomiting in Obesity (BMI 30-39.9) Vaginal delivery Social History Tobacco Use Smoking status: Never Smokeless tobacco: Never Substance Use Topics Alcohol use: Yes Comment: ocasionally drinks alcohol Drug use: Yes Types: Marijuana FAMILY HISTORY Family History Problem Relation Name Age of Onset Arthritis Mother Arthritis Father Heart disease Father SURGICAL HISTORY Past Surgical History: Procedure Laterality Date SALPINGECTOMY Bilateral 01/13/2023 REVIEW OF SYSTEMS Review of Systems: Review of Systems Constitutional: Negative. HENT: Negative. Eyes: Negative. Respiratory: Negative. Cardiovascular: Negative. Gastrointestinal: Negative. Genitourinary: Positive for dyspareunia, menstrual problem, pelvic pain and vaginal bleeding. Musculoskeletal: Negative. Skin: Negative. Neurological: Negative. All other systems reviewed and are negative. Hematological: Negative. Endocrine: Negative. Allergic/Immunologic: Negative. OBJECTIVE Objective: Physical Exam Constitutional: Appearance: Normal appearance. She is well-developed. Cardiovascular: Rate and Rhythm: Normal rate and regular rhythm. Pulmonary: Effort: Pulmonary effort is normal. Breath sounds: Normal breath sounds. Abdominal: General: Bowel sounds are normal. There is no distension. Palpations: Abdomen is soft. Tenderness: There is no abdominal tenderness. There is no guarding or rebound. Musculoskeletal: General: No swelling. Normal range of motion. Right lower leg: No edema. Left lower leg: No edema. Neurological: Mental Status: She is alert and oriented to person, place, and time. Skin: General: Skin is warm and dry. Psychiatric: Mood and Affect: Mood normal. Behavior: Behavior normal. Vitals and nursing note reviewed. Exam conducted with a web software engineer present. Vitals: Estimated body mass index is 36.61 kg/m as calculated from the following: Height as of 06/18/22: 5' 5 . Weight as of 03/18/23: 220 lb. BP: No LMP recorded. ASSESSMENT & PLAN ICD-10-CM 1. Dyspareunia in female N94.10 2. Menorrhagia with regular cycle N92.0 Patient with complaints of heavy menstrual cycles, dyspareunia, and pelvic pain and cramping. She has a history of tubal ligation, we discussed use of hormonal options, to include OCP's, patch and IUD as well as uterine ablation and patient desires to proceed with uterine ablation. Documented by Yolande Hickey NP on behalf of: Marcus Fields DO documented in this encounter [facility] 11-17-2023 Hospital Discharge instructions Patient Education 11/17/2023 11:55:47 Asthma Action Plan, Adult Asthma Action Plan, Adult An asthma action plan helps you understand how to manage your asthma and what to do when you have an asthma attack. The action plan is a color-coded plan that lists the symptoms that indicate whether or not your condition is under control and what actions to take. If you have symptoms in the green zone, you are doing well. If you have symptoms in the yellow zone, you are having problems. If you have symptoms in the red zone, you need medical care right away. Follow the plan that you and your health care provider develop. Review your plan with your health care provider at each visit. What triggers your asthma? Knowing the things that can trigger an asthma attack or make your asthma symptoms worse is very important. Talk to your health care provider about your asthma triggers and how to avoid them. Record your known asthma triggers here: What is your personal best peak flow reading? If you use a peak flow meter, determine your personal best reading. Record it here: Green zone This zone means that your asthma is under control. You may not have any symptoms while you are in the green zone. This means that you: Have no coughing or wheezing, even while you are working or playing. Sleep through the night. Are breathing well. Have a peak flow reading that is above (80% of your personal best or greater). If you are in the green zone, continue to manage your asthma as directed. Take these medicines every day: ?Controller medicine and dosage: ?Controller medicine and dosage: ?Controller medicine and dosage: ?Controller medicine and dosage: Before exercise, use this reliever or rescue medicine: Call your health care provider if you are using a reliever or rescue medicine more than 2 3 times a week. Yellow zone Symptoms in this zone mean that your condition may be getting worse. You may have symptoms that interfere with exercise, are noticeably worse after exposure to triggers, or are worse at the first sign of a cold (upper respiratory infection). These may include: Waking from sleep. Coughing, especially at night or first thing in the morning. Mild wheezing. Chest tightness. A peak flow reading that is to (50 79% of your personal best). If you have any of these symptoms: Add the following medicine to the ones that you use daily: ?Reliever or rescue medicine and dosage: ?Additional medicine and dosage: Call your health care provider if: You remain in the yellow zone for hours. You are using a reliever or rescue medicine more than 2 3 times a week. Red zone Symptoms in this zone mean that you should get medical help right away. You will likely feel distressed and have symptoms at rest that restrict your activity. You are in the red zone if: You are breathing hard and quickly. Your nose opens wide, your ribs show, and your neck muscles become visible when you breathe in. Your lips, fingers, or toes are a bluish color. You have trouble speaking in full sentences. Your peak flow reading is less than (less than 50% of your personal best). Your symptoms do not improve within 15 20 minutes after you use your reliever or rescue medicine (bronchodilator). If you have any of these symptoms: These symptoms represent a serious problem that is an emergency. Do not wait to see if the symptoms will go away. Get medical help right away. Call your local emergency services (911 in the [place] Do not drive yourself to the hospital. Use your reliever or rescue medicine. ?Start a nebulizer treatment or take 2 4 puffs from a metered-dose inhaler with a spacer. ?Repeat this action every 15 20 minutes until help arrives. Where to find more information You can find more information about asthma from: Centers for Disease Control and Prevention: www.cdc.gov [place] [employer]: www.lung.org This information is not intended to replace advice given to you by your health care provider. Make sure you discuss any questions you have with your health care provider. Document Revised: 04/03/2021 Document Reviewed: 04/03/2021 [employer] Patient Education 2023 [place]. [facility] 11-17-2023 Note Patient Education Immunology Asthma Action Plan, Adult An asthma action plan helps you understand how to manage your asthma and what to do when you have an asthma attack. The action plan is a color-coded plan that lists the symptoms that indicate whether or not your condition is under control and what actions to take. ? If you have symptoms in the green zone, you are doing well. ? If you have symptoms in the yellow zone, you are having problems. ? If you have symptoms in the red zone, you need medical care right away. Follow the plan that you and your health care provider develop. Review your plan with your health care provider at each visit. What triggers your asthma? Knowing the things that can trigger an asthma attack or make your asthma symptoms worse is very important. Talk to your health care provider about your asthma triggers and how to avoid them. Record your known asthma triggers here: What is your personal best peak flow reading? If you use a peak flow meter, determine your personal best reading. Record it here: Green zone This zone means that your asthma is under control. You may not have any symptoms while you are in the green zone. This means that you: ? Have no coughing or wheezing, even while you are working or playing. ? Sleep through the night. ? Are breathing well. ? Have a peak flow reading that is above (80% of your personal best or greater). If you are in the green zone, continue to manage your asthma as directed. ? Take these medicines every day: ? Controller medicine and dosage: ? Controller medicine and dosage: ? Controller medicine and dosage: ? Controller medicine and dosage: ? Before exercise, use this reliever or rescue medicine: Call your health care provider if you are using a reliever or rescue medicine more than 2?3 times a week. Yellow zone Symptoms in this zone mean that your condition may be getting worse. You may have symptoms that interfere with exercise, are noticeably worse after exposure to triggers, or are worse at the first sign of a cold (upper respiratory infection). These may include: ? Waking from sleep. ? Coughing, especially at night or first thing in the morning. ? Mild wheezing. ? Chest tightness. ? A peak flow reading that is to (50?79% of your personal best). If you have any of these symptoms: ? Add the following medicine to the ones that you use daily: ? Reliever or rescue medicine and dosage: ? Additional medicine and dosage: Call your health care provider if: ? You remain in the yellow zone for hours. ? You are using a reliever or rescue medicine more than 2?3 times a week. Red zone Symptoms in this zone mean that you should get medical help right away. You will likely feel distressed and have symptoms at rest that restrict your activity. You are in the red zone if: ? You are breathing hard and quickly. ? Your nose opens wide, your ribs show, and your neck muscles become visible when you breathe in. ? Your lips, fingers, or toes are a bluish color. ? You have trouble speaking in full sentences. ? Your peak flow reading is less than (less than 50% of your personal best). ? Your symptoms do not improve within 15?20 minutes after you use your reliever or rescue medicine (bronchodilator). If you have any of these symptoms: ? These symptoms represent a serious problem that is an emergency. Do not wait to see if the symptoms will go away. Get medical help right away. Call your local emergency services (911 in the [place] Do not drive yourself to the hospital. ? Use your reliever or rescue medicine. ? Start a nebulizer treatment or take 2?4 puffs from a metered-dose inhaler with a spacer. ? Repeat this action every 15?20 minutes until help arrives. Where to find more information You can find more information about asthma from: ? Centers for Disease Control and Prevention: www.cdc.gov ? [place] [employer]: www.lung.org This information is not intended to replace advice given to you by your health care provider. Make sure you discuss any questions you have with your health care provider. Document Revised: 04/03/2021 Document Reviewed: 04/03/2021 [employer] Patient Education ? 2023 [place]. [facility] 09-18-2023 Hospital Discharge instructions Patient Education 09/18/2023 17:01:44 Esophagitis Esophagitis Esophagitis is inflammation of the esophagus. The esophagus is the tube that carries food from the mouth to the stomach. Esophagitis can cause soreness or pain in the esophagus. This condition can make it difficult and painful to swallow. What are the causes? Most causes of esophagitis are not serious. Common causes of this condition include: Gastroesophageal reflux disease (GERD). This is when stomach contents move back up into the esophagus (reflux). Repeated vomiting. An allergic reaction, especially caused by food allergies (eosinophilic esophagitis). Injury to the esophagus by swallowing large pills with or without water, or swallowing certain types of medicines. Swallowing harmful chemicals, such as household cleaning products. Drinking a lot of alcohol. An infection of the esophagus. This most often occurs in people who have a weakened immune system. Radiation or chemotherapy treatment for cancer. Certain diseases such as sarcoidosis, Crohn's disease, and scleroderma. What are the signs or symptoms? Symptoms of this condition include: Difficult or painful swallowing. Pain with swallowing acidic liquids, such as citrus juices. You may also have pain when you burp. Chest pain and difficulty breathing. Nausea and vomiting. Pain in the abdomen. Weight loss. Ulcers in the mouth and white patches in the mouth (candidiasis). Fever. Coughing up blood or vomiting blood. Stool that is black, tarry, or bright red. How is this diagnosed? This condition may be diagnosed based on your medical history and a physical exam. You may also have other tests, including: A test to examine your esophagus and stomach with a small flexible tube with a camera (endoscopy). A test that measures the acidity level in your esophagus. A test that measures how much pressure is on your esophagus. A barium swallow or modified barium swallow to show the shape, size, and functioning of your esophagus. Allergy tests. How is this treated? Treatment for this condition depends on the cause of your esophagitis. In some cases, steroids or other medicines may be given to help relieve your symptoms or to treat the underlying cause of your condition. You may have to make some lifestyle changes, such as: Avoiding alcohol. Quitting any products that contain nicotine or tobacco. These products include cigarettes, chewing tobacco, and vaping devices, such as e-cigarettes. If you need help quitting, ask your health care provider. Changing your diet. Exercising. Changing your sleep habits and your sleep environment. Follow these instructions at home: Medicines Take [id number] and prescription medicines only as told by your health care provider. Do not take aspirin, ibuprofen, or other NSAIDs unless your health care provider told you to do so. If you have trouble taking pills: ?Use a pill splitter to decrease the size of the pill. This will decrease the chance of the pill getting stuck or injuring your esophagus. ?Drink water after you take a pill. Eating and drinking Avoid foods and drinks that seem to make your symptoms worse. Follow a diet as recommended by your health care provider. This may involve avoiding foods and drinks such as: ?Coffee and tea, with or without caffeine. ?Drinks that contain alcohol. ?Energy drinks and sports drinks. ?Carbonated drinks or sodas. ?Chocolate and cocoa. ?Peppermint and mint flavorings. ?Garlic and onions. ?Horseradish. ?Spicy and acidic foods, including peppers, chili powder, carrero powder, vinegar, hot sauces, and barbecue sauce. ?[place] fruit juices and citrus fruits, such as oranges, lina, and limes. ?Tomato-based foods, such as red sauce, chili, salsa, and pizza with red sauce. ?Fried and fatty foods, such as donuts, salvadorean fries, potato chips, and high-fat dressings. ?High-fat meats, such as hot dogs and fatty cuts of red and white meats, such as rib eye steak, sausage, ham, and solano. ?High-fat dairy items, such as whole milk, butter, and cream cheese. Lifestyle Eat small, frequent meals instead of large meals. Avoid drinking large amounts of liquid with your meals. Avoid eating meals during the 2 3 hours before bedtime. Avoid lying down right after you eat. Do not exercise right after you eat. Do not use any products that contain nicotine or tobacco. These products include cigarettes, chewing tobacco, and vaping devices, such as e-cigarettes. If you need help quitting, ask your health care provider. General instructions Pay attention to any changes in your symptoms. Let your health care provider know about them. Wear loose-fitting clothing. Do not wear anything tight around your waist that causes pressure on your abdomen. Raise (elevate) the head of your bed about 6 inches (15 cm). You may need to use a wedge to do this. Try relaxation strategies such as yoga, deep breathing, or meditation to manage stress. If you need help reducing stress, ask your health care provider. If you are overweight, reduce your weight to an amount that is healthy for you. Ask your health care provider for guidance about a safe weight loss goal. Keep all follow-up visits. This is important. Contact a health care provider if: You have new symptoms. You have unexplained weight loss. You have difficulty swallowing, or it hurts to swallow. You have wheezing or a cough that does not go away. Your symptoms do not improve with treatment. You have frequent heartburn for more than two weeks. Get help right away if: You have sudden severe pain in your arms, neck, jaw, teeth, or back. You suddenly feel sweaty, dizzy, or light-headed. You have chest pain or shortness of breath. You vomit and the vomit is green, yellow, or black, or it looks like blood or coffee grounds. Your stool is red, bloody, or black. You have a fever. You cannot swallow, drink, or eat. These symptoms may represent a serious problem that is an emergency. Do not wait to see if the symptoms will go away. Get medical help right away. Call your local emergency services (911 in the [place] Do not drive yourself to the hospital. Summary Esophagitis is inflammation of the esophagus. Most causes of esophagitis are not serious. Follow your health care provider's instructions about eating and drinking. Contact a health care provider if you have new symptoms, have weight loss, or coughing that does not stop. Get help right away if you have severe pain in the arms, neck, jaw, teeth, or back, or if you have chest pain, shortness of breath, or fever. This information is not intended to replace advice given to you by your health care provider. Make sure you discuss any questions you have with your health care provider. Document Revised: 08/19/2020 Document Reviewed: 08/19/2020 [employer] Patient Education 2022 [employer]. [facility] 09-18-2023 Note Patient Education Gastroenterology Esophagitis Esophagitis is inflammation of the esophagus. The esophagus is the tube that carries food from the mouth to the stomach. Esophagitis can cause soreness or pain in the esophagus. This condition can make it difficult and painful to swallow. What are the causes? Most causes of esophagitis are not serious. Common causes of this condition include: ? Gastroesophageal reflux disease (GERD). This is when stomach contents move back up into the esophagus (reflux). ? Repeated vomiting. ? An allergic reaction, especially caused by food allergies (eosinophilic esophagitis). ? Injury to the esophagus by swallowing large pills with or without water, or swallowing certain types of medicines. ? Swallowing harmful chemicals, such as household cleaning products. ? Drinking a lot of alcohol. ? An infection of the esophagus. This most often occurs in people who have a weakened immune system. ? Radiation or chemotherapy treatment for cancer. ? Certain diseases such as sarcoidosis, Crohn's disease, and scleroderma. What are the signs or symptoms? Symptoms of this condition include: ? Difficult or painful swallowing. ? Pain with swallowing acidic liquids, such as citrus juices. You may also have pain when you burp. ? Chest pain and difficulty breathing. ? Nausea and vomiting. ? Pain in the abdomen. ? Weight loss. ? Ulcers in the mouth and white patches in the mouth (candidiasis). ? Fever. ? Coughing up blood or vomiting blood. ? Stool that is black, tarry, or bright red. How is this diagnosed? This condition may be diagnosed based on your medical history and a physical exam. You may also have other tests, including: ? A test to examine your esophagus and stomach with a small flexible tube with a camera (endoscopy). ? A test that measures the acidity level in your esophagus. ? A test that measures how much pressure is on your esophagus. ? A barium swallow or modified barium swallow to show the shape, size, and functioning of your esophagus. ? Allergy tests. How is this treated? Treatment for this condition depends on the cause of your esophagitis. In some cases, steroids or other medicines may be given to help relieve your symptoms or to treat the underlying cause of your condition. You may have to make some lifestyle changes, such as: ? Avoiding alcohol. ? Quitting any products that contain nicotine or tobacco. These products include cigarettes, chewing tobacco, and vaping devices, such as e-cigarettes. If you need help quitting, ask your health care provider. ? Changing your diet. ? Exercising. ? Changing your sleep habits and your sleep environment. Follow these instructions at home: Medicines ? Take pmnn-irh-bxxlgma and prescription medicines only as told by your health care provider. ? Do not take aspirin, ibuprofen, or other NSAIDs unless your health care provider told you to do so. ? If you have trouble taking pills: ? Use a pill splitter to decrease the size of the pill. This will decrease the chance of the pill getting stuck or injuring your esophagus. ? Drink water after you take a pill. Eating and drinking ? Avoid foods and drinks that seem to make your symptoms worse. ? Follow a diet as recommended by your health care provider. This may involve avoiding foods and drinks such as: ? Coffee and tea, with or without caffeine. ? Drinks that contain alcohol. ? Energy drinks and sports drinks. ? Carbonated drinks or sodas. ? Chocolate and cocoa. ? Peppermint and mint flavorings. ? Garlic and onions. ? Horseradish. ? Spicy and acidic foods, including peppers, chili powder, carrero powder, vinegar, hot sauces, and barbecue sauce. ? [place] fruit juices and citrus fruits, such as oranges, lina, and limes. ? Tomato-based foods, such as red sauce, chili, salsa, and pizza with red sauce. ? Fried and fatty foods, such as donuts, salvadorean fries, potato chips, and high-fat dressings. ? High-fat meats, such as hot dogs and fatty cuts of red and white meats, such as rib eye steak, sausage, ham, and solano. ? High-fat dairy items, such as whole milk, butter, and cream cheese. Lifestyle ? Eat small, frequent meals instead of large meals. ? Avoid drinking large amounts of liquid with your meals. ? Avoid eating meals during the 2?3 hours before bedtime. ? Avoid lying down right after you eat. ? Do not exercise right after you eat. ? Do not use any products that contain nicotine or tobacco. These products include cigarettes, chewing tobacco, and vaping devices, such as e-cigarettes. If you need help quitting, ask your health care provider. General instructions ? Pay attention to any changes in your symptoms. Let your health care provider know about them. ? Wear loose-fitting clothing. Do not wear anything tight around your waist that causes pr (more content not included)... [facility] 07-22-2023 Hospital Discharge instructions Patient Education 07/22/2023 10:51:02 Cannabinoid Hyperemesis Syndrome Cannabinoid Hyperemesis Syndrome Cannabinoid hyperemesis syndrome (CHS) is a condition that causes repeated nausea, vomiting, and abdominal pain after long-term use of marijuana (cannabis). People with CHS typically use marijuana 3 5 times a day for many years before they have symptoms, although it is possible to develop CHS with far less daily use. Symptoms of CHS may be mild at first but can get worse and more frequent. In some cases, CHS may cause severe daily vomiting, which can lead to weight loss and dehydration. What are the causes? The exact cause of CHS is not known. Long-term use of marijuana may overstimulate certain proteins in the brain and digestive tract that react with chemicals in marijuana (cannabinoid receptors). This overstimulation may cause CHS. What are the signs or symptoms? Symptoms of CHS are often mild during the first few episodes, but they can get worse over time. Symptoms may include: Frequent nausea, especially early in the morning. Vomiting. This can become severe. Abdominal pain. Feeling very tired (lethargic). Headaches. CHS may go away and come back many times (recur). People may not have symptoms or may otherwise be healthy in between CHS episodes. Taking hot showers can relieve the symptoms of CHS, so feeling the need to take several hot showers throughout the day can be a sign of this condition. How is this diagnosed? CHS may be diagnosed based on: Your symptoms and medical history, including any drug use. A physical exam. You may have tests done to rule out other problems that could cause your symptoms. These tests may include: Blood tests. Urine tests. Imaging tests, such as an X-ray or a CT scan. How is this treated? Treatment for this condition involves stopping marijuana use. Treatment may include: A drug rehab program, if you have trouble stopping marijuana use. Medicines for nausea. These may be given at the hospital through an IV inserted into one of your veins, or they may be medicines that you take by mouth (orally). Certain creams that contain a substance called capsaicin. These may improve symptoms when applied to the abdomen. Hot showers to help relieve symptoms. In severe cases, you may need treatment at a hospital. You may be given IV fluids to prevent or treat dehydration as well as medicines to treat nausea, vomiting, and pain. Follow these instructions at home: During an episode of CHS Stay in bed and rest in a dark, quiet room. Take anti-nausea medicine as told by your health care provider. Try taking hot showers to relieve your symptoms. After an episode of CHS Drink small amounts of clear fluids. Slowly add more if you can keep the fluids down without vomiting. Once you are able to eat without vomiting, eat soft foods in small amounts every 3 4 hours. General instructions Do not use any products that contain marijuana.If you need help quitting, ask your health care provider for resources and treatment options. Drink enough fluid to keep your urine pale yellow. Avoid drinking fluids that have a lot of sugar or caffeine, such as coffee and soda. Take and apply hvnh-qea-jqmiyxv and prescription medicines only as told by your health care provider. Ask your health care provider before starting any new medicines or treatments. Keep all follow-up visits. This includes any recommended programs for substance use disorders. Contact a health care provider if: Your symptoms get worse. You cannot drink fluids without vomiting or severe pain. You have pain and trouble swallowing after an episode. Get help right away if: You cannot stop vomiting. You have blood in your vomit or your vomit looks like coffee grounds. You have severe abdominal pain. You have stools that are bloody or black, or stools that look like tar. You have symptoms of dehydration, such as: ?Sunken eyes. ?Inability to make tears. ?Cracked lips or dry mouth. ?Decreased urine production. ?Weakness. ?Sleepiness. ?Dizziness, light-headedness, or fainting. These symptoms may be an emergency. Get help right away. Call 911. Do not wait to see if the symptoms will go away. Do not drive yourself to the hospital. Summary Cannabinoid hyperemesis syndrome (CHS) is a condition that causes repeated nausea, vomiting, and abdominal pain after long-term use of marijuana. Treatment for this condition involves stopping marijuana use. Hot showers and capsaicin creams may also help relieve symptoms. Your health care provider may prescribe medicines to help with nausea. Ask your health care provider before starting any medicines or other treatments. This information is not intended to replace advice given to you by your health care provider. Make sure you discuss any questions you have with your health care provider. Document Revised: 06/08/2022 Document Reviewed: 06/08/2022 [employer] Patient Education 2022 [employer]. 07/21/2023 11:23:59 Skin Abscess Skin Abscess A skin abscess is an infected area on or under your skin that contains a collection of pus and other material. An abscess may also be called a furuncle, carbuncle, or boil. An abscess can occur in or on almost any part of your body. Some abscesses break open (rupture) on their own. Most continue to get worse unless they are treated. The infection can spread deeper into the body and eventually into your blood, which can make you feel ill. Treatment usually involves draining the abscess. What are the causes? An abscess occurs when germs, like bacteria, pass through your skin and cause an infection. This may be caused by: A scrape or cut on your skin. A puncture wound through your skin, including a needle injection or insect bite. Blocked oil or sweat glands. Blocked and infected hair follicles. A cyst that forms beneath your skin (sebaceous cyst) and becomes infected. What increases the risk? This condition is more likely to develop in people who: Have a weak body defense system (immune system). Have diabetes. Have dry and irritated skin. Get frequent injections or use illegal IV drugs. Have a foreign body in a wound, such as a splinter. Have problems with their lymph system or veins. What are the signs or symptoms? Symptoms of this condition include: A painful, firm bump under the skin. A bump with pus at the top. This may break through the skin and drain. Other symptoms include: Redness surrounding the abscess site. Warmth. Swelling of the lymph nodes (glands) near the abscess. Tenderness. A sore on the skin. How is this diagnosed? This condition may be diagnosed based on: A physical exam. Your medical history. A sample of pus. This may be used to find out what is causing the infection. Blood tests. Imaging tests, such as an ultrasound, CT scan, or MRI. How is this treated? A small abscess that drains on its own may not need treatment. Treatment for larger abscesses may include: Moist heat or heat pack applied to the area several times a day. A procedure to drain the abscess (incision and drainage). Antibiotic medicines. For a severe abscess, you may first get antibiotics through an IV and then change to antibiotics by mouth. Follow these instructions at home: Medicines Take nqqr-pkj-jykongt and prescription medicines only as told by your health care provider. If you were prescribed an antibiotic medicine, take it as told by your health care provider. Do not stop taking the antibiotic even if you start to feel better. Abscess care If you have an abscess that has not drained, apply heat to the affected area. Use the heat source that your health care provider recommends, such as a moist heat pack or a heating pad. ?Place a towel between your skin and the heat source. ?Leave the heat on for 20 30 minutes. ?Remove the heat if your skin turns bright red. This is especially important if you are unable to feel pain, heat, or cold. You may have a greater risk of getting burned. Follow instructions from your health care provider about how to take care of your abscess. Make sure you: ?Cover the abscess with a bandage (dressing). ?Change your dressing or gauze as told by your health care provider. ?Wash your hands with soap and water before you change the dressing or gauze. If soap and water are not available, use [employer] representative. Check your abscess every day for signs of a worsening infection. Check for: ?More redness, swelling, or pain. ?More fluid or blood. ?Warmth. ?More pus or a bad smell. General instructions To avoid spreading the infection: ?Do not share personal care items, towels, or hot tubs with others. ?Avoid making skin contact with other people. Keep all follow-up visits as told by your health care provider. This is important. Contact a health care provider if you have: More redness, swelling, or pain around your abscess. More fluid or blood coming from your abscess. Warm skin around your abscess. More pus or a bad smell coming from your abscess. Muscle aches. Chills or a general ill feeling. Get help right away if you: Have severe pain. See red streaks on your skin spreading away from the abscess. See redness that spreads quickly. Have a fever or chills. Summary A skin abscess is an infected area on or under your skin that contains a collection of pus and other material. A small abscess that drains on its own may not need treatment. Treatment for larger abscesses may include having a procedure to drain the abscess and taking an antibiotic. This information is not intended to replace advice given to you by your health care provider. Make sure you discuss any questions you have with your health care provider. Document Revised: 05/14/2022 Document Reviewed: 11/17/2021 [employer] Patient Education 2022 [employer]. Follow Up Care 07/20/2023 09:40:21 With:FRANC SULLIVAN, JESUSITA Jose Address: When:Within 2 Month(s) [facility] 07-19-2023 Hospital Discharge instructions Patient Education 07/19/2023 20:03:53 Nausea and Vomiting, Adult, Pint-py-Qbkl Nausea and Vomiting, Adult Nausea is feeling that you have an upset stomach and that you are about to vomit. Vomiting is when food in your stomach forcefully comes out of your mouth. Vomiting can make you feel weak. If you vomit, or if you are not able to drink enough fluids, you may not have enough water in your body (get dehydrated). If you do not have enough water in your body, you may: Feel tired. Feel thirsty. Have a dry mouth. Have cracked lips. Pee (urinate) less often. Older adults and people with other diseases or a weak body defense system (immune system) are at higher risk for not having enough water in the body. If you feel like you may vomit or you vomit, it is important to follow instructions from your doctor about how to take care of yourself. Follow these instructions at home: Watch your symptoms for any changes. Tell your doctor about them. Eating and drinking Take an ORS (oral rehydration solution). This is a drink that is sold at pharmacies and stores. Drink clear fluids in small amounts as you are able, such as: ?Water. ?Ice chips. ?Fruit juice that has water added (diluted fruit juice). ?Low-calorie sports drinks. Eat bland, oowx-oe-mamlcs foods in small amounts as you are able, such as: ?Bananas. ?Applesauce. ?Rice. ?Low-fat (lean) meats. ?Herrin. ?Crackers. Avoid drinking fluids that have a lot of sugar or caffeine in them. This includes energy drinks, sports drinks, and soda. Avoid alcohol. Avoid spicy or fatty foods. General instructions Take ncvq-zhz-gdzvygq and prescription medicines only as told by your doctor. Drink enough fluid to keep your pee (urine) pale yellow. Wash your hands often with soap and water for at least 20 seconds. If you cannot use soap and water, use [employer] representative. Make sure that everyone in your home washes their hands well and often. Rest at home until you feel better. Watch your condition for any changes. Take slow and deep breaths when you feel like you may vomit. Keep all follow-up visits. Contact a doctor if: Your symptoms get worse. You have new symptoms. You have a fever. You cannot drink fluids without vomiting. You feel like you may vomit for more than 2 days. You feel light-headed or dizzy. You have a headache. You have muscle cramps. You have a rash. You have pain while peeing. Get help right away if: You have pain in your chest, neck, arm, or jaw. You feel very weak or you faint. You vomit again and again. You have vomit that is bright red or looks like black coffee grounds. You have bloody or black poop (stools) or poop that looks like tar. You have a very bad headache, a stiff neck, or both. You have very bad pain, cramping, or bloating in your belly (abdomen). You have trouble breathing. You are breathing very quickly. Your heart is beating very quickly. Your skin feels cold and clammy. You feel confused. You have signs of losing too much water in your body, such as: ?Dark pee, very little pee, or no pee. ?Cracked lips. ?Dry mouth. ?Sunken eyes. ?Sleepiness. ?Weakness. These symptoms may be an emergency. Get help right away. Call 911. Do not wait to see if the symptoms will go away. Do not drive yourself to the hospital. Summary Nausea is feeling that you have an upset stomach and that you are about to vomit. Vomiting is when food in your stomach comes out of your mouth. Follow instructions from your doctor about eating and drinking. Take jxew-yrb-kqgzoqa and prescription medicines only as told by your doctor. Contact your doctor if your symptoms get worse or you have new symptoms. Keep all follow-up visits. This information is not intended to replace advice given to you by your health care provider. Make sure you discuss any questions you have with your health care provider. Document Revised: 08/15/2021 Document Reviewed: 08/15/2021 [employer] Patient Education 2022 [employer]. 07/19/2023 20:03:53 Hematemesis Hematemesis Hematemesis is when you vomit blood. It is a sign of bleeding in the upper GI tract (gastrointestinal tract). The upper GI tract includes the mouth, throat, esophagus, stomach, and the upper part of the small intestine (duodenum). Hematemesis is usually caused by bleeding in the esophagus or stomach. You may suddenly vomit bright red blood. Or the blood may look like coffee grounds. You may also have other symptoms, such as: Stomach pain. Heartburn. Stool (feces) that looks black and tarry. Follow these instructions at home: Take zkpj-hae-cvwtcfd and prescription medicines only as told by your health care provider. Do not take NSAIDs, including aspirin and ibuprofen, unless your health care provider approves. These medicines can increase bleeding. Rest as needed. Drink enough fluids to keep your urine pale yellow. Take small sips of fluid at a time. Do not drink alcohol. Do not use any products that contain nicotine or tobacco. These products include cigarettes, chewing tobacco, and vaping devices, such as e-cigarettes. If you need help quitting, ask your health care provider. Keep all follow-up visits. This is important. Contact a health care provider if: You have more blood in your vomit. Your vomiting of blood begins again after it has stopped. You have persistent stomach pain. You have nausea, indigestion, or heartburn. Get help right away if: You faint. You feel weak or dizzy. You are urinating less than normal or not at all. You vomit up: ?Large amounts of blood or dark material that may look like coffee grounds. ?Bright red blood. You have any of the following: ?Persistent vomiting. ?A rapid heartbeat. ?Blood in your stool. ?Chest pain. ?Difficulty breathing. These symptoms may be an emergency. Get help right away. Call 911. Do not wait to see if the symptoms will go away. Do not drive yourself to the hospital. Summary Hematemesis is when you vomit blood. It is a sign of bleeding in the upper GI tract (gastrointestinal tract). Hematemesis is usually caused by bleeding in the esophagus or stomach. Do not take NSAIDs (including aspirin and ibuprofen), drink alcohol, or use tobacco products. Take abvt-soe-pidrqvu and prescription medicines only as told by your health care provider. This information is not intended to replace advice given to you by your health care provider. Make sure you discuss any questions you have with your health care provider. Document Revised: 09/17/2021 Document Reviewed: 09/17/2021 [employer] Patient Education 2022 [employer]. Follow Up Care 07/19/2023 17:37:03 With:Shirley Naranjo Address: [address] [place] [address], [address] [place] [phone] Business (1) When:07/22/2023 19:32:52 Comments:Call for diagnosis based follow up With:Damon KIRBY Address: [address] [place] [address]- Business (1) When:07/22/2023 19:32:47 Comments:Call Dr for diagnosis based follow up [facility] 07-19-2023 Hospital Discharge instructions Patient Education 07/19/2023 15:38:25 Skin Abscess Skin Abscess A skin abscess is an infected area on or under your skin that contains a collection of pus and other material. An abscess may also be called a furuncle, carbuncle, or boil. An abscess can occur in or on almost any part of your body. Some abscesses break open (rupture) on their own. Most continue to get worse unless they are treated. The infection can spread deeper into the body and eventually into your blood, which can make you feel ill. Treatment usually involves draining the abscess. What are the causes? An abscess occurs when germs, like bacteria, pass through your skin and cause an infection. This may be caused by: A scrape or cut on your skin. A puncture wound through your skin, including a needle injection or insect bite. Blocked oil or sweat glands. Blocked and infected hair follicles. A cyst that forms beneath your skin (sebaceous cyst) and becomes infected. What increases the risk? This condition is more likely to develop in people who: Have a weak body defense system (immune system). Have diabetes. Have dry and irritated skin. Get frequent injections or use illegal IV drugs. Have a foreign body in a wound, such as a splinter. Have problems with their lymph system or veins. What are the signs or symptoms? Symptoms of this condition include: A painful, firm bump under the skin. A bump with pus at the top. This may break through the skin and drain. Other symptoms include: Redness surrounding the abscess site. Warmth. Swelling of the lymph nodes (glands) near the abscess. Tenderness. A sore on the skin. How is this diagnosed? This condition may be diagnosed based on: A physical exam. Your medical history. A sample of pus. This may be used to find out what is causing the infection. Blood tests. Imaging tests, such as an ultrasound, CT scan, or MRI. How is this treated? A small abscess that drains on its own may not need treatment. Treatment for larger abscesses may include: Moist heat or heat pack applied to the area several times a day. A procedure to drain the abscess (incision and drainage). Antibiotic medicines. For a severe abscess, you may first get antibiotics through an IV and then change to antibiotics by mouth. Follow these instructions at home: Medicines Take yqpx-abt-gpwldqg and prescription medicines only as told by your health care provider. If you were prescribed an antibiotic medicine, take it as told by your health care provider. Do not stop taking the antibiotic even if you start to feel better. Abscess care If you have an abscess that has not drained, apply heat to the affected area. Use the heat source that your health care provider recommends, such as a moist heat pack or a heating pad. ?Place a towel between your skin and the heat source. ?Leave the heat on for 20 30 minutes. ?Remove the heat if your skin turns bright red. This is especially important if you are unable to feel pain, heat, or cold. You may have a greater risk of getting burned. Follow instructions from your health care provider about how to take care of your abscess. Make sure you: ?Cover the abscess with a bandage (dressing). ?Change your dressing or gauze as told by your health care provider. ?Wash your hands with soap and water before you change the dressing or gauze. If soap and water are not available, use hand customer solutions representative. Check your abscess every day for signs of a worsening infection. Check for: ?More redness, swelling, or pain. ?More fluid or blood. ?Warmth. ?More pus or a bad smell. General instructions To avoid spreading the infection: ?Do not share personal care items, towels, or hot tubs with others. ?Avoid making skin contact with other people. Keep all follow-up visits as told by your health care provider. This is important. Contact a health care provider if you have: More redness, swelling, or pain around your abscess. More fluid or blood coming from your abscess. Warm skin around your abscess. More pus or a bad smell coming from your abscess. Muscle aches. Chills or a general ill feeling. Get help right away if you: Have severe pain. See red streaks on your skin spreading away from the abscess. See redness that spreads quickly. Have a fever or chills. Summary A skin abscess is an infected area on or under your skin that contains a collection of pus and other material. A small abscess that drains on its own may not need treatment. Treatment for larger abscesses may include having a procedure to drain the abscess and taking an antibiotic. This information is not intended to replace advice given to you by your health care provider. Make sure you discuss any questions you have with your health care provider. Document Revised: 05/14/2022 Document Reviewed: 11/17/2021 [employer] Patient Education 2022 Project Manager Follow Up Care 07/19/2023 14:53:35 With:Damon KIRBY Address: [address] [place] [id number] Business (1) When:07/22/2023 15:31:39 Comments:Call Dr for diagnosis based follow up [facility] 01-03-2023 Hospital Discharge instructions Patient Education 01/03/2023 14:29:32 Pilonidal Cyst [...] Follow these instructions at home: Medicines Take aoev-bjj-cjfnjyr and prescription medicines only as told by [...] provider. Document Revised: 12/19/2020 Document Reviewed: 12/19/2020 [employer] Patient Education 2022 [employer]. [facility] 12-06-2022 Hospital Discharge instructions Patient Education 12/06/2022 20:23:50 Managing Depression, [...] pray, or go to a place of restorationist. Do some deep breathing. To do this, [...] sugars, or salt (sodium). General instructions Take givp-nkq-swjljjk and prescription medicines only as told by [...] (ADAA): www.adaa.org Mental Health Saritha: www.mentalhealthamerica.net National [place] on Mental Illness: www.rakesh.org Contact a health [...] department or: Call your local emergency services (091 in the [place] Call a suicide crisis helpline, such as the National Suicide Prevention Lifeline at or 748 in the [place] This is open 24 hours a day in the [place] Text the Crisis Text Line at 991940 (in the [place] Summary If you are [...] provider. Document Revised: 09/03/2021 Document Reviewed: 12/20/2019 [employer] Patient Education 2022 [employer]. Follow Up Care 10/23/2022 15:26:01 With:Damon KIRBY MD, FAM Address: When: only if needed Comments:pt to call pulse/HR to me in 4-6 weeks [facility] 10-23-2022 Hospital Discharge instructions Patient Education 10/23/2022 15:27:29 Managing Depression, [...] pray, or go to a place of restorationist. Do some deep breathing. To do this, [...] sugars, or salt (sodium). General instructions Take onjp-add-uwideoa and prescription medicines only as told by [...] (ADAA): www.adaa.org Mental Health Saritha: www.mentalhealthamerica.net National [place] on Mental Illness: www.rakesh.org Contact a health [...] department or: Call your local emergency services (791 in the [place] Call a suicide crisis helpline, such as the National Suicide Prevention Lifeline at or 701 in the [place] This is open 24 hours a day in the [place] Text the Crisis Text Line at 397841 (in the [place] Summary If you are [...] provider. Document Revised: 09/03/2021 Document Reviewed: 12/20/2019 [employer] Patient Education 2022 [employer]. 10/21/2022 20:33:36 Living With Attention Deficit Hyperactivity [...] you. Follow these instructions at home: Take xzat-yit-huazbxo and prescription medicines only as told by [...] a problem, search for a local or replaced by [facility]. Public mental health [...] ADHD, be patient and communicate openly. Take fayo-nza-idzpasm and prescription medicines only as told by your health care provider. Check with your health care provider before taking any new medicines. This information is not intended to replace advice given to you by your health care provider. Make sure you discuss any questions you have with your health care provider. Document Revised: 06/21/2020 Document Reviewed: 07/24/2020 [employer] Patient Education 2022 [employer]. Follow Up Care 09/10/2022 14:54:18 With:Damon KIRBY MD, FAM Address: When:6 weeks Comments: [facility] 03-31-2022 Hospital Discharge instructions Patient Education 03/31/2022 18:03:45 Atopic Dermatitis [...] skin caused by scratching. Take or apply zvqm-new-jpnnrfr and prescription medicines only as told by [...] 02/05/2001 Document Revised: 05/30/2019 Document Reviewed: 03/12/2017 [employer] Patient Education 2020 [employer]. 03/29/2022 19:21:47 BMI for Adults BMI for [...] height. This can be done either in Micronesian ([place] or metric measurements. Note that charts are available to help you find your BMI quickly and easily without having to do these calculations yourself. To calculate your BMI in Micronesian ([place] measurements, your health care provider will: [...] medical problems. BMI can be measured using Micronesian measurements or metric measurements. To interpret your [...] 10/20/2004 Document Revised: 01/21/2018 Document Reviewed: 12/22/2017 [employer] Patient Education 2020 [employer]. Follow Up Care 03/19/2022 11:26:33 With:Damon KIRBY MD, FAM Address: When: only if needed Comments:pt to call dermatology referral names to office soon [facility] [place] Evaluation + Plan note No data available for this section [facility] Evaluation + Plan note Future Appointments Appointment Date:12/08/2022 06:00:00 PM Scheduled Provider:Damon KIRBY MD Location:[facility] Appointment Type:[facility] Evaluation + Plan note Future Appointments Appointment Date:01/04/2023 04:40:00 PM Scheduled Provider:[facility]BY [facility] Evaluation + Plan note Future Appointments Appointment Date:01/22/2023 11:00:00 AM Scheduled Provider:Tabby Barnett PA-C Location:[facility] Appointment Type:[facility] [place] Evaluation + Plan note Future Appointments Appointment Date:09/21/2023 08:20:00 AM Scheduled Provider:Damon KIRBY MD [facility] [place] Evaluation note Diagnosis Dyspareunia in female- Primary Menorrhagia with regular cycle [facility] Diagnosis Menorrhagia with regular cycle Dyspareunia in female Pelvic pain [facility] No data available for this [facility] data available for this section [facility] Summary Purpose Family History No Family History Records Found No data available for this section No data available for this section No data available for this section No Family History Records FoundNo Family History Records FoundNo Family History Records FoundNo Family History Records FoundNo Family History Records FoundNo Family History Records FoundNo Family History Records Found No data available [...] Care Team (unrecognized sect ion and content) 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 Specialty Start Date End Date Damon Kirby MD PCP - General 11/24/22 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 Specialty Start Date End Date Damon Kirby MD PCP - General 11/24/22 INFORMATION SOURCE (unrecogn ized section and content) DATE CREATED AUTHOR 05/30/2022 [facility] DATE CREATED AUTHOR AUTHOR'S ORGANIZ ATION 07/19/2023 [facility] DATE CREATED AUTHOR AUTHOR'S ORGANIZ ATION 11/19/2023 [facility] DATE CREATED AUTHOR AUTHOR'S ORGANIZ ATION 07/20/2024 [facility] DATE CREATED AUTHOR AUTHOR'S ORGANIZ ATION 08/05/2024 [facility] DATE CREATED AUTHOR AUTHOR'S ORGANIZ ATION 08/09/2024 [facility] Reason for Visit (unrecogniz ed section and content) Reason Comments discuss periods Reason Comments EMBX FOR RECORDS PERTAINING TO PATIENTS WHO ARE [...] BE BASED ON THE PRIMARY CLINICAL RECORDS. [facility] [employer] [facility]. provides no warranty or guarantee of the accuracy or completeness of information in this document.
== END 2024-08-02 15:23 | disposition home or self-care (01) ==
LOC: LAB 15:22
PROVIDERS: Visit Provider Obstetrics & Gynecology
DX: N92.0 Excessive and frequent menstruation with regular cycle (principal); N94.10 Unspecified dyspareunia
CPT/HCPCS: 88305

== ENCOUNTER 2024-08-23 19:26 | Outpatient (REF) | payer MEDICAID, SELFPAY ==
--- OUTSIDE RECORDS SUMMARY | 2024-08-23 20:02 | XMS_ITS | CCD ---
Author Organization [facility] Care Team Providers Care Dental Hygiene Teacher Name Role Phone Damon KIRBY Primary Care [...] Consulting Unavailable Damon KIRBY Primary Care Physician Damon Kirby MD Primary Care Provider TATY FIELDS Attending Unavailable DIAMOND, TATY Attending Unavailable Taty Fields Attending Unavailable Taty Fields Admitting Unavailable Damon KIRBY Attending Unavailable Mallory Leary Attending Unavailable Damon KIRBY Attending Unavailable Allergies Allergy Classification Reported Allergen(s) Allergy Type Date of Onset Reaction(s) Facility Cats (1 source) Cat Animal Allergy (Dander) [facility] Dust (1 source) Dust Substance Allergy [facility] Opioid Agonists (1 source) Morphine; Translations: [morphine] Drug Allergy 02-22-19 14 Syncope (disorder) [facility] Sulfamethoxazole / Trimethoprim (1 source) Sulfamethoxazole / Trimethoprim; Translations: [sulfamethoxazole-t rimethoprim] Drug Allergy 02-22-19 23 Hemoptysis (finding) [facility] [place] Comment on above: seen thru [facility] (11 sources) Cat; Translations: [Cats] Drug allergy [facility] (11 sources) Dust; Translations: [Dust] Drug allergy [facility] (15 sources) Morphine; Translations: [morphine] Drug Allergy 02-22-19 14 Syncope (disorder), Unknown [facility] (12 sources) Ragweed; Translations: [Ragweed] Drug allergy [facility] (12 sources) Grass; Translations: [Grass] Drug allergy [facility] (1 source) Morphine Drug Allergy 03-11-19 22 [facility] Repository (5 sources) Sulfamethoxazole / Trimethoprim; Translations: [sulfamethoxazole-t rimethoprim] Drug Allergy 02-22-19 23 Hemoptysis (finding) [facility] [place] Comment on above: seen thru [facility] (4 sources) Grass pollen Drug Allergy 03-10-[address] [facility] (4 sources) House dust mite Allergy to substance 03-10-[address] [facility] (4 sources) Cat Dander Allergy to substance 03-10-[address] [facility] Work Phone: (4 sources) Tall Ragweed Drug Allergy 03-10-[address] [facility] (1 source) Sulfamethoxazole / Trimethoprim; Translations: [Bactrim] Drug Allergy 02-17-[address] [facility] Repository Medications Current Medications Medication Drug [...] day(s), # 28 cap(s), Refills(s) 0, Pharmacy: [facility], 165.1, cm, 05/27/24 15:05:00 EDT, Height/Length Dosing, 113.2, kg, 07/19/23 15:05:00 EDT, Weight Dosing Start Date: 07/19/23 Stop Date: 07/26/23 Status: Ordered dextromethorphan hydrobromide 3 mg/ml / promethazine hydrochloride 1.25 mg/ml oral solution (1 source) Phenothiazine, Uncompetitive I-hajtgi-Q-aspartat e Receptor Antagonist, Sigma-1 Agonist Start: 02-20-2021 take 5 mL by mouth every six hours for cough dextromethorphan- promethazine 15 mg-6.25 mg/5 mL Oral Syrup 5 mL 5 mL, Oral, q6hr for cough, 120 mL, Refill(s) 0, [facility], 165, cm, 02/20/21 11:45:00 EST, Height/Length [...] kami, Topical, BID, 60 gram, Refill(s) 0, [facility], 166, cm, 02/13/20 10:54:00 EST, [...] nausea, # 12 tab(s), Refills(s) 0, Pharmacy: [facility], 165, cm, 02/20/21 11:45:00 EST, Height/Length Dosing, 114.9, kg, 02/20/21 11:45:00 EST, Weight Dosing Start Date: 03/04/21 Status: Ordered pantoprazole 20 mg delayed release oral tablet (5 sources) Proton Pump Inhibitor Start: 07-22-2023 take 2 tablets by mouth once daily Protonix 20 mg Tab-DR 40 mg = 2 tab(s), Oral, Daily, # 60 tab(s), Refills(s) 2, Pharmacy: [facility], 165, cm, 07/22/23 10:36:00 EDT, Height/Length Dosing, 114, kg, 07/22/23 10:36:00 EDT, Weight Dosing Start Date: 07/22/23 Status: Ordered Start: 07-19-2023 take 2 tablets by mo [facility] once daily Protonix 20 mg Tab-DR 40 mg = 2 tab(s), Oral, Daily, # 60 tab(s), Refills(s) 0, Pharmacy: [facility], 165, cm, 07/19/23 17:41:00 EDT, Height/Length [...] day(s), # 28 tab(s), Refills(s) 0, Pharmacy: [facility], 165, cm, 07/19/23 17:41:00 EDT, Height/Length Dosing, 113, kg, 07/19/23 17:41:00 EDT, Weight Dosing Start Date: 07/19/23 Stop Date: 07/26/23 Status: Ordered sulfamethoxazole 800 mg / trimethoprim 160 mg oral tablet (2 sources) Dihydrofolate Reductase Inhibitor Antibacterial, Sulfonamide Antimicrobial Start: 07-19-2023 End: 07-26-2023 Bactrim D.S. 800 mg-160 mg Tab 1 tab(s), Oral, BID for 7 day(s), 14 tab(s), Refill(s) 0, [facility], 165.1, cm, 07/19/23 15:05:00 EDT, Height/Length [...] kami, Topical, BID, 60 gram, Refill(s) 1, [facility], 165, cm, 03/31/22 17:35:00 EST, Height/Length Dosing, 100.5, kg, 03/31/22 17:35:00 EST, Weight Dosing Start Date: 03/31/22 Status: Ordered Zofran ODT 4 mg Tab-Dis (5 sources) Start: 07-19-2023 take 1 tablet by mouth every eight hours as needed for nausea Zofran ODT 4 mg Tab-Dis 4 mg = 1 tab(s), Oral, q8hr, PRN Nausea/Vomiting, # 12 tab(s), Refills(s) 0, Pharmacy: [facility], 165, cm, 07/19/23 17:41:00 EDT, Height/Length [...] puff(s), Inhalation, q6hr, 1 EA, Refill(s) 1, [facility], 166, cm, 11/17/23 11:30:00 EDT, Height/Length Dosing, 121.3, kg, 11/17/23 11:30:00 EDT, Weight Dosing Start Date: 11/17/23 Status: Ordered Start: 11-08-2020 take 1 dose by inhal ation every six hours Albuterol (Eqv-ProAir HFA) 90 mcg/inh inhalation aerosol 2 puff(s), Inhalation, q6hr, 1 EA, Refill(s) 0, [facility], 166, cm, 11/08/20 16:18:00 EDT, Height/Length [...] endometrium Date/Time: 08/02/2024 4:38 PM Performed by: Taty Fields DO Authorized by: Taty Fields DO Consent: Consent obtained: written Consent [...] is to return for annual preop exam. [facility] HCG ( test) Ql (U)o n 08-02-2024 Interpretation and review of laboratory results Normal [facility] Preg Test, Ur Negative Negative [facility] Alfred 08-02-2024 L -- ---- Specimen: [id number] Received: 08/03/24 Status: KEON Rothman Num: [id number] Spec Type: Surgical Subm Dr: Taty Fields Tissues: A Endometrium - Biopsy (ENDOMETRIAL BIOPSY) Procedures: HE/2, Gross/Micro L4 ---- Age/ Patient Sex Location Account Attending Physician ---- Guerline Segal 29/F [place] [id number] Taty Fields ---- SPEC NUM: [id number] RECD: 08/03/24 STATUS: KEON ROTHMAN NUM: [id number] ALLISON: 08/02/24-0000 SUBM : Taty Fields ENTERED: 08/03/24 [facility] DR: Juanito,Marcio SPEC TYPE: Surgical DEPT: NEVAEH BARR ENTERED BY: [id number] RECV BY: [id number] ORDERED: HE/2, Gross/Micro L4 ORDERED: HE/2, Gross/Micro [...] submitted in a single cassette. (1, ns, [id number]) Microscopic Description Microscopic examination is performed. CPT Codes 06940 ---- ---- Specimen: [id number] Received: 08/03/24 Status: KEON Rothman Num: [id number] Spec Type: Surgical Subm Dr: Taty Fields Tissues: A Endometrium - Biopsy (ENDOMETRIAL BIOPSY) Procedures: HE/2, Gross/Micro L4 ---- Patient: Guerline Segal [id number] (Continued) ---- Signed (signature on file) Mook Alexander MD 08/07/24 [id number] Normal [facility] Patient Letter [facility] July 14, 2024 GUERLINE SEGAL [address] [place] [address] : 1995 To Whom it May Concern: 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 Sincerely, [place] [id number] [facility] Ambulatory Visit Summaryon 0 11-17-2023 Ambulatory Visit Summary Ambulatory Visit Summary GUERLINE SEGAL :1995 Visit Date:11/17/2023 Ambulatory Visit Instructions Your Diagnosis Abnormal physical evaluation Mild intermittent asthma Bipolar 2 disorder BMI 40.0-44.9, adult Class 3 obesity Your Care Team Attending Physician - Mallory Wu Primary Care Physician - Damon KIRBY MD [...] Puffs Inhalation Every 6 hours Pickup at [facility] Unchanged aripiprazole (aripiprazole 2 mg Tab) [...] physician if questions or concerns Pharmacy Information [facility]: [address] [place], [place] [id number] [phone] Allergies Bactrim (Hemoptysis) Cats Dust Grass Ragweed [...] triggers here: (more content not included)... Normal 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 Normal [facility] Comment on above: Result Comment: Elec tronically Signed By: Gibran CIFUENTES, Mallory Marquez.br\Date and Time Signed: 11/17/23 11:57 EDT BMPon 07-19-2023 Anion gap [Moles/Vol] 10 mmol/L Normal 6-16 [facility] Comment on above: Performed By: #### 2 [id number] #### [facility] [address] [place] [address] Calcium [Mass/Vol] 8.2 mg/dL Low 8.9-11.[address] [facility] Comment on above: Performed By: #### 2 [id number] #### [facility] [address] [place] [address] Chloride [Moles/Vol] 109 mmol/L Normal 101-111 [facility] Comment on above: Performed By: #### 2 [id number] #### [facility] [address] [place] [address] CO2 [Moles/Vol] 22 mmol/L Normal 21-31 [facility] Comment on above: Performed By: #### 2 [id number] #### [facility] [address] [place] [address] Creatinine [Mass/Vol] 0.7 mg/dL Normal 0.5-1.3 [facility] Comment on above: Performed By: #### 2 [id number] #### [facility] [address] [place] [address] Glucose [Mass/Vol] 70 mg/dL Normal 55-[address] [facility] Comment on above: Performed By: #### 2 [id number] #### [facility] [address] [place] [address] Potassium [Moles/Vol] 4.0 mmol/L Normal 3.5-5.3 [facility] Comment on above: Performed By: #### 2 [id number] #### [facility] [address] [place] [address] Sodium [Moles/Vol] 137 mmol/L Normal 135-[address] [facility] Comment on above: Performed By: #### 2 [id number] #### [facility] [address] [place] [address] Urea nitrogen [Mass/Vol] 14 mg/dL Normal 5-[address] [facility] Comment on above: Performed By: #### 2 [id number] #### [facility] [address] [place] [address] Urea nitrogen/Creatinine [Mass ratio] 20 No Units Normal 10-[address] [facility] Comment on above: Performed By: #### 2 [id number] #### [facility] [address] [place] [address] CBC w/ Auto Diffon 4 Basophils/100 WBC (Bld) 0.6 % Normal 0.0-2.[address] [facility] Comment on above: Performed By: #### 2 [id number] #### [facility] [address] [place] [address] Basophils/Leukocytes Auto (Bld) [Pure # fraction] 0.1 E9/L Normal 0.0-0.[address] [facility] Comment on above: Performed By: #### 2 938807 #### [facility] [address] [place] [address] Eosinophils (Bld) [#/Vol] 0.6 E9/L High 0.0-0.[address] [facility] Comment on above: Performed By: #### 2 624453 #### [facility] [address] [place] [address] Eosinophils/100 WBC (Bld) 4.1 % Normal 0.0-8.[address] [facility] Comment on above: Performed By: #### 2 525582 #### [facility] [address] [place] [address] Erythrocyte distribution width (RBC) [Ratio] 12.8 % Normal 10.9-14.[address] [facility] Comment on above: Performed By: #### 2 [id number] #### [facility] [address] [place] [address] Hematocrit (Bld) [Volume fraction] 37.9 % Normal 34.0-46.[address] [facility] Comment on above: Performed By: #### 2 989236 #### [facility] [address] [place] [address] Hemoglobin (Bld) [Mass/Vol] 12.7 g/dL Normal 12.0-16.[address] [facility] Comment on above: Performed By: #### 2 417856 #### [facility] [address] [place] [address] Lymphocytes (Bld) [#/Vol] 2.9 E9/L Normal 1.0-4.[address] [facility] Comment on above: Performed By: #### 2 362309 #### [facility] [address] [place] [address] Lymphocytes/100 WBC (Bld) 20.8 % Normal 14.0-50.[address] [facility] Comment on above: Performed By: #### 2 229959 #### [facility] [address] [place] [address] MCH (RBC) [Entitic mass] 28.3 pg Normal 27.0-34.[address] [facility] Comment on above: Performed By: #### 2 [id number] #### [facility] [address] [place] [address] MCHC (RBC) [Mass/Vol] 33.4 g/dL Normal 31.4-36.0 [facility] Comment on above: Performed By: #### 2 [id number] #### [facility] [address] [place] [address] MCV (RBC) [Entitic vol] 84.9 fL Normal 80.0-100.[address] [facility] Comment on above: Performed By: #### 2 [id number] #### [facility] [address] [place] [address] Monocytes (Bld) [#/Vol] 0.9 E9/L Normal 0.2-1.[address] [facility] Comment on above: Performed By: #### 2 224177 #### [facility] [address] [place] [address] Neutrophils (Bld) [#/Vol] 9.6 E9/L High 2.0-7.[address] [facility] Comment on above: Performed By: #### 2 532304 #### [facility] [address] [place] [address] Neutrophils/100 WBC (Bld) 68.0 % Normal 36.0-75.[address] [facility] Comment on above: Performed By: #### 2 837455 #### [facility] [address] [place] [address] Platelet mean volume (Bld) [Entitic vol] 7.8 fL Normal 6.4-10.[address] [facility] Comment on above: Performed By: #### 2 700839 #### [facility] [address] [place] [address] Platelets (Bld) [#/Vol] 356.0 E9/L Normal 150.0-500.[address] [facility] Comment on above: Performed By: #### 2 [id number] #### [facility] [address] [place] [address] RBC (Bld) [#/Vol] 4.5 E12/L Normal 4.3-5.[address] [facility] Comment on above: Performed By: #### 2 [id number] #### [facility] [address] [place] [address] WBC corrected for nucl RBC Auto (Bld) [#/Vol] 14.2 E9/L High 4.0-11.[address] [facility] Comment on above: Performed By: #### 2 128730 #### [facility] [address] [place] [address] CHEMISTRYOrdered By: SYSTEM SYSTEM on 07-19-2023 Albumin [...] 38.6 s High 25.1 - 36.5 second(s) [facility] Comment on above: Interpretive Data: [...] the same coagulation reagent and instrumentation as [facility]. Currently there are no coagulation studies available worldwide for children to 14 days, and no normal ranges. Heparin therapeutic range (represented by Anti-Factor Xa activity of 0.2 - 0.4 U/mL) corresponds to PTT of 56.6 - 109.0 sec. INR Coag (PPP) [Relative time] 0.94 {INR} Invalid Interpretation Code [facility] Comment on above: Interpretive Data: I NR results are specifically intended to assess patients stabilized on long-term Anticoagulation therapy suggested INR s Less Intensive Anticoagulation 2.0 3.0 Conventional Range 3.0 4.5 PT Coag (PPP) [Time] 10.5 s Normal 9.4 - 1 2.5 second(s) [facility] Comment on above: Interpretive Data: [...] the same coagulation reagent and instrumentation as [facility]. Currently there are no coagulation studies available worldwide for children to 14 days, and no normal ranges. HEMATOLOGYOrdered By: SYSTEM SYSTEM on 07-19-2023 Basophils/100 [...] 07-19-2023 Albumin [Mass/Vol] 4.0 g/dL Normal 3.3-5.[address] [facility] Comment on above: Performed By: #### 2 [id number] #### [facility] [address] [place] [address] Albumin/Globulin (S) [Mass conc ratio] 1.3 Normal 1.1-2.[address] [facility] Comment on above: Performed By: #### 2 696321 #### [facility] [address] [place] [address] ALP [Catalytic activity/Vol] 65 Int._Unit/L Normal 21-[address] [facility] Comment on above: Performed By: #### 2 [id number] #### [facility] [address] [place] [address] ALT No additional P-5'-P [Catalytic activity/Vol] 12 Int._Unit/L Normal 6-[address] [facility] Comment on above: Performed By: #### 2 076795 #### [facility] [address] [place] [address] AST [Catalytic activity/Vol] 12 Int._Unit/L Normal 5-[address] [facility] Comment on above: Performed By: #### 2 [id number] #### [facility] [address] [place] [address] Bilirubin [Mass/Vol] 0.2 mg/dL Normal 0.0-1.1 [facility] Comment on above: Performed By: #### 2 [id number] #### [facility] [address] [place] [address] Bilirubin.direct [Mass/Vol] 0.0 mg/dL Normal 0.0-0.[address] [facility] Comment on above: Performed By: #### 2 691446 #### [facility] [address] [place] [address] Bilirubin.indirect [Mass or moles/Vol] 0.2 mg/dL Normal 0.1-0.[address] [facility] Comment on above: Performed By: #### 2 [id number] #### [facility] [address] [place] [address] Globulin (S) [Mass/Vol] 3.1 g/dL Normal 1.4-4.[address] [facility] Comment on above: Performed By: #### 2 411164 #### [facility] [address] [place] [address] Protein [Mass/Vol] 7.1 g/dL Normal 6.0-7.[address] [facility] Comment on above: Performed By: #### 2 [id number] #### [facility] [address] [place] [address] Lipase Levelon 07-19-2023 Lipase [Catalytic activity/Vol] 29 U/L Normal 13-[address] [facility] Comment on above: Performed By: #### 2 [id number] #### [facility] [address] [place] [address] Magnesiumon 07-19-2023 Magnesium [Mass/Vol] 2.0 mg/dL Normal 1.3-2.4 [facility] Comment on above: Performed By: #### 2 686857 #### [facility] [address] [place] [address] Monitor Recordon 07-19-2023 Monitor Record [id number]. 00TIFF Normal [facility] Troponin 0 Hr.on 07-19-2023 Troponin I.cardiac [Mass/Vol] ng/mL Low 10.10-27.[address] [facility] Comment on above: Result Comment: The 95% CI (Confidence Interval) PPV (Positive Predictive Value) for myocardial infarction in females is 38 pg/mL, in males 51 pg/mL. The results should be used in conjunction with clinical conditions of myocardial infarction. (Access High Sensitivity Troponin I Instructions For Use, Jaden Barling, September 2017) Performed By: #### 1 [id number] #### [facility] [address] [place] [address] eGFRon 07-19-2023 eGFR 121 mL/min/1.73 m2 Normal >=[address] [facility] Comment on above: Order Comment: Order added by Discern Expert. Performed By: #### 1 [id number] #### [facility] [address] [place] [address] PREG QUANT HCGon 05-23-2022 HCG QUANT 27624 mIU/mL Normal [facility] Comment on above: Performed By: #### U MICRO, UACSIND #### [facility] [address] [place] [address] Dr. Dillon Pepe HCG RANGE SEE BELOW Normal [facility] Comment on above: Result Comment: 5-50 0.2-1 WEEK 50-500 1-2 WEEKS 100-5,000 2-3 WEEKS 500-10,000 3-4 WEEKS 1,000-50,000 4-5 WEEKS 10,000-100,000 5-6 WEEKS 15,000-200,000 6-8 WEEKS 10,000-100,000 2-3 MONTHS Performed By: #### U MICRO, UACSIND #### [facility] [address] [place] [address] Dr. Dillon Pepe CANNABINOID (THC) CONFIRMATI ON, URINEon 10-24-2021 Cannabinoid Positive Abnormal [facility] Comment on above: Performed By: #### C MP #### [facility] [address] [place] [address] Dr. Dillon Pepe Carboxy THC GC/MS Conf >750 Normal Cutoff=10 [facility] Comment on above: Performed By: #### C MP #### [facility] [address] [place] [address] Dr. Dillon Pepe CBC AUTO DIFFon 10-21-2021 BASO # 0.0 103/ul Normal 0.0-0.1 [facility] Comment on above: Performed By: #### C MP #### [facility] [address] [place] [address] Dr. Dillon Pepe Basophils/100 WBC (Bld) 0.2 % Normal 0.2-2.0 [facility] Comment on above: Performed By: #### C MP #### [facility] [address] [place] [address] Dr. Dillon Pepe EO # 0.4 103/ul Normal 0.0-0.7 [facility] Comment on above: Performed By: #### C MP #### [facility] [address] [place] [address] Dr. Dillon Pepe Eosinophils/100 WBC (Bld) 2.1 % Normal 0.9-7.0 [facility] Comment on above: Performed By: #### C MP #### [facility] [address] [place] [address] Dr. Dillon Pepe Erythrocyte distribution width (RBC) [Ratio] 13.7 % Normal 11.0-15.0 [facility] Comment on above: Performed By: #### C MP #### [facility] [address] [place] [address] Dr. Dillon Pepe Hematocrit (Bld) [Volume fraction] 32.7 % Critically low 36.0-48.0 [facility] Comment on above: Performed By: #### C MP #### [facility] [address] [place] [address] Dr. Dillon Pepe Hemoglobin (Bld) [Mass/Vol] 10.3 g/dL Critically low 12.0-16.0 [facility] Comment on above: Performed By: #### C MP #### [facility] [address] [place] [address] Dr. Dillon Pepe IG # 0.09 10e3/ul Critically high 0.00-0.03 [facility] Comment on above: Performed By: #### C MP #### [facility] [address] [place] [address] Dr. Dillon Pepe IG % 0.5 % Normal 0.0-0.5 [facility] Comment on above: Performed By: #### C MP #### [facility] [address] [place] [address] Dr. Dillon Pepe LYMPH # 2.2 103/ul Normal 1.2-3.8 [facility] Comment on above: Performed By: #### C MP #### [facility] [address] [place] [address] Dr. Dillon Pepe Lymphocytes/100 WBC (Bld) 13.2 % Critically low 20.5-60.0 [facility] Comment on above: Performed By: #### C MP #### [facility] [address] [place] [address] Dr. Dillon Pepe MANUAL DIFF REQ NO Normal [facility] Comment on above: Performed By: #### C MP #### [facility] [address] [place] [address] Dr. Dillon Pepe MCH (RBC) [Entitic mass] 27.2 pg Normal 26.7-34.0 [facility] Comment on above: Performed By: #### C MP #### [facility] [address] [place] [address] [address] Dillon Pepe MCHC (RBC) [Mass/Vol] 31.5 g/dL Normal 29.9-35.2 [facility] Comment on above: Performed By: #### C MP #### [facility] [address] [place] [address] [address] Dillon Pepe MCV (RBC) [Entitic vol] 86.3 fL Normal 81.0-99.0 [facility] Comment on above: Performed By: #### C MP #### [facility] Laboratory [address] [place] [address] Dr. Dillon Pepe MONO # 1.5 103/ul Critically high 0.3-0.8 [facility] Comment on above: Performed By: #### C MP #### [facility] Laboratory [address] [place] [address] Dr. Dillon Pepe Monocytes/100 WBC (Bld) 8.7 % Normal 1.7-12.0 [facility] Comment on above: Performed By: #### C MP #### [facility] [address] [place] [address] Dr. Dillon Pepe NEUT # 12.6 103/ul Critically high 1.4-6.5 [facility] Comment on above: Performed By: #### C MP #### [facility] [address] [place] [address] Dr. Dillon Pepe Neutrophils/100 WBC (Bld) 75.3 % Critically high 43.0-75.0 [facility] Comment on above: Performed By: #### C MP #### [facility] [address] [place] [address] Dr. Dillon Pepe Platelet mean volume (Bld) [Entitic vol] 10.5 fL Normal 9.5-13.5 [facility] Comment on above: Performed By: #### C MP #### [facility] [address] [place] [address] Dr. Dillon Pepe PLT 331 103/ul Normal 150-450 [facility] Comment on above: Performed By: #### C MP #### [facility] [address] [place] [address] Dr. Dillon Pepe RBC 3.79 106/ul Critically low 4.20-5.40 [facility] Comment on above: Performed By: #### C MP #### [facility] [address] [place] [address] Dr. Dillon Pepe WBC 16.8 103/ul Critically high 4.0-11.0 [facility] Comment on above: Performed By: #### C MP #### [facility] [address] [place] [address] Dr. Dillon Pepe CBC AUTO DIFFon 10-19-2021 BASO # 0.0 103/ul Normal 0.0-0.1 [facility] Comment on above: Performed By: #### U MICRO, UACSIND #### [facility] [address] [place] [address] Dr. Dillon Pepe Basophils/100 WBC (Bld) 0.2 % Normal 0.2-2.0 [facility] Comment on above: Performed By: #### U MICRO, UACSIND #### [facility] [address] [place] [address] Dr. Dillon Pepe EO # 0.0 103/ul Normal 0.0-0.7 [facility] Comment on above: Performed By: #### U MICRO, UACSIND #### [facility] [address] [place] [address] Dr. Dillon Pepe Eosinophils/100 WBC (Bld) 0.2 % Critically low 0.9-7.0 [facility] Comment on above: Performed By: #### U MICRO, UACSIND #### [facility] [address] [place] [address] Dr. Dillon Pepe Erythrocyte distribution width (RBC) [Ratio] 13.2 % Normal 11.0-15.0 [facility] Comment on above: Performed By: #### U MICRO, UACSIND #### [facility] [address] [address] [address] Dillon Pepe Hematocrit (Bld) [Volume fraction] 37.7 % Normal 36.0-48.0 [facility] Comment on above: Performed By: #### U MICRO, UACSIND #### [facility] [address] [address] [address] Dillon Pepe Hemoglobin (Bld) [Mass/Vol] 12.1 g/dL Normal 12.0-16.0 [facility] Comment on above: Performed By: #### U MICRO, UACSIND #### [facility] [address] [address] [address] Dillon Pepe IG # 0.09 10e3/ul Critically high 0.00-0.03 [facility] Comment on above: Performed By: #### U MICRO, UACSIND #### [facility] [address] [address] [address] Dillon Pepe IG % 0.5 % Normal 0.0-0.5 [facility] Comment on above: Performed By: #### U MICRO, UACSIND #### [facility] [address] [address] [address] Dillon Pepe LYMPH # 0.9 103/ul Critically low 1.2-3.8 [facility] Comment on above: Performed By: #### U MICRO, UACSIND #### [facility] [address] [address] [address] Dillon Pepe Lymphocytes/100 WBC (Bld) 4.9 % Critically low 20.5-60.0 [facility] Comment on above: Performed By: #### U MICRO, UACSIND #### [facility] [address] [address] [address] Dillon Pepe MANUAL DIFF REQ NO Normal [facility] Comment on above: Performed By: #### U MICRO, UACSIND #### [facility] [address] [address] [address] Dillon Pepe MCH (RBC) [Entitic mass] 27.6 pg Normal 26.7-34.0 [facility] Comment on above: Performed By: #### U MICRO, UACSIND #### [facility] [address] [address] [address] Dillon Pepe MCHC (RBC) [Mass/Vol] 32.1 g/dL Normal 29.9-35.2 [facility] Comment on above: Performed By: #### U MICRO, UACSIND #### [facility] [address] [place] [address] Dr. Dillon Pepe MCV (RBC) [Entitic vol] 85.9 fL Normal 81.0-99.0 [facility] Comment on above: Performed By: #### U MICRO, UACSIND #### [facility] [address] [place] [address] Dr. Dillon Pepe MONO # 1.1 103/ul Critically high 0.3-0.8 [facility] Comment on above: Performed By: #### U MICRO, UACSIND #### [facility] [address] [place] [address] Dr. Dillon Pepe Monocytes/100 WBC (Bld) 5.8 % Normal 1.7-12.0 [facility] Comment on above: Performed By: #### U MICRO, UACSIND #### [facility] [address] [place] [address] Dr. Dillon Pepe NEUT # 16.4 103/ul Critically high 1.4-6.5 [facility] Comment on above: Performed By: #### U MICRO, UACSIND #### [facility] [address] [place] [address] Dr. Dillon Pepe Neutrophils/100 WBC (Bld) 88.4 % Critically high 43.0-75.0 [facility] Comment on above: Performed By: #### U MICRO, UACSIND #### [facility] [address] [place] [address] Dr. Dillon Pepe Platelet mean volume (Bld) [Entitic vol] 10.4 fL Normal 9.5-13.5 [facility] Comment on above: Performed By: #### U MICRO, UACSIND #### [facility] [address] [address] [address] Dillon Pepe PLT 357 103/ul Normal 150-450 [facility] Comment on above: Performed By: #### U MICRO, UACSIND #### [facility] [address] [address] [address] Dillon Pepe RBC 4.39 106/ul Normal 4.20-5.40 [facility] Comment on above: Performed By: #### U MICRO, UACSIND #### [facility] [address] [address] [address] Dillon Pepe WBC 18.5 103/ul Critically high 4.0-11.0 [facility] Comment on above: Performed By: #### U MICRO, UACSIND #### [facility] [address] [place] [address] Dr. Dillon Pepe Covid-19 PCR ([facility])on 09-23 SARS-CoV-2 (COVID-19) RNA ERIK+probe Ql (Unsp spec) Not detected Normal NOT DETECTED [facility] Comment on above: Result Comment: When [...] for this test is supported by the [employer] of Health and Human Service's declaration that [...] Performed By: #### U MICRO, UACSIND #### [facility] [address] [place] [address] Dr. Dillon Pepe DRUG SCREEN RAPID (URINE)on 10-19-2021 AMP Negative Normal NEGATIVE [facility] Comment on above: Performed By: #### D RUGRPD #### [facility] [address] [place] [address] Dr. Dillon Pepe BAR Negative Normal NEGATIVE [facility] Comment on above: Performed By: #### D RUGRPD #### [facility] [address] [place] [address] Dr. Dillon Pepe BUP Negative Normal NEGATIVE [facility] Comment on above: Performed By: #### D RUGRPD #### [facility] [address] [place] [address] Dr. Dillon Pepe BZO Negative Normal NEGATIVE [facility] Comment on above: Performed By: #### D RUGRPD #### [facility] [address] [place] [address] Dr. Dillon Pepe CECILIA Negative Normal NEGATIVE [facility] Comment on above: Performed By: #### D RUGRPD #### [facility] [address] [place] [address] Dr. Dillon Pepe CUT-OFFS SEE BELOW Normal [facility] Comment on above: Result Comment: AMP [...] ng/mL Performed By: #### D RUGRPD #### [facility] [address] [place] [address] Dr. Dillon Pepe DRUG CUT HEADER DRUG CLASS TEST SYST EM CUT-OFF CONCENTRATIONS ARE FOLLOWS: Normal [facility] Comment on above: Performed By: #### D RUGRPD #### [facility] [address] [place] [address] Dr. Dillon Pepe mAMP Negative Normal NEGATIVE [facility] Comment on above: Performed By: #### D RUGRPD #### [facility] [address] [place] [address] Dr. Dillon Pepe MTD Negative Normal NEGATIVE [facility] Comment on above: Performed By: #### D RUGRPD #### [facility] [address] [place] [address] Dr. Dillon Pepe OPI Negative Normal NEGATIVE [facility] Comment on above: Performed By: #### D RUGRPD #### [facility] [address] [place] [address] Dr. Dillon Pepe OXY Negative Normal NEGATIVE [facility] Comment on above: Performed By: #### D RUGRPD #### [facility] [address] [place] [address] Dr. Dillon Pepe PCP Negative Normal NEGATIVE [facility] Comment on above: Performed By: #### D RUGRPD #### [facility] [address] [place] [address] Dr. Dillon Pepe PPX Negative Normal NEGATIVE [facility] Comment on above: Performed By: #### D RUGRPD #### [facility] [address] [place] [address] Dr. Dillon Pepe TCA Negative Normal NEGATIVE [facility] Comment on above: Performed By: #### D RUGRPD #### [facility] [address] [place] [address] Dr. Dillon Pepe THC Positive Abnormal NEGATIVE [facility] Comment on above: Performed By: #### D RUGRPD #### [facility] [address] [place] [address] Dr. Dillon Pepe TYPE AND SCREENon 10-19-2021 TYPE AND SCREEN Negative Normal [facility] Comment on above: Performed By: #### C MP #### [facility] [address] [place] [address] Dr. Dillon Pepe GROUP B STREP CULTUREon 08-0 S. agalactiae Ag Ql (Unsp spec) Culture Observations: NEGATIVE FOR GROUP B STREPTOCOCCUS. Normal [facility] Comment on above: Performed By: #### G BSCX #### [facility] [address] [address] [address] Dillon Pepe PREG GROWTHon 09-09-2021 US PREG GROWTH EXAMINATION: [...] ELLEN CORBETT Date: 2021-09-08 22:28 Normal [facility] GLYCOHEMOGLOBIN A1Con 2021 ADA RECOMMENDATION SEE BELOW Normal [facility] Comment on above: Result Comment: ADA RECOMMENDED LIMIT 4.0 - 6.0 ADA THERAPEUTIC TARGET < 7.0 ACTION SUGGESTED > 7.0 Performed By: #### C MP #### [facility] [address] [address] [address] Dillon Pepe Glucose [Mass/Vol] 105 mg/dL Normal [facility] Comment on above: Performed By: #### C MP #### [facility] [address] [address] [address] Dillon Pepe HbA1c (Bld) [Mass fraction] 5.3 % Normal 4.5-6.2 [facility] Comment on above: Performed By: #### C MP #### [facility] [address] [address] [address] Dillon Peep HEMOGRAM AND PLATELon 2021 Hematocrit (Bld) [Volume fraction] 34.1 % Critically low 36.0-48.0 [facility] Comment on above: Performed By: #### U MICRO, UACSIND #### [facility] [address] [place] [address] Dr. Dillon Pepe Hemoglobin (Bld) [Mass/Vol] 11.4 g/dL Critically low 12.0-16.0 [facility] Comment on above: Performed By: #### U MICRO, UACSIND #### [facility] [address] [place] [address] Dr. Dillon Pepe MCH (RBC) [Entitic mass] 29.4 pg Normal 26.7-34.0 [facility] Comment on above: Performed By: #### U MICRO, UACSIND #### [facility] [address] [place] [address] Dr. Dillon Pepe MCHC (RBC) [Mass/Vol] 33.4 g/dL Normal 29.9-35.2 [facility] Comment on above: Performed By: #### U MICRO, UACSIND #### [facility] [address] [place] [address] Dr. Dillon Pepe MCV (RBC) [Entitic vol] 87.9 fL Normal 81.0-99.0 [facility] Comment on above: Performed By: #### U MICRO, UACSIND #### [facility] [address] [place] [address] Dr. Dillon Pepe PLT 398 103/ul Normal 150-450 [facility] Comment on above: Performed By: #### U MICRO, UACSIND #### [facility] [address] [place] [address] Dr. Dillon Pepe RBC 3.88 106/ul Critically low 4.20-5.40 [facility] Comment on above: Performed By: #### U MICRO, UACSIND #### [facility] [address] [place] [address] Dr. Dillon Pepe WBC 17.3 103/ul Critically high 4.0-11.0 [facility] Comment on above: Performed By: #### U MICRO, UACSIND #### [facility] [address] [address] [address] Dillon Pepe RHOGAMon 08-07-2021 RHOGAM Status Information Issued Quantity 1 Product ID Rh Immune Globulin Lot Number [id number] Issue Date/Time [id number] Normal [facility] Comment on above: Performed By: #### C MP #### [facility] [address] [address] [address] Dillon Pepe TYPE AND SCREENon 08-07-2021 TYPE AND SCREEN Negative Normal [facility] Comment on above: Performed By: #### T NS #### [facility] [address] [address] [address] Dillon Pepe CHEMISTRYOrdered By: Ran Armstrong [...] 16.6 E9/L High 4.0 - 11.0 E9/L [facility] [place] PROF CHEM 8 (BAS METB)on Anion gap [Moles/Vol] 16.6 mmol/L Normal [facility] Comment on above: Performed By: #### C MP #### [facility] [address] [address] [address] Dillon Pepe Calcium [Mass/Vol] 8.4 mg/dL Critically low 8.5-10.1 [facility] Comment on above: Performed By: #### C MP #### [facility] [address] [address] [address] Dillon Pepe Chloride [Moles/Vol] 99 mmol/L Normal 98-107 [facility] Comment on above: Performed By: #### C MP #### [facility] [address] [address] [address] Dillon Pepe CO2 [Moles/Vol] 19.9 mmol/L Critically low 21.0-32.0 [facility] Comment on above: Performed By: #### C MP #### [facility] [address] [address] [address] Dillon Pepe Creatinine [Mass/Vol] 0.32 mg/dL Critically low 0.55-1.02 [facility] Comment on above: Performed By: #### C MP #### [facility] [address] [address] [address] Dillon Pepe EGFR-AF TRINIDADIAN >60 Normal >=60 [facility] Comment on above: Performed By: #### C MP #### [facility] [address] [address] [address] Dillon Pepe EGFR-NON AF TRINIDADIAN >60 Normal >=60 [facility] Comment on above: Performed By: #### C MP #### [facility] [address] [address] [address] Dillon Pepe Glucose [Mass/Vol] 97 mg/dL Normal 74-106 [facility] Comment on above: Performed By: #### C MP #### [facility] [address] [address] [address] Dillon Pepe Potassium [Moles/Vol] 3.5 mmol/L Normal 3.5-5.1 [facility] Comment on above: Performed By: #### C MP #### [facility] [address] [address] [address] Dillon Pepe Sodium [Moles/Vol] 132 mmol/L Critically low 136-145 [facility] Comment on above: Performed By: #### C MP #### [facility] [address] [address] [address] Dillon Pepe Urea nitrogen [Mass/Vol] 4.0 mg/dL Critically low 7.0-18.0 [facility] Comment on above: Performed By: #### C MP #### [facility] [address] [place] [address] Dr. Dillon Pepe Urea nitrogen/Creatinine [Mass ratio] 12.5 mg/mg Normal [facility] Comment on above: Performed By: #### C MP #### [facility] [address] [address] [address] Dillon Pepe PROF CHEM 8 (BAS METB)on Anion gap [Moles/Vol] 16.6 mmol/L Normal [facility] Comment on above: Performed By: #### B MP #### [facility] [address] [place] [address] Dr. Dillon Pepe Calcium [Mass/Vol] 8.3 mg/dL Critically low 8.5-10.1 [facility] Comment on above: Performed By: #### B MP #### [facility] [address] [place] [address] Dr. Dillon Pepe Chloride [Moles/Vol] 99 mmol/L Normal 98-107 [facility] Comment on above: Performed By: #### B MP #### [facility] [address] [address] [address] Dillon Pepe CO2 [Moles/Vol] 20.4 mmol/L Critically low 21.0-32.0 [facility] Comment on above: Performed By: #### B MP #### [facility] [address] [address] [address] Dillon Pepe Creatinine [Mass/Vol] 0.34 mg/dL Critically low 0.55-1.02 [facility] Comment on above: Performed By: #### B MP #### [facility] [address] [address] [address] Dillon Pepe EGFR-AF TRINIDADIAN >60 Normal >=60 [facility] Comment on above: Performed By: #### B MP #### [facility] [address] [address] [address] Dillon Pepe EGFR-NON AF TRINIDADIAN >60 Normal >=60 [facility] Comment on above: Performed By: #### B MP #### [facility] [address] [place] [address] Dr. Dillon Pepe Glucose [Mass/Vol] 94 mg/dL Normal 74-106 [facility] Comment on above: Performed By: #### B MP #### [facility] [address] [place] [address] Dr. Dillon Pepe Potassium [Moles/Vol] 3.0 mmol/L Critically low 3.5-5.1 [facility] Comment on above: Performed By: #### B MP #### [facility] [address] [place] [address] Dr. Dillon Pepe Sodium [Moles/Vol] 133 mmol/L Critically low 136-145 [facility] Comment on above: Performed By: #### B MP #### [facility] [address] [place] [address] Dr. Dillon Pepe Urea nitrogen [Mass/Vol] 4.0 mg/dL Critically low 7.0-18.0 [facility] Comment on above: Performed By: #### B MP #### [facility] [address] [place] [address] Dr. Dillon Pepe Urea nitrogen/Creatinine [Mass ratio] 11.8 mg/mg Normal [facility] Comment on above: Performed By: #### B MP #### [facility] [address] [place] [address] Dr. Dillon Pepe Anion gap [Moles/Vol] 17.7 mmol/L Normal [facility] Comment on above: Performed By: #### B MP #### [facility] [address] [address] [address] Dillon Pepe Calcium [Mass/Vol] 8.6 mg/dL Normal 8.5-10.1 [facility] Comment on above: Performed By: #### B MP #### [facility] [address] [address] [address] Dillon Pepe Chloride [Moles/Vol] 96 mmol/L Critically low 98-107 [facility] Comment on above: Performed By: #### B MP #### [facility] [address] [address] [address] Dillon Pepe CO2 [Moles/Vol] 22.4 mmol/L Normal 21.0-32.0 [facility] Comment on above: Performed By: #### B MP #### [facility] [address] [address] [address] Dillon Pepe Creatinine [Mass/Vol] 0.54 mg/dL Critically low 0.55-1.02 [facility] Comment on above: Performed By: #### B MP #### [facility] [address] [place] [address] Dr. Dillon Pepe EGFR-AF TRINIDADIAN >60 Normal >=60 [facility] Comment on above: Performed By: #### B MP #### [facility] [address] [address] [address] Dillon Pepe EGFR-NON AF TRINIDADIAN >60 Normal >=60 [facility] Comment on above: Performed By: #### B MP #### [facility] [address] [address] [address] Dillon Pepe Glucose [Mass/Vol] 116 mg/dL Critically high 74-106 [facility] Comment on above: Performed By: #### B MP #### [facility] [address] [address] [address] Dillon Pepe Potassium [Moles/Vol] 3.1 mmol/L Critically low 3.5-5.1 [facility] Comment on above: Performed By: #### B MP #### [facility] [address] [place] [address] Dr. Dillon Pepe Sodium [Moles/Vol] 133 mmol/L Critically low 136-145 [facility] Comment on above: Performed By: #### B MP #### [facility] [address] [place] [address] Dr. Dillon Pepe Urea nitrogen [Mass/Vol] 6.0 mg/dL Critically low 7.0-18.0 [facility] Comment on above: Performed By: #### B MP #### [facility] [address] [place] [address] Dr. Dillon Pepe Urea nitrogen/Creatinine [Mass ratio] 11.1 mg/mg Normal [facility] Comment on above: Performed By: #### B MP #### [facility] [address] [place] [address] Dr. Dillon Pepe UA (CLEAN/CATCH) SAFETY SECURITY OFFICER/MICRO I F IND.on 06-22-2021 Bilirubin Ql (U) Negative Normal NEGATIVE [facility] Comment on above: Performed By: #### U MICRO, UACSIND #### [facility] [address] [place] [address] Dr. Dillon Pepe Clarity (U) CLEAR Normal CLEAR [facility] Comment on above: Performed By: #### U MICRO, UACSIND #### [facility] [address] [place] [address] Dr. Dillon Pepe Color (U) YELLOW Normal YELLOW [facility] Comment on above: Performed By: #### U MICRO, UACSIND #### [facility] [address] [place] [address] Dr. Dillon Pepe Glucose Ql (U) Negative Normal NEGATIVE [facility] Comment on above: Performed By: #### U MICRO, UACSIND #### [facility] [address] [place] [address] Dr. Dillon Pepe Hemoglobin Ql (U) Negative Normal NEGATIVE [facility] Comment on above: Performed By: #### U MICRO, UACSIND #### [facility] [address] [place] [address] Dr. Dillon Pepe Ketones Ql (U) >=80 Abnormal NEGATIVE [facility] Comment on above: Performed By: #### U MICRO, UACSIND #### [facility] [address] [place] [address] Dr. Dillon Pepe LEUKOCYTES Negative Normal NEGATIVE [facility] Comment on above: Performed By: #### U MICRO, UACSIND #### [facility] [address] [address] [address] Dillon Pepe Nitrite Ql (U) Negative Normal NEGATIVE [facility] Comment on above: Performed By: #### U MICRO, UACSIND #### [facility] [address] [place] [address] Dr. Dillon Pepe pH (U) 6.0 [pH] Normal 5-9 [facility] Comment on above: Performed By: #### U MICRO, UACSIND #### [facility] [address] [place] [address] Dr. Dillon Pepe SPEC GRAVITY >=1.030 Abnormal 1.005-<=1.02 5 [facility] Comment on above: Performed By: #### U MICRO, UACSIND #### [facility] [address] [place] [address] Dr. Dillon Pepe UA PROTEIN 30 mg/dl Abnormal NEGATIVE/ TRACE [facility] Comment on above: Performed By: #### U MICRO, UACSIND #### [facility] [address] [place] [address] Dr. Dillon Pepe UR MICRO IND INDICATED Normal [facility] Comment on above: Performed By: #### U MICRO, UACSIND #### [facility] [address] [place] [address] Dr. Dillon Pepe Urobilinogen Qn (U) 0.2 {Elio'U}/dL Normal 0.2 - 1. 0 [facility] Comment on above: Performed By: #### U MICRO, UACSIND #### [facility] [address] [place] [address] Dr. Dillon Pepe URINE MICROSCOPIC ONLYon BACTERIA NONE SEEN Normal NONE SEEN [facility] Comment on above: Performed By: #### U MICRO, UACSIND #### [facility] [address] [place] [address] Dr. Dillon Pepe Bacteria identified Cx Nom (U) NOT INDICATED Normal [facility] Comment on above: Performed By: #### U MICRO, UACSIND #### [facility] [address] [place] [address] Dr. Dillon Pepe CAST NONE SEEN Normal NONE SEEN [facility] Comment on above: Performed By: #### U MICRO, UACSIND #### [facility] [address] [place] [address] Dr. Dillon Pepe Crystals LM Nom (Urine sed) NONE SEEN Normal NONE SEEN [facility] Comment on above: Performed By: #### U MICRO, UACSIND #### [facility] [address] [place] [address] Dr. Dillon Pepe Epithelial cells LM Ql (Urine sed) RARE Normal NONE SEEN /RARE [facility] Comment on above: Performed By: #### U MICRO, UACSIND #### [facility] [address] [place] [address] Dr. Dillon Pepe MUCOUS MODERATE Abnormal NONE SEEN [facility] Comment on above: Performed By: #### U MICRO, UACSIND #### [facility] [address] [place] [address] Dr. Dillon Pepe RBC NONE SEEN Abnormal 0-2 [facility] Comment on above: Performed By: #### U MICRO, UACSIND #### [facility] [address] [place] [address] Dr. Dillon Pepe WBC 0-2 Abnormal NONE SEEN [facility] Comment on above: Performed By: #### U MICRO, UACSIND #### [facility] [address] [place] [address] Dr. Dillon Pepe AMNISUREon 05-31-2021 AMNISURE Negative Normal NEGATIVE [facility] Comment on above: Performed By: #### A MNI #### [facility] [address] [address] [address] Dillon Pepe CBC AUTO DIFFon 05-31-2021 BASO # 0.0 103/ul Normal 0.0-0.1 [facility] Comment on above: Performed By: #### C BC #### [facility] [address] [place] [address] Dr. Dillon Pepe Basophils/100 WBC (Bld) 0.2 % Normal 0.2-2.0 [facility] Comment on above: Performed By: #### C BC #### [facility] [address] [place] [address] Dr. Dillon Pepe EO # 0.0 103/ul Normal 0.0-0.7 [facility] Comment on above: Performed By: #### C BC #### [facility] [address] [place] [address] Dr. Dillon Pepe Eosinophils/100 WBC (Bld) 0.0 % Critically low 0.9-7.0 [facility] Comment on above: Performed By: #### C BC #### [facility] [address] [place] [address] Dr. Dillon Pepe Erythrocyte distribution width (RBC) [Ratio] 12.5 % Normal 11.0-15.0 [facility] Comment on above: Performed By: #### C BC #### [facility] [address] [place] [address] Dr. Dillon Pepe Hematocrit (Bld) [Volume fraction] 38.2 % Normal 36.0-48.0 [facility] Comment on above: Performed By: #### C BC #### [facility] [address] [place] [address] Dr. Dillon Pepe Hemoglobin (Bld) [Mass/Vol] 13.2 g/dL Normal 12.0-16.0 [facility] Comment on above: Performed By: #### C BC #### [facility] [address] [place] [address] Dr. Dillon Pepe IG # 0.16 10e3/ul Critically high 0.00-0.03 [facility] Comment on above: Performed By: #### C BC #### [facility] [address] [place] [address] Dr. Dillon Pepe IG % 0.8 % Critically high 0.0-0.5 [facility] Comment on above: Performed By: #### C BC #### [facility] [address] [place] [address] Dr. Dillon Pepe LYMPH # 1.6 103/ul Normal 1.2-3.8 [facility] Comment on above: Performed By: #### C BC #### [facility] [address] [place] [address] Dr. Dillon Pepe Lymphocytes/100 WBC (Bld) 7.6 % Critically low 20.5-60.0 [facility] Comment on above: Performed By: #### C BC #### [facility] [address] [place] [address] Dr. Dillon Pepe MANUAL DIFF REQ NO Normal [facility] Comment on above: Performed By: #### C BC #### [facility] [address] [place] [address] Dr. Dillon Pepe MCH (RBC) [Entitic mass] 30.1 pg Normal 26.7-34.0 [facility] Comment on above: Performed By: #### C BC #### [facility] [address] [place] [address] Dr. Dillon Pepe MCHC (RBC) [Mass/Vol] 34.6 g/dL Normal 29.9-35.2 [facility] Comment on above: Performed By: #### C BC #### [facility] [address] [place] [address] Dr. Dillon Pepe MCV (RBC) [Entitic vol] 87.2 fL Normal 81.0-99.0 [facility] Comment on above: Performed By: #### C BC #### [facility] [address] [place] [address] Dr. Dillon Pepe MONO # 1.0 103/ul Critically high 0.3-0.8 [facility] Comment on above: Performed By: #### C BC #### [facility] [address] [place] [address] Dr. Dillon Pepe Monocytes/100 WBC (Bld) 4.6 % Normal 1.7-12.0 [facility] Comment on above: Performed By: #### C BC #### [facility] [address] [place] [address] Dr. Dillon Pepe NEUT # 18.4 103/ul Critically high 1.4-6.5 [facility] Comment on above: Performed By: #### C BC #### [facility] [address] [place] [address] Dr. Dillon Pepe Neutrophils/100 WBC (Bld) 86.8 % Critically high 43.0-75.0 [facility] Comment on above: Performed By: #### C BC #### [facility] [address] [place] [address] Dr. Dillon Pepe Platelet mean volume (Bld) [Entitic vol] 10.1 fL Normal 9.5-13.5 [facility] Comment on above: Performed By: #### C BC #### [facility] [address] [place] [address] Dr. Dillon Pepe PLT 402 103/ul Normal 150-450 [facility] Comment on above: Performed By: #### C BC #### [facility] [address] [place] [address] Dr. Dillon Pepe RBC 4.38 106/ul Normal 4.20-5.40 [facility] Comment on above: Performed By: #### C BC #### [facility] [address] [place] [address] Dr. Dillon Pepe WBC 21.2 103/ul Critically high 4.0-11.0 [facility] Comment on above: Performed By: #### C BC #### [facility] [address] [place] [address] Dr. Dillon Pepe CULTURE URINEon 05-31-2021 CULTURE URINE Culture Observations : MODERATE GROWTH OF MIXED GENITAL BLAIR. NO POTENTIAL PATHOGENS SEEN. Normal [facility] Comment on above: Performed By: #### C MP #### [facility] [address] [place] [address] Dr. Dillon Pepe Covid-19 PCR (CVDTBH)on SARS-CoV-2 (COVID-19) RNA ERIK+probe Ql (Unsp spec) Not detected Normal NOT DETECTED [facility] Comment on above: Result Comment: This test is not yet approved or cleared by the [place] FDA. When there are no FDA-approved or cleared tests available, and other criteria are met, FDA can make tests available under an emergency access mechanism called an Emergency Use Authorization (EUA). The EUA for this test is supported by the [employer] of Health and Human Service's (HHS's) declaration [...] Performed By: #### U MICRO, UACSIND #### [facility] [address] [place] [address] Dr. Dillon Pepe ER URINE PROFILEon 2 Bilirubin Ql (U) SMALL Abnormal NEGATIVE [facility] Comment on above: Performed By: #### C MP #### [facility] [address] [place] [address] Dr. Dlilon Pepe Clarity (U) CLEAR Normal CLEAR [facility] Comment on above: Performed By: #### C MP #### [facility] [address] [place] [address] Dr. Dillon Pepe Color (U) YELLOW Normal YELLOW [facility] Comment on above: Performed By: #### C MP #### [facility] [address] [place] [address] Dr. Dillon Pepe ERUAHD A micrscopic examination will be performed if indicated. Normal [facility] Comment on above: Performed By: #### C MP #### [facility] [address] [place] [address] Dr. Dillon Pepe Glucose Ql (U) Negative Normal NEGATIVE [facility] Comment on above: Performed By: #### C MP #### [facility] [address] [place] [address] Dr. Dillon Pepe Hemoglobin Ql (U) Negative Normal NEGATIVE [facility] Comment on above: Performed By: #### C MP #### [facility] [address] [place] [address] Dr. Dillon Pepe Ketones Ql (U) >=80 Abnormal NEGATIVE [facility] Comment on above: Performed By: #### C MP #### [facility] [address] [place] [address] Dr. Dillon Pepe LEUKOCYTES Negative Normal NEGATIVE [facility] Comment on above: Performed By: #### C MP #### [facility] [address] [place] [address] Dr. Dillon Pepe Nitrite Ql (U) Negative Normal NEGATIVE [facility] Comment on above: Performed By: #### C MP #### [facility] [address] [place] [address] Dr. Dillon Pepe pH (U) 6.0 [pH] Normal 5-9 [facility] Comment on above: Performed By: #### C MP #### [facility] [address] [place] [address] Dr. Dillon Pepe Protein (U) [Mass/Vol] 30 mg/dL Abnormal NEGATIVE/ TRACE [facility] Comment on above: Performed By: #### C MP #### [facility] [address] [place] [address] Dr. Dillon Pepe SPEC GRAVITY >=1.030 Abnormal 1.005-<=1.02 5 [facility] Comment on above: Performed By: #### C MP #### [facility] [address] [place] [address] Dr. Dillon Pepe UR MICRO IND INDICATED Normal [facility] Comment on above: Performed By: #### C MP #### [facility] [address] [place] [address] Dr. Dillon Pepe Urobilinogen Qn (U) 1.0 {Elio'U}/dL Normal 0.2 - 1. 0 [facility] Comment on above: Performed By: #### C MP #### [facility] [address] [place] [address] Dr. Dillon Pepe PROF 14(COMP METB)on 022 Albumin [Mass/Vol] 3.5 g/dL Normal 3.4-5.0 [facility] Comment on above: Performed By: #### C MP #### [facility] [address] [place] [address] Dr. Dillon Pepe Albumin/Globulin [Mass ratio] 0.8 {ratio} Normal [facility] Comment on above: Performed By: #### C MP #### [facility] [address] [place] [address] Dr. Dillon Pepe ALP [Catalytic activity/Vol] 84 U/L Normal 46-116 [facility] Comment on above: Performed By: #### C MP #### [facility] [address] [place] [address] Dr. Dillon Pepe ALT [Catalytic activity/Vol] 17 U/L Normal 14-59 [facility] Comment on above: Performed By: #### C MP #### [facility] [address] [place] [address] Dr. Dillon Pepe Anion gap [Moles/Vol] 19.2 mmol/L Normal [facility] Comment on above: Performed By: #### C MP #### [facility] [address] [place] [address] Dr. Dillon Pepe AST [Catalytic activity/Vol] 10 U/L Critically low 15-37 [facility] Comment on above: Performed By: #### C MP #### [facility] [address] [place] [address] Dr. Dillon Pepe Bilirubin [Mass/Vol] 0.6 mg/dL Normal 0.2-1.3 [facility] Comment on above: Performed By: #### C MP #### [facility] [address] [place] [address] Dr. Dillon Pepe Calcium [Mass/Vol] 9.3 mg/dL Normal 8.5-10.1 [facility] Comment on above: Performed By: #### C MP #### [facility] [address] [place] [address] Dr. Dillon Pepe Chloride [Moles/Vol] 98 mmol/L Normal 98-107 [facility] Comment on above: Performed By: #### C MP #### [facility] [address] [address] [address] Dillon Pepe CO2 [Moles/Vol] 20.7 mmol/L Critically low 22.0-30.0 [facility] Comment on above: Performed By: #### C MP #### [facility] [address] [place] [address] Dr. Dillon Pepe Creatinine [Mass/Vol] 0.51 mg/dL Critically low 0.52-1.04 [facility] Comment on above: Performed By: #### C MP #### [facility] [address] [place] [address] Dr. Dillon Pepe EGFR-AF TRINIDADIAN =60 Normal >=60 [facility] Comment on above: Performed By: #### C MP #### [facility] [address] [place] [address] Dr. Dillon Pepe EGFR-NON AF TRINIDADIAN >60 Normal >=60 [facility] Comment on above: Performed By: #### C MP #### [facility] [address] [place] [address] Dr. Dillon Pepe Globulin (S) [Mass/Vol] 4.5 g/dL Normal [facility] Comment on above: Performed By: #### C MP #### [facility] [address] [address] [address] Dillon Pepe Glucose [Mass/Vol] 106 mg/dL Normal 74-106 [facility] Comment on above: Performed By: #### C MP #### [facility] [address] [place] [address] Dr. Dillon Pepe Potassium [Moles/Vol] 2.9 mmol/L Critically low 3.4-5.0 [facility] Comment on above: Performed By: #### C MP #### [facility] [address] [address] [address] Dillon Pepe Protein [Mass/Vol] 8.0 g/dL Normal 6.1-8.2 [facility] Comment on above: Performed By: #### C MP #### [facility] [address] [address] [address] Dillon Pepe Sodium [Moles/Vol] 136 mmol/L Critically low 137-145 [facility] Comment on above: Performed By: #### C MP #### [facility] [address] [address] [address] Dillon Pepe Urea nitrogen [Mass/Vol] 7.0 mg/dL Normal 7.0-18.0 [facility] Comment on above: Performed By: #### C MP #### [facility] [address] [address] [address] Dillon Pepe Urea nitrogen/Creatinine [Mass ratio] 13.7 mg/mg Normal [facility] Comment on above: Performed By: #### C MP #### [facility] [address] [address] [address] Dillon Pepe URINE MICROSCOPIC ONLYon BACTERIA SMALL Abnormal NONE SEEN [facility] Comment on above: Performed By: #### U MICRO, UACSIND #### [facility] [address] [address] [address] Dillon Pepe Bacteria identified Cx Nom (U) INDICATED Normal [facility] Comment on above: Performed By: #### U MICRO, UACSIND #### [facility] [address] [address] [address] Dillon Pepe CAST NONE SEEN Normal NONE SEEN [facility] Comment on above: Performed By: #### U MICRO, UACSIND #### [facility] [address] [address] [address] Dillon Pepe Crystals LM Nom (Urine sed) NONE SEEN Normal NONE SEEN [facility] Comment on above: Performed By: #### U MICRO, UACSIND #### [facility] [address] [address] [address] Dillon Pepe Epithelial cells LM Ql (Urine sed) FEW Abnormal NONE SEEN /RARE [facility] Comment on above: Performed By: #### U MICRO, UACSIND #### [facility] [address] [address] [address] Dillon Pepe MUCOUS LARGE Abnormal NONE SEEN [facility] Comment on above: Performed By: #### U MICRO, UACSIND #### [facility] [address] [address] [address] Dillon Pepe RBC NONE SEEN Abnormal 0-2 [facility] Comment on above: Performed By: #### U MICRO, UACSIND #### [facility] [address] [address] [address] Dillon Pepe WBC 0-2 Abnormal NONE SEEN [facility] Comment on above: Performed By: #### U MICRO, UACSIND #### [facility] [address] [address] [address] iDllon Pepe US PREG ANATOMY SINGLEon PREG ANATOMY SINGLE OBSTETRICAL ULTRASOUND HISTORY: Supervision [...] by: CARLO DENNISON Date: 2021-05-31 19:53 Normal [facility] Vital Signs Date Time Vital Sign Value Performing Clinician Vineet glasgow 08-02-2024 15:57-0400 Body mass index (BMI) [Ratio] 41.57 kg/m2 [employer] Work Phone: [facility] 08-02-2024 15:57-0400 Body weight 113.31 kg [employer] DO Work Phone: [facility] 08-02-2024 15:57-0400 Diastolic blood pressure 70 mm[Hg] [employer] Work Phone: [facility] 08-02-2024 15:57-0400 Systolic blood pressure 122 mm[Hg] [employer] DO Work Phone: [facility] 11-17-2023 11:23-0400 Blood Pressure Location [facility] 11-17-2023 11:23-0400 Body temperature 98.6 [degF] [facility] 11-17-2023 11:23-0400 Diastolic blood pressure 72 mm[Hg] [facility] 11-17-2023 11:23-0400 Heart rate 88 /min [facility] 11-17-2023 11:23-0400 Respiratory rate 18 /min [facility] 11-17-2023 11:23-0400 SaO2% (BldA) [Mass fraction] 99 % [facility] 11-17-2023 11:23-0400 Systolic blood pressure 130 mm[Hg] Mallory [facility] 07-22-2023 10:26-0400 Blood Pressure Location Damon KIRBY [facility] 07-22-2023 10:26-0400 Diastolic blood pressure 80 mm[Hg] Anthonyer [facility] 07-22-2023 10:26-0400 Heart rate 88 /min Christdamion [facility] 07-22-2023 10:26-0400 Respiratory rate 16 /min Anthonyer [facility] 07-22-2023 10:26-0400 SaO2% (BldA) [Mass fraction] 100 % Damon K[facility] 07-22-2023 10:26-0400 Systolic blood pressure 134 mm[Hg] Anthonyer [facility] 07-19-2023 20:02-0400 Diastolic blood pressure 80 mm[Hg] Pedro Mckeon [facility] 07-19-2023 20:02-0400 Heart rate 87 /min Pedro Randlee [facility] 07-19-2023 20:02-0400 Mean blood pressure 93 mm[Hg] Pedro Mike [facility] 07-19-2023 20:02-0400 Respiratory rate 16 /min Pedro Mike [facility] 07-19-2023 20:02-0400 SaO2% (BldA) [Mass fraction] 100 % Pedro Mike [facility] 07-19-2023 20:02-0400 Systolic blood pressure 118 mm[Hg] Pedro Mike [facility] 07-19-2023 18:54-0400 Heart rate 84 /min Pedor Mike [facility] 07-19-2023 18:54-0400 Respiratory rate 18 /min Pedro Mike [facility] 07-19-2023 18:54-0400 SaO2% (BldA) [Mass fraction] 100 % Pedro Mike [facility] 07-19-2023 17:39-0400 Body temperature 99.32 [degF] Pedro Mike [facility] 07-19-2023 17:39-0400 Diastolic blood pressure 60 mm[Hg] Pedro Mike [facility] 07-19-2023 17:39-0400 Heart rate 102 /min Pedro Mike [facility] 07-19-2023 17:39-0400 Respiratory rate 20 /min Pedro Mike [facility] 07-19-2023 17:39-0400 SaO2% (BldA) [Mass fraction] 97 % Pedro Mike [facility] 07-19-2023 17:39-0400 Systolic blood pressure 117 mm[Hg] Pedro Mike [facility] 07-19-2023 15:03-0400 Body temperature 97.52 [degF] Pedro Mike [facility] 07-19-2023 15:03-0400 Diastolic blood pressure 84 mm[Hg] Pedro Mike [facility] 07-19-2023 15:03-0400 Heart rate 95 /min Pedro Mike [facility] 07-19-2023 15:03-0400 Respiratory rate 18 /min Pedro Mckeon [facility] 07-19-2023 15:03-0400 SaO2% (BldA) [Mass fraction] 99 % Pedro Mckeon [facility] 07-19-2023 15:03-0400 Systolic blood pressure 165 mm[Hg] Pedro Mckeon [facility] 12-28-2022 15:50-0500 Blood Pressure Location Tabby [facility] 12-28-2022 15:50-0500 Body temperature 98.06 [degF] Tabby [facility] 12-28-2022 15:50-0500 Diastolic blood pressure 72 mm[Hg] Tabby [facility] 12-28-2022 15:50-0500 Heart rate 110 /min Tabby [facility] 12-28-2022 15:50-0500 Respiratory rate 18 /min Tabby [facility] 12-28-2022 15:50-0500 SaO2% (BldA) [Mass fraction] 99 % Tabby [facility] 12-28-2022 15:50-0500 Systolic blood pressure 124 mm[Hg] Tabby [facility] 12-21-2022 11:00-0400 Blood Pressure Location Damon KIR[facility] 12-21-2022 11:00-0400 Diastolic blood pressure 78 mm[Hg] Damon KIRBY [facility] 12-21-2022 11:00-0400 Heart rate 84 /min Christopher [facility] 12-21-2022 11:00-0400 Respiratory rate 16 /min Christopher [facility] 12-21-2022 11:00-0400 SaO2% (BldA) [Mass fraction] 97 % Christopher [facility] 12-21-2022 11:00-0400 Systolic blood pressure 112 mm[Hg] Christopher [facility] 10-23-2022 14:47-0400 Blood Pressure Location Christopher [facility] 10-23-2022 14:47-0400 Diastolic blood pressure 78 mm[Hg] Christopher [facility] 10-23-2022 14:47-0400 Heart rate 87 /min Christopher [facility] 10-23-2022 14:47-0400 Respiratory rate 16 /min Christopher [facility] 10-23-2022 14:47-0400 SaO2% (BldA) [Mass fraction] 98 % Christopher [facility] 10-23-2022 14:47-0400 Systolic blood pressure 118 mm[Hg] Christopher [facility] 03-31-2022 17:26-0500 Blood Pressure Location Christopher [facility] 03-31-2022 17:26-0500 Diastolic blood pressure 74 mm[Hg] Liamdamion KIRBY [facility] 03-31-2022 17:26-0500 Heart rate 85 /min Damon FRANC [facility] Dick 03-31-2022 17:26-0500 Respiratory rate 20 /min Damon FRANC [facility] Dick 03-31-2022 17:26-0500 SaO2% (BldA) [Mass fraction] 99 % Liamdamion FRANC [facility] 03-31-2022 17:26-0500 Systolic blood pressure 122 mm[Hg] Damon FRANC [facility] Encounters Encounter Date Encounter Type Care Provider Facility Start: 08-29-2024 ambulatory Damon KIRBY Facil ity:[facility] Start: 08-02-2024 End: 08-02-2024 Patient encounter procedure Taty Diamond DO Work Phone: [facility] Comment on above: Menorrhagia with reg ular cycle; Dyspareunia in female; Pelvic pain Start: 08-02-2024 End: 08-02-2024 ambulatory TATY DIAMOND Not Available Start: 07-24-2024 End: 07-24-2024 Bamboo flowsheet Taty Diamond DO Work Phone: [facility] Start: 07-24-2024 End: 07-24-2024 Bamboo flowsheet Taty Diamond DO Work Phone: [facility] Start: 07-24-2024 End: 07-24-2024 Office outpatient visit 15 minutes Taty Diamond DO Work Phone: [facility] Comment on above: Dyspareunia in femal e (Primary Dx); Menorrhagia with regular cycle Start: 07-24-2024 End: 07-24-2024 ambulatory TATY DIAMOND Not Available Start: 11-17-2023 End: 11-17-2023 ambulatory [facility] Start: 11-17-2023 End: 11-17-2023 Encounter for general adult medical examination with abnormal findings Mallory Leary [facility] [place] Start: 11-17-2023 End: 11-17-2023 Patient encounter procedure Mallory Leary [facility] [place] Start: 09-21-2023 End: 09-21-2023 ambulatory Damon KIRBY Facility: [facility] Start: 09-21-2023 End: 09-21-2023 Patient encounter procedure Liamdamion KIRBY [facility] Start: 07-22-2023 End: 07-22-2023 Patient encounter procedure Damon KIRBY [facility] Start: 07-19-2023 End: 07-19-2023 Emergency department patient visit Pedro Mckeon [facility] Start: 07-19-2023 End: 07-19-2023 Emergency department patient visit Pedro Mckeon [facility] Start: 01-07-2023 End: 01-07-2023 Patient encounter procedure Tabby Barnett [facility] [place] Start: 12-28-2022 End: 12-28-2022 Patient encounter procedure Tabby Barnett [facility] [place] Start: 12-21-2022 End: 12-21-2022 Patient encounter procedure Damon KIRBY [facility] Start: 10-23-2022 End: 10-23-2022 Patient encounter procedure Damon KIRBY [facility] Start: 05-23-2022 End: 05-24-[address] TATY FIELDS . Facility:[facility] Start: 05-09-[address] TATY FIELDS . Facili ty:[facility] Start: 03-31-2022 End: 03-31-2022 Patient encounter procedure Damon KIRBY [facility] Start: 10-19-2021 End: 10-21-2021 Evaluation and management of inpatient DR NATALIE ARTEAGA . Facility:[facility] Start: 09-29-2021 End: 09-29-[address] TATY FIELDS . Facility:[facility] Start: 09-08-2021 End: 09-09-[address] TATY FIELDS . Facility:[facility] Start: 08-08-[address] NONE LISTED REQUEST Facility:[facility] Start: 08-07-2021 End: 08-07-[address] NONE LISTED REQUEST Facility:[facility] Start: 08-06-2021 End: 08-06-2021 Patient encounter procedure Taty FIELDS [facility] Start: 07-17-[address] TATY FIELDS [...] 08-02-2024 Urine test visual color cmprsn meths Taty Fields DO Work Phone: Start: 12-23-2022 Bilateral tubal ligation Damon KIRBY Start: 10-20-2021 Delivery of Products of Conception, External Approach DR TATY FIELDS . Start: 10-20-2021 Repair Vulva, Cpo al Approach DR TATY FIELDS . None (qualifier value) Taty FIELDS Plan of Treatment Date Care Activity Detail Author Start: 08-23-2024 End: 08-23-2024 Patient encounter procedure 08/23/2024 3:40 PM EDT Office Visit [facility] [address] [place] [address] Taty Fields, DO [address] [place] [address] [facility] Start: 08-02-2024 End: 08-02-2024 Patient encounter procedure 08/02/2024 3:30 PM EDT Procedure Visit [facility] [address] [place] [id number] Taty Fields, DO [address] [place] [address] [facility] Start: 07-24-2024 End: 07-24-2024 Patient encounter procedure 07/24/2024 9:10 AM EDT Office Visit [facility] [address] [place] [address] Taty Fields, DO [address] [place], [place] [id number] Arrived [facility] Comment on above: Arrived Immunizations Immunization Date Immunization Notes Care Provider Fa cili 10-21-2021 measles, mumps and rubella virus vaccine Damon KIRBY [facility] [place] 01-08-2020 influenza virus vaccine, unspecified formulation Taty DIAMOND [facility] NEGATED: Highlighted row has not occurred!12-21-2022 influenza virus vaccine, unspecified formulation Damon KIRBY [facility] NEGATED: Highlighted row has not occurred!12-21-2022 SARS-CoV-2 mRNA (tozinameran 5y-11y) vaccine Damon KIRBY [facility] NEGATED: Highlighted row has not occurred!10-23-2022 SARS-CoV-2 mRNA (tozinameran 5y-11y) vaccine Damon KIRBY [facility] [place] NEGATED: Highlighted row has not occurred!05-05-2022 influenza virus vaccine, unspecified formulation Damon KIRBY [facility] NEGATED: Highlighted row has not occurred!05-05-2022 SARS-CoV-2 mRNA (tozinameran 5y-11y) vaccine Damon KIRBY [facility] [place] NEGATED: Highlighted row has not occurred!03-31-2022 influenza virus vaccine, unspecified formulation Damon KIRBY [facility] [place] NEGATED: Highlighted row has not occurred!02-20-2021 SARS-CoV-2 (COVID-19) Ad26 vaccine, recombinant Taty DIAMOND [facility] NEGATED: Highlighted row has not occurred!02-20-2021 influenza virus vaccine, unspecified formulation Taty DIAMOND [facility] Payers Date Payer Category Payer Medicaid [employer] [place] [id number] 1996 Unknown [id number] 1996 Unknown [id number] 2.16.840.1.479363.3.579.2.593 1996 Unknown [id number] 2.16.840.1.865556.3.579.2.593 1996 Unknown [id number] 2.16.840.1.289504.3.579.2.593 1996 Unknown [id number] 2.16.840.1.890827.3.579.2.593 1996 Unknown [id number] 2.16.840.1.290547.3.579.2.593 1996 Unknown [id number] 2.16.840.1.261760.3.579.2.593 1996 Unknown [id number] 2.16.840.1.595024.3.579.2.593 1996 Unknown [id number] 2.16.840.1.677414.3.579.2.593 1996 Unknown [id number] 2.16.840.1.361127.3.579.2.593 1996 Unknown [id number] 2.16.840.1.071629.3.579.2.593 1996 Unknown [id number] 2.16.840.1.218263.3.579.2.593 1996 Unknown [id number] 2.16.840.1.960584.3.579.2.1259 1996 Unknown [id number] 2.16.840.1.895188.3.579.2.1259 1996 Unknown [id number] 2.16.840.1.386063.3.579.2.727 1996 Unknown [id number] 2.16.840.1.323337.3.579.2.727 1996 Unknown [id number] [id number] 1959 Medicaid [id number] 1958 Self-pay Unknown [id number] Social History Date Type Detail Facility Start: 02-20-2021 End: 07-16-2022 Tobacco smoking status Never smoked tobacco (finding) [facility] Tobacco smoking status Never [facility] Start: 03-18-2023 Sex Assigned At Female F [facility] Start: 07-16-2022 Tobacco use and exposure Smokeless tobacco non-user [facility] Start: 03-18-2023 Alcoholic beverage intake Current drinker of alcohol (finding) [facility] Start: 03-18-2023 History of Social function [facility] Start: 07-15-[address] syed alcohol [facility] Start: 1995 Sex assigned at Not on file [facility] Functional Status Date Assessment Result Facility 11-17-2023 Functional Status N/A [facility] 07-22-2023 Functional Status N/A [facility] 07-19-2023 Functional Status N/A [facility] 07-19-2023 Functional Status N/A [facility] 12-28-2022 Functional Status N/A [facility] 12-21-2022 Functional Status N/A [facility] 10-23-2022 Functional Status N/A [facility] [place] 03-31-2022 Functional Status N/A [facility] Clinical Notes 03-31-2022 to 08-02-2024 Alethea Hadley, TIN RECOVERY WORKER - 08/02/2024 3:30 PM EDTYolande Hickey NP - 07/24/2024 9:10 AM EDT Note Date & Type Note Facility 08-02-2024 History of Present illness Narrative Associated Order(s): Biopsy endometrium Pre-Procedure Diagnose(s): Menorrhagia with regular cycle; Dyspareunia in female Post-Procedure Diagnose(s): Menorrhagia with regular cycle; Dyspareunia in female Reason for Appointment: Patient ID: Guerline Segal is a 29 y.o. female who presents for EMBX Patient presents today for a Endometrial Biopsy appointment. MEDICATIONS No current outpatient medications ALLERGIES Allergies Allergen Reactions Sulfamethoxazole-Trimethoprim Other Reaction(s): Hemoptysis seen thru [facility] Cat Dander Dust Mite Extract Grass [...] exacerbation (CMS/HCC) ADHD (attention deficit hyperactivity disorder) ([facility]) Encounter for Rh incompatibility status Encounter for supervision of normal first Hyperemesis gravidarum (HHS-HCC) Large for gestational age fetus affecting management of mother, delivered Mood changes Nausea/vomiting in Obesity (BMI 30-39.9) Vaginal delivery HISTORY PAST MEDICAL HISTORY SOCIAL HISTORY Past Medical History: Diagnosis Date 6 weeks follow-up Abdominal pain affecting , antepartum Acute asthma exacerbation (CMS/HCC) ADHD (attention deficit hyperactivity disorder) (CMS/[facility]) Encounter for Rh incompatibility status Encounter for [...] nursing note reviewed. Exam conducted with a material handling crew supervisor present. Vitals: Estimated body mass index is [...] endometrium Date/Time: 08/02/2024 4:38 PM Performed by: Taty Fields DO Authorized by: Taty Fields DO Consent: Consent obtained: written Consent [...] by Alethea Hadley LPN on behalf of: Taty Fields DO documented in this encounter [facility] 07-24-2024 History of Present illness Narrative Reason for Appointment: Patient ID: Guerline Segal is a 29 y.o. female who presents for discuss periods Patient presents today for Acute Visit. MEDICATIONS No current outpatient medications ALLERGIES Allergies Allergen Reactions Sulfamethoxazole-Trimethoprim Other Reaction(s): Hemoptysis seen thru [facility] Cat Dander Dust Mite Extract Grass [...] exacerbation (CMS/HCC) ADHD (attention deficit hyperactivity disorder) ([facility]) Encounter for Rh incompatibility status Encounter for supervision of normal first Hyperemesis gravidarum Large for gestational age fetus affecting management of mother, delivered Mood changes Nausea/vomiting in Obesity (BMI 30-39.9) Vaginal delivery HISTORY PAST MEDICAL HISTORY SOCIAL HISTORY Past Medical History: Diagnosis Date 6 weeks follow-up Abdominal pain affecting , antepartum Acute asthma exacerbation ([facility]) ADHD (attention deficit hyperactivity disorder) ([facility]) Encounter for Rh incompatibility status Encounter for [...] nursing note reviewed. Exam conducted with a material handling crew supervisor present. Vitals: Estimated body mass index is [...] by Yolande Hickey NP on behalf of: Taty Fields DO documented in this encounter [facility] 11-17-2023 Hospital Discharge instructions Patient Education 11/17/2023 [...] Centers for Disease Control and Prevention: www.cdc.gov [place] Lung Association: www.lung.org This information is not intended to replace advice given to you by your health care provider. Make sure you discuss any questions you have with your health care provider. Document Revised: 04/03/2021 Document Reviewed: 04/03/2021 [employer] Patient Education 2023 [email or web address]. [facility] [place] 11-17-2023 Note Patient [...] for Disease Control and Prevention: www.cdc.gov ? [place] Lung Association: www.lung.org This information is not intended to replace advice given to you by your health care provider. Make sure you discuss any questions you have with your health care provider. Document Revised: 04/03/2021 Document Reviewed: 04/03/2021 [employer] Patient Education ? [address] [email or web address][address] [facility] 09-18-2023 Hospital Discharge instructions Patient Education 09/18/2023 [...] Follow these instructions at home: Medicines Take rxfe-nrg-mzzcuse and prescription medicines only as told by [...] powder, vinegar, hot sauces, and barbecue sauce. ?[place] fruit juices and citrus fruits, such as oranges, lina, and limes. ?Tomato-based foods, such as red sauce, chili, salsa, and pizza with red sauce. ?Fried and fatty foods, such as donuts, south sudanese fries, potato chips, and high-fat dressings. ?High-fat [...] provider. Document Revised: 08/19/2020 Document Reviewed: 08/19/2020 [employer] Patient Education 2022 [email or web address]. [facility] [place] 09-18-2023 Note Patient Education Gastroenterology Esophagitis Esophagitis [...] these instructions at home: Medicines ? Take oake-apr-ncdeolv and prescription medicines only as told by [...] vinegar, hot sauces, and barbecue sauce. ? [place] fruit juices and citrus fruits, such as oranges, lina, and limes. ? Tomato-based foods, such as red sauce, chili, salsa, and pizza with red sauce. ? Fried and fatty foods, such as donuts, south sudanese fries, potato chips, and high-fat dressings. ? [...] that causes pr (more content not included)... [facility] 07-22-2023 Hospital Discharge instructions Patient Education 07/22/2023 [...] as coffee and soda. Take and apply ymki-bgd-ainvrfq and prescription medicines only as told by [...] provider. Document Revised: 06/08/2022 Document Reviewed: 06/08/2022 [employer] Patient Education 2022 [email or web address]. 07/21/2023 11:23:59 Skin Abscess Skin Abscess A [...] Follow these instructions at home: Medicines Take ryzt-qtd-yrsvrhc and prescription medicines only as told by [...] and water are not available, use hand front end drupal developer. Check your abscess every day for signs [...] provider. Document Revised: 05/14/2022 Document Reviewed: 11/17/2021 [employer] Patient Education 2022 [email or web address]. Follow Up Care 07/20/2023 09:40:21 With:Damon KIRBY MD, FAM Address: When:Within 2 Month(s) [facility] [place] 07-19-2023 Hospital Discharge instructions Patient Education 07/19/2023 20:03:53 Nausea and Vomiting, Adult, Pswr-nc-Tdtd Nausea and Vomiting, Adult Nausea is feeling [...] fruit juice). ?Low-calorie sports drinks. Eat bland, igex-yn-safcos foods in small amounts as you are able, such as: ?Bananas. ?Applesauce. ?Rice. ?Low-fat (lean) meats. ?[place]. ?Crackers. Avoid drinking fluids that have a lot of sugar or caffeine in them. This includes energy drinks, sports drinks, and soda. Avoid alcohol. Avoid spicy or fatty foods. General instructions Take wpfi-ird-eyrlkzn and prescription medicines only as told by your doctor. Drink enough fluid to keep your pee (urine) pale yellow. Wash your hands often with soap and water for at least 20 seconds. If you cannot use soap and water, use hand front end drupal developer. Make sure that everyone in your home [...] your doctor about eating and drinking. Take qity-hxl-cmoswgn and prescription medicines only as told by your doctor. Contact your doctor if your symptoms get worse or you have new symptoms. Keep all follow-up visits. This information is not intended to replace advice given to you by your health care provider. Make sure you discuss any questions you have with your health care provider. Document Revised: 08/15/2021 Document Reviewed: 08/15/2021 [employer] Patient Education 2022 [employer] 07/19/2023 20:03:53 Hematemesis Hematemesis Hematemesis is when [...] tarry. Follow these instructions at home: Take eygi-ksf-lmkzuit and prescription medicines only as told by [...] drink alcohol, or use tobacco products. Take ibep-ynf-zlmcyby and prescription medicines only as told by your health care provider. This information is not intended to replace advice given to you by your health care provider. Make sure you discuss any questions you have with your health care provider. Document Revised: 09/17/2021 Document Reviewed: 09/17/2021 [employer] Patient Education 2022 [email or web address]. 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 Check your abscess every day for signs [...] provider. Document Revised: 05/14/2022 Document Reviewed: 11/17/2021 [employer] Patient Education 2022 [email or web address]. Follow Up Care 07/19/2023 14:53:35 With:Damon KIRBY Address: [address] [place], [place] [id number] [facility] (1) When:07/22/2023 15:31:39 Comments:Call Dr for diagnosis based follow up [facility] 01-03-2023 Hospital Discharge instructions Patient Education [...] Follow these instructions at home: Medicines Take hula-zhd-bzubrqq and prescription medicines only as told by [...] provider. Document Revised: 12/19/2020 Document Reviewed: 12/19/2020 [employer] Patient Education 2022 [email or web address]. [facility] [place] 12-06-2022 Hospital Discharge instructions Patient Education 12/06/2022 [...] pray, or go to a place of mandaen. Do some deep breathing. To do this, [...] sugars, or salt (sodium). General instructions Take veed-mza-ynbtzgg and prescription medicines only as told by [...] (ADAA): www.adaa.org Mental Health Saritha: www.mentalhealthamerica.net National Almo on Mental Illness: www.rakesh.org Contact a health [...] department or: Call your local emergency services (238 in the [place] Call a suicide crisis helpline, such as the National Suicide Prevention Lifeline at or 601 in the [place] This is open 24 hours a day in the [place] Text the Crisis Text Line at 224678 (in the [place] Summary If you are [...] provider. Document Revised: 09/03/2021 Document Reviewed: 12/20/2019 [employer] Patient Education 2022 [email or web address]. Follow Up Care 10/23/2022 15:26:01 With:Damon KIRBY MD, FAM Address: When: only if needed Comments:pt to call pulse/HR to me in 4-6 weeks [facility] [place] 10-23-2022 Hospital Discharge [...] pray, or go to a place of mandaen. Do some deep breathing. To do this, [...] sugars, or salt (sodium). General instructions Take ffvw-lkj-ltboutq and prescription medicines only as told by [...] (ADAA): www.adaa.org Mental Health Saritha: www.mentalhealthamerica.net National Almo on Mental Illness: www.rakesh.org Contact a health [...] department or: Call your local emergency services (824 in the [place] Call a suicide crisis helpline, such as the National Suicide Prevention Lifeline at or 704 in the [place] This is open 24 hours a day in the [place] Text the Crisis Text Line at 692142 (in the [place] Summary If you are [...] provider. Document Revised: 09/03/2021 Document Reviewed: 12/20/2019 [employer] Patient Education 2022 [employer] 10/21/2022 20:33:36 Living With Attention Deficit Hyperactivity [...] you. Follow these instructions at home: Take orum-ybk-zskrbnh and prescription medicines only as told by [...] a problem, search for a local or [facility] mental health care center. Public mental health [...] ADHD, be patient and communicate openly. Take xigs-hhk-mzcgsly and prescription medicines only as told by your health care provider. Check with your health care provider before taking any new medicines. This information is not intended to replace advice given to you by your health care provider. Make sure you discuss any questions you have with your health care provider. Document Revised: 06/21/2020 Document Reviewed: 07/24/2020 [employer] Patient Education 2022 [email or web address]. Follow Up Care 09/10/2022 14:54:18 With:Damon KIRBY MD, FAM Address: When:6 weeks Comments: [facility] [place] 03-31-2022 Hospital Discharge instructions Patient Education 03/31/2022 [...] skin caused by scratching. Take or apply spzz-jnt-trtauus and prescription medicines only as told by [...] 02/05/2001 Document Revised: 05/30/2019 Document Reviewed: 03/12/2017 [employer] Patient Education 2020 [email or web address]. 03/29/2022 19:21:47 BMI for Adults BMI for [...] height. This can be done either in [place] ([place] or metric measurements. Note that charts are available to help you find your BMI quickly and easily without having to do these calculations yourself. To calculate your BMI in [place] ([place] measurements, your health care provider will: [...] medical problems. BMI can be measured using Ecuadorean measurements or metric measurements. To interpret your [...] 10/20/2004 Document Revised: 01/21/2018 Document Reviewed: 12/22/2017 [employer] Patient Education 2020 [email or web address]. Follow Up Care 03/19/2022 11:26:33 With:Damon KIRBY MD, FAM Address: When: only if needed Comments:pt to call dermatology referral names to office soon [facility] [place] Evaluation + Plan note No data available for this section [facility] Evaluation + Plan note Future Appointments Appointment Date:12/08/2022 06:00:00 PM Scheduled Provider:Damon KIRBY MD Location:[facility] Appointment Type:[facility] [place] Evaluation + Plan note Future Appointments Appointment Date:01/04/2023 04:40:00 PM Scheduled Provider:Damon KIRBY MD Location:[facility] Appointment Type:[facility] [place] Evaluation + Plan note Future Appointments Appointment Date:01/22/2023 11:00:00 AM Scheduled Provider:Tabby Barnett PA-C Location:[facility] Appointment Type:[facility] [place] Evaluation + Plan note Future Appointments Appointment Date:09/21/2023 08:20:00 AM Scheduled Provider:Damon KIRBY MD Location:[facility] Appointment Type:[facility] [place] Evaluation note Diagnosis Dyspareunia in female- Primary Menorrhagia with regular cycle [facility] Diagnosis Menorrhagia with regular cycle Dyspareunia in female Pelvic pain [facility] No data available for this section [facility] available for this section [facility] Summary Purpose Family History No Family [...] Care Team (unrecognized sect ion and content) Dental Hygiene Teacher Relationship Specialty Start Date End Date Damon Kirby MD PCP - General 11/24/22 Dental Hygiene Teacher Relationship Specialty Start Date End Date Damon Kirby MD PCP - General 11/24/22 INFORMATION SOURCE (unrecogn ized section and content) DATE CREATED AUTHOR 05/30/2022 [facility] pital DATE CREATED AUTHOR AUTHOR'S ORGANIZ ATION 07/19/[address] [facility] DATE CREATED AUTHOR AUTHOR'S ORGANIZ ATION 07/20/[address] [facility] DATE CREATED AUTHOR AUTHOR'S ORGANIZ ATION 08/05/2024 [facility] EPIC DATE CREATED AUTHOR AUTHOR'S ORGANIZ ATION 08/09/2024 [facility] DATE CREATED AUTHOR AUTHOR'S ORGANIZ ATION 08/12/[address] [facility] Reason for Visit (unrecogniz ed section and [...] BE BASED ON THE PRIMARY CLINICAL RECORDS. [facility]. provides no warranty or guarantee of the accuracy or completeness of information in this document.
[2024-08-29 14:08] LABS: Age Gdln ACOG Testing Note (.); IGP, rfx Aptima HPV ASCU Note (.)
== END 2024-08-23 19:27 | disposition home or self-care (01) ==
LOC: LAB 19:26
PROVIDERS: Visit Provider Obstetrics & Gynecology
DX: Z01.419 Encounter for gynecological examination (general) (routine) without abnormal findings (principal)
CPT/HCPCS: 88175

== ENCOUNTER 2024-09-07 07:56 | Outpatient (OUT) | payer MEDICAID, SELFPAY ==
--- OUTSIDE RECORDS SUMMARY | 2024-09-07 08:22 | XMS_ITS | CCD ---
Author Organization [facility] Care Team Providers Care Team Foreman Name Role Phone Damon KIRBY Primary Care Physician DIAMOND ., DR POSEY Attending Unavailable REQUEST, DR [...] ., DR ESTRADA Admitting Unavailabl e REQUEST, NONE LISTED Primary Care Unavaila ble DIAMOND ., DR POSEY Consulting Unavailable KARASIK ., DR ESTRADA Attending Unavailabl e DIAMOND ., DR POSEY Procedure Practitioner Unavail able SHAYLEEUBJIMMIE PHILIP Consulting Unavailable JOEY, DR OSWALD Alfaro Consulting Unavailable MISC, DR ROCHA Primary Care Unavailable TERE ., BRIANNA Attending Unavailable TERE ., BRIANNA Admitting Unavailable KARASIK ., DR ESTRADA Consulting Unavailabl e TERE ., BRIANNA Consulting Unavailable STRAWSER, CARLO Consulting Unavailable Damon KIRBY Primary Care Physician Damon Kirby MD Primary Care Provider [phone] Marcus Fields Attending Unavailable Marcus Fields Admitting Unavailable Damon Kirby MD Primary Care Provider MARCUS FIELDS Attending Unavailable MARCUS FIELDS Attending Unavailable MARCUS FIELDS Attending Unavailable Damon KIRBY Attending Unavailable Mallory Leary Attending Unavailable Damon KIRBY Attending Unavailable Sumeet FRANKLIN Attending Unavailable Allergies Allergy Classification Reported Allergen(s) Allergy Type Date of Onset Reaction(s) Facility Cats (1 source) Cat Animal Allergy (Dander) [facility] Dust (1 source) Dust Substance Allergy [facility] Opioid Agonists (1 source) Morphine; Translations: [morphine] Drug Allergy 02-22-19 14 Syncope (disorder) [facility] Sulfamethoxazole / Trimethoprim (1 source) Sulfamethoxazole / Trimethoprim; Translations: [sulfamethoxazole-t rimethoprim] Drug Allergy 02-22-19 23 Hemoptysis (finding) [facility] [place] Comment on above: seen thru [facility] (12 sources) Cat; Translations: [Cats] Drug allergy [facility] (12 sources) Dust; Translations: [Dust] Drug allergy [facility] (19 sources) Morphine; Translations: [morphine] Drug Allergy 02-22-19 14 Syncope (disorder), Unknown [facility] (13 sources) Ragweed; Translations: [Ragweed] Drug allergy [facility] (13 sources) Grass; Translations: [Grass] Drug allergy [facility] (1 source) Morphine Drug Allergy 03-11-19 22 [facility] Repository (9 sources) Sulfamethoxazole / Trimethoprim; Translations: [sulfamethoxazole-t rimethoprim] Drug Allergy 02-22-19 23 Hemoptysis (finding) [facility] [place] Comment on above: seen thru [facility] (7 sources) Grass pollen Drug Allergy 03-10-19 24 [facility] (7 sources) House dust mite Allergy to substance 03-10-19 24 [facility] (7 sources) Cat Dander Allergy to substance 03-10-19 24 [facility] Work Phone: (7 sources) Tall Ragweed Drug Allergy 03-10-19 24 [facility] (1 source) Sulfamethoxazole / Trimethoprim; Translations: [Bactrim] Drug Allergy 02-17-20 23 [facility] Repository Medications Current Medications Medication Drug Class(es) Dates Sig (Normalized) Sig (Original) ARIPiprazole 10 mg oral tablet (16 sources) Atypical Antipsychotic Start: 03-04-2023 End: 07-24-2024 ARIPiprazole (Abilify) 10 MG tablet 03/04/2023 07/24/2024 Discontinued (Other) Start: 10-23-2022 End: 07-24-2024 take 1 tablet by mouth once daily aripiprazole 2 mg Tab 2 mg = 1 tab(s), Oral, Daily, Refills(s) 0 Start Date: 10/23/22 Status: Ordered Repeat number: 1 betamethasone 0.5 mg/ml topical cream (10 sources) Corticosteroid Start: 10-23-2022 betamethasone Top dipropionate 0.05% Crm 45 gram apply topically to affected area once daily AT THE SAME TIME EACH DAY Start Date: 10/23/22 Status: Ordered Repeat number: 1 Start: 10-23-2022 apply 45 g topically once reginaldo y betamethasone Top dipropionate 0.05% Crm 45 gram apply topically to affected area once daily AT THE SAME TIME EACH DAY Start Date: 10/23/22 Status: Ordered busPIRone hydrochloride 10 mg oral tablet (13 sources) Start: 10-23-2022 End: 07-24-2024 take 1 tablet by mouth twice daily busPIRone 10 mg Tab 10 mg = 1 tab(s), Oral, BID, Refills(s) 0 Start Date: 10/23/22 Status: Ordered Repeat number: 1 cephalexin 500 mg oral capsule (2 sources) Cephalosporin Antibacterial Start: 07-19-2023 End: 07-26-2023 take 1 capsule by mouth every six hours Keflex 500 mg Cap 500 mg = 1 cap(s), Oral, q6hr, X 7 day(s), # 28 cap(s), Refills(s) 0, Pharmacy: [facility], 165.1, cm, 07/19/23 15:05:00 EDT, Height/Length Dosing, 113.2, kg, 07/19/23 15:05:00 EDT, Weight Dosing Start Date: 07/19/23 Stop Date: 07/26/23 Status: Ordered dextromethorphan hydrobromide 3 mg/ml / promethazine hydrochloride 1.25 mg/ml oral solution (1 source) Phenothiazine, Uncompetitive J-mbmocz-Q-aspartat e Receptor Antagonist, Sigma-1 Agonist Start: 02-20-2021 take 5 mL by mouth every six hours for cough dextromethorphan- promethazine 15 mg-6.25 mg/5 mL Oral Syrup 5 mL 5 mL, Oral, q6hr for cough, 120 mL, Refill(s) 0, [facility], 165, cm, 02/20/21 11:45:00 EST, Height/Length Dosing, 114.9, kg, 02/20/21 11:45:00 EST, Weight Dosing Start Date: 02/20/21 Status: Ordered escitalopram 10 mg oral tablet (16 sources) Serotonin Reuptake Inhibitor Start: 02-11-2023 End: 07-24-2024 take 1 tablet by mouth in the morning escitalopram (Lexapro) 10 MG tablet Take 10 mg by mouth in the morning. 02/11/2023 07/24/2024 Discontinued (Other) Start: 10-23-2022 End: 07-24-2024 take 1 tablet by mouth once daily escitalopram 5 mg oral tablet TAKE 1 TABLET BY MOUTH EVERY DAY Start Date: 10/23/22 Status: Ordered Repeat number: 1 fluticasone propionate 0.5 mg/ml topical cream (1 source) Corticosteroid Start: 02-13-2020 fluticasone topical 0.05% cream 1 kami, Topical, BID, 60 gram, Refill(s) 0, [facility], 166, cm, 02/13/20 10:54:00 EST, Height/Length Dosing, 112.1, kg, 02/13/20 10:54:00 EST, Weight Dosing Start Date: 02/13/20 Status: Ordered ketoconazole 20 mg/ml topical cream (10 sources) Azole Antifungal Start: 10-23-2022 ketoconazole Top 2% Crm APPLY TOPICALLY TO AFFECTED AREAS twice a day if needed Start Date: 10/23/22 Status: Ordered Repeat number: 1 bx rating 24 hr methylphenidate hydrochloride 27 mg extended release oral tablet (14 sources) Central Nervous System Stimulant Start: 02-26-2023 End: 07-24-2024 take 1 tablet by mouth in the morning, then take 1 tablet by mouth every twenty-four hours Methylphenidate HCl (methylphenidate ER) 27 MG 24 hr tablet Take 27 mg by mouth in the morning. 02/26/2023 07/24/2024 Discontinued (Other) Start: 12-23-2022 End: 07-24-2024 take 18 mg by mouth once daily in the morning methylphenidate 18 mg, Oral, qAM, Refills(s) 0 Start Date: 12/28/22 Status: Ordered Repeat number: 1 ondansetron 4 mg oral tablet (1 source) Serotonin-3 Receptor Antagonist Start: 03-04-2021 take 1 tablet by mouth every eight hours as needed for nausea ondansetron 4 mg Tab 4 mg = 1 tab(s), Oral, q8hr, prn nausea, # 12 tab(s), Refills(s) 0, Pharmacy: [facility], 165, cm, 02/20/21 11:45:00 EST, Height/Length Dosing, 114.9, kg, 02/20/21 11:45:00 EST, Weight Dosing Start Date: 03/04/21 Status: Ordered pantoprazole 20 mg delayed release oral tablet (6 sources) Proton Pump Inhibitor Start: 07-22-2023 take 2 tablets by mouth once daily Protonix 20 mg Tab-DR 40 mg = 2 tab(s), Oral, Daily, # 60 tab(s), Refills(s) 2, Pharmacy: [facility], 165, cm, 07/22/23 10:36:00 EDT, Height/Length Dosing, 114, kg, 07/22/23 10:36:00 EDT, Weight Dosing Start Date: 07/22/23 Status: Ordered Quantity: 60.0 Unit: tab(s) Repeat number: 3 Start: 07-19-2023 take 2 tablets by mo neh once daily Protonix 20 mg Tab-DR 40 mg = 2 tab(s), Oral, Daily, # 60 tab(s), Refills(s) 0, Pharmacy: [facility], 165, cm, 07/19/23 17:41:00 EDT, Height/Length Dosing, 113, kg, 07/19/23 17:41:00 EDT, Weight Dosing Start Date: 07/19/23 Status: Ordered sodium fluoride 0.011 mg/mg toothpaste (11 sources) Start: 12-28-2022 PreviDent 5000 Booster 1.1% topical paste Refill(s) 0 Start Date: 12/28/22 Status: Ordered Repeat number: 1 Start: 12-28-2022 End: 07-24-2024 sodium flouride (PreviDent) 1.1 % dental gel Refill(s) 0 12/28/2022 07/24/2024 Discontinued (Other) sucralfate 1000 mg oral tablet (2 sources) Aluminum Complex Start: 07-19-2023 End: 07-26-2023 take 1 tablet by mouth four times daily Carafate 1 gram Tab 1 gm = 1 tab(s), Oral, QID, X 7 day(s), # 28 tab(s), Refills(s) 0, Pharmacy: [facility], 165, cm, 07/19/23 17:41:00 EDT, Height/Length Dosing, 113, kg, 07/19/23 17:41:00 EDT, Weight Dosing Start Date: 07/19/23 Stop Date: 07/26/23 Status: Ordered sulfamethoxazole 800 mg / trimethoprim 160 mg oral tablet (2 sources) Dihydrofolate Reductase Inhibitor Antibacterial, Sulfonamide Antimicrobial Start: 07-19-2023 End: 07-26-2023 Bactrim D.S. 800 mg-160 mg Tab 1 tab(s), Oral, BID for 7 day(s), 14 tab(s), Refill(s) 0, [facility], 165.1, cm, 07/19/23 15:05:00 EDT, Height/Length [...] kami, Topical, BID, 60 gram, Refill(s) 1, [facility], 165, cm, 03/31/22 17:35:00 EST, Height/Length Dosing, 100.5, kg, 03/31/22 17:35:00 EST, Weight Dosing Start Date: 03/31/22 Status: Ordered Zofran ODT 4 mg Tab-Dis (6 sources) Start: 07-19-2023 take 1 tablet by mouth every eight hours as needed for nausea Zofran ODT 4 mg Tab-Dis 4 mg = 1 tab(s), Oral, q8hr, PRN Nausea/Vomiting, # 12 tab(s), Refills(s) 0, Pharmacy: [facility], 165, cm, 07/19/23 17:41:00 EDT, Height/Length Dosing, 113, kg, 07/19/23 17:41:00 EDT, Weight Dosing Start Date: 07/19/23 Status: Ordered Quantity: 12.0 Unit: tab(s) Repeat number: 1 Start: 07-19-2023 take 1 tablet by dilip th every eight hours as needed for nausea Zofran ODT 4 mg Tab-Dis 4 mg = 1 tab(s), Oral, q8hr, PRN Nausea/Vomiting, # 12 tab(s), Refills(s) 0, Pharmacy: [facility], 165, cm, 07/19/23 17:41:00 EDT, Height/Length Dosing, 113, kg, 07/19/23 17:41:00 EDT, Weight Dosing Start Date: 07/19/23 Status: Ordered Completed/Discontinued Medications Medication Drug Class(es) Dates Sig (Normalized) Sig (Original) Albuterol (Eqv-ProAir HFA) 90 mcg/inh inhalation aerosol (12 sources) Start: 11-17-2023 take 1 dose by inhalation every six hours Albuterol (Eqv-ProAir HFA) 90 mcg/inh inhalation aerosol 2 puff(s), Inhalation, q6hr, 1 EA, Refill(s) 1, [facility], 166, cm, 11/17/23 11:30:00 EDT, Height/Length Dosing, 121.3, kg, 11/17/23 11:30:00 EDT, Weight Dosing Start Date: 11/17/23 Status: Ordered Quantity: 1.0 Unit: EA Repeat number: 2 Start: 11-17-2023 take 1 dose by inhal ation every six hours Albuterol (Eqv-ProAir HFA) 90 mcg/inh inhalation aerosol 2 puff(s), Inhalation, q6hr, 1 EA, Refill(s) 1, [facility], 166, cm, 11/17/23 11:30:00 EDT, Height/Length Dosing, 121.3, kg, 11/17/23 11:30:00 EDT, Weight Dosing Start Date: 11/17/23 Status: Ordered Start: 11-08-2020 take 1 dose by inhal ation every six hours Albuterol (Eqv-ProAir HFA) 90 mcg/inh inhalation aerosol 2 puff(s), Inhalation, q6hr, 1 EA, Refill(s) 0, [facility], 166, cm, 11/08/20 16:18:00 EDT, Height/Length Dosing, 113.5, kg, 11/08/20 16:18:00 EDT, Weight Dosing Start Date: 11/08/20 Status: Ordered QUEtiapine 25 mg oral tablet (7 sources) Atypical Antipsychotic Start: 11-19-2022 End: 07-24-2024 take 1 tablet by mouth once daily quetiapine 25 mg Tab 25 mg = 1 tab(s), Oral, Daily, TAKE 1 TABLET BY MOUTH EVERY DAY Start Date: 07/22/23 Status: Ordered Repeat number: 1 Problems Active Problems Problem Classification Problem Date Documented Da te Episodic/Chronic Abdominal pain (3 sources) Pain in pelvis; Translations: [Pelvic and perineal pain] 08-02-2024 Episodic Allergic reactions (20 sources) Atopic dermatitis; Translations: [Atopic dermatitis, unspecified] Onset: 03-29-2022 03-17-2020 Chronic Allergic reactions (12 sources) Eczema 03-17-2020 Episodic Asthma (17 sources) Asthma; Translations: [Intermittent asthma] Onset: 03-29-2022 03-11-2021 Chronic Attention-deficit, conduct, and disruptive behavior disorders (2 sources) Adult attention deficit hyperactivity disorder 03-31-2022 Chronic Disorders usually diagnosed in infancy, childhood, or adolescence (1 source) Behavioral and emotional disorder with onset in childhood; Translations: [Other specified behavioral and emotional disorders with onset usually occurring in childhood and adolescence] Onset: 03-31-2022 Chronic Esophageal disorders (7 sources) Gastro-esophageal reflux disease with esophagitis; Translations: [Gastro-esophageal reflux disease with esophagitis, without bleeding] Onset: 07-22-2023 Chronic Gastrointestinal hemorrhage (3 sources) Hematemesis; Translations: [Hematemesis] Onset: 07-19-2023 Episodic Menstrual disorders (9 sources) Irregular menstruation, unspecified; Translations: [Menorrhagia] Onset: 05-23-2022 Chronic Mood disorders (16 sources) Depressive disorder; Translations: [Depression, unspecified] Onset: 10-23-2022 Chronic Nausea and vomiting (2 sources) Nausea and vomiting; Translations: [Nausea with vomiting, unspecified] Onset: 07-22-2023 Episodic Other circulatory disease (13 sources) Postural orthostatic tachycardia syndrome ; Translations: [Postural orthostatic tachycardia syndrome [POTS]] Onset: 10-23-2022 Episodic Other female genital disorders (3 sources) Pain in female genitalia on intercourse; Translations: [Unspecified dyspareunia] 07-24-2024 Chronic Other female genital disorders (2 sources) Abnormal uterine bleeding; Translations: [Abnormal uterine and vaginal bleeding, unspecified] 08-23-2024 Chronic Other nutritional; endocrine; and metabolic disorders (7 sources) Body mass index 40+ - severely obese; Translations: [Body mass index (BMI) 40.0-44.9, adult] Onset: 07-22-2023 03-19-2020 Chronic Other nutritional; endocrine; and metabolic disorders (20 sources) Severe obesity 03-19-2020 Chronic Other nutritional; endocrine; and metabolic disorders (6 sources) Morbid obesity; Translations: [Morbid (severe) obesity due to excess calories] Onset: 03-29-2022 Chronic Other nutritional; endocrine; and metabolic disorders (3 sources) Obese class II; Translations: [Body mass index (BMI) 36.0-36.9, adult] Onset: 03-31-2022 Chronic Other nutritional; endocrine; and metabolic disorders (7 sources) Body mass index 30+ - obesity 03-31-2022 Chronic Other nutritional; endocrine; and metabolic disorders (13 sources) Obesity; Translations: [Other obesity due to excess calories] Onset: 10-21-2022 Chronic Other nutritional; endocrine; and metabolic disorders (1 source) Obese class III 11-17-2023 Chronic Other screening for suspected conditions (not mental disorders or infectious disease) (7 sources) Encounter for screening for Streptococcus B; Translations: [Encounter for screening for diabetes mellitus] Onset: 06-04-2021 Episodic Other upper respiratory disease (12 sources) Allergic rhinitis; Translations: [Allergic rhinitis, unspecified] Onset: 10-21-2022 05-05-2013 Chronic Other upper respiratory disease (2 sources) Allergic rhinitis due to pollen; Translations: [Allergic rhinitis due to pollen] Onset: 08-26-2024 Chronic Other upper respiratory infections (1 source) Common cold 02-20-2021 Episodic Poisoning by other medications and drugs (4 sources) Adverse reaction to cannabis 07-22-2023 Episodic Skin and subcutaneous tissue infections (7 sources) Pilonidal cyst with abscess; Translations: [Pilonidal abscess] Onset: 01-03-2023 Episodic Substance-related disorders (3 sources) Drug use complicating childbirth; Translations: [Cannabis use, unspecified, uncomplicated] Onset: 10-29-2021 Episodic Unclassified (1 source) CONTACT W/AND (SUSP) EXPOS COVID-19; Translations: [CONTACT W/AND (SUSP) EXPOS COVID-19] Onset: 10-29-2021 Unclassified (1 source) Patient encounter status 08-26-2024 Past or Other Problems Problem Classification Problem Date Documented Da te Episodic/Chronic OB-related trauma to perineum and vulva [...] [Single live ] Onset: 10-29-2021 02-20-2021 Episodic Residual codes; unclassified (1 source) Type [...] Test Name Value Interpretation Reference Range Facility Provider Letteron 08-31-2024 Provider Letter Provider Letter August 31, 20[address] SEGAL [address] [facility] [address] : 1995 Dear Leyda, We have been trying to reach you with no success. It is important that you return our call upon receiving this letter. Also, at the time of your call, please provide us with your current information. Thank you for your prompt attention to this matter. Sincerely, [place] [phone] Normal [facility] IGP,APTIMA HPV,AGE GDLNon AGE GDLN ACOG TESTING Note . [facility] Comment on above: TESTS RESULT FLAG UN ITS REF RANGE LAB Clinician Provided Cytology Information Source.............Cervix;Endocervix No. of containers..01 ThinPrep Vial Age Algo ACOG Tiana... FLAG LEGEND: L-Low Normal,H-High Normal,LL-Alert Low,HH-Alert High <-Panic Low,>-Panic High,A-Abnormal,AA-Critical Abnormal Performed at: 01 =G [facility] [place] [address] Kimmy Villagran MD, IGP, RFX APTIMA HPV ASCU Note . [facility] Comment on above: TESTS RESULT FLAG UN ITS REF RANGE LAB DIAGNOSIS: 02 NEGATIVE FOR INTRAEPITHELIAL LESION OR MALIGNANCY. Specimen adequacy: 02 Satisfactory for evaluation. Endocervical and/or squamous metaplastic cells (endocervical component) are present. Performed by: Wilfred Teran, Tactical Debriefer . 02 Note: Note 02 The Pap smear is a screening test designed to aid in the detection of premalignant and malignant conditions of the uterine cervix. It is not a diagnostic procedure and should not be used as the sole means of detecting cervical cancer. Both false-positive and false-negative reports do occur. Test Methodology: Note 02 This liquid based ThinPrep(R) pap test was screened with the use of an image guided system. . 02 The HPV DNA reflex criteria were not met with this specimen result therefore, no HPV testing was performed. FLAG LEGEND: L-Low Normal,H-High Normal,LL-Alert Low,HH-Alert High <-Panic Low,>-Panic High,A-Abnormal,AA-Critical Abnormal Performed at: [address] [address] Kimmy Villagran MD, Performed at: = - [address] [id number] Image Processing Engineer: Kimmy Villagran MD, Phone: [phone] Performed at: [facility] [id number] Image Processing Engineer: Kimmy Villagran MD, Phone: [phone] [facility] endometriumon Ashley HadleyNORMAN 08/02/2024 4:43 PM Biopsy endometrium Date/Time: 08/02/2024 [...] is to return for annual preop exam. [facility] HCG ( test) Ql (U)o n 08-02-2024 Interpretation and review of laboratory results Normal [facility] Healthcare Preg Test, Ur Negative Negative [facility] Alfred 08-02-2024 L -- ---- Specimen: [id number] Received: 08/03/24 Status: KEON Rothman Num: [id number] Spec Type: Surgical Subm Dr: Marcus Fields Tissues: A Endometrium - Biopsy (ENDOMETRIAL BIOPSY) Procedures: HE/2, Gross/Micro L4 ---- Age/ Patient Sex Location Account Attending Physician ---- Leyda Segal 29/F [facility] [id number] Marcus Fields ---- SPEC NUM: [id number] RECD: 08/03/24 STATUS: KEON ROTHMAN NUM: [id number] ALLISON: 08/02/24-[address]: Marcus Fields ENTERED: 08/03/[address] [facility] DR: Juanito,Lab SPEC TYPE: Surgical DEPT: NEVAEH BARR ENTERED BY: [id number] RECV BY: [id number] ORDERED: HE/2, Gross/Micro L4 ORDERED: HE/2, Gross/Micro [...] submitted in a single cassette. (1, ns, [id number] A) Microscopic Description Microscopic examination is performed. CPT Codes 81993 ---- ---- Specimen: [id number] Received: 08/03/24 Status: KEON Rothman Num: [id number] Spec Type: Surgical Subm Dr: Marcus Fields Tissues: A Endometrium - Biopsy (ENDOMETRIAL BIOPSY) Procedures: HE/2, Gross/Micro L4 ---- Patient: Leyda Segal [id number] (Continued) ---- Signed (signature on file) Mook Alexander MD 08/07/24 [id number] Normal [facility] Patient Letter [facility] July 14, 2024 LEYDA SEGAL [address] [place] [address] : 1995 To Whom it May Concern: 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 Sincerely, [place] [address] Normal [facility] Ambulatory Visit Summaryon 0 11-17-2023 [...] Puffs Inhalation Every 6 hours Pickup at [facility] Unchanged aripiprazole (aripiprazole 2 mg Tab) [...] physician if questions or concerns Pharmacy Information [facility]: [address] [place], [place] [id number] [phone] Allergies Bactrim (Hemoptysis) Cats Dust Grass Ragweed [...] triggers here: (more content not included)... 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 Normal [facility] Comment on above: Result Comment: Elec tronically Signed By: Gibran CIFUENTES, Mallory Marquez.br\Date and Time Signed: 11/17/23 11:57 EDT BMPon 07-19-2023 Anion gap [Moles/Vol] 10 mmol/L Normal 6-16 [facility] Comment on above: Performed By: #### 2 [id number] #### [facility] [address] [place] [address] Calcium [Mass/Vol] 8.2 mg/dL Low 8.9-11.1 [facility] Comment on above: Performed By: #### 2 [id number] #### [facility] [address] [place] [address] Chloride [Moles/Vol] 109 mmol/L Normal 101-111 [facility] Comment on above: Performed By: #### 2 [id number] #### [facility] [address] [place] [address] CO2 [Moles/Vol] 22 mmol/L Normal 21-31 [facility] Comment on above: Performed By: #### 2 [id number] #### [facility] [address] [place] [address] Creatinine [Mass/Vol] 0.7 mg/dL Normal 0.5-1.3 [facility] Comment on above: Performed By: #### 2 [id number] #### [facility] [address] [place] [address] Glucose [Mass/Vol] 70 mg/dL Normal 55-199 [facility] Comment on above: Performed By: #### 2 [id number] #### [facility] [address] [place] [address] Potassium [Moles/Vol] 4.0 mmol/L Normal 3.5-5.3 [facility] Comment on above: Performed By: #### 2 [id number] #### [facility] [address] [place] [address] Sodium [Moles/Vol] 137 mmol/L Normal 135-145 [facility] Comment on above: Performed By: #### 2 [id number] #### [facility] [address] [place] [address] Urea nitrogen [Mass/Vol] 14 mg/dL Normal 5-21 [facility] Comment on above: Performed By: #### 2 [id number] #### [facility] [address] [place] [address] Urea nitrogen/Creatinine [Mass ratio] 20 No Units Normal 10-20 [facility] Comment on above: Performed By: #### 2 [id number] #### [facility] [address] [place], [place] [id number] CBC w/ Auto Diffon 4 Basophils/100 WBC (Bld) 0.6 % Normal 0.0-2.0 [facility] Comment on above: Performed By: #### 2 [id number] #### [facility] [address] [place] [address] Basophils/Leukocytes Auto (Bld) [Pure # fraction] 0.1 E9/L Normal 0.0-0.2 [facility] Comment on above: Performed By: #### 2 [id number] #### [facility] [address] [place] [address] Eosinophils (Bld) [#/Vol] 0.6 E9/L High 0.0-0.5 [facility] Comment on above: Performed By: #### 2 [id number] #### [facility] [address] [place] [address] Eosinophils/100 WBC (Bld) 4.1 % Normal 0.0-8.0 [facility] Comment on above: Performed By: #### 2 [id number] #### [facility] [address] [place] [address] Erythrocyte distribution width (RBC) [Ratio] 12.8 % Normal 10.9-14.2 [facility] Comment on above: Performed By: #### 2 [id number] #### [facility] [address] [place] [address] Hematocrit (Bld) [Volume fraction] 37.9 % Normal 34.0-46.0 [facility] Comment on above: Performed By: #### 2 [id number] #### [facility] [address] [place] [address] Hemoglobin (Bld) [Mass/Vol] 12.7 g/dL Normal 12.0-16.0 [facility] Comment on above: Performed By: #### 2 [id number] #### [facility] [address] [place] [address] Lymphocytes (Bld) [#/Vol] 2.9 E9/L Normal 1.0-4.0 [facility] Comment on above: Performed By: #### 2 [id number] #### [facility] [address] [place] [address] Lymphocytes/100 WBC (Bld) 20.8 % Normal 14.0-50.0 [facility] Comment on above: Performed By: #### 2 [id number] #### [facility] [address] [place] [address] MCH (RBC) [Entitic mass] 28.3 pg Normal 27.0-34.0 [facility] Comment on above: Performed By: #### 2 [id number] #### [facility] [address] [place] [address] MCHC (RBC) [Mass/Vol] 33.4 g/dL Normal 31.4-36.0 [facility] Comment on above: Performed By: #### 2 [id number] #### [facility] [address] [place] [address] MCV (RBC) [Entitic vol] 84.9 fL Normal 80.0-100.0 [facility] Comment on above: Performed By: #### 2 [id number] #### [facility] [address] [place] [address] Monocytes (Bld) [#/Vol] 0.9 E9/L Normal 0.2-1.0 [facility] Comment on above: Performed By: #### 2 [id number] #### [facility] [address] [place] [address] Neutrophils (Bld) [#/Vol] 9.6 E9/L High 2.0-7.5 [facility] Comment on above: Performed By: #### 2 [id number] #### [facility] [address] [place] [address] Neutrophils/100 WBC (Bld) 68.0 % Normal 36.0-75.0 [facility] Comment on above: Performed By: #### 2 [id number] #### [facility] [address] [place] [address] Platelet mean volume (Bld) [Entitic vol] 7.8 fL Normal 6.4-10.8 [facility] Comment on above: Performed By: #### 2 [id number] #### [facility] [address] [place] [address] Platelets (Bld) [#/Vol] 356.0 E9/L Normal 150.0-500.0 [facility] Comment on above: Performed By: #### 2 [id number] #### [facility] [address] [place] [address] RBC (Bld) [#/Vol] 4.5 E12/L Normal 4.3-5.9 [facility] Comment on above: Performed By: #### 2 [id number] #### [facility] [address] [place] [address] WBC corrected for nucl RBC Auto (Bld) [#/Vol] 14.2 E9/L High 4.0-11.0 [facility] Comment on above: Performed By: #### 2 [id number] #### [facility] [address] [place] [address] CHEMISTRYOrdered By: SYSTEM SYSTEM on 07-19-2023 Albumin [...] 38.6 s High 25.1 - 36.5 second(s) [facility] Comment on above: Interpretive Data: Emmie kumar 15 days - 4 weeks 1 - [...] the same coagulation reagent and instrumentation as [facility]. Currently there are no coagulation studies available worldwide for children to 14 days, and no normal ranges. Heparin therapeutic range (represented by Anti-Factor Xa activity of 0.2 - 0.4 U/mL) corresponds to PTT of 56.6 - 109.0 sec. INR Coag (PPP) [Relative time] 0.94 {INR} Invalid Interpretation Code [facility] Comment on above: Interpretive Data: I NR results are specifically intended to assess patients stabilized on long-term Anticoagulation therapy suggested INR s Less Intensive Anticoagulation 2.0 3.0 Conventional Range 3.0 4.5 PT Coag (PPP) [Time] 10.5 s Normal 9.4 - 1 2.5 second(s) [facility] Comment on above: Interpretive Data: [...] the same coagulation reagent and instrumentation as [facility]. Currently there are no coagulation studies available [...] 07-19-2023 Albumin [Mass/Vol] 4.0 g/dL Normal 3.3-5.0 [facility] Comment on above: Performed By: #### 2 [id number] #### [facility] [address] [place] [address] Albumin/Globulin (S) [Mass conc ratio] 1.3 Normal 1.1-2.2 [facility] Comment on above: Performed By: #### 2 [id number] #### [facility] [address] [place] [address] ALP [Catalytic activity/Vol] 65 Int._Unit/L Normal 21-98 [facility] Comment on above: Performed By: #### 2 [id number] #### [facility] [address] [place] [address] ALT No additional P-5'-P [Catalytic activity/Vol] 12 Int._Unit/L Normal 6-46 [facility] Comment on above: Performed By: #### 2 [id number] #### [facility] [address] [place] [address] AST [Catalytic activity/Vol] 12 Int._Unit/L Normal 5-43 [facility] Comment on above: Performed By: #### 2 [id number] #### [facility] [address] [place] [address] Bilirubin [Mass/Vol] 0.2 mg/dL Normal 0.0-1.1 [facility] Comment on above: Performed By: #### 2 [id number] #### [facility] [address] [place] [address] Bilirubin.direct [Mass/Vol] 0.0 mg/dL Normal 0.0-0.4 [facility] Comment on above: Performed By: #### 2 [id number] #### [facility] [address] [place] [address] Bilirubin.indirect [Mass or moles/Vol] 0.2 mg/dL Normal 0.1-0.9 [facility] Comment on above: Performed By: #### 2 [id number] #### [facility] [address] [place] [address] Globulin (S) [Mass/Vol] 3.1 g/dL Normal 1.4-4.0 [facility] Comment on above: Performed By: #### 2 [id number] #### [facility] [address] [place] [address] Protein [Mass/Vol] 7.1 g/dL Normal 6.0-7.8 [facility] Comment on above: Performed By: #### 2 [id number] #### [facility] [address] [place] [address] Lipase Levelon 07-19-2023 Lipase [Catalytic activity/Vol] 29 U/L Normal 13-58 [facility] Comment on above: Performed By: #### 2 [id number] #### [facility] [address] [place] [address] Magnesiumon 07-19-2023 Magnesium [Mass/Vol] 2.0 mg/dL Normal 1.3-2.4 [facility] Comment on above: Performed By: #### 2 [id number] #### [facility] [address] [place] [address] Monitor Recordon 07-19-2023 Monitor Record [id number]. 00TIFF Normal [facility] Troponin 0 Hr.on 07-19-2023 Troponin I.cardiac [Mass/Vol] ng/mL Low 10.10-27.10 [facility] Comment on above: Result Comment: The 95% CI (Confidence Interval) PPV (Positive Predictive Value) for myocardial infarction in females is 38 pg/mL, in males 51 pg/mL. The results should be used in conjunction with clinical conditions of myocardial infarction. (Access High Sensitivity Troponin I Instructions For Use, Jaden Caryl, September 2017) Performed By: #### 1 [id number] #### [facility] [address] [place] [address] eGFRon 07-19-2023 eGFR 121 mL/min/1.73 m2 Normal >=59 [facility] Comment on above: Order Comment: Order added by Discern Expert. Performed By: #### 1 [id number] #### [facility] [address] [place] [address] PREG QUANT HCGon 05-23-2022 HCG QUANT 375[address] mIU/mL Normal [facility] Comment on above: Performed By: #### U MICRO, UACSIND #### [facility] [address] [place] [address] Dr. Dillon Pepe HCG RANGE SEE BELOW Normal [facility] Comment on above: Result Comment: 5-50 0.2-1 WEEK 50-500 1-2 WEEKS 100-5,000 2-3 WEEKS 500-10,000 3-4 WEEKS 1,000-50,000 4-5 WEEKS 10,000-100,000 5-6 WEEKS 15,000-200,000 6-8 WEEKS 10,000-100,000 2-3 MONTHS Performed By: #### U MICRO, UACSIND #### [facility] [address] [place] [address] Dr. Dillon Pepe CANNABINOID (THC) CONFIRMATI ON, URINEon 10-24-2021 Cannabinoid Positive Abnormal [facility] Comment on above: Performed By: #### C MP #### [facility] [address] [place] [address] Dr. Dillon Pepe Carboxy THC GC/MS Conf >750 Normal Cutoff=10 [facility] Comment on above: Performed By: #### C MP #### [facility] [address] [place] [address] Dr. Dillon Pepe CBC AUTO DIFFon 10-21-2021 BASO # 0.0 103/ul Normal 0.0-0.1 [facility] Comment on above: Performed By: #### C MP #### [facility] [address] [place] [address] Dr. Dillon Pepe Basophils/100 WBC (Bld) 0.2 % Normal 0.2-2.0 [facility] Comment on above: Performed By: #### C MP #### [facility] [address] [place] [address] Dr. Dillon Pepe EO # 0.4 103/ul Normal 0.0-0.7 [facility] Comment on above: Performed By: #### C MP #### [facility] [address] [place] [address] Dr. Dillon Pepe Eosinophils/100 WBC (Bld) 2.1 % Normal 0.9-7.0 [facility] Comment on above: Performed By: #### C MP #### [facility] [address] [place] [address] Dr. Dillon Pepe Erythrocyte distribution width (RBC) [Ratio] 13.7 % Normal 11.0-15.0 [facility] Comment on above: Performed By: #### C MP #### [facility] [address] [place] [address] Dr. Dillon Pepe Hematocrit (Bld) [Volume fraction] 32.7 % Critically low 36.0-48.0 [facility] Comment on above: Performed By: #### C MP #### [facility] [address] [place] [address] Dr. Dillon Pepe Hemoglobin (Bld) [Mass/Vol] 10.3 g/dL Critically low 12.0-16.0 [facility] Comment on above: Performed By: #### C MP #### [facility] [address] [place] [address] Dr. Dillon Pepe IG # 0.09 10e3/ul Critically high 0.00-0.03 [facility] Comment on above: Performed By: #### C MP #### [facility] [address] [place] [address] Dr. Dillon Pepe IG % 0.5 % Normal 0.0-0.5 [facility] Comment on above: Performed By: #### C MP #### [facility] [address] [place] [address] Dr. Dillon Pepe LYMPH # 2.2 103/ul Normal 1.2-3.8 [facility] Comment on above: Performed By: #### C MP #### [facility] [address] [place] [address] Dr. Dillon Pepe Lymphocytes/100 WBC (Bld) 13.2 % Critically low 20.5-60.0 [facility] Comment on above: Performed By: #### C MP #### [facility] [address] [place] [address] Dr. Dillon Pepe MANUAL DIFF REQ NO Normal [facility] Comment on above: Performed By: #### C MP #### [facility] [address] [place] [address] Dr. Dillon Pepe MCH (RBC) [Entitic mass] 27.2 pg Normal 26.7-34.0 [facility] Comment on above: Performed By: #### C MP #### [facility] [address] [place] [address] Dr. Dillon Pepe MCHC (RBC) [Mass/Vol] 31.5 g/dL Normal 29.9-35.2 [facility] Comment on above: Performed By: #### C MP #### [facility] [address] [place] [address] Dr. Dillon Pepe MCV (RBC) [Entitic vol] 86.3 fL Normal 81.0-99.0 [facility] Comment on above: Performed By: #### C MP #### [facility] [address] [place] [address] Dr. Dillon Pepe MONO # 1.5 103/ul Critically high 0.3-0.[address] [facility] Comment on above: Performed By: #### C MP #### [facility] [address] [place] [address] Dr. Dillon Pepe Monocytes/100 WBC (Bld) 8.7 % Normal 1.7-12.0 [facility] Comment on above: Performed By: #### C MP #### [facility] [address] [place] [address] Dr. Dillon Pepe NEUT # 12.6 103/ul Critically high 1.4-6.5 [facility] Comment on above: Performed By: #### C MP #### [facility] [address] [place] [address] Dr. Dillon Pepe Neutrophils/100 WBC (Bld) 75.3 % Critically high 43.0-75.0 [facility] Comment on above: Performed By: #### C MP #### [facility] [address] [place] [address] Dr. Dillon Pepe Platelet mean volume (Bld) [Entitic vol] 10.5 fL Normal 9.5-13.5 [facility] Comment on above: Performed By: #### C MP #### [facility] [address] [place] [address] Dr. Dillon Pepe PLT 331 103/ul Normal 150-450 [facility] Comment on above: Performed By: #### C MP #### [facility] [address] [place] [address] Dr. Dillon Pepe RBC 3.79 106/ul Critically low 4.20-5.40 [facility] Comment on above: Performed By: #### C MP #### [facility] [address] [place] [address] Dr. Dillon Pepe WBC 16.8 103/ul Critically high 4.0-11.0 [facility] Comment on above: Performed By: #### C MP #### [facility] [address] [place] [address] Dr. Dillon Pepe CBC AUTO DIFFon 10-19-2021 BASO # 0.0 103/ul Normal 0.0-0.1 [facility] Comment on above: Performed By: #### U MICRO, UACSIND #### [facility] [address] [place] [address] Dr. Dillon Pepe Basophils/100 WBC (Bld) 0.2 % Normal 0.2-2.0 [facility] Comment on above: Performed By: #### U MICRO, UACSIND #### [facility] [address] [place] [address] Dr. Dillon Pepe EO # 0.0 103/ul Normal 0.0-0.7 [facility] Comment on above: Performed By: #### U MICRO, UACSIND #### [facility] [address] [place] [address] Dr. Dillon Pepe Eosinophils/100 WBC (Bld) 0.2 % Critically low 0.9-7.0 [facility] Comment on above: Performed By: #### U MICRO, UACSIND #### [facility] [address] [place], [place] [id number] Dr. Dillon Pepe Erythrocyte distribution width (RBC) [Ratio] 13.2 % Normal 11.0-15.0 [facility] Comment on above: Performed By: #### U MICRO, UACSIND #### [facility] [address] [place] [address] Dr. Dillon Pepe Hematocrit (Bld) [Volume fraction] 37.7 % Normal 36.0-48.0 [facility] Comment on above: Performed By: #### U MICRO, UACSIND #### [facility] [address] [place] [address] Dr. Dillon Pepe Hemoglobin (Bld) [Mass/Vol] 12.1 g/dL Normal 12.0-16.0 [facility] Comment on above: Performed By: #### U MICRO, UACSIND #### [facility] [address] [place] [address] Dr. Dillon Ppee IG # 0.09 10e3/ul Critically high 0.00-0.03 [facility] Comment on above: Performed By: #### U MICRO, UACSIND #### [facility] [address] [place] [address] Dr. Dillon Pepe IG % 0.5 % Normal 0.0-0.5 [facility] Comment on above: Performed By: #### U MICRO, UACSIND #### [facility] [address] [place] [address] Dr. Dillon Pepe LYMPH # 0.9 103/ul Critically low 1.2-3.8 [facility] Comment on above: Performed By: #### U MICRO, UACSIND #### [facility] [address] [place] [address] Dr. Dillon Pepe Lymphocytes/100 WBC (Bld) 4.9 % Critically low 20.5-60.0 [facility] Comment on above: Performed By: #### U MICRO, UACSIND #### [facility] [address] [place] [address] Dr. Dillon Pepe MANUAL DIFF REQ NO Normal [facility] Comment on above: Performed By: #### U MICRO, UACSIND #### [facility] [address] [place] [address] Dr. Dillon Pepe MCH (RBC) [Entitic mass] 27.6 pg Normal 26.7-34.0 [facility] Comment on above: Performed By: #### U MICRO, UACSIND #### [facility] [address] [place] [address] Dr. Dillon Pepe MCHC (RBC) [Mass/Vol] 32.1 g/dL Normal 29.9-35.2 [facility] Comment on above: Performed By: #### U MICRO, UACSIND #### [facility] [address] [place] [address] Dr. Dillon Pepe MCV (RBC) [Entitic vol] 85.9 fL Normal 81.0-99.0 [facility] Comment on above: Performed By: #### U MICRO, UACSIND #### [facility] [address] [place] [address] Dr. Dillon Pepe MONO # 1.1 103/ul Critically high 0.3-0.8 [facility] Comment on above: Performed By: #### U MICRO, UACSIND #### [facility] [address] [place] [address] Dr. Dillon Pepe Monocytes/100 WBC (Bld) 5.8 % Normal 1.7-12.0 [facility] Comment on above: Performed By: #### U MICRO, UACSIND #### [facility] [address] [place] [address] Dr. Dillon Pepe NEUT # 16.4 103/ul Critically high 1.4-6.5 [facility] Comment on above: Performed By: #### U MICRO, UACSIND #### [facility] [address] [place] [address] Dr. Dillon Pepe Neutrophils/100 WBC (Bld) 88.4 % Critically high 43.0-75.0 [facility] Comment on above: Performed By: #### U MICRO, UACSIND #### [facility] [address] [place] [address] Dr. Dillon Pepe Platelet mean volume (Bld) [Entitic vol] 10.4 fL Normal 9.5-13.5 [facility] Comment on above: Performed By: #### U MICRO, UACSIND #### [facility] [address] [address] [address] Dillon Pepe PLT 357 103/ul Normal 150-450 [facility] Comment on above: Performed By: #### U MICRO, UACSIND #### [facility] [address] [place], [place] [address] Dr. Dillon Pepe RBC 4.39 106/ul Normal 4.20-5.40 [facility] Comment on above: Performed By: #### U MICRO, UACSIND #### [facility] [address] [place], [place] [address] Dr. Dillon Pepe WBC 18.5 103/ul Critically high 4.0-11.0 [facility] Comment on above: Performed By: #### U MICRO, UACSIND #### [facility] [address] [address] [address] Dillon Pe[facility] SARS-CoV-2 (COVID-19) RNA ERIK+probe Ql (Unsp spec) Not detected Normal NOT DETECTED [facility] Comment on above: Result Comment: When diagnostic [...] for this test is supported by the [place] of Health and Human Service's declaration that [...] Performed By: #### U MICRO, UACSIND #### [facility] [address] [place] [address] Dr. Dillon Pepe DRUG SCREEN RAPID (URINE)on 10-19-2021 AMP Negative Normal NEGATIVE [facility] Comment on above: Performed By: #### D RUGRPD #### [facility] [address] [place] [address] Dr. Dillon Pepe BAR Negative Normal NEGATIVE [facility] Comment on above: Performed By: #### D RUGRPD #### [facility] [address] [place] [address] Dr. Dillon Pepe BUP Negative Normal NEGATIVE [facility] Comment on above: Performed By: #### D RUGRPD #### [facility] [address] [place] [address] Dr. Dillon Pepe BZO Negative Normal NEGATIVE [facility] Comment on above: Performed By: #### D RUGRPD #### [facility] [address] [place] [address] Dr. Dillon Pepe CECILIA Negative Normal NEGATIVE [facility] Comment on above: Performed By: #### D RUGRPD #### [facility] [address] [place] [address] Dr. Dillon Pepe CUT-OFFS SEE BELOW Normal [facility] Comment on above: Result Comment: AMP [...] ng/mL Performed By: #### D RUGRPD #### [facility] [address] [place] [address] Dr. Dillon Pepe DRUG CUT HEADER DRUG CLASS TEST SYST EM CUT-OFF CONCENTRATIONS ARE FOLLOWS: Normal [facility] Comment on above: Performed By: #### D RUGRPD #### [facility] [address] [place] [address] Dr. Dillon Pepe mAMP Negative Normal NEGATIVE [facility] Comment on above: Performed By: #### D RUGRPD #### [facility] [address] [place] [address] Dr. Dillon Pepe MTD Negative Normal NEGATIVE [facility] Comment on above: Performed By: #### D RUGRPD #### [facility] [address] [place] [address] Dr. Dillon Pepe OPI Negative Normal NEGATIVE [facility] Comment on above: Performed By: #### D RUGRPD #### [facility] [address] [place] [address] Dr. Dillon Pepe OXY Negative Normal NEGATIVE [facility] Comment on above: Performed By: #### D RUGRPD #### [facility] [address] [place] [address] Dr. Dillon Pepe PCP Negative Normal NEGATIVE [facility] Comment on above: Performed By: #### D RUGRPD #### [facility] [address] [place] [address] Dr. Dillon Pepe PPX Negative Normal NEGATIVE [facility] Comment on above: Performed By: #### D RUGRPD #### [facility] [address] [place] [address] Dr. Dillon Pepe TCA Negative Normal NEGATIVE [facility] Comment on above: Performed By: #### D RUGRPD #### [facility] [address] [place] [address] Dr. Dillon Pepe THC Positive Abnormal NEGATIVE [facility] Comment on above: Performed By: #### D RUGRPD #### [facility] [address] [place] [address] Dr. Dillon Pepe TYPE AND SCREENon 10-19-2021 TYPE AND SCREEN Negative Normal [facility] Comment on above: Performed By: #### C MP #### [facility] [address] [address] [address] Dillon Pepe GROUP B STREP CULTUREon 0 S. agalactiae Ag Ql (Unsp spec) Culture Observations: NEGATIVE FOR GROUP B STREPTOCOCCUS. Normal [facility] Comment on above: Performed By: #### G BSCX #### [facility] [address] [address] Dr. Dillon Pepe US PREG GROWTHon 09-09-2021 [...] Age by US: 33 weeks, 3 days MIUGEL by US: 10/24/2021 IMPRESSION: 1. Single live intrauterine with growth detailed above. Electronically authenticated by: ELLEN CORBETT Date: 2021-09-08 22:28 Normal [facility] GLYCOHEMOGLOBIN A1Con 2021 ADA RECOMMENDATION SEE BELOW Normal [facility] Comment on above: Result Comment: ADA RECOMMENDED LIMIT 4.0 - 6.0 ADA THERAPEUTIC TARGET < 7.0 ACTION SUGGESTED > 7.0 Performed By: #### C MP #### [facility] [address] [address] [address] Dillon Pepe Glucose [Mass/Vol] 105 mg/dL Normal [facility] Comment on above: Performed By: #### C MP #### [facility] [address] [address] [address] Dillon Pepe HbA1c (Bld) [Mass fraction] 5.3 % Normal 4.5-6.2 [facility] Comment on above: Performed By: #### C MP #### [facility] [address] [place] [address] Dr. Dillon Pepe HEMOGRAM AND PLATELon 2021 Hematocrit (Bld) [Volume fraction] 34.1 % Critically low 36.0-48.0 [facility] Comment on above: Performed By: #### U MICRO, UACSIND #### [facility] [address] [place] [address] Dr. Dillon Pepe Hemoglobin (Bld) [Mass/Vol] 11.4 g/dL Critically low 12.0-16.0 [facility] Comment on above: Performed By: #### U MICRO, UACSIND #### [facility] [address] [place] [address] Dr. Dillon Pepe MCH (RBC) [Entitic mass] 29.4 pg Normal 26.7-34.0 [facility] Comment on above: Performed By: #### U MICRO, UACSIND #### [facility] [address] [place] [address] Dr. Dillon Pepe MCHC (RBC) [Mass/Vol] 33.4 g/dL Normal 29.9-35.2 [facility] Comment on above: Performed By: #### U MICRO, UACSIND #### [facility] [address] [place] [address] Dr. Dillon Pepe MCV (RBC) [Entitic vol] 87.9 fL Normal 81.0-99.0 [facility] Comment on above: Performed By: #### U MICRO, UACSIND #### [facility] [address] [place] [address] Dr. Dillon Pepe PLT 398 103/ul Normal 150-450 [facility] Comment on above: Performed By: #### U MICRO, UACSIND #### [facility] [address] [place] [address] Dr. Dillon Pepe RBC 3.88 106/ul Critically low 4.20-5.[address] [facility] Comment on above: Performed By: #### U MICRO, UACSIND #### [facility] [address] [address] [address] Dillon Pepe WBC 17.3 103/ul Critically high 4.0-11.0 [facility] Comment on above: Performed By: #### U MICRO, UACSIND #### [facility] [address] [address] [address] Dillon Pepe RHOGAMon 08-07-2021 RHOGAM Status Information Issued Quantity 1 Product ID Rh Immune Globulin Lot Number [id number] Issue Date/Time [id number] Normal [facility] Comment on above: Performed By: #### C MP #### [facility] [address] [address] [address] Dillon Pepe TYPE AND SCREENon 08-07-2021 TYPE AND SCREEN Negative Normal [facility] Comment on above: Performed By: #### T NS #### [facility] [address] [address] [address] Dillon Pepe CHEMISTRYOrdered By: Ran Armstrong on 08-06-2021 HbA1c (Bld) [Mass fraction] 5.1 % Normal <=5.9% [facility] ChemAutoSS HEMATOLOGYOrdered By: Elayne Chowdhury on 08-06-2021 [...] 390.0 E9/L Normal 150.0 - 500.0 E9/L [facility] HemeAutoSS RBC (Bld) [#/Vol] 4.0 E12/L Low 4.3 - 5.9 E12/L [facility] HemeAutoSS WBC corrected for nucl RBC Auto (Bld) [#/Vol] 16.6 E9/L High 4.0 - 11.0 E9/L [facility] HemeAutoSS PROF CHEM 8 (BAS METB)on Anion gap [Moles/Vol] 16.6 mmol/L Normal [facility] Comment on above: Performed By: #### C MP #### [facility] [address] [address] [address] Dillon Pepe Calcium [Mass/Vol] 8.4 mg/dL Critically low 8.5-10.1 [facility] Comment on above: Performed By: #### C MP #### [facility] [address] [address] [address] Dillon Pepe Chloride [Moles/Vol] 99 mmol/L Normal 98-107 [facility] Comment on above: Performed By: #### C MP #### [facility] [address] [address] [address] Dillon Pepe CO2 [Moles/Vol] 19.9 mmol/L Critically low 21.0-32.0 [facility] Comment on above: Performed By: #### C MP #### [facility] [address] [address] [address] Dillon Pepe Creatinine [Mass/Vol] 0.32 mg/dL Critically low 0.55-1.02 [facility] Comment on above: Performed By: #### C MP #### [facility] [address] [address] [address] Dillon Pepe EGFR-AF ETHIOPIAN >60 Normal >=60 [facility] Comment on above: Performed By: #### C MP #### [facility] [address] [address] [address] Dillon Pepe EGFR-NON AF ETHIOPIAN >60 Normal >=60 [facility] Comment on above: Performed By: #### C MP #### [facility] [address] [address] [address] Dillon Pepe Glucose [Mass/Vol] 97 mg/dL Normal 74-[address] [facility] Comment on above: Performed By: #### C MP #### [facility] [address] [address] [address] Dillon Pepe Potassium [Moles/Vol] 3.5 mmol/L Normal 3.5-5.1 [facility] Comment on above: Performed By: #### C MP #### [facility] [address] [address] [address] Dillon Pepe Sodium [Moles/Vol] 132 mmol/L Critically low 136-145 [facility] Comment on above: Performed By: #### C MP #### [facility] [address] [place] [address] Dr. Dillon Pepe Urea nitrogen [Mass/Vol] 4.0 mg/dL Critically low 7.0-18.0 [facility] Comment on above: Performed By: #### C MP #### [facility] [address] [address] [address] Dillon Pepe Urea nitrogen/Creatinine [Mass ratio] 12.5 mg/mg Normal [facility] Comment on above: Performed By: #### C MP #### [facility] [address] [address] [address] Dillon Pepe PROF CHEM 8 (BAS METB)on Anion gap [Moles/Vol] 16.6 mmol/L Normal [facility] Comment on above: Performed By: #### B MP #### [facility] [address] [place] [address] Dr. Dillon Pepe Calcium [Mass/Vol] 8.3 mg/dL Critically low 8.5-10.1 [facility] Comment on above: Performed By: #### B MP #### [facility] [address] [address] [address] Dillon Pepe Chloride [Moles/Vol] 99 mmol/L Normal 98-107 [facility] Comment on above: Performed By: #### B MP #### [facility] [address] [address] [address] Dillon Pepe CO2 [Moles/Vol] 20.4 mmol/L Critically low 21.0-32.0 [facility] Comment on above: Performed By: #### B MP #### [facility] [address] [address] [address] Dillon Pepe Creatinine [Mass/Vol] 0.34 mg/dL Critically low 0.55-1.02 [facility] Comment on above: Performed By: #### B MP #### [facility] [address] [address] [address] Dillon Pepe EGFR-AF ETHIOPIAN >60 Normal >=60 [facility] Comment on above: Performed By: #### B MP #### [facility] [address] [place] [address] Dr. Dillon Pepe EGFR-NON AF ETHIOPIAN >60 Normal >=60 [facility] Comment on above: Performed By: #### B MP #### [facility] [address] [address] [address] Dillon Pepe Glucose [Mass/Vol] 94 mg/dL Normal 74-[address] [facility] Comment on above: Performed By: #### B MP #### [facility] [address] [address] [address] Dillon Pepe Potassium [Moles/Vol] 3.0 mmol/L Critically low 3.5-5.1 [facility] Comment on above: Performed By: #### B MP #### [facility] [address] [address] [address] Dillon Pepe Sodium [Moles/Vol] 133 mmol/L Critically low 136-145 [facility] Comment on above: Performed By: #### B MP #### [facility] [address] [address] [address] Dillon Pepe Urea nitrogen [Mass/Vol] 4.0 mg/dL Critically low 7.0-18.0 [facility] Comment on above: Performed By: #### B MP #### [facility] [address] [address] [address] Dillon Pepe Urea nitrogen/Creatinine [Mass ratio] 11.8 mg/mg Normal [facility] Comment on above: Performed By: #### B MP #### [facility] [address] [address] [address] Dillon Pepe Anion gap [Moles/Vol] 17.7 mmol/L Normal [facility] Comment on above: Performed By: #### B MP #### [facility] [address] [address] [address] Dillon Pepe Calcium [Mass/Vol] 8.6 mg/dL Normal 8.5-10.[address] [facility] Comment on above: Performed By: #### B MP #### [facility] [address] [address] [address] Dillon Pepe Chloride [Moles/Vol] 96 mmol/L Critically low 98-107 [facility] Comment on above: Performed By: #### B MP #### [facility] [address] [address] [address] Dillon Pepe CO2 [Moles/Vol] 22.4 mmol/L Normal 21.0-32.0 [facility] Comment on above: Performed By: #### B MP #### [facility] [address] [place] [address] Dr. Dillon Pepe Creatinine [Mass/Vol] 0.54 mg/dL Critically low 0.55-1.02 [facility] Comment on above: Performed By: #### B MP #### [facility] [address] [address] [address] Dillon Pepe EGFR-AF ETHIOPIAN >60 Normal >=60 [facility] Comment on above: Performed By: #### B MP #### [facility] [address] [address] [address] Dillon Pepe EGFR-NON AF ETHIOPIAN >60 Normal >=60 [facility] Comment on above: Performed By: #### B MP #### [facility] [address] [place] [address] Dr. Dillon Pepe Glucose [Mass/Vol] 116 mg/dL Critically high 74-106 [facility] Comment on above: Performed By: #### B MP #### [facility] [address] [address] [address] Dillon Pepe Potassium [Moles/Vol] 3.1 mmol/L Critically low 3.5-5.1 [facility] Comment on above: Performed By: #### B MP #### [facility] [address] [address] [address] Dillon Pepe Sodium [Moles/Vol] 133 mmol/L Critically low 136-145 [facility] Comment on above: Performed By: #### B MP #### [facility] [address] [address] [address] Dillon Pepe Urea nitrogen [Mass/Vol] 6.0 mg/dL Critically low 7.0-18.0 [facility] Comment on above: Performed By: #### B MP #### [facility] [address] [place] [address] Dr. Dillon Pepe Urea nitrogen/Creatinine [Mass ratio] 11.1 mg/mg Normal [facility] Comment on above: Performed By: #### B MP #### [facility] [address] [place] [address] Dr. Dillon Pepe UA (CLEAN/CATCH) PROFESSOR OF GERMAN/MICRO I F IND.on 06-22-2021 Bilirubin Ql (U) Negative Normal NEGATIVE [facility] Comment on above: Performed By: #### U MICRO, UACSIND #### [facility] [address] [place] [address] Dr. Dillon Pepe Clarity (U) CLEAR Normal CLEAR [facility] Comment on above: Performed By: #### U MICRO, UACSIND #### [facility] [address] [place] [address] Dr. Dillon Pepe Color (U) YELLOW Normal YELLOW [facility] Comment on above: Performed By: #### U MICRO, UACSIND #### [facility] [address] [place] [address] Dr. Dillon Pepe Glucose Ql (U) Negative Normal NEGATIVE [facility] Comment on above: Performed By: #### U MICRO, UACSIND #### [facility] [address] [place] [address] Dr. Dillon Pepe Hemoglobin Ql (U) Negative Normal NEGATIVE [facility] Comment on above: Performed By: #### U MICRO, UACSIND #### [facility] [address] [place] [address] Dr. Dillon Pepe Ketones Ql (U) >=80 Abnormal NEGATIVE [facility] Comment on above: Performed By: #### U MICRO, UACSIND #### [facility] [address] [place] [address] Dr. Dillon Pepe LEUKOCYTES Negative Normal NEGATIVE [facility] Comment on above: Performed By: #### U MICRO, UACSIND #### [facility] [address] [place] [address] Dr. Dillon Pepe Nitrite Ql (U) Negative Normal NEGATIVE [facility] Comment on above: Performed By: #### U MICRO, UACSIND #### [facility] [address] [place] [address] Dr. Dillon Pepe pH (U) 6.0 [pH] Normal 5-9 [facility] Comment on above: Performed By: #### U MICRO, UACSIND #### [facility] [address] [place] [address] Dr. Dillon Pepe SPEC GRAVITY >=1.030 Abnormal 1.005-<=1.02 5 [facility] Comment on above: Performed By: #### U MICRO, UACSIND #### [facility] [address] [place] [address] Dr. Dillon Pepe UA PROTEIN 30 mg/dl Abnormal NEGATIVE/ TRACE [facility] Comment on above: Performed By: #### U MICRO, UACSIND #### [facility] [address] [place] [address] Dr. Dillon Pepe UR MICRO IND INDICATED Normal [facility] Comment on above: Performed By: #### U MICRO, UACSIND #### [facility] [address] [place] [address] Dr. Dillon Pepe Urobilinogen Qn (U) 0.2 {Elio'U}/dL Normal 0.2 - 1. 0 [facility] Comment on above: Performed By: #### U MICRO, UACSIND #### [facility] [address] [place] [address] Dr. Dillon Pepe URINE MICROSCOPIC ONLYon BACTERIA NONE SEEN Normal NONE SEEN [facility] Comment on above: Performed By: #### U MICRO, UACSIND #### [facility] [address] [place] [address] Dr. Dillon Pepe Bacteria identified Cx Nom (U) NOT INDICATED Normal [facility] Comment on above: Performed By: #### U MICRO, UACSIND #### [facility] [address] [place] [address] Dr. Dillon Pepe CAST NONE SEEN Normal NONE SEEN [facility] Comment on above: Performed By: #### U MICRO, UACSIND #### [facility] [address] [place] [address] Dr. Dillon Pepe Crystals LM Nom (Urine sed) NONE SEEN Normal NONE SEEN [facility] Comment on above: Performed By: #### U MICRO, UACSIND #### [facility] [address] [place] [address] Dr. Dillon Pepe Epithelial cells LM Ql (Urine sed) RARE Normal NONE SEEN /RARE [facility] Comment on above: Performed By: #### U MICRO, UACSIND #### [facility] [address] [place] [address] Dr. Dillon Pepe MUCOUS MODERATE Abnormal NONE SEEN [facility] Comment on above: Performed By: #### U MICRO, UACSIND #### [facility] [address] [place] [address] Dr. Dillon Pepe RBC NONE SEEN Abnormal 0-2 [facility] Comment on above: Performed By: #### U MICRO, UACSIND #### [facility] [address] [place] [address] Dr. Dillon Pepe WBC 0-2 Abnormal NONE SEEN [facility] Comment on above: Performed By: #### U MICRO, UACSIND #### [facility] [address] [place] [address] Dr. Dillon Pepe AMNISUREon 05-31-2021 AMNISURE Negative Normal NEGATIVE [facility] Comment on above: Performed By: #### A MNI #### [facility] [address] [place] [address] Dr. Dillon Pepe CBC AUTO DIFFon 05-31-2021 BASO # 0.0 103/ul Normal 0.0-0.1 [facility] Comment on above: Performed By: #### C BC #### [facility] [address] [place] [address] Dr. Dillon Pepe Basophils/100 WBC (Bld) 0.2 % Normal 0.2-2.0 [facility] Comment on above: Performed By: #### C BC #### [facility] [address] [place] [address] Dr. Dillon Pepe EO # 0.0 103/ul Normal 0.0-0.7 [facility] Comment on above: Performed By: #### C BC #### [facility] [address] [place] [address] Dr. Dillon Pepe Eosinophils/100 WBC (Bld) 0.0 % Critically low 0.9-7.0 [facility] Comment on above: Performed By: #### C BC #### [facility] [address] [place] [address] Dr. Dillon Pepe Erythrocyte distribution width (RBC) [Ratio] 12.5 % Normal 11.0-15.0 [facility] Comment on above: Performed By: #### C BC #### [facility] [address] [place] [address] Dr. Dillon Pepe Hematocrit (Bld) [Volume fraction] 38.2 % Normal 36.0-48.0 [facility] Comment on above: Performed By: #### C BC #### [facility] [address] [place] [address] Dr. Diloln Pepe Hemoglobin (Bld) [Mass/Vol] 13.2 g/dL Normal 12.0-16.0 [facility] Comment on above: Performed By: #### C BC #### [facility] [address] [place] [address] Dr. Dillon Pepe IG # 0.16 10e3/ul Critically high 0.00-0.03 [facility] Comment on above: Performed By: #### C BC #### [facility] [address] [place] [address] Dr. Dillon Pepe IG % 0.8 % Critically high 0.0-0.[address] [facility] Comment on above: Performed By: #### C BC #### [facility] [address] [place] [address] Dr. Dillon Pepe LYMPH # 1.6 103/ul Normal 1.2-3.8 [facility] Comment on above: Performed By: #### C BC #### [facility] [address] [place] [address] Dr. Dillon Pepe Lymphocytes/100 WBC (Bld) 7.6 % Critically low 20.5-60.0 [facility] Comment on above: Performed By: #### C BC #### [facility] [address] [place] [address] Dr. Dillon Pepe MANUAL DIFF REQ NO Normal [facility] Comment on above: Performed By: #### C BC #### [facility] [address] [place] [address] Dr. Dillon Pepe MCH (RBC) [Entitic mass] 30.1 pg Normal 26.7-34.0 [facility] Comment on above: Performed By: #### C BC #### [facility] [address] [place] [address] Dr. Dillon Pepe MCHC (RBC) [Mass/Vol] 34.6 g/dL Normal 29.9-35.2 [facility] Comment on above: Performed By: #### C BC #### [facility] [address] [place] [address] Dr. Dillon Pepe MCV (RBC) [Entitic vol] 87.2 fL Normal 81.0-99.0 [facility] Comment on above: Performed By: #### C BC #### [facility] [address] [place] [address] Dr. Dillon Pepe MONO # 1.0 103/ul Critically high 0.3-0.[address] [facility] Comment on above: Performed By: #### C BC #### [facility] [address] [address] [address] Dillon Pepe Monocytes/100 WBC (Bld) 4.6 % Normal 1.7-12.0 [facility] Comment on above: Performed By: #### C BC #### [facility] [address] [place] [address] Dr. Dillon Pepe NEUT # 18.4 103/ul Critically high 1.4-6.5 [facility] Comment on above: Performed By: #### C BC #### [facility] [address] [place] [address] Dr. Dillon Pepe Neutrophils/100 WBC (Bld) 86.8 % Critically high 43.0-75.0 [facility] Comment on above: Performed By: #### C BC #### [facility] [address] [place] [address] Dr. Dillon Pepe Platelet mean volume (Bld) [Entitic vol] 10.1 fL Normal 9.5-13.5 [facility] Comment on above: Performed By: #### C BC #### [facility] [address] [place] [address] Dr. Dillon Peep PLT 402 103/ul Normal 150-450 [facility] Comment on above: Performed By: #### C BC #### [facility] [address] [place] [address] Dr. Dillon Pepe RBC 4.38 106/ul Normal 4.20-5.40 [facility] Comment on above: Performed By: #### C BC #### [facility] [address] [place] [address] Dr. Dillon Pepe WBC 21.2 103/ul Critically high 4.0-11.0 [facility] Comment on above: Performed By: #### C BC #### [facility] [address] [place] [address] Dr. Dillon Pepe CULTURE URINEon 05-31-2021 CULTURE URINE Culture Observations : MODERATE GROWTH OF MIXED GENITAL BLAIR. NO POTENTIAL PATHOGENS SEEN. Normal [facility] Comment on above: Performed By: #### C MP #### [facility] [address] [place] [address] Dr. Dillon Pepe [facility] SARS-CoV-2 (COVID-19) RNA ERIK+probe Ql (Unsp spec) Not detected Normal NOT DETECTED [facility] Comment on above: Result Comment: This test is not yet approved or cleared by the [place] FDA. When there are no FDA-approved or cleared tests available, and other criteria are met, FDA can make tests available under an emergency access mechanism called an Emergency Use Authorization (EUA). The EUA for this test is supported by the [place] of Health and Human Service's (HHS's) declaration [...] Performed By: #### U MICRO, UACSIND #### [facility] [address] [place] [address] Dr. Dillon Pepe ER URINE PROFILEon 2 Bilirubin Ql (U) SMALL Abnormal NEGATIVE [facility] Comment on above: Performed By: #### C MP #### [facility] [address] [place] [address] Dr. Dillon Pepe Clarity (U) CLEAR Normal CLEAR [facility] Comment on above: Performed By: #### C MP #### [facility] [address] [place] [address] Dr. Dillon Pepe Color (U) YELLOW Normal YELLOW [facility] Comment on above: Performed By: #### C MP #### [facility] [address] [place] [address] Dr. Dillon ELMORE A micrscopic examination will be performed if indicated. Normal [facility] Comment on above: Performed By: #### C MP #### [facility] [address] [place] [address] Dr. Dillon Pepe Glucose Ql (U) Negative Normal NEGATIVE [facility] Comment on above: Performed By: #### C MP #### [facility] [address] [place] [address] Dr. Dillon Pepe Hemoglobin Ql (U) Negative Normal NEGATIVE [facility] Comment on above: Performed By: #### C MP #### [facility] [address] [place] [address] Dr. Dillon Pepe Ketones Ql (U) >=80 Abnormal NEGATIVE [facility] Comment on above: Performed By: #### C MP #### [facility] [address] [place] [address] Dr. Dillon Pepe LEUKOCYTES Negative Normal NEGATIVE [facility] Comment on above: Performed By: #### C MP #### [facility] [address] [place] [address] Dr. Dillon Pepe Nitrite Ql (U) Negative Normal NEGATIVE [facility] Comment on above: Performed By: #### C MP #### [facility] [address] [place] [address] Dr. Dillon Pepe pH (U) 6.0 [pH] Normal 5-9 [facility] Comment on above: Performed By: #### C MP #### [facility] [address] [place] [address] Dr. Dillon Pepe Protein (U) [Mass/Vol] 30 mg/dL Abnormal NEGATIVE/ TRACE [facility] Comment on above: Performed By: #### C MP #### [facility] [address] [place] [address] Dr. Dillon Pepe SPEC GRAVITY >=1.030 Abnormal 1.005-<=1.02 5 [facility] Comment on above: Performed By: #### C MP #### [facility] [address] [place] [address] Dr. Dillon Pepe UR MICRO IND INDICATED Normal [facility] Comment on above: Performed By: #### C MP #### [facility] [address] [place] [address] Dr. Dillon Pepe Urobilinogen Qn (U) 1.0 {Elio'U}/dL Normal 0.2 - 1. 0 [facility] Comment on above: Performed By: #### C MP #### [facility] [address] [place] [address] Dr. Dillon Pepe PROF 14(COMP METB)on 022 Albumin [Mass/Vol] 3.5 g/dL Normal 3.4-5.0 [facility] Comment on above: Performed By: #### C MP #### [facility] [address] [place] [address] Dr. Dillon Pepe Albumin/Globulin [Mass ratio] 0.8 {ratio} Normal [facility] Comment on above: Performed By: #### C MP #### [facility] [address] [place] [address] Dr. Dillon Pepe ALP [Catalytic activity/Vol] 84 U/L Normal 46-116 [facility] Comment on above: Performed By: #### C MP #### [facility] [address] [place] [address] Dr. Dillon Pepe ALT [Catalytic activity/Vol] 17 U/L Normal 14-59 [facility] Comment on above: Performed By: #### C MP #### [facility] [address] [place] [address] Dr. Dillon Pepe Anion gap [Moles/Vol] 19.2 mmol/L Normal Th [facility] Comment on above: Performed By: #### C MP #### [facility] [address] [place] [address] Dr. Dillon Pepe AST [Catalytic activity/Vol] 10 U/L Critically low 15-37 [facility] Comment on above: Performed By: #### C MP #### [facility] [address] [place] [address] Dr. Dillon Pepe Bilirubin [Mass/Vol] 0.6 mg/dL Normal 0.2-1.3 [facility] Comment on above: Performed By: #### C MP #### [facility] [address] [place] [address] Dr. Dillon Pepe Calcium [Mass/Vol] 9.3 mg/dL Normal 8.5-10.[address] [facility] Comment on above: Performed By: #### C MP #### [facility] [address] [address] [address] Dillon Pepe Chloride [Moles/Vol] 98 mmol/L Normal 98-107 [facility] Comment on above: Performed By: #### C MP #### [facility] [address] [place] [address] Dr. Dillon Pepe CO2 [Moles/Vol] 20.7 mmol/L Critically low 22.0-30.0 [facility] Comment on above: Performed By: #### C MP #### [facility] [address] [place] [address] Dr. Dillon Pepe Creatinine [Mass/Vol] 0.51 mg/dL Critically low 0.52-1.04 [facility] Comment on above: Performed By: #### C MP #### [facility] [address] [place] [address] Dr. Dillon Pepe EGFR-AF ETHIOPIAN =60 Normal >=60 [facility] Comment on above: Performed By: #### C MP #### [facility] [address] [place] [address] Dr. Dillon Pepe EGFR-NON AF ETHIOPIAN >60 Normal >=60 [facility] Comment on above: Performed By: #### C MP #### [facility] [address] [place] [address] Dr. Dillon Pepe Globulin (S) [Mass/Vol] 4.5 g/dL Normal [facility] Comment on above: Performed By: #### C MP #### [facility] [address] [place] [address] Dr. Dillon Pepe Glucose [Mass/Vol] 106 mg/dL Normal 74-106 [facility] Comment on above: Performed By: #### C MP #### [facility] [address] [address] [address] Dillon Pepe Potassium [Moles/Vol] 2.9 mmol/L Critically low 3.4-5.0 [facility] Comment on above: Performed By: #### C MP #### [facility] [address] [address] [address] Dillon Pepe Protein [Mass/Vol] 8.0 g/dL Normal 6.1-8.[address] [facility] Comment on above: Performed By: #### C MP #### [facility] [address] [address] [address] Dillon Pepe Sodium [Moles/Vol] 136 mmol/L Critically low 137-145 Th [facility] Comment on above: Performed By: #### C MP #### [facility] [address] [address] [address] Dillon Pepe Urea nitrogen [Mass/Vol] 7.0 mg/dL Normal 7.0-18.0 [facility] Comment on above: Performed By: #### C MP #### [facility] [address] [address] [address] Dillon Pepe Urea nitrogen/Creatinine [Mass ratio] 13.7 mg/mg Normal [facility] Comment on above: Performed By: #### C MP #### [facility] [address] [address] [address] Dillon Pepe URINE MICROSCOPIC ONLYon BACTERIA SMALL Abnormal NONE SEEN [facility] Comment on above: Performed By: #### U MICRO, UACSIND #### [facility] [address] [address] [address] Dillon Pepe Bacteria identified Cx Nom (U) INDICATED Normal [facility] Comment on above: Performed By: #### U MICRO, UACSIND #### [facility] [address] [address] [address] Dillon Pepe CAST NONE SEEN Normal NONE SEEN [facility] Comment on above: Performed By: #### U MICRO, UACSIND #### [facility] [address] [address] [address] Dillon Pepe Crystals LM Nom (Urine sed) NONE SEEN Normal NONE SEEN [facility] Comment on above: Performed By: #### U MICRO, UACSIND #### [facility] [address] [place] [address] Dr. Dillon Pepe Epithelial cells LM Ql (Urine sed) FEW Abnormal NONE SEEN /RARE [facility] Comment on above: Performed By: #### U MICRO, UACSIND #### [facility] [address] [place] [address] Dr. Dillon Pepe MUCOUS LARGE Abnormal NONE SEEN [facility] Comment on above: Performed By: #### U MICRO, UACSIND #### [facility] [address] [place] [address] Dr. Dillon Pepe RBC NONE SEEN Abnormal 0-2 [facility] Comment on above: Performed By: #### U MICRO, UACSIND #### [facility] [address] [place] [address] Dr. Dillon Pepe WBC 0-2 Abnormal NONE SEEN [facility] Comment on above: Performed By: #### U MICRO, UACSIND #### [facility] [address] [place] [address] Dr. Dillon Pepe US PREG ANATOMY SINGLEon PREG ANATOMY [...] by: CARLO DENNISON Date: 2021-05-31 19:53 Normal [facility] Vital Signs Date Time Vital Sign Value Performing Clinician Vineet glasgow 08-23-2024 15:51-0400 Body mass index (BMI) [Ratio] 41.44 kg/m2 Marcus Diamond DO Work Phone: [facility] 08-23-2024 15:51-0400 Body weight 112.95 kg Marcus Diamond DO Work Phone: [facility] 08-23-2024 15:51-0400 Diastolic blood pressure 72 mm[Hg] Marcus Diamond DO Work Phone: [facility] 08-23-2024 15:51-0400 Systolic blood pressure 124 mm[Hg] Marcus Diamond DO Work Phone: [facility] 08-02-2024 15:57-0400 Body mass index (BMI) [Ratio] 41.57 kg/m2 Marcus Diamond DO Work Phone: [facility] 08-02-2024 15:57-0400 Body weight 113.31 kg Marcus Diamond DO Work Phone: [facility] 08-02-2024 15:57-0400 Diastolic blood pressure 70 mm[Hg] Marcus Diamond DO Work Phone: [facility] 08-02-2024 15:57-0400 Systolic blood pressure 122 mm[Hg] Marcus Diamond DO Work Phone: [facility] 11-17-2023 11:23-0400 Blood Pressure Location [facility] 11-17-2023 11:23-0400 Body temperature 98.6 [degF] [facility] 11-17-2023 11:23-0400 Diastolic blood pressure 72 mm[Hg] [facility] 11-17-2023 11:23-0400 Heart rate 88 /min [facility] 11-17-2023 11:23-0400 Respiratory rate 18 /min [facility] 11-17-2023 11:23-0400 SaO2% (BldA) [Mass fraction] 99 % [facility] 11-17-2023 11:23-0400 Systolic blood pressure 130 mm[Hg] [facility] 07-22-2023 10:26-0400 Blood Pressure Location [employer] [employer] [facility] 07-22-2023 10:26-0400 Diastolic blood pressure 80 mm[Hg] Christopher BROWN [facility] 07-22-2023 10:26-0400 Heart rate 88 /min Christopher BROWN [facility] 07-22-2023 10:26-0400 Respiratory rate 16 /min Christopher BROWN [facility] 07-22-2023 10:26-0400 SaO2% (BldA) [Mass fraction] 100 % Christopher BROWN [facility] 07-22-2023 10:26-0400 Systolic blood pressure 134 mm[Hg] Christopher BROWN [facility] 05-27-2024 20:02-0400 Diastolic blood pressure 80 mm[Hg] Pedro Mike [facility] 07-19-2023 20:02-0400 Heart rate 87 /min Pedro Mike [facility] 07-19-2023 20:02-0400 Mean blood pressure 93 mm[Hg] Pedro Mike [facility] 07-19-2023 20:02-0400 Respiratory rate 16 /min Pedro Mike [facility] 07-19-2023 20:02-0400 SaO2% (BldA) [Mass fraction] 100 % Pedro Mike [facility] 07-19-2023 20:02-0400 Systolic blood pressure 118 mm[Hg] Pedro Mike [facility] 07-19-2023 18:54-0400 Heart rate 84 /min Pedro Mike [facility] 07-19-2023 18:54-0400 Respiratory rate 18 /min Pedro Mike [facility] 07-19-2023 18:54-0400 SaO2% (BldA) [Mass fraction] 100 % Pedro Mike [facility] 07-19-2023 17:39-0400 Body temperature 99.32 [degF] Pedro Mike [facility] 07-19-2023 17:39-0400 Diastolic blood pressure 60 mm[Hg] Pedro Mike [facility] 07-19-2023 17:39-0400 Heart rate 102 /min Pedro Mike [facility] 07-19-2023 17:39-0400 Respiratory rate 20 /min Pedro Mike [facility] 07-19-2023 17:39-0400 SaO2% (BldA) [Mass fraction] 97 % Pedro Mckeon [facility] 07-19-2023 17:39-0400 Systolic blood pressure 117 mm[Hg] Pedro Mckeon [facility] 07-19-2023 15:03-0400 Body temperature 97.52 [degF] Pedro Mckeon [facility] 07-19-2023 15:03-0400 Diastolic blood pressure 84 mm[Hg] Pedro Mckeon [facility] 07-19-2023 15:03-0400 Heart rate 95 /min Pedro Mckeon [facility] 07-19-2023 15:03-0400 Respiratory rate 18 /min Pedro Mckeon [facility] 07-19-2023 15:03-0400 SaO2% (BldA) [Mass fraction] 99 % Pedro Mckeon [facility] 07-19-2023 15:03-0400 Systolic blood pressure 165 mm[Hg] Pedro Mckeon [facility] 12-28-2022 15:50-0500 Blood Pressure Location Tabby Barnett [facility] 12-28-2022 15:50-0500 Body temperature 98.06 [degF] Tabby Barnett [facility] 12-28-2022 15:50-0500 Diastolic blood pressure 72 mm[Hg] Tabby Barnett [facility] 12-28-2022 15:50-0500 Heart rate 110 /min Tabby Barnett [facility] 12-28-2022 15:50-0500 Respiratory rate 18 /min Tabby Bainzier [facility] 12-28-2022 15:50-0500 SaO2% (BldA) [Mass fraction] 99 % Tabby Bainzier [facility] 12-28-2022 15:50-0500 Systolic blood pressure 124 mm[Hg] Tabby Bainzier [facility] 12-21-2022 11:00-0400 Blood Pressure Location Christcarldayna BROWN [facility] 12-21-2022 11:00-0400 Diastolic blood pressure 78 mm[Hg] Christopher BROWN [facility] 12-21-2022 11:00-0400 Heart rate 84 /min Christopher BROWN [facility] 12-21-2022 11:00-0400 Respiratory rate 16 /min Christopher BROWN [facility] 12-21-2022 11:00-0400 SaO2% (BldA) [Mass fraction] 97 % Christcarler BROWN [facility] 12-21-2022 11:00-0400 Systolic blood pressure 112 mm[Hg] Christopher BROWN [facility] 10-23-2022 14:47-0400 Blood Pressure Location Christopher BROWN [facility] 10-23-2022 14:47-0400 Diastolic blood pressure 78 mm[Hg] Christopher BROWN [facility] 10-23-2022 14:47-0400 Heart rate 87 /min Christopher BROWN [facility] 10-23-2022 14:47-0400 Respiratory rate 16 /min Christopher BROWN [facility] 10-23-2022 14:47-0400 SaO2% (BldA) [Mass fraction] 98 % Christopher BROWN [facility] 10-23-2022 14:47-0400 Systolic blood pressure 118 mm[Hg] Christopher BROWN [facility] 03-31-2022 17:26-0500 Blood Pressure Location Christopher BROWN [facility] 03-31-2022 17:26-0500 Diastolic blood pressure 74 mm[Hg] Christopher BROWN [facility] 03-31-2022 17:26-0500 Heart rate 85 /min Christopher BROWN [facility] 03-31-2022 17:26-0500 Respiratory rate 20 /min Christopher BROWN [facility] 03-31-2022 17:26-0500 SaO2% (BldA) [Mass fraction] 99 % Christopher BROWN [facility] 03-31-2022 17:26-0500 Systolic blood pressure 122 mm[Hg] Christopher BROWN [facility] Encounters Encounter Date Encounter Type Care Provider Facility Start: 08-29-2024 End: 08-29-2024 ambulatory Damon KIRBY Facility: [facility] Start: 08-29-2024 End: 08-29-2024 Patient encounter procedure Damon KIRBY [facility] Start: 08-28-2024 End: 08-28-2024 ambulatory [facility] Facility:[facility] Start: 08-23-2024 End: 08-23-2024 Patient encounter procedure Marcus Diamond DO Work Phone: [facility] Start: 08-23-2024 End: 08-23-2024 Periodic preventive med est patient 18-39 yrs Marcus Diamond DO Work Phone: [facility] Comment on above: Pre-op examination; Menorrhagia with regular cycle; Pelvic pain; Abnormal uterine bleeding (AUB); Well woman exam with routine gynecological exam Start: 08-23-2024 End: 08-23-2024 Preprocedural examination done Marcus Diamond DO Work Phone: [facility] Start: 08-23-2024 End: 08-23-2024 ambulatory MARCUS DIAMOND Not Available Start: 08-23-2024 End: 08-29-2024 Clinisync Result Encounter Marcus Diamond DO Work Phone: [facility] Unsolicited Start: 08-23-2024 End: 08-29-2024 Clinisync Result Encounter Marcus Diamond DO Work Phone: [facility] Unsolicited Start: 08-02-2024 End: 08-02-2024 Patient encounter procedure Marcus Diamond DO Work Phone: [facility] Comment on above: Menorrhagia with reg ular cycle; Dyspareunia in female; Pelvic pain Start: 08-02-2024 End: 08-02-2024 ambulatory Marcus Diamond Facility:[facility] Start: 07-24-2024 End: 07-24-2024 Bamboo flowsheet Marcus Diamond DO Work Phone: [facility] Start: 07-24-2024 End: 07-24-2024 Bamboo flowsheet Marcus Diamond DO Work Phone: [facility] Start: 07-24-2024 End: 07-24-2024 Office outpatient visit 15 minutes Marcus Fields DO Work Phone: [facility] Comment on above: Dyspareunia in femal e (Primary Dx); Menorrhagia with regular cycle Start: 07-24-2024 End: 07-24-2024 ambulatory MARCUS BEARDO Not Available Start: 11-17-2023 End: 11-17-2023 ambulatory Mallory Leary Facility:[facility] Start: 11-17-2023 End: 11-17-2023 Encounter for general adult medical examination with abnormal findings Mallory Leary [facility] Start: 11-17-2023 End: 11-17-2023 Patient encounter procedure Mallory Leary [facility] Start: 09-21-2023 End: 09-21-2023 ambulatory Damon KIRBY Facility:[facility] Start: 09-21-2023 End: 09-21-2023 Patient encounter procedure Damon KIRBY [facility] Start: 07-22-2023 End: 07-22-2023 Patient encounter procedure Damon KIRBY [facility] Start: 07-19-2023 End: 07-19-2023 Emergency department patient visit Pedro Mckeon [facility] Start: 07-19-2023 End: 07-19-2023 Emergency department patient visit Pedro Mckeon [facility] Start: 01-07-2023 End: 01-07-2023 Patient encounter procedure Tabby Barnett [facility] Start: 12-28-2022 End: 12-28-2022 Patient encounter procedure Tabby Barnett [facility] Start: 12-21-2022 End: 12-21-2022 Patient encounter procedure Damon KIRBY [facility] Start: 10-23-2022 End: 10-23-2022 Patient encounter procedure Damon KIRBY [facility] Start: 05-23-2022 End: 05-24-[address] MARCUS FIELDS . Facility:[facility] Start: 05-09-[address] MARCUS FIELDS . Facili ty:[facility] Start: 03-31-2022 End: 03-31-2022 Patient encounter procedure Damon FRANC [facility] Start: 10-19-2021 End: 10-21-2021 Evaluation and management of inpatient DR NATALIE ARTEAGA . Facility:[facility] Start: 09-29-2021 End: 09-29-[address] MARCUS FIELDS . Facility:[facility] Start: 09-08-2021 End: 09-09-[address] MARCUS FIELDS . Facility:[facility] Start: 08-08-2021 ambulatory NONE LISTED REQUEST Facility:[facility] Start: 08-07-2021 End: 08-07-[address] NONE LISTED REQUEST Facility:[facility] Start: 08-06-2021 End: 08-06-2021 Patient encounter procedure Marcus FIELDS [facility] Start: 07-17-[address] MARCUS FIELDS . Facili ty:[facility] Start: 06-22-2021 End: 06-23-[address] GARETH SANDS . Facility: Start: 06-17-[address] MARCUS FIELDS . Facili ty:[facility] Start: 05-31-2021 End: 06-01-[address] NATALIE ARTEAGA . Facility:[facility] Procedures Date Procedure Procedure Detail Performing Clinician Start: 08-23-2024 IGP,APTIMA HPV,AGE GDLN Marcus Fields DO Work Phone: Start: 08-02-2024 ENDOMETRIAL BIOPSY Core adrienne Diamond DO Work Phone: Start: 08-02-2024 Urine test visual color cmprsn meths Marcus Fields DO Work Phone: Start: 12-23-2022 Bilateral tubal ligation Damon KIRBY Start: 10-20-2021 Delivery of Products of Conception, External Approach DR MARCUS FIELDS . Start: 10-20-2021 Repair Vulva, Sales Solutions Representative al Approach DR MARCUS FIELDS . None (qualifier value) Marcus FIELDS Plan of Treatment Date Care Activity Detail Author Start: 08-27-2025 End: 08-27-2025 Patient encounter procedure 08/27/2025 11:00 AM EDT Office Visit [facility] [address] [place] [address] Marcus Fields DO [address] [place] [address] [facility] Start: 09-25-2024 End: 09-25-2024 Patient encounter procedure 09/25/2024 11:30 AM EDT Office Visit [facility] [address] [place] [address] Eloise Nazario PA [address] [place] [address] [facility] Start: 08-23-2024 End: 08-23-2024 Patient encounter procedure 08/23/2024 3:40 PM EDT Office Visit [facility] [address] [place] [id number] Marcus Fields, DO [address] [place], [place] [id number] [facility] Start: 08-02-2024 End: 08-02-2024 Patient encounter procedure 08/02/2024 3:30 PM EDT Procedure Visit [facility] [address] [place] [id number] Marcus Fields, DO [address] [place] [address] [facility] Start: 07-24-2024 End: 07-24-2024 Patient encounter procedure 07/24/2024 9:10 AM EDT Office Visit [facility] [address] [place] [phone] Marcus Fields, DO [address] [place], [place] [id number] Arrived [facility] Comment on above: Arrived Cytology Cervical or vaginal smear or scraping study Pap Smear Pathology and Cytology Routine Well woman exam with routine gynecological exam Ordered: 08/23/2024 [facility] Work Phone: Comment on above: Ordered: 08/23/2024 Immunizations Immunization Date Immunization Notes Care Provider Grant card 10-21-2021 measles, mumps and rubella virus vaccine Damon KIRBY [facility] 01-08-2020 influenza virus vaccine, unspecified formulation Marcus FIELDS [facility] NEGATED: Highlighted row has not occurred!12-21-2022 influenza virus vaccine, unspecified formulation Damon KIRBY [facility] NEGATED: Highlighted row has not occurred!12-21-2022 SARS-CoV-2 mRNA (tozinameran 5y-11y) vaccine Damon KIRBY [facility] NEGATED: Highlighted row has not occurred!10-23-2022 SARS-CoV-2 mRNA (tozinameran 5y-11y) vaccine Damon KIRBY [facility] NEGATED: Highlighted row has not occurred!05-05-2022 influenza virus vaccine, unspecified formulation [facility] NEGATED: Highlighted row has not occurred!05-05-2022 SARS-CoV-2 mRNA (tozinameran 5y-11y) vaccine Damon KIRBY [facility] NEGATED: Highlighted row has not occurred!03-31-2022 influenza virus vaccine, unspecified formulation [facility] NEGATED: Highlighted row has not occurred!02-20-2021 SARS-CoV-2 (COVID-19) Ad26 vaccine, recombinant Marcus DIAMOND [facility] NEGATED: Highlighted row has not occurred!02-20-2021 influenza virus vaccine, unspecified formulation Marcus DIAMOND [facility] Payers Date Payer Category Payer Medicaid [id number] 1996 Unknown [id number] 2.16.84 [id number] 1996 Unknown [id number] 2.16.84 0.1.687729.3.579.2.593 1996 Unknown [id number] 2.16.84 0.1.084792.3.579.2.593 1996 Unknown [id number] 2.16.84 0.1.273546.3.579.2.593 1996 Unknown [id number] 2.16.84 0.1.458550.3.579.2.593 1996 Unknown [id number] 2.16.84 0.1.381494.3.579.2.593 1996 Unknown [id number] 2.16.84 0.1.722959.3.579.2.593 1996 Unknown [id number] 2.16.84 0.1.388443.3.579.2.593 1996 Unknown [id number] 2.16.84 0.1.905588.3.579.2.593 1996 Unknown [id number] 2.16.84 0.1.483614.3.579.2.593 1996 Unknown [id number] 2.16.84 0.1.036094.3.579.2.593 1996 Unknown [id number] 2.16.84 0.1.313350.3.579.2.593 1996 Unknown [id number] 2.16.8 40.1.118412.3.579.2.1259 1996 Unknown [id number] 2.16.8 40.1.393732.3.579.2.1259 1996 Unknown [id number] 2.16.84 0.1.197077.3.579.2.1259 1996 Unknown [id number] 2.16.8 40.1.595133.3.579.2.727 1996 Unknown [id number] 2.16.8 40.1.709653.3.579.2.727 1996 Unknown [id number] 2.16.8 40.1.397179.3.579.2.727 1958 Medicaid [id number] 1958 Self-pay Unknown [id number] 2.16.8 [id number] Social History Date Type Detail Facility Start: 02-20-2021 End: 11-17-2023 Tobacco smoking status Never smoked tobacco (finding) [facility] Tobacco smoking status Never [facility] Start: 03-18-2023 End: 08-23-2024 Sex Assigned At Female [facility] Start: 07-16-2022 Tobacco use and exposure Smokeless tobacco non-user [facility] Start: 03-18-2023 End: 08-23-2024 Alcoholic beverage intake Current drinker of alcohol (finding) [facility] Start: 03-18-2023 End: 08-23-2024 History of Social function [facility] Start: 07-15-[address] syed alcohol [facility] Start: 1995 Sex assigned at Not on file [facility] Sexual Orientation [facility] Start: 06-05-2009 Sex Female (finding) [facility] Functional Status Date Assessment Result Facility 11-17-2023 Functional Status N/A [facility] 07-22-2023 Functional Status N/A [facility] 07-19-2023 Functional Status N/A [facility] 07-19-2023 Functional Status N/A [facility] 12-28-2022 Functional Status N/A [facility] 12-21-2022 Functional Status N/A [facility] 10-23-2022 Functional Status N/A [facility] 03-31-2022 Functional Status N/A [facility] Clinical Notes 03-31-2022 to 08-26-2024 Marichuy Robert - 08/23/2024 3:40 PM Yomi Hadley LPN - 08/02/2024 3:30 PM Waldo Hickey NP - 07/24/2024 9:10 AM EDT Note Date & Type Note Facility 08-26-2024 Evaluation + Plan note Future Scheduled TestsLipid Panel 08/26/24 [facility] 08-26-2024 Hospital Discharge instructions Patient Education 08/26/2024 10:42:50 Asthma Attack Prevention, Adult Asthma Attack Prevention, Adult Although you may not be able to change the fact that you have asthma, you can take actions to prevent episodes of asthma (asthma attacks). How can this condition affect me? Asthma attacks (flare ups) can cause trouble breathing, high-pitched whistling sounds when you breathe, most often when you breathe out (wheeze), and coughing. They may keep you from doing activities you like to do. What can increase my risk? Coming into contact with things that cause asthma symptoms (asthma triggers) can put you at risk for an asthma attack. Common asthma triggers include: Things you are allergic to (allergens), such as: ?Dust mite and cockroach droppings. ?Pet dander. ?Mold. ?Pollen from trees and grasses. ?Food allergies. This might be a specific food or added chemicals called sulfites. Irritants, such as: ?Weather changes including very cold, dry, or humid air. ?Smoke. This includes campfire smoke, air pollution, and tobacco smoke. ?Strong odors from aerosol sprays and fumes from perfume, candles, and household paving foreman. Other triggers, such as: ?Certain medicines. This includes NSAIDs, such as ibuprofen and aspirin. ?Viral respiratory infections (colds), including runny nose (rhinitis) or infection in the sinuses (sinusitis). ?Activity, including exercise, laughing, or crying. ?Not using inhaled medicines (corticosteroids) as told. What actions can I take to prevent an asthma attack? Stay healthy. Stay up to date on all immunizations as told by your health care provider, including the yearly flu (influenza) vaccine and pneumonia vaccine. Many asthma attacks can be prevented by carefully following your written asthma action plan. Follow your asthma action plan Work with your health care provider to create a written asthma action plan. This plan should include: A list of your asthma triggers and how to avoid or reduce them. A list of symptoms that you may have during an asthma attack. Information about which medicine to take, when to take the medicine, and how much of the medicine to take. Information to help you understand your peak flow measurements. Daily actions that you can take to prevent (control) your asthma symptoms. Contact information for your health care providers. If you have an asthma attack, act quickly. Follow the emergency steps on your written asthma action plan. This may prevent you from needing to go to the hospital. Monitor your asthma. To do this: Use your peak flow meter every morning and every evening for 2 3 weeks or as told by your health care provider. ?Record the results in a journal. ?A drop in your peak flow numbers on one or more days may mean that you are starting to have an asthma attack, even if you are not having symptoms. When you have asthma symptoms, write them down in a journal. Write down in your journal how often you need to use your fast-acting rescue inhaler. If you are using your rescue inhaler more often, it may mean that your asthma is not under control. Talk with your health care provider about adjusting your asthma treatment plan to help you prevent future asthma attacks and gain better control of your condition. Lifestyle Avoid or reduce contact with known outdoor allergens by staying indoors, keeping windows closed, and using air conditioning when pollen and mold counts are high. Do not use any products that contain nicotine or tobacco. These products include cigarettes, chewing tobacco, and vaping devices, such as e-cigarettes. If you need help quitting, ask your health care provider. If you are overweight, consider a weight-loss plan. Find ways to cope with stress and your feelings, such as mindfulness, relaxation, or breathing exercises. Ask your health care provider if a breathing exercise program (pulmonary rehabilitation) may be helpful to control symptoms and improve your quality of life. Medicines Take kyho-hts-ndlndnq and prescription medicines only as told by your health care provider. Do not stop taking your medicine and do not take less medicine even if you start to feel better. Let your health care provider know: ?How often you use your rescue inhaler. ?How often you have symptoms when you are taking your regular medicines. ?If you wake up at night because of asthma symptoms. ?If you have more trouble with your breathing when you exercise. Activity Do your normal activities as told by your health care provider. Ask your health care provider what activities are safe for you. Some people have asthma symptoms or more asthma symptoms when they exercise. This is called exercise-induced bronchoconstriction (EIB). If you have this problem, talk with your health care provider about how to manage EIB. Some tips to follow include: ?Use your fast-acting inhaler before exercise. ?Exercise indoors if it is very cold, humid, or the pollen and mold counts are high. ?Warm up and cool down before and after exercise. ?Stop exercising right away if your asthma symptoms start or get worse. Where to find more information Asthma and Allergy Foundation of [place]: www.aafa.org Centers for Disease Control and Prevention: www.cdc.gov [place] [employer]: www.lung.org National Heart, Lung, and Blood [place]: www.nhlbi.nih.gov World Health Organization: www.who.int Get help right away if: You have followed your written asthma action plan and your symptoms are not improving. Summary Asthma attacks (flare ups) can cause trouble breathing, high-pitched whistling sounds when you breathe, most often when you breathe out (wheeze), and coughing. Work with your health care provider to create a written asthma action plan. Do not stop taking your medicine and do not take less medicine even if you are feeling better. Do not use any products that contain nicotine or tobacco. These products include cigarettes, chewing tobacco, and vaping devices, such as e-cigarettes. If you need help quitting, ask your health care provider. This information is not intended to replace advice given to you by your health care provider. Make sure you discuss any questions you have with your health care provider. Document Revised: 08/06/2021 Document Reviewed: 08/06/2021 Quick Hit Patient Education 2023 [employer]. [facility] 08-26-2024 Note Patient Education Pulmonary Medicine Asthma Attack Prevention, Adult Although you may not be able to change the fact that you have asthma, you can take actions to prevent episodes of asthma (asthma attacks). How can this condition affect me? Asthma attacks (flare ups) can cause trouble breathing, high-pitched whistling sounds when you breathe, most often when you breathe out (wheeze), and coughing. They may keep you from doing activities you like to do. What can increase my risk? Coming into contact with things that cause asthma symptoms (asthma triggers) can put you at risk for an asthma attack. Common asthma triggers include: ??? Things you are allergic to (allergens), such as: ? Dust mite and cockroach droppings. ? Pet dander. ? Mold. ? Pollen from trees and grasses. ? Food allergies. This might be a specific food or added chemicals called sulfites. ??? Irritants, such as: ? Weather changes including very cold, dry, or humid air. ? Smoke. This includes campfire smoke, air pollution, and tobacco smoke. ? Strong odors from aerosol sprays and fumes from perfume, candles, and household paving foreman. ??? Other triggers, such as: ? Certain medicines. This includes NSAIDs, such as ibuprofen and aspirin. ? Viral respiratory infections (colds), including runny nose (rhinitis) or infection in the sinuses (sinusitis). ? Activity, including exercise, laughing, or crying. ? Not using inhaled medicines (corticosteroids) as told. What actions can I take to prevent an asthma attack? Stay healthy. Stay up to date on all immunizations as told by your health care provider, including the yearly flu (influenza) vaccine and pneumonia vaccine. ??? Many asthma attacks can be prevented by carefully following your written asthma action plan. Follow your asthma action plan Work with your health care provider to create a written asthma action plan. This plan should include: ??? A list of your asthma triggers and how to avoid or reduce them. ??? A list of symptoms that you may have during an asthma attack. ??? Information about which medicine to take, when to take the medicine, and how much of the medicine to take. ??? Information to help you understand your peak flow measurements. ??? Daily actions that you can take to prevent (control) your asthma symptoms. ??? Contact information for your health care providers. ??? If you have an asthma attack, act quickly. Follow the emergency steps on your written asthma action plan. This may prevent you from needing to go to the hospital. Monitor your asthma. To do this: ??? Use your peak flow meter every morning and every evening for 2?3 weeks or as told by your health care provider. ? Record the results in a journal. ? A drop in your peak flow numbers on one or more days may mean that you are starting to have an asthma attack, even if you are not having symptoms. ??? When you have asthma symptoms, write them down in a journal. ??? Write down in your journal how often you need to use your fast-acting rescue inhaler. If you are using your rescue inhaler more often, it may mean that your asthma is not under control. Talk with your health care provider about adjusting your asthma treatment plan to help you prevent future asthma attacks and gain better control of your condition. Lifestyle ??? Avoid or reduce contact with known outdoor allergens by staying indoors, keeping windows closed, and using air conditioning when pollen and mold counts are high. ??? Do not use any products that contain nicotine or tobacco. These products include cigarettes, chewing tobacco, and vaping devices, such as e-cigarettes. If you need help quitting, ask your health care provider. ??? If you are overweight, consider a weight-loss plan. ??? Find ways to cope with stress and your feelings, such as mindfulness, relaxation, or breathing exercises. ??? Ask your health care provider if a breathing exercise program (pulmonary rehabilitation) may be helpful to control symptoms and improve your quality of life. Medicines ??? Take bvnk-cto-nghymoa and prescription medicines only as told by your health care provider. ??? Do not stop taking your medicine and do not take less medicine even if you start to feel better. ??? Let your health care provider know: ? How often you use your rescue inhaler. ? How often you have symptoms when you are taking your regular medicines. ? If you wake up at night because of asthma symptoms. ? If you have more trouble with your breathing when you exercise. Activity ??? Do your normal activities as told by your health care provider. Ask your health care provider what activities are safe for you. ??? Some people have asthma symptoms or more asthma symptoms when they exercise. This is called exercise-induced bronchoconstriction (EIB). If you have this problem, talk with your health care provider about how to manag (more content not included)... [facility] 08-23-2024 History of Present illness Narrative Reason for Appointment: Patient ID: Leyda Segal is a 29 y.o. female who presents for Pre-op Visit and Gynecologic Exam Patient presents today for Pre Op/Annual appointment. Patient is scheduled to undergo Endometrial Ablation with Kaycee on 09-15-[address] Fields at [facility]. MEDICATIONS No current outpatient medications ALLERGIES Allergies Allergen Reactions Sulfamethoxazole-Trimethoprim Other Reaction(s): Hemoptysis seen thru [facility] Cat Dander Dust Mite Extract Grass Pollen(K-O-R-T-Swt Prosper) Morphine Unknown Other Reaction(s): Syncope, Vomiting, vomiting and loss of consciousness Tall Ragweed PROBLEMS Active Ambulatory Problems Diagnosis Date Noted Other atopic dermatitis 07/06/2022 Resolved Ambulatory Problems Diagnosis Date Noted No Resolved Ambulatory Problems Past Medical History: Diagnosis Date 6 weeks follow-up ([facility]) Abdominal pain affecting , antepartum ([facility]) Acute asthma exacerbation (HCC) ADHD (attention deficit hyperactivity disorder) Encounter for Rh incompatibility status Encounter for supervision of normal first ([facility]) Hyperemesis gravidarum ([facility]) Large for gestational age fetus affecting management of mother, delivered ([facility]) Mood changes Nausea/vomiting in ([facility]) Obesity (BMI 30-39.9) Vaginal delivery ([facility]) HISTORY PAST MEDICAL HISTORY SOCIAL HISTORY Past Medical History: Diagnosis Date 6 weeks follow-up ([facility]) Abdominal pain affecting , antepartum ([facility]) Acute asthma exacerbation (HCC) ADHD (attention deficit hyperactivity disorder) Encounter for Rh incompatibility status Encounter for supervision of normal first ([facility]) Hyperemesis gravidarum ([facility]) Large for gestational age fetus affecting management of mother, delivered ([facility]) Mood changes Nausea/vomiting in ([facility]) Obesity (BMI 30-39.9) Vaginal delivery ([facility]) Social History Tobacco Use Smoking status: Never [...] Respiratory: Negative. Cardiovascular: Negative. Gastrointestinal: Negative. Genitourinary: Negative. Musculoskeletal: Negative. Skin: Negative. Neurological: Negative. All other systems reviewed and are negative. Hematological: Negative. Endocrine: Negative. Allergic/Immunologic: Negative. OBJECTIVE Objective: Physical Exam Constitutional: Appearance: Normal appearance. She is well-developed. Genitourinary: Vulva normal. Breasts: Breasts are soft. Right: Normal. Left: Normal. Cardiovascular: Rate and Rhythm: Normal rate and [...] nursing note reviewed. Exam conducted with a line closer present. Vitals: Estimated body mass index is 41.57 kg/m as calculated from the following: Height as of 06/18/22: 5' 5 . Weight as of 08/02/24: 249 lb 12.8 oz. BP: No LMP recorded. ASSESSMENT & PLAN ICD-10-CM 1. Pre-op examination Z01.818 2. Menorrhagia with regular cycle N92.0 3. Pelvic pain R10.2 4. Abnormal uterine bleeding (AUB) N93.9 Annual: Pt presents for annual exam preop. Pap obtained without difficulty. Pre Op: Patient is doing well but has complaints of bleeding and pelvic pain. Patient has tried hormone therapy in the past but all attempts to subside patients issues have failed. I have discussed conservative management vs. surgical management with the patient in detail and patient desires surgical management at this time. Patient will undergo Endometrial Ablation with Kaycee on 09/15/24. Surgical consents were signed, mmc was reviewed, and patient is to proceed to [facility] OR. Follow Up: Patient is to follow up between 1-2 weeks post op to assess proper healing and recovery from procedure. Documented by Alethea Hadley LPN on behalf of: Marcus Fields DO documented in this encounter [facility] 08-02-2024 History of Present illness Narrative Associated [...] Reactions Sulfamethoxazole-Trimethoprim Other Reaction(s): Hemoptysis seen thru [facility] Cat Dander Dust Mite Extract Grass [...] exacerbation (CMS/HCC) ADHD (attention deficit hyperactivity disorder) ([facility]) Encounter for Rh incompatibility status Encounter for supervision of normal first Hyperemesis gravidarum ([facility]-HCC) Large for gestational age fetus affecting management of mother, delivered Mood changes Nausea/vomiting in Obesity (BMI 30-39.9) Vaginal delivery HISTORY PAST MEDICAL HISTORY SOCIAL HISTORY Past Medical History: Diagnosis Date 6 weeks follow-up Abdominal pain affecting , antepartum Acute asthma exacerbation (CMS/HCC) ADHD (attention deficit hyperactivity disorder) ([facility]) Encounter for Rh incompatibility status [...] nursing note reviewed. Exam conducted with a line closer present. Vitals: Estimated body mass index is [...] Marcus Fields DO documented in this encounter [facility] 07-24-2024 History of Present illness Narrative Reason for Appointment: Patient ID: Leyda Segal is a 29 y.o. female who presents for discuss periods Patient presents today for Acute Visit. MEDICATIONS No current outpatient medications ALLERGIES Allergies Allergen Reactions Sulfamethoxazole-Trimethoprim Other Reaction(s): Hemoptysis seen thru [facility] Cat Dander Dust Mite Extract Grass [...] exacerbation (CMS/HCC) ADHD (attention deficit hyperactivity disorder) ([facility]) Encounter for Rh incompatibility status Encounter for supervision of normal first Hyperemesis gravidarum Large for gestational age fetus affecting management of mother, delivered Mood changes Nausea/vomiting in Obesity (BMI 30-39.9) Vaginal delivery HISTORY PAST MEDICAL HISTORY SOCIAL HISTORY Past Medical History: Diagnosis Date 6 weeks follow-up Abdominal pain affecting , antepartum Acute asthma exacerbation (CMS/HCC) ADHD (attention deficit hyperactivity disorder) ([facility]) Encounter for Rh incompatibility status [...] nursing note reviewed. Exam conducted with a line closer present. Vitals: Estimated body mass index is [...] Marcus Fields DO documented in this encounter [facility] 11-17-2023 Hospital Discharge instructions Patient Education 11/17/2023 [...] Centers for Disease Control and Prevention: www.cdc.gov [place] [employer]: www.lung.org This information is not intended to replace advice given to you by your health care provider. Make sure you discuss any questions you have with your health care provider. Document Revised: 04/03/2021 Document Reviewed: 04/03/2021 Quick Hit Patient Education 2023 [employer]. [facility] 11-17-2023 Note Patient [...] for Disease Control and Prevention: www.cdc.gov ? [place] [employer]: www.lung.org This information is not intended to replace advice given to you by your health care provider. Make sure you discuss any questions you have with your health care provider. Document Revised: 04/03/2021 Document Reviewed: 04/03/2021 Quick Hit Patient Education ? 2023 [employer]. [facility] 09-18-2023 Hospital Discharge instructions Patient [...] Follow these instructions at home: Medicines Take dumi-kvn-jirfpep and prescription medicines only as told by [...] powder, vinegar, hot sauces, and barbecue sauce. ?Piatt fruit juices and citrus fruits, such as oranges, lina, and limes. ?Tomato-based foods, such as red sauce, chili, salsa, and pizza with red sauce. ?Fried and fatty foods, such as donuts, guamanian fries, potato chips, and high-fat dressings. ?High-fat [...] provider. Document Revised: 08/19/2020 Document Reviewed: 08/19/2020 Quick Hit Patient Education 2022 [employer]. [facility] 09-18-2023 Note Patient Education Gastroenterology Esophagitis Esophagitis [...] these instructions at home: Medicines ? Take swft-nzl-sfcejnq and prescription medicines only as told by [...] vinegar, hot sauces, and barbecue sauce. ? Piatt fruit juices and citrus fruits, such as oranges, lina, and limes. ? Tomato-based foods, such as red sauce, chili, salsa, and pizza with red sauce. ? Fried and fatty foods, such as donuts, guamanian fries, potato chips, and high-fat dressings. ? [...] that causes pr (more content not included)... [facility] 07-22-2023 Hospital Discharge instructions Patient [...] as coffee and soda. Take and apply hflo-fmv-tztixul and prescription medicines only as told by [...] provider. Document Revised: 06/08/2022 Document Reviewed: 06/08/2022 Quick Hit Patient Education 2022 [employer]. 07/21/2023 11:23:59 Skin Abscess Skin Abscess A [...] Follow these instructions at home: Medicines Take epug-sak-rkhheuv and prescription medicines only as told by [...] and water are not available, use hand senior design engineer. Check your abscess every day for signs [...] provider. Document Revised: 05/14/2022 Document Reviewed: 11/17/2021 Quick Hit Patient Education 2022 [employer]. Follow Up Care 07/20/2023 09:40:21 With:Damon KIRBY MD, FAM Address: When:Within 2 Month(s) [facility] [place] 07-19-2023 Hospital Discharge instructions Patient Education 07/19/2023 20:03:53 Nausea and Vomiting, Adult, Sdot-zu-Spna Nausea and Vomiting, Adult Nausea is feeling [...] fruit juice). ?Low-calorie sports drinks. Eat bland, iyya-zx-xjurxm foods in small amounts as you are able, such as: ?Bananas. ?Applesauce. ?Rice. ?Low-fat (lean) meats. ?[place]. ?Crackers. Avoid drinking fluids that have a lot of sugar or caffeine in them. This includes energy drinks, sports drinks, and soda. Avoid alcohol. Avoid spicy or fatty foods. General instructions Take uoin-zdt-wtspnmg and prescription medicines only as told by your doctor. Drink enough fluid to keep your pee (urine) pale yellow. Wash your hands often with soap and water for at least 20 seconds. If you cannot use soap and water, use hand senior design engineer. Make sure that everyone in your home [...] your doctor about eating and drinking. Take ftib-fov-oxepyov and prescription medicines only as told by your doctor. Contact your doctor if your symptoms get worse or you have new symptoms. Keep all follow-up visits. This information is not intended to replace advice given to you by your health care provider. Make sure you discuss any questions you have with your health care provider. Document Revised: 08/15/2021 Document Reviewed: 08/15/2021 Quick Hit Patient Education 2022 [employer]. 07/19/2023 20:03:53 Hematemesis Hematemesis Hematemesis is when [...] tarry. Follow these instructions at home: Take fexz-rbz-fcyimlz and prescription medicines only as told by [...] drink alcohol, or use tobacco products. Take fuik-nbq-eipzqgh and prescription medicines only as told by your health care provider. This information is not intended to replace advice given to you by your health care provider. Make sure you discuss any questions you have with your health care provider. Document Revised: 09/17/2021 Document Reviewed: 09/17/2021 Quick Hit Patient Education 2022 [employer]. Follow Up Care 07/19/2023 17:37:03 With:Shirley Naranjo Address: [address], [address] [place] [address]- [phone] Business (1) When:07/22/2023 19:32:52 Comments:Call for diagnosis based follow up With:Damon KIRBY Address: [address] [place] [address]- Business (1) When:07/22/2023 19:32:47 Comments:Call Dr for diagnosis based follow up [facility] 07-19-2023 Hospital Discharge instructions Patient Education [...] Follow these instructions at home: Medicines Take jlzh-ivq-gdyxbom and prescription medicines only as told by [...] and water are not available, use hand senior design engineer. Check your abscess every day for signs [...] provider. Document Revised: 05/14/2022 Document Reviewed: 11/17/2021 Quick Hit Patient Education 2022 [employer]. Follow Up Care 07/19/2023 14:53:35 With:Damon FRANC Address: [address] [place], [place] [phone] Business (1) When:07/22/2023 15:31:39 Comments:Call Dr for diagnosis based follow up [facility] 01-03-2023 Hospital Discharge instructions Patient Education [...] Follow these instructions at home: Medicines Take prfq-ymk-ytsdkim and prescription medicines only as told by [...] provider. Document Revised: 12/19/2020 Document Reviewed: 12/19/2020 Quick Hit Patient Education 2022 [employer]. [facility] 12-06-2022 Hospital Discharge [...] pray, or go to a place of lutheran. Do some deep breathing. To do this, [...] sugars, or salt (sodium). General instructions Take begg-ceq-yruawfb and prescription medicines only as told by [...] (ADAA): www.adaa.org Mental Health Saritha: www.mentalhealthamerica.net National Lorida on Mental Illness: www.rakesh.org Contact a health [...] department or: Call your local emergency services (216 in the [place] Call a suicide crisis helpline, such as the National Suicide Prevention Lifeline at or 356 in the [place] This is open 24 hours a day in the [place] Text the Crisis Text Line at 521556 (in the [place] Summary If you are [...] provider. Document Revised: 09/03/2021 Document Reviewed: 12/20/2019 [employer] Patient Education 2022 [employer]. Follow Up Care 10/23/2022 15:26:01 With:Damon KIRBY MD, FAM Address: When: only if needed Comments:pt to call pulse/HR to me in 4-6 weeks [facility] 10-23-2022 Hospital Discharge [...] pray, or go to a place of lutheran. Do some deep breathing. To do this, [...] sugars, or salt (sodium). General instructions Take dmxz-urk-chxdmba and prescription medicines only as told by [...] (ADAA): www.adaa.org Mental Health Saritha: www.mentalhealthamerica.net National Lorida on Mental Illness: www.rakesh.org Contact a health [...] department or: Call your local emergency services (804 in the [place] Call a suicide crisis helpline, such as the National Suicide Prevention Lifeline at or 591 in the [place] This is open 24 hours a day in the [place] Text the Crisis Text Line at 860329 (in the [place] Summary If you are [...] provider. Document Revised: 09/03/2021 Document Reviewed: 12/20/2019 Quick Hit Patient Education 2022 [employer]. 10/21/2022 20:33:36 Living With Attention Deficit Hyperactivity [...] you. Follow these instructions at home: Take yrfs-ack-matwdra and prescription medicines only as told by [...] services is a problem, search for a [facility] or [facility]. Public mental health [...] ADHD, be patient and communicate openly. Take wisp-smh-aawkfcf and prescription medicines only as told by your health care provider. Check with your health care provider before taking any new medicines. This information is not intended to replace advice given to you by your health care provider. Make sure you discuss any questions you have with your health care provider. Document Revised: 06/21/2020 Document Reviewed: 07/24/2020 [employer] Patient Education 2022 [employer]. Follow Up Care 09/10/2022 14:54:18 With:Damon KIRBY MD, FAM Address: When:6 weeks Comments: [facility] 03-31-2022 Hospital Discharge instructions Patient Education 03/31/2022 [...] skin caused by scratching. Take or apply iarm-uhe-znpyqsq and prescription medicines only as told by [...] 02/05/2001 Document Revised: 05/30/2019 Document Reviewed: 03/12/2017 Quick Hit Patient Education 2020 [employer]. 03/29/2022 19:21:47 BMI for Adults BMI for [...] height. This can be done either in Indian ([place] or metric measurements. Note that charts are available to help you find your BMI quickly and easily without having to do these calculations yourself. To calculate your BMI in Indian ([place] measurements, your health care provider will: [...] medical problems. BMI can be measured using Indian measurements or metric measurements. To interpret your [...] 10/20/2004 Document Revised: 01/21/2018 Document Reviewed: 12/22/2017 Quick Hit Patient Education 2020 [employer]. Follow Up Care 03/19/2022 11:26:33 With:FRANC SULLIVAN, JESUSITA Jose Address: When: only if needed Comments:pt to call dermatology referral names to office soon [facility] Evaluation + Plan note No data available for this section [facility] Evaluation + Plan note Future Appointments Appointment Date:12/08/2022 06:00:00 PM Scheduled Provider:Damon KIRBY [facility] [place] Evaluation + Plan note Future Appointments Appointment Date:01/04/2023 04:40:00 PM Scheduled Provider:Damon KIRBY MD [facility] App[facility] Type:[facility] Evaluation + Plan note Future Appointments Appointment Date:01/22/2023 11:00:00 AM Scheduled Provider:Tabby Barnett PA-C Location:[facility] Appointment Type:[facility] [place] Evaluation + Plan note Future Appointments Appointment Date:09/21/2023 08:20:00 AM Scheduled Provider:Damon KIRBY MD Location:[facility] Appointment Type:[facility] Evaluation note Diagnosis Dyspareunia in female- Primary Menorrhagia with regular cycle documented in this encounter [facility]* Diagnosis Menorrhagia with regular cycle Dyspareunia in female Pelvic pain documented in this encounter [facility]* Diagnosis Pre-op examination Menorrhagia with regular cycle Pelvic pain Abnormal uterine bleeding (AUB) Well woman exam with routine gynecological exam Routine gynecological examination documented in this encounter [facility] Discharge instructions No data available for this section [facility] data available for this section [facility] Summary Purpose Family History No Family [...] for this section No Family History Records Found Advance Directives No [...] Care Team (unrecognized sect ion and content) Team Foreman Relationship Specialty Start Date End Date Damon Kirby MD [facility] General 11/24/22 Team Foreman Relationship Specialty Start Date End Date Damon Kirby MD [facility] General 11/24/22 Team Foreman Relationship Specialty Start Date End Date Damon Kirby MD [address] [place] [address] [facility] General 11/24/22 Team Foreman Relationship Specialty Start Date End Date Damon Kirby MD [address] [place] [address] [facility] General 11/24/22 INFORMATION SOURCE (unrecogn ized section and content) DATE CREATED AUTHOR 05/30/2022 [facility] DATE CREATED AUTHOR AUTHOR'S ORGANIZ ATION 07/19/2023 [facility] DATE CREATED AUTHOR AUTHOR'S ORGANIZ ATION 07/20/2024 [facility] DATE CREATED AUTHOR AUTHOR'S ORGANIZ ATION 08/09/2024 [facility] DATE CREATED AUTHOR AUTHOR'S ORGANIZ ATION [facility]/26/2024 [facility] DATE CREATED AUTHOR AUTHOR'S ORGANIZ ATION 08/31/2024 [facility] Reason for Visit (unrecogniz ed section and content) Reason Comments discuss periods Reason Comments EMBX Reason Comments Pre-op Visit Gynecologic Exam FOR RECORDS PERTAINING TO PATIENTS WHO ARE [...] BE BASED ON THE PRIMARY CLINICAL RECORDS. [facility]. provides no warranty or guarantee of the accuracy or completeness of information in this document.
--- NOTE | 2024-09-07 08:36 | XR_ITS ---
[address] [address] Patient Name: LEYDA SEGAL MRN: [id number] date: 1995 Sex: F Assigned Patient Location: [facility] Current Patient Location: [facility] Accession/Order Number: [id number] Exam Date: 09/07/2024 08:56 Report Date: 09/07/2024 08:57 At the request of: TATY BALL DO Procedure: XR chest 2V PA AND LATERAL CHEST: CLINICAL HISTORY: Preoperative clearance. Tobacco use. COMPARISON: 01/01/2023 There is no focal parenchymal consolidation, effusion or pneumothorax. The cardiac, hilar and mediastinal silhouettes are within normal limits. There is no vascular congestion. The visualized bony thorax is intact. XR/XR chest 2V IMPRESSION: NO ACUTE CARDIOPULMONARY ABNORMALITY. Impression dictated by: Alethea Mcneil M.D. 09/07/2024 8:57 AM Dictation Location: [place] [address] Electronically authenticated by: [id number] Y Date: 09/07/2024 08:57
== END 2024-09-07 07:57 | disposition home or self-care (01) ==
LOC: PST 07:58
PROVIDERS: PCP Family Medicine; Visit Provider Obstetrics & Gynecology
DX: Z01.812 Encounter for preprocedural laboratory examination (principal); N92.0 Excessive and frequent menstruation with regular cycle; N93.9 Abnormal uterine and vaginal bleeding, unspecified; R10.2 Pelvic and perineal pain
CPT/HCPCS: 71046

== ENCOUNTER 2024-09-15 08:57 | Day surgery (SDC) | payer MEDICAID, SELFPAY ==
[2024-09-07 08:21] VITALS: BP 122/82; PULSE 108; TEMP 36.4; O2SAT 100; BMI 41.5
[2024-09-15] VITALS (9 sets, daily range): BP systolic 127–160; BP diastolic 78–98; PULSE 59–89; TEMP 36.3–36.7; O2SAT 97–99; BMI 41.1
[2024-09-15 09:09] LABS: Hematocrit 42.6 % (36.0-48.0); Hemoglobin 14.1 g/dL (12.0-16.0); Immature Granulocytes Abs Auto 0.04 10^3/uL (0.00-0.03); Immature Granulocytes Pct Auto 0.4 % (0.0-0.5); Lymphocytes Absolute Auto 2.5 10^3/uL (1.2-3.8); Mean Corpuscular HGB Conc 33.1 g/dL (29.9-35.2); Mean Corpuscular Hemoglobin 28.8 pg (26.7-34.0); Mean Corpuscular Volume 86.9 fL (81.0-99.0); Platelet Count 357 10^3/uL (150-450); Red Blood Count 4.90 10^6/uL (4.20-5.40); White Blood Count 10.6 10^3/uL (4.0-11.0)
--- OUTSIDE RECORDS SUMMARY | 2024-09-15 09:16 | XMS_ITS | CCD ---
Author Organization [facility] Care Team Providers Care General Merchandise Manager Name Role Phone Damon KIRBY Primary Care [...] Physician Damon Kirby MD Primary Care Provider [phone] Marcus Fields Attending Unavailable Marcus Fields Admitting Unavailable Damon Kirby MD Primary Care Provider [phone] MARCUS FIELDS Attending Unavailable MARCUS FIELDS Attending Unavailable MARCUS FIELDS Attending Unavailable Damon KIRBY Attending Unavailable Mallory Leary Attending Unavailable Damon KIRBY Attending Unavailable Sumeet FRANKLIN Attending Unavailable Allergies Allergy Classification Reported Allergen(s) Allergy Type Date of Onset Reaction(s) Facility Cats (1 source) Cat Animal Allergy (Dander) [facility] Dust (1 source) Dust Substance Allergy [facility] Opioid Agonists (1 source) Morphine; Translations: [morphine] Drug Allergy 02-22-19 14 Syncope (disorder) [facility] Sulfamethoxazole / Trimethoprim (1 source) Sulfamethoxazole / Trimethoprim; Translations: [sulfamethoxazole-t rimethoprim] Drug Allergy 02-22-19 23 Hemoptysis (finding) [facility] Dick Comment on above: seen thru [facility] [place] [facility] (12 sources) Cat; Translations: [Cats] Drug allergy [facility] (12 sources) Dust; Translations: [Dust] Drug allergy [facility] (20 sources) Morphine; Translations: [morphine] Drug Allergy 02-22-19 14 Syncope (disorder), Unknown [facility] (13 sources) Ragweed; Translations: [Ragweed] Drug allergy [facility] (13 sources) Grass; Translations: [Grass] Drug allergy [facility] (1 source) Morphine Drug Allergy 03-11-19 22 [facility] Rep[facility] (11 sources) Sulfamethoxazole / Trimethoprim; Translations: [sulfamethoxazole-t rimethoprim] Drug Allergy 02-22-19 23 Hemoptysis (finding) [facility] Hortense Comment on above: seen thru [facility] [place] [facility] (9 sources) Grass pollen Drug Allergy 03-10-19 24 [facility] Healthcare (9 sources) House dust mite Allergy to substance 03-10-19 24 [facility] Healthcare (9 sources) Cat Dander Allergy to substance 03-10-19 24 [facility] Healthcare Work Phone: (9 sources) Tall Ragweed Drug Allergy 03-10-19 24 [facility] Healthcare (1 source) Sulfamethoxazole / Trimethoprim; Translations: [Bactrim] Drug Allergy 02-17-[address] [facility] Repository Medications Current Medications Medication Drug Class(es) [...] day(s), # 28 cap(s), Refills(s) 0, Pharmacy: [facility], 165.1, cm, 07/19/23 15:05:00 EDT, Height/Length Dosing, 113.2, kg, 07/19/23 15:05:00 EDT, Weight Dosing Start Date: 07/19/23 Stop Date: 07/26/23 Status: Ordered dextromethorphan hydrobromide 3 mg/ml / promethazine hydrochloride 1.25 mg/ml oral solution (1 source) Phenothiazine, Uncompetitive K-xuwypk-M-aspartat e Receptor Antagonist, Sigma-1 Agonist Start: 02-20-2021 take 5 mL by mouth every six hours for cough dextromethorphan- promethazine 15 mg-6.25 mg/5 mL Oral Syrup 5 mL 5 mL, Oral, q6hr for cough, 120 mL, Refill(s) 0, [facility], 165, cm, 02/20/21 11:45:00 EST, Height/Length [...] kami, Topical, BID, 60 gram, Refill(s) 0, [facility], 166, cm, 02/13/20 10:54:00 EST, Height/Length [...] nausea, # 12 tab(s), Refills(s) 0, Pharmacy: [facility], 165, cm, 02/20/21 11:45:00 EST, Height/Length Dosing, 114.9, kg, 02/20/21 11:45:00 EST, Weight Dosing Start Date: 03/04/21 Status: Ordered pantoprazole 20 mg delayed release oral tablet (6 sources) Proton Pump Inhibitor Start: 07-22-2023 take 2 tablets by mouth once daily Protonix 20 mg Tab-DR 40 mg = 2 tab(s), Oral, Daily, # 60 tab(s), Refills(s) 2, Pharmacy: [facility], 165, cm, 07/22/23 10:36:00 EDT, Height/Length Dosing, 114, kg, 07/22/23 10:36:00 EDT, Weight Dosing Start Date: 07/22/23 Status: Ordered Quantity: 60.0 Unit: tab(s) Repeat number: 3 Start: 07-19-2023 take 2 tablets by [facility] once daily Protonix 20 mg Tab-DR 40 mg = 2 tab(s), Oral, Daily, # 60 tab(s), Refills(s) 0, Pharmacy: [facility], 165, cm, 07/19/23 17:41:00 EDT, Height/Length [...] day(s), # 28 tab(s), Refills(s) 0, Pharmacy: [facility], 165, cm, 07/19/23 17:41:00 EDT, Height/Length Dosing, 113, kg, 07/19/23 17:41:00 EDT, Weight Dosing Start Date: 07/19/23 Stop Date: 07/26/23 Status: Ordered sulfamethoxazole 800 mg / trimethoprim 160 mg oral tablet (2 sources) Dihydrofolate Reductase Inhibitor Antibacterial, Sulfonamide Antimicrobial Start: 07-19-2023 End: 07-26-2023 Bactrim D.S. 800 mg-160 mg Tab 1 tab(s), Oral, BID for 7 day(s), 14 tab(s), Refill(s) 0, [facility], 165.1, cm, 07/19/23 15:05:00 EDT, Height/Length [...] kami, Topical, BID, 60 gram, Refill(s) 1, [facility], 165, cm, 03/31/22 17:35:00 EST, Height/Length Dosing, 100.5, kg, 03/31/22 17:35:00 EST, Weight Dosing Start Date: 03/31/22 Status: Ordered Zofran ODT 4 mg Tab-Dis (6 sources) Start: 07-19-2023 take 1 tablet by mouth every eight hours as needed for nausea Zofran ODT 4 mg Tab-Dis 4 mg = 1 tab(s), Oral, q8hr, PRN Nausea/Vomiting, # 12 tab(s), Refills(s) 0, Pharmacy: [facility], 165, cm, 07/19/23 17:41:00 EDT, Height/Length Dosing, 113, kg, 07/19/23 17:41:00 EDT, Weight Dosing Start Date: 07/19/23 Status: Ordered Quantity: 12.0 Unit: tab(s) Repeat number: 1 Start: 07-19-2023 take 1 tablet by dilip th every eight hours as needed for nausea Zofran ODT 4 mg Tab-Dis 4 mg = 1 tab(s), Oral, q8hr, PRN Nausea/Vomiting, # 12 tab(s), Refills(s) 0, Pharmacy: [facility], 165, cm, 07/19/23 17:41:00 EDT, Height/Length [...] puff(s), Inhalation, q6hr, 1 EA, Refill(s) 1, [facility], 166, cm, 11/17/23 11:30:00 EDT, Height/Length Dosing, 121.3, kg, 11/17/23 11:30:00 EDT, Weight Dosing Start Date: 11/17/23 Status: Ordered Quantity: 1.0 Unit: EA Repeat number: 2 Start: 11-17-2023 take 1 dose by inhal ation every six hours Albuterol (Eqv-ProAir HFA) 90 mcg/inh inhalation aerosol 2 puff(s), Inhalation, q6hr, 1 EA, Refill(s) 1, [facility], 166, cm, 11/17/23 11:30:00 EDT, Height/Length Dosing, 121.3, kg, 11/17/23 11:30:00 EDT, Weight Dosing Start Date: 11/17/23 Status: Ordered Start: 11-08-2020 take 1 dose by inhal ation every six hours Albuterol (Eqv-ProAir HFA) 90 mcg/inh inhalation aerosol 2 puff(s), Inhalation, q6hr, 1 EA, Refill(s) 0, [facility], 166, cm, 11/08/20 16:18:00 EDT, Height/Length [...] Test Name Value Interpretation Reference Range Facility ALL CBC WITH AUTO DIFFon BASOPHILS ABSOLUTE AUTO 0.1 [facility] Basophils/100 WBC (Bld) 0.7 % 0.2 - 2.0 % [facility] Eosinophils/100 WBC (Bld) 2.9 % 0.9 - 7.0 % [facility] Erythrocyte distribution width (RBC) [Ratio] 11.8 % 11.0 - 15.0 % [facility] Hematocrit (Bld) [Volume fraction] 42.6 % 36.0 - 48.0 % [facility] Hemoglobin (Bld) [Mass/Vol] 14.1 g/dL 12.0 - 16.0 g/dL [facility] IMMATURE GRANULOCYTES ABS AUTO 0.04 High [facility] Immature granulocytes/100 WBC (Bld) 0.4 % 0.0 - 0.5 % [facility] Interpretation and review of laboratory results Abnormal [facility] LYMPHOCYTES ABSOLUTE AUTO 2.5 [facility] Lymphocytes/100 WBC (Bld) 23.5 % 20.5 - 60.0 % [facility] MCH (RBC) [Entitic mass] 28.8 pg 26.7 - 34.0 pg [facility] MCHC (RBC) [Mass/Vol] 33.1 g/dL 29.9 - 35.2 g/dL [facility] MCV (RBC) [Entitic vol] 86.9 fL 81.0 - 99.0 fL [facility] MONOCYTES ABSOLUTE AUTO 0.5 [facility] Monocytes/100 WBC (Bld) 4.9 % 1.7 - 12.0 % [facility] NEUTROPHILS ABSOLUTE AUTO 7.1 High [facility] Neutrophils/100 WBC (Bld) 67.6 % 43.0 - 75.0 % [facility] Platelet mean volume (Bld) [Entitic vol] 9.9 fL 9.5 - 13.5 fL [facility] EO # 0.3 [facility] PLT 357 [facility] RBC 4.9 [facility] WBC 10.6 [facility] XR CHEST 2Von 09-07-2024 [place] [id number] XRay Report Signed Patient: LEYDA SEGAL MR#: [id number] : 1995 Acct:[id number] Age/Sex: 29 / F ADM Date: 09/07/24 Loc: [facility] Attending Dr: Marcus Fields D.O. Ordering Physician: Marcus Fields D.O. Date of Service: 09/07/24 Procedure(s): XR chest 2V Accession Number(s): [id number] cc: Damon Kirby M.D.; Marcus Fields D.O. [place] [address] Patient Name: LEYDA SEGAL MRN: [facility]:[id number] date: 1995 Sex: F Assigned Patient Location: [facility] Current Patient Location: [facility] Accession/Order Number: [id number] Exam Date: 09/07/2024 08:56 Report Date: 09/07/2024 08:57 At the request of: MARCUS FIELDS DO Procedure: XR chest 2V PA AND LATERAL CHEST: CLINICAL HISTORY: Preoperative clearance. Tobacco use. COMPARISON: 01/01/2023 There is no focal parenchymal consolidation, effusion or pneumothorax. The cardiac, hilar and mediastinal silhouettes are within normal limits. There is no vascular congestion. The visualized bony thorax is intact. XR/XR chest 2V IMPRESSION: NO ACUTE CARDIOPULMONARY ABNORMALITY. Impression dictated by: Alethea Mcneil M.D. 09/07/2024 8:57 AM Dictation Location: [place] [address] Electronically authenticated by: [id number] Y Date: 09/07/2024 08:57 Dictated By: Alethea Mcneil M.D. Signed By: 09/07/2400 DD/ 0857 TD/TT: Pan Devulcanizer: [facility] Radiology, Radiologist, MD - 09/07/[address] [address] XRay Report Signed Patient: LEYDA SEGAL MR#: [id number] : 1995 Acct:[id number] Age/Sex: 29 / F ADM Date: 09/07/24 Loc: [facility] Attending Dr: Marcus Fields D.O. Ordering Physician: Marcus Fields D.O. Date of Service: 09/07/24 Procedure(s): XR chest 2V Accession Number(s): [id number] cc: Damon Kirby M.D.; Marcus Fields D.O. The [address] [address] Patient Name: LEYDA SEGAL MRN: [id number] date: 1995 Sex: F Assigned Patient Location: [facility] Current Patient Location: [facility] Accession/Order Number: [id number] Exam Date: 09/07/2024 08:56 Report Date: 09/07/2024 08:57 At the request of: MARCUS FIELDS DO Procedure: XR chest 2V PA AND LATERAL CHEST: CLINICAL HISTORY: Preoperative clearance. Tobacco use. COMPARISON: 01/01/2023 There is no focal parenchymal consolidation, effusion or pneumothorax. The cardiac, hilar and mediastinal silhouettes are within normal limits. There is no vascular congestion. The visualized bony thorax is intact. XR/XR chest 2V IMPRESSION: NO ACUTE CARDIOPULMONARY ABNORMALITY. Impression dictated by: Alethea Mcneil M.D. 09/07/2024 8:57 AM Dictation Location: [place] [address] Electronically authenticated by: [id number] Y Date: 09/07/2024 08:57 Dictated By: Alethea Mcneil M.D. Signed By: 09/07/24 09 DD/ 6 TD/TT: Pan Devulcanizer: [facility] Radiology Study observation (narrative) [facility] XR CHEST 2VOrdered By: [facility] on 09-07-2024 [facility] Work Phone: Provider Letteron 08-31-2024 Provider Letter Provider Letter August 31, 2024 LEYDA SEGAL [address] [place] [address] : 1995 Dear Leyda, We have been trying to reach you with no success. It is important that you return our call upon receiving this letter. Also, at the time of your call, please provide us with your current information. Thank you for your prompt attention to this matter. Sincerely, [facility] [address], [place] [address] [facility] IGP,APTIMA HPV,AGE GDLNon AGE GDLN ACOG TESTING Note . [facility] Comment on above: TESTS RESULT FLAG UN ITS REF RANGE LAB Clinician Provided Cytology Information Source.............Cervix;Endocervix No. of containers..01 ThinPrep Vial Age Algo ACOG Tiana... -22 03 FLAG LEGEND: L-Low Normal,H-High Normal,LL-Alert Low,HH-Alert High <-Panic Low,>-Panic High,A-Abnormal,AA-Critical Abnormal Performed at: 01 =G [facility] [address] [address] Kimmy Villagran MD, IGP, RFX APTIMA HPV ASCU Note . [facility] Comment on above: TESTS RESULT FLAG UN ITS REF RANGE LAB DIAGNOSIS: 02 NEGATIVE FOR INTRAEPITHELIAL LESION OR MALIGNANCY. Specimen adequacy: 02 Satisfactory for evaluation. Endocervical and/or squamous metaplastic cells (endocervical component) are present. Performed by: 02 Shanda Teran, Animal Ride Manager . 02 Note: Note 02 The Pap [...] <-Panic Low,>-Panic High,A-Abnormal,AA-Critical Abnormal Performed at: [address] [facility] [address] [place] [address] Kimmy Villagran MD, Performed at: =G - [facility] [address] [id number] Converting Supervisor: Kimmy Villagran MD, Phone: [phone] Performed at: [address] [id number] Converting Supervisor: Kimmy Villagran MD, Phone: [phone] [facility] endometriumon Ashley HadleyNORMAN 08/02/2024 4:43 PM [...] to return for annual preop exam. [facility] HCG ( test) Ql (U)o n 08-02-2024 Interpretation and review of laboratory results Normal [facility] Preg Test, Ur Negative Negative [facility] Alfred 08-02-2024 L -- ---- Specimen: [id number] Received: 08/03/24 Status: KEON Andrey Num: [id number] Spec Type: Surgical Subm Dr: Marcus Fields Tissues: A Endometrium - Biopsy (ENDOMETRIAL BIOPSY) Procedures: HE/2, Gross/Micro L4 ---- Age/ Patient Sex Location Account Attending Physician ---- Leyda Segal 29/F [facility] [id number] Marcus Fields ---- SPEC NUM: [id number] RECD: 08/03/24 STATUS: KEON ANDREY NUM: [id number] ALLISON: 08/02/24-[address]: Marcus Fields ENTERED: 08/03/[address]: Juanito,Lab SPEC TYPE: Surgical DEPT: NEVAEH BARR ENTERED BY: [id number] RECV BY: [id number] ORDERED: HE/2, Gross/Micro L4 ORDERED: HE/2, Gross/Micro [...] submitted in a single cassette. (1, ns, [id number]) Microscopic Description Microscopic examination is performed. CPT Codes 86512 ---- ---- Specimen: [id number] Received: 08/03/24 Status: KEON Rothman Num: [id number] Spec Type: Surgical Subm Dr: Marcus Fields Tissues: A Endometrium - Biopsy (ENDOMETRIAL BIOPSY) Procedures: ESHA/Deyanira, Gross/Micro L4 ---- Patient: Leyda Segal [id number] (Continued) ---- Signed (signature on file) Mook Alexander MD 08/07/24 1337 Normal [facility] Patient Letter [facility] July 14, 2024 LEYDA SEGAL [address] [place] [address] : 1995 To Whom it May Concern: 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 Sincerely, [place] [address] [facility] Ambulatory Visit Summaryon 0 11-17-2023 Ambulatory Visit Summary Ambulatory Visit Summary COREY SEGALDEDRA JUAREZ :1995 Visit Date:11/17/2023 Ambulatory Visit Instructions Your [...] Puffs Inhalation Every 6 hours Pickup at [facility] Unchanged aripiprazole (aripiprazole 2 mg Tab) [...] physician if questions or concerns Pharmacy Information [facility]: [address] [place], [place] [id number] [phone] Allergies Bactrim (Hemoptysis) Cats Dust Grass Ragweed [...] triggers here: (more content not included)... Normal 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 Normal [facility] Comment on above: Result Comment: Elec tronically Signed By: Gibran CIFUENTES, Mallory Marquez.br\Date and Time Signed: 11/17/23 11:57 EDT BMPon 07-19-2023 Anion gap [Moles/Vol] 10 mmol/L Normal 6-16 [facility] Comment on above: Performed By: #### 2 [id number] #### [facility] Laboratory [address] [place] [address] Calcium [Mass/Vol] 8.2 mg/dL Low 8.9-11.1 [facility] Comment on above: Performed By: #### 2 742725 #### [facility] [address] [place] [address] Chloride [Moles/Vol] 109 mmol/L Normal 101-111 [facility] Comment on above: Performed By: #### 2 769624 #### [facility] [address] [place] [address] CO2 [Moles/Vol] 22 mmol/L Normal 21-31 [facility] Comment on above: Performed By: #### 2 816327 #### [facility] [address] [place] [address] Creatinine [Mass/Vol] 0.7 mg/dL Normal 0.5-1.3 [facility] Comment on above: Performed By: #### 2 [id number] #### [facility] [address] [place] [address] Glucose [Mass/Vol] 70 mg/dL Normal 55-199 [facility] Comment on above: Performed By: #### 2 918681 #### [facility] [address] [place] [address] Potassium [Moles/Vol] 4.0 mmol/L Normal 3.5-5.3 [facility] Comment on above: Performed By: #### 2 484110 #### [facility] [address] [place] [address] Sodium [Moles/Vol] 137 mmol/L Normal 135-145 [facility] Comment on above: Performed By: #### 2 467159 #### [facility] [address] [place] [address] Urea nitrogen [Mass/Vol] 14 mg/dL Normal 5-21 [facility] Comment on above: Performed By: #### 2 489820 #### [facility] [address] [place] [address] Urea nitrogen/Creatinine [Mass ratio] 20 No Units Normal 10-20 [facility] Comment on above: Performed By: #### 2 [id number] #### [facility] [address] [place] [address] CBC w/ Auto Diffon 4 Basophils/100 WBC (Bld) 0.6 % Normal 0.0-2.0 [facility] Comment on above: Performed By: #### 2 506950 #### [facility] [address] [place] [address] Basophils/Leukocytes Auto (Bld) [Pure # fraction] 0.1 E9/L Normal 0.0-0.2 [facility] Comment on above: Performed By: #### 2 939329 #### [facility] [address] [place] [address] Eosinophils (Bld) [#/Vol] 0.6 E9/L High 0.0-0.5 [facility] Comment on above: Performed By: #### 2 247313 #### [facility] [address] [place] [address] Eosinophils/100 WBC (Bld) 4.1 % Normal 0.0-8.0 [facility] Comment on above: Performed By: #### 2 787147 #### [facility] [address] [place] [address] Erythrocyte distribution width (RBC) [Ratio] 12.8 % Normal 10.9-14.2 [facility] Comment on above: Performed By: #### 2 337486 #### [facility] [address] [place] [address] Hematocrit (Bld) [Volume fraction] 37.9 % Normal 34.0-46.0 [facility] Comment on above: Performed By: #### 2 787671 #### [facility] [address] [place] [address] Hemoglobin (Bld) [Mass/Vol] 12.7 g/dL Normal 12.0-16.0 [facility] Comment on above: Performed By: #### 2 427511 #### [facility] [address] [place] [address] Lymphocytes (Bld) [#/Vol] 2.9 E9/L Normal 1.0-4.0 [facility] Comment on above: Performed By: #### 2 431314 #### [facility] [address] [place] [address] Lymphocytes/100 WBC (Bld) 20.8 % Normal 14.0-50.0 [facility] Comment on above: Performed By: #### 2 886542 #### [facility] [address] [place] [address] MCH (RBC) [Entitic mass] 28.3 pg Normal 27.0-34.0 [facility] Comment on above: Performed By: #### 2 950179 #### [facility] [address] [place] [address] MCHC (RBC) [Mass/Vol] 33.4 g/dL Normal 31.4-36.0 [facility] Comment on above: Performed By: #### 2 417396 #### [facility] [address] [place] [address] MCV (RBC) [Entitic vol] 84.9 fL Normal 80.0-100.0 [facility] Comment on above: Performed By: #### 2 055225 #### [facility] [address] [place] [address] Monocytes (Bld) [#/Vol] 0.9 E9/L Normal 0.2-1.0 [facility] Comment on above: Performed By: #### 2 594414 #### [facility] [address] [place] [address] Neutrophils (Bld) [#/Vol] 9.6 E9/L High 2.0-7.5 [facility] Comment on above: Performed By: #### 2 507823 #### [facility] [address] [place] [address] Neutrophils/100 WBC (Bld) 68.0 % Normal 36.0-75.0 [facility] Comment on above: Performed By: #### 2 984405 #### [facility] [address] [place] [address] Platelet mean volume (Bld) [Entitic vol] 7.8 fL Normal 6.4-10.8 [facility] Comment on above: Performed By: #### 2 000059 #### [facility] [address] [place] [address] Platelets (Bld) [#/Vol] 356.0 E9/L Normal 150.0-500.0 [facility] Comment on above: Performed By: #### 2 827646 #### [facility] [address] [place] [address] RBC (Bld) [#/Vol] 4.5 E12/L Normal 4.3-5.9 [facility] Comment on above: Performed By: #### 2 753743 #### [facility] [address] [place] [address] WBC corrected for nucl RBC Auto (Bld) [#/Vol] 14.2 E9/L High 4.0-11.0 [facility] Comment on above: Performed By: #### 2 024082 #### [facility] [address] [place] [address] CHEMISTRYOrdered By: SYSTEM SYSTEM on 07-19-2023 Albumin [...] Sensitivity Troponin I Instructions For Use, Jaden Chatham, September 2017) Urea nitrogen [Mass/Vol] 14 mg/dL Normal 5 - 21 mg/dL [facility] Urea nitrogen/Creatinine [Mass ratio] 20 mg/mg Normal 10 - 20 [facility] COAGULATIONOrdered By: Марина Mccollum on 07-19-2023 aPTT Coag (PPP) [Time] 38.6 s High 25.1 - 36.5 second(s) [facility] Auto Coag Comment on above: Interpretive Data: [...] the same coagulation reagent and instrumentation as [facility]. Currently there are no coagulation studies available worldwide for children to 14 days, and no normal ranges. Heparin therapeutic range (represented by Anti-Factor Xa activity of 0.2 - 0.4 U/mL) corresponds to PTT of 56.6 - 109.0 sec. INR Coag (PPP) [Relative time] 0.94 {INR} Invalid Interpretation Code [facility] Comment on above: Interpretive Data: I NR results are specifically intended to assess patients stabilized on long-term Anticoagulation therapy suggested INR s Less Intensive Anticoagulation 2.0 3.0 Conventional Range 3.0 4.5 PT Coag (PPP) [Time] 10.5 s Normal 9.4 - 1 2.5 second(s) [facility] [employer] Comment on above: Interpretive Data: [...] the same coagulation reagent and instrumentation as [facility]. Currently there are no coagulation studies available [...] 07-19-2023 Albumin [Mass/Vol] 4.0 g/dL Normal 3.3-5.0 [facility] Comment on above: Performed By: #### 2 [id number] #### [facility] [address] [place] [address] Albumin/Globulin (S) [Mass conc ratio] 1.3 Normal 1.1-2.2 [facility] Comment on above: Performed By: #### 2 [id number] #### [facility] [address] [place] [address] ALP [Catalytic activity/Vol] 65 Int._Unit/L Normal 21-98 [facility] Comment on above: Performed By: #### 2 [id number] #### [facility] [address] [place] [address] ALT No additional P-5'-P [Catalytic activity/Vol] 12 Int._Unit/L Normal 6-46 [facility] Comment on above: Performed By: #### 2 [id number] #### [facility] [address] [place] [address] AST [Catalytic activity/Vol] 12 Int._Unit/L Normal 5-43 [facility] Comment on above: Performed By: #### 2 [id number] #### [facility] [address] [place] [address] Bilirubin [Mass/Vol] 0.2 mg/dL Normal 0.0-1.1 [facility] Comment on above: Performed By: #### 2 [id number] #### [facility] [address] [place] [address] Bilirubin.direct [Mass/Vol] 0.0 mg/dL Normal 0.0-0.4 [facility] Comment on above: Performed By: #### 2 [id number] #### [facility] [address] [place] [address] Bilirubin.indirect [Mass or moles/Vol] 0.2 mg/dL Normal 0.1-0.9 [facility] Comment on above: Performed By: #### 2 [id number] #### [facility] [address] [place] [address] Globulin (S) [Mass/Vol] 3.1 g/dL Normal 1.4-4.0 [facility] Comment on above: Performed By: #### 2 [id number] #### [facility] [address] [place] [address] Protein [Mass/Vol] 7.1 g/dL Normal 6.0-7.8 [facility] Comment on above: Performed By: #### 2 [id number] #### [facility] [address] [place] [address] Lipase Levelon 07-19-2023 Lipase [Catalytic activity/Vol] 29 U/L Normal 13-58 [facility] Comment on above: Performed By: #### 2 [id number] #### [facility] [address] [place] [address] Magnesiumon 07-19-2023 Magnesium [Mass/Vol] 2.0 mg/dL Normal 1.3-2.4 [facility] Comment on above: Performed By: #### 2 [id number] #### [facility] [address] [place] [address] Monitor Recordon 07-19-2023 Monitor Record [id number]. [id number] Normal [facility] Troponin 0 Hr.on 07-19-2023 Troponin I.cardiac [Mass/Vol] ng/mL Low 10.10-27.10 [facility] Comment on above: Result Comment: The 95% CI (Confidence Interval) PPV (Positive Predictive Value) for myocardial infarction in females is 38 pg/mL, in males 51 pg/mL. The results should be used in conjunction with clinical conditions of myocardial infarction. (Access High Sensitivity Troponin I Instructions For Use, Jaden Chatham, September 2017) Performed By: #### 1 [id number] #### [facility] [address] [place] [address] eGFRon 07-19-2023 eGFR 121 mL/min/1.73 m2 Normal >=59 [facility] Comment on above: Order Comment: Order added by Discern Expert. Performed By: #### 1 [id number] #### [facility] [address] [place] [address] PREG QUANT HCGon 05-23-2022 HCG QUANT 54714 mIU/mL Normal [facility] Comment on above: Performed By: #### U BLAYNE, UACSIND #### [facility] [address] [address] [address] Dillon Pepe HCG RANGE SEE BELOW Normal [facility] Comment on above: Result Comment: 5-50 0.2-1 WEEK 50-500 1-2 WEEKS 100-5,000 2-3 WEEKS 500-10,000 3-4 WEEKS 1,000-50,000 4-5 WEEKS 10,000-100,000 5-6 WEEKS 15,000-200,000 6-8 WEEKS 10,000-100,000 2-3 MONTHS Performed By: #### U MICRO, UACSIND #### [facility] [address] [place] [address] Dr. Dillon Pepe CANNABINOID (THC) CONFIRMATI ON, URINEon 10-24-2021 Cannabinoid Positive Abnormal [facility] Comment on above: Performed By: #### C MP #### [facility] [address] [place] [address] Dr. Dillon Pepe Carboxy THC GC/MS Conf >750 Normal Cutoff=10 [facility] Comment on above: Performed By: #### C MP #### [facility] [address] [place] [address] Dr. Dillon Pepe CBC AUTO DIFFon 10-21-2021 BASO # 0.0 103/ul Normal 0.0-0.1 [facility] Comment on above: Performed By: #### C MP #### [facility] [address] [place] [address] Dr. Dillon Pepe Basophils/100 WBC (Bld) 0.2 % Normal 0.2-2.0 [facility] Comment on above: Performed By: #### C MP #### [facility] [address] [place] [address] Dr. Dillon Pepe EO # 0.4 103/ul Normal 0.0-0.7 [facility] Comment on above: Performed By: #### C MP #### [facility] [address] [place] [address] Dr. Dillon Pepe Eosinophils/100 WBC (Bld) 2.1 % Normal 0.9-7.0 [facility] Comment on above: Performed By: #### C MP #### [facility] [address] [place] [address] Dr. Dillon Pepe Erythrocyte distribution width (RBC) [Ratio] 13.7 % Normal 11.0-15.0 [facility] Comment on above: Performed By: #### C MP #### [facility] [address] [address] [address] Dillon Pepe Hematocrit (Bld) [Volume fraction] 32.7 % Critically low 36.0-48.0 [facility] Comment on above: Performed By: #### C MP #### [facility] [address] [address] [address] Dillon Pepe Hemoglobin (Bld) [Mass/Vol] 10.3 g/dL Critically low 12.0-16.0 [facility] Comment on above: Performed By: #### C MP #### [facility] [address] [address] [address] Dillon Pepe IG # 0.09 10e3/ul Critically high 0.00-0.03 [facility] Comment on above: Performed By: #### C MP #### [facility] [address] [place] [address] Dr. Dillon Pepe IG % 0.5 % Normal 0.0-0.5 [facility] Comment on above: Performed By: #### C MP #### [facility] [address] [place] [address] Dr. Dillon Pepe LYMPH # 2.2 103/ul Normal 1.2-3.8 [facility] Comment on above: Performed By: #### C MP #### [facility] [address] [place] [address] Dr. Dillon Pepe Lymphocytes/100 WBC (Bld) 13.2 % Critically low 20.5-60.0 [facility] Comment on above: Performed By: #### C MP #### [facility] [address] [place] [address] Dr. Dillon Pepe MANUAL DIFF REQ NO Normal [facility] Comment on above: Performed By: #### C MP #### [facility] [address] [place] [address] Dr. Dillon Pepe MCH (RBC) [Entitic mass] 27.2 pg Normal 26.7-34.0 [facility] Comment on above: Performed By: #### C MP #### [facility] [address] [place] [address] Dr. Dillon Pepe MCHC (RBC) [Mass/Vol] 31.5 g/dL Normal 29.9-35.2 [facility] Comment on above: Performed By: #### C MP #### [facility] [address] [address] [address] Dillon Pepe MCV (RBC) [Entitic vol] 86.3 fL Normal 81.0-99.0 [facility] Comment on above: Performed By: #### C MP #### [facility] [address] [address] [address] Dillon Pepe MONO # 1.5 103/ul Critically high 0.3-0.8 [facility] Comment on above: Performed By: #### C MP #### [facility] [address] [place] [address] Dr. Dillon Pepe Monocytes/100 WBC (Bld) 8.7 % Normal 1.7-12.0 [facility] Comment on above: Performed By: #### C MP #### [facility] [address] [address] [address] Dillon Pepe NEUT # 12.6 103/ul Critically high 1.4-6.5 [facility] Comment on above: Performed By: #### C MP #### [facility] [address] [place] [address] Dr. Dillon Pepe Neutrophils/100 WBC (Bld) 75.3 % Critically high 43.0-75.0 [facility] Comment on above: Performed By: #### C MP #### [facility] [address] [address] [address] Dillon Pepe Platelet mean volume (Bld) [Entitic vol] 10.5 fL Normal 9.5-13.5 [facility] Comment on above: Performed By: #### C MP #### [facility] [address] [address] [address] Dillon Pepe PLT 331 103/ul Normal 150-450 [facility] Comment on above: Performed By: #### C MP #### [facility] [address] [address] [address] Dillon Pepe RBC 3.79 106/ul Critically low 4.20-5.40 [facility] Comment on above: Performed By: #### C MP #### [facility] [address] [place] [address] Dr. Dillon Pepe WBC 16.8 103/ul Critically high 4.0-11.0 [facility] Comment on above: Performed By: #### C MP #### [facility] [address] [place] [address] Dr. Dillon Pepe CBC AUTO DIFFon 10-19-2021 BASO # 0.0 103/ul Normal 0.0-0.1 [facility] Comment on above: Performed By: #### U MICRO, UACSIND #### [facility] [address] [place] [address] Dr. Dillon Pepe Basophils/100 WBC (Bld) 0.2 % Normal 0.2-2.0 [facility] Comment on above: Performed By: #### U MICRO, UACSIND #### [facility] [address] [place] [address] Dr. Dillon Pepe EO # 0.0 103/ul Normal 0.0-0.7 [facility] Comment on above: Performed By: #### U MICRO, UACSIND #### [facility] [address] [place] [address] Dr. Dillon Pepe Eosinophils/100 WBC (Bld) 0.2 % Critically low 0.9-7.0 [facility] Comment on above: Performed By: #### U MICRO, UACSIND #### [facility] [address] [place] [address] Dr. Dillon Pepe Erythrocyte distribution width (RBC) [Ratio] 13.2 % Normal 11.0-15.0 [facility] Comment on above: Performed By: #### U MICRO, UACSIND #### [facility] [address] [place] [address] Dr. Dillon Pepe Hematocrit (Bld) [Volume fraction] 37.7 % Normal 36.0-48.0 [facility] Comment on above: Performed By: #### U MICRO, UACSIND #### [facility] [address] [address] [address] Dillon Pepe Hemoglobin (Bld) [Mass/Vol] 12.1 g/dL Normal 12.0-16.0 [facility] Comment on above: Performed By: #### U MICRO, UACSIND #### [facility] [address] [address] [address] Dillon Pepe IG # 0.09 10e3/ul Critically high 0.00-0.03 [facility] Comment on above: Performed By: #### U MICRO, UACSIND #### [facility] [address] [address] [address] Dillon Pepe IG % 0.5 % Normal 0.0-0.5 [facility] Comment on above: Performed By: #### U MICRO, UACSIND #### [facility] [address] [address] [address] Dillon Pepe LYMPH # 0.9 103/ul Critically low 1.2-3.8 [facility] Comment on above: Performed By: #### U MICRO, UACSIND #### [facility] [address] [address] [address] Dillon Pepe Lymphocytes/100 WBC (Bld) 4.9 % Critically low 20.5-60.0 [facility] Comment on above: Performed By: #### U MICRO, UACSIND #### [facility] [address] [address] [address] Dillon Pepe MANUAL DIFF REQ NO Normal [facility] Comment on above: Performed By: #### U MICRO, UACSIND #### [facility] [address] [address] [address] Dillon Pepe MCH (RBC) [Entitic mass] 27.6 pg Normal 26.7-34.0 [facility] Comment on above: Performed By: #### U MICRO, UACSIND #### [facility] [address] [address] [address] Dillon Pepe MCHC (RBC) [Mass/Vol] 32.1 g/dL Normal 29.9-35.2 [facility] Comment on above: Performed By: #### U MICRO, UACSIND #### [facility] [address] [place] [address] Dr. Dillon Pepe MCV (RBC) [Entitic vol] 85.9 fL Normal 81.0-99.0 [facility] Comment on above: Performed By: #### U MICRO, UACSIND #### [facility] [address] [place] [address] Dr. Dillon Pepe MONO # 1.1 103/ul Critically high 0.3-0.8 [facility] Comment on above: Performed By: #### U MICRO, UACSIND #### [facility] [address] [place] [address] Dr. Dillon Pepe Monocytes/100 WBC (Bld) 5.8 % Normal 1.7-12.0 [facility] Comment on above: Performed By: #### U MICRO, UACSIND #### [facility] [address] [place] [address] Dr. Dillon ePpe NEUT # 16.4 103/ul Critically high 1.4-6.5 [facility] Comment on above: Performed By: #### U MICRO, UACSIND #### [facility] [address] [place] [address] Dr. Dillon Pepe Neutrophils/100 WBC (Bld) 88.4 % Critically high 43.0-75.0 [facility] Comment on above: Performed By: #### U MICRO, UACSIND #### [facility] [address] [place] [address] Dr. Dillon Pepe Platelet mean volume (Bld) [Entitic vol] 10.4 fL Normal 9.5-13.5 [facility] Comment on above: Performed By: #### U MICRO, UACSIND #### [facility] [address] [place] [address] Dr. Dillon Pepe PLT 357 103/ul Normal 150-450 [facility] Comment on above: Performed By: #### U MICRO, UACSIND #### [facility] [address] [address] [address] Dillon Pepe RBC 4.39 106/ul Normal 4.20-5.40 [facility] Comment on above: Performed By: #### U MICRO, UACSIND #### [facility] [address] [place] [address] Dr. Dillon Pepe WBC 18.5 103/ul Critically high 4.0-11.0 [facility] Comment on above: Performed By: #### U MICRO, UACSIND #### [facility] [address] [place] [address] Dr. Dillon Pepe Covid-19 PCR ([facility])on 09-23 SARS-CoV-2 (COVID-19) RNA ERIK+probe Ql (Unsp spec) Not detected Normal NOT DETECTED [facility] Comment on above: Result Comment: When [...] for this test is supported by the [employer] Chief of Health and Human Service's declaration that [...] Performed By: #### U MICRO, UACSIND #### [facility] [address] [place] [address] Dr. Dillon Pepe DRUG SCREEN RAPID (URINE)on 10-19-2021 AMP Negative Normal NEGATIVE [facility] Comment on above: Performed By: #### D RUGRPD #### [facility] [address] [place] [address] Dr. Dillon Pepe BAR Negative Normal NEGATIVE [facility] Comment on above: Performed By: #### D BERTHARPD #### [facility] [address] [place] [address] Dr. Dillon Pepe BUP Negative Normal NEGATIVE [facility] Comment on above: Performed By: #### D RUGRPD #### [facility] [address] [place] [address] Dr. Dillon Pepe BZO Negative Normal NEGATIVE [facility] Comment on above: Performed By: #### D RUGRPD #### [facility] [address] [place] [address] Dr. Dillon Pepe CECILIA Negative Normal NEGATIVE [facility] Comment on above: Performed By: #### D RUGRPD #### [facility] [address] [place] [address] Dr. Dillon Pepe CUT-OFFS SEE BELOW Normal [facility] Comment on above: Result Comment: AMP (Amphetamine): 500ng/mL, BAR (Barbituates): 200 ng/mL, BZO (Benzodiazepines): 150 ng/mL, BUP (Buprenorphine): 10 ng/mL, CEICLIA (Cocaine): 150 ng/mL, mAMP (Methamphetamine): 500 ng/mL, MTD (Methadone): 200 ng/mL, OPI (Opiates): 100 ng/mL, OXY (Oxycodone): 100 ng/mL, PCP (Phencyclidine): 25 ng/mL, PPX (Propoxyphene): 300 ng/mL, THC (Cannabinoids): 50 ng/mL, TCA (Trycyclic Antidepressants): 300 ng/mL Performed By: #### D RUGRPD #### [facility] [address] [place] [address] Dr. Dillon Pepe DRUG CUT HEADER DRUG CLASS TEST SYST EM CUT-OFF CONCENTRATIONS ARE FOLLOWS: Normal [facility] Comment on above: Performed By: #### D RUGRPD #### [facility] [address] [place] [address] Dr. Dillon Pepe mAMP Negative Normal NEGATIVE [facility] Comment on above: Performed By: #### D RUGRPD #### [facility] [address] [place] [address] Dr. Dillon Pepe MTD Negative Normal NEGATIVE [facility] Comment on above: Performed By: #### D RUGRPD #### [facility] [address] [address] [address] Dillon Pepe OPI Negative Normal NEGATIVE [facility] Comment on above: Performed By: #### D RUGRPD #### [facility] [address] [address] [address] Dillon Pepe OXY Negative Normal NEGATIVE [facility] Comment on above: Performed By: #### D RUGRPD #### [facility] [address] [place] [address] Dr. Dillon Pepe PCP Negative Normal NEGATIVE [facility] Comment on above: Performed By: #### D RUGRPD #### [facility] [address] [place] [address] Dr. Dillon Pepe PPX Negative Normal NEGATIVE [facility] Comment on above: Performed By: #### D RUGRPD #### [facility] [address] [place] [address] Dr. Dillon Pepe TCA Negative Normal NEGATIVE [facility] Comment on above: Performed By: #### D RUGRPD #### [facility] [address] [place] [address] Dr. Dillon Pepe THC Positive Abnormal NEGATIVE [facility] Comment on above: Performed By: #### D RUGRPD #### [facility] [address] [place] [address] Dr. Dillon Pepe TYPE AND SCREENon 10-19-2021 TYPE AND SCREEN Negative Normal [facility] Comment on above: Performed By: #### C MP #### [facility] [address] [place] [address] Dr. Dillon Pepe GROUP B STREP CULTUREon S. agalactiae Ag Ql (Unsp spec) Culture Observations: NEGATIVE FOR GROUP B STREPTOCOCCUS. Normal [facility] Comment on above: Performed By: #### G BSCX #### [facility] [address] [place] [address] Dr. Dillon Pepe US PREG GROWTHon 09-09-2021 [...] ELLEN CORBETT Date: 2021-09-08 22:28 Normal [facility] GLYCOHEMOGLOBIN A1Con 2021 ADA RECOMMENDATION SEE BELOW Normal [facility] Comment on above: Result Comment: ADA RECOMMENDED LIMIT 4.0 - 6.0 ADA THERAPEUTIC TARGET < 7.0 ACTION SUGGESTED > 7.0 Performed By: #### C MP #### [facility] [address] [address] [address] Dillon Pepe Glucose [Mass/Vol] 105 mg/dL Normal [facility] Comment on above: Performed By: #### C MP #### [facility] [address] [address] [address] Dillon Pepe HbA1c (Bld) [Mass fraction] 5.3 % Normal 4.5-6.2 [facility] Comment on above: Performed By: #### C MP #### [facility] [address] [address] [address] Dillon Pepe HEMOGRAM AND PLATELon 2021 Hematocrit (Bld) [Volume fraction] 34.1 % Critically low 36.0-48.0 [facility] Comment on above: Performed By: #### U MICRO, UACSIND #### [facility] [address] [address] [address] Dillon Pepe Hemoglobin (Bld) [Mass/Vol] 11.4 g/dL Critically low 12.0-16.0 [facility] Comment on above: Performed By: #### U MICRO, UACSIND #### [facility] [address] [place] [address] Dr. Dillon Pepe MCH (RBC) [Entitic mass] 29.4 pg Normal 26.7-34.0 [facility] Comment on above: Performed By: #### U MICRO, UACSIND #### [facility] [facility] [address] [place] [address] Dr. Dillon Pepe MCHC (RBC) [Mass/Vol] 33.4 g/dL Normal 29.9-35.2 [facility] Comment on above: Performed By: #### U MICRO, UACSIND #### [facility] [address] [place] [address] Dr. Dillon Pepe MCV (RBC) [Entitic vol] 87.9 fL Normal 81.0-99.0 [facility] Comment on above: Performed By: #### U MICRO, UACSIND #### [facility] [address] [place] [address] Dr. Dillon Pepe PLT 398 103/ul Normal 150-450 [facility] Comment on above: Performed By: #### U MICRO, UACSIND #### [facility] [address] [place] [address] Dr. Dillon Pepe RBC 3.88 106/ul Critically low 4.20-5.40 [facility] Comment on above: Performed By: #### U MICRO, UACSIND #### [facility] [address] [place] [address] Dr. Dillon Pepe WBC 17.3 103/ul Critically high 4.0-11.0 [facility] Comment on above: Performed By: #### U MICRO, UACSIND #### [facility] [address] [place] [address] Dr. Dillon Pepe RHOGAMon 08-07-2021 RHOGAM Status Information Issued Quantity 1 Product ID Rh Immune Globulin Lot Number [id number] Issue Date/Time [id number] Normal [facility] Comment on above: Performed By: #### C MP #### [facility] [address] [place], [place] [address] Dr. Dillon Pepe TYPE AND SCREENon 08-07-2021 TYPE AND SCREEN Negative Normal [facility] Comment on above: Performed By: #### T NS #### [facility] [address] [place], [place] [address] Dr. Dillon Pepe CHEMISTRYOrdered By: Ran Armstrong [...] METB)on Anion gap [Moles/Vol] 16.6 mmol/L Normal [facility] Comment on above: Performed By: #### C MP #### [facility] [address] [address] [address] Dillon Pepe Calcium [Mass/Vol] 8.4 mg/dL Critically low 8.5-10.1 [facility] Comment on above: Performed By: #### C MP #### [facility] [address] [address] [address] Dillon Pepe Chloride [Moles/Vol] 99 mmol/L Normal 98-107 [facility] Comment on above: Performed By: #### C MP #### [facility] [address] [address] [address] Dillon Pepe CO2 [Moles/Vol] 19.9 mmol/L Critically low 21.0-32.0 [facility] Comment on above: Performed By: #### C MP #### [facility] [address] [address] [address] Dillon Pepe Creatinine [Mass/Vol] 0.32 mg/dL Critically low 0.55-1.02 [facility] Comment on above: Performed By: #### C MP #### [facility] [address] [address] [address] Dillon Pepe EGFR-AF IRISH >60 Normal >=60 [facility] Comment on above: Performed By: #### C MP #### [facility] [address] [address] [address] Dillon Pepe EGFR-NON AF IRISH >60 Normal >=60 [facility] Comment on above: Performed By: #### C MP #### [facility] [address] [address] [address] Dillon Pepe Glucose [Mass/Vol] 97 mg/dL Normal 74-106 [facility] Comment on above: Performed By: #### C MP #### [facility] [address] [address] [address] Dillon Pepe Potassium [Moles/Vol] 3.5 mmol/L Normal 3.5-5.1 [facility] Comment on above: Performed By: #### C MP #### [facility] [address] [address] [address] Dillon Pepe Sodium [Moles/Vol] 132 mmol/L Critically low 136-145 [facility] Comment on above: Performed By: #### C MP #### [facility] [address] [address] [address] Dillon Pepe Urea nitrogen [Mass/Vol] 4.0 mg/dL Critically low 7.0-18.0 [facility] Comment on above: Performed By: #### C MP #### [facility] [address] [address] [address] Dillon Pepe Urea nitrogen/Creatinine [Mass ratio] 12.5 mg/mg Normal [facility] Comment on above: Performed By: #### C MP #### [facility] [address] [place] [address] Dr. Dillon Pepe PROF CHEM 8 (BAS METB)on Anion gap [Moles/Vol] 16.6 mmol/L Normal [facility] Comment on above: Performed By: #### B MP #### [facility] [address] [place] [address] Dr. Dillon Pepe Calcium [Mass/Vol] 8.3 mg/dL Critically low 8.5-10.1 [facility] Comment on above: Performed By: #### B MP #### [facility] [address] [place] [address] Dr. Dillon Pepe Chloride [Moles/Vol] 99 mmol/L Normal 98-107 [facility] Comment on above: Performed By: #### B MP #### [facility] [address] [place] [address] Dr. Dillon Pepe CO2 [Moles/Vol] 20.4 mmol/L Critically low 21.0-32.0 [facility] Comment on above: Performed By: #### B MP #### [facility] [address] [place] [address] Dr. Dillon Pepe Creatinine [Mass/Vol] 0.34 mg/dL Critically low 0.55-1.02 [facility] Comment on above: Performed By: #### B MP #### [facility] [address] [address] [address] Dillon Pepe EGFR-AF IRISH >60 Normal >=60 [facility] Comment on above: Performed By: #### B MP #### [facility] [address] [address] [address] Dillon Pepe EGFR-NON AF IRISH >60 Normal >=60 [facility] Comment on above: Performed By: #### B MP #### [facility] [address] [address] [address] Dillon Pepe Glucose [Mass/Vol] 94 mg/dL Normal 74-106 [facility] Comment on above: Performed By: #### B MP #### [facility] [address] [address] [address] Dillon Pepe Potassium [Moles/Vol] 3.0 mmol/L Critically low 3.5-5.1 [facility] Comment on above: Performed By: #### B MP #### [facility] [address] [address] [address] Dillon Pepe Sodium [Moles/Vol] 133 mmol/L Critically low 136-145 [facility] Comment on above: Performed By: #### B MP #### [facility] [address] [place] [address] Dr. Dillon Pepe Urea nitrogen [Mass/Vol] 4.0 mg/dL Critically low 7.0-18.0 [facility] Comment on above: Performed By: #### B MP #### [facility] [address] [address] [address] Dillon Pepe Urea nitrogen/Creatinine [Mass ratio] 11.8 mg/mg Normal [facility] Comment on above: Performed By: #### B MP #### [facility] [address] [address] [address] Dillon Pepe Anion gap [Moles/Vol] 17.7 mmol/L Normal [facility] Comment on above: Performed By: #### B MP #### [facility] [address] [address] [address] Dillon Pepe Calcium [Mass/Vol] 8.6 mg/dL Normal 8.5-10.1 [facility] Comment on above: Performed By: #### B MP #### [facility] [address] [address] [address] Dillon Pepe Chloride [Moles/Vol] 96 mmol/L Critically low 98-107 [facility] Comment on above: Performed By: #### B MP #### [facility] [address] [address] [address] Dillon Pepe CO2 [Moles/Vol] 22.4 mmol/L Normal 21.0-32.0 [facility] Comment on above: Performed By: #### B MP #### [facility] [address] [place] [address] Dr. Dillon Pepe Creatinine [Mass/Vol] 0.54 mg/dL Critically low 0.55-1.02 [facility] Comment on above: Performed By: #### B MP #### [facility] [address] [place] [address] Dr. Dillon Pepe EGFR-AF IRISH >60 Normal >=60 [facility] Comment on above: Performed By: #### B MP #### [facility] [address] [place] [address] Dr. Dillon Pepe EGFR-NON AF IRISH >60 Normal >=60 [facility] Comment on above: Performed By: #### B MP #### [facility] [address] [place] [address] Dr. Dillon Pepe Glucose [Mass/Vol] 116 mg/dL Critically high 74-106 [facility] Comment on above: Performed By: #### B MP #### [facility] [address] [address] [address] Dillon Pepe Potassium [Moles/Vol] 3.1 mmol/L Critically low 3.5-5.1 [facility] Comment on above: Performed By: #### B MP #### [facility] [address] [place] [address] Dr. Dillon Pepe Sodium [Moles/Vol] 133 mmol/L Critically low 136-145 [facility] Comment on above: Performed By: #### B MP #### [facility] [address] [address] [address] Dillon Pepe Urea nitrogen [Mass/Vol] 6.0 mg/dL Critically low 7.0-18.0 [facility] Comment on above: Performed By: #### B MP #### [facility] [address] [address] [address] Dillon Pepe Urea nitrogen/Creatinine [Mass ratio] 11.1 mg/mg Normal [facility] Comment on above: Performed By: #### B MP #### [facility] [address] [address] [address] Dillon Pepe UA (CLEAN/CATCH) ELECTRIC VEHICLE ELECTRICIAN/MICRO I F IND.on 06-22-2021 Bilirubin Ql (U) Negative Normal NEGATIVE [facility] Comment on above: Performed By: #### U MICRO, UACSIND #### [facility] [address] [place] [address] Dr. Dillon Pepe Clarity (U) CLEAR Normal CLEAR [facility] Comment on above: Performed By: #### U MICRO, UACSIND #### [facility] [address] [place] [address] Dr. Dillon Pepe Color (U) YELLOW Normal YELLOW [facility] Comment on above: Performed By: #### U MICRO, UACSIND #### [facility] [address] [place] [address] Dr. Dillon Pepe Glucose Ql (U) Negative Normal NEGATIVE [facility] Comment on above: Performed By: #### U MICRO, UACSIND #### [facility] [address] [address] [address] Dillon Pepe Hemoglobin Ql (U) Negative Normal NEGATIVE [facility] Comment on above: Performed By: #### U MICRO, UACSIND #### [facility] [address] [place] [address] Dr. Dillon Pepe Ketones Ql (U) >=80 Abnormal NEGATIVE [facility] [place] [facility] Comment on above: Performed By: #### U MICRO, UACSIND #### [facility] [address] [address] [address] Dillon Pepe LEUKOCYTES Negative Normal NEGATIVE [facility] Comment on above: Performed By: #### U MICRO, UACSIND #### [facility] [address] [place] [address] Dr. Dillon Pepe Nitrite Ql (U) Negative Normal NEGATIVE [facility] [place] [facility] Comment on above: Performed By: #### U MICRO, UACSIND #### [facility] [address] [address] [address] Dillon Pepe pH (U) 6.0 [pH] Normal 5-9 [facility] Comment on above: Performed By: #### U MICRO, UACSIND #### [facility] [address] [place] [address] Dr. Dillon Pepe SPEC GRAVITY >=1.030 Abnormal 1.005-<=1.02 5 [facility] Comment on above: Performed By: #### U MICRO, UACSIND #### [facility] [address] [place] [address] Dr. Dillon Pepe UA PROTEIN 30 mg/dl Abnormal NEGATIVE/ TRACE [facility] Comment on above: Performed By: #### U MICRO, UACSIND #### [facility] [address] [place] [address] Dr. Dillon Pepe UR MICRO IND INDICATED Normal [facility] Comment on above: Performed By: #### U MICRO, UACSIND #### [facility] [address] [place] [address] Dr. Dillon Pepe Urobilinogen Qn (U) 0.2 {Elio'U}/dL Normal 0.2 - 1. 0 [facility] Comment on above: Performed By: #### U MICRO, UACSIND #### [facility] [address] [place] [address] Dr. Dillon Pepe URINE MICROSCOPIC ONLYon BACTERIA NONE SEEN Normal NONE SEEN [facility] Comment on above: Performed By: #### U MICRO, UACSIND #### [facility] [address] [place] [address] Dr. Dillon Pepe Bacteria identified Cx Nom (U) NOT INDICATED Normal [facility] Comment on above: Performed By: #### U MICRO, UACSIND #### [facility] [address] [place] [address] Dr. Dillon Pepe CAST NONE SEEN Normal NONE SEEN [facility] Comment on above: Performed By: #### U MICRO, UACSIND #### [facility] [address] [address] [address] Dillon Pepe Crystals LM Nom (Urine sed) NONE SEEN Normal NONE SEEN [facility] Comment on above: Performed By: #### U MICRO, UACSIND #### [facility] [address] [place] [address] Dr. Dillon Pepe Epithelial cells LM Ql (Urine sed) RARE Normal NONE SEEN /RARE [facility] Comment on above: Performed By: #### U MICRO, UACSIND #### [facility] [address] [place] [address] Dr. Dillon Pepe MUCOUS MODERATE Abnormal NONE SEEN [facility] Comment on above: Performed By: #### U MICRO, UACSIND #### [facility] [address] [place] [address] Dr. Dillon Pepe RBC NONE SEEN Abnormal 0-2 [facility] Comment on above: Performed By: #### U MICRO, UACSIND #### [facility] [address] [place] [address] Dr. Dillon Pepe WBC 0-2 Abnormal NONE SEEN [facility] Comment on above: Performed By: #### U MICRO, UACSIND #### [facility] [address] [place] [address] Dr. Dillon Pepe AMNISUREon 05-31-2021 AMNISURE Negative Normal NEGATIVE [facility] Comment on above: Performed By: #### A MNI #### [facility] [address] [place] [address] Dr. Dillon Pepe CBC AUTO DIFFon 05-31-2021 BASO # 0.0 103/ul Normal 0.0-0.1 [facility] Comment on above: Performed By: #### C BC #### [facility] [address] [address] [address] Dillon Pepe Basophils/100 WBC (Bld) 0.2 % Normal 0.2-2.0 [facility] Comment on above: Performed By: #### C BC #### [facility] [address] [address] [address] Dillon Pepe EO # 0.0 103/ul Normal 0.0-0.7 [facility] Comment on above: Performed By: #### C BC #### [facility] [address] [address] [address] Dillon Pepe Eosinophils/100 WBC (Bld) 0.0 % Critically low 0.9-7.0 [facility] Comment on above: Performed By: #### C BC #### [facility] [address] [place] [address] Dr. Dillon Pepe Erythrocyte distribution width (RBC) [Ratio] 12.5 % Normal 11.0-15.0 [facility] Comment on above: Performed By: #### C BC #### [facility] [address] [address] [address] Dillon Pepe Hematocrit (Bld) [Volume fraction] 38.2 % Normal 36.0-48.0 [facility] Comment on above: Performed By: #### C BC #### [facility] [address] [place] [address] Dr. Dillon Pepe Hemoglobin (Bld) [Mass/Vol] 13.2 g/dL Normal 12.0-16.0 [facility] Comment on above: Performed By: #### C BC #### [facility] [address] [address] [address] Dillon Pepe IG # 0.16 10e3/ul Critically high 0.00-0.03 [facility] Comment on above: Performed By: #### C BC #### [facility] [address] [address] [address] Dillon Pepe IG % 0.8 % Critically high 0.0-0.5 [facility] Comment on above: Performed By: #### C BC #### [facility] [address] [address] [address] Dillon Pepe LYMPH # 1.6 103/ul Normal 1.2-3.8 [facility] Comment on above: Performed By: #### C BC #### [facility] [address] [place] [address] Dr. Dillon Pepe Lymphocytes/100 WBC (Bld) 7.6 % Critically low 20.5-60.0 [facility] Comment on above: Performed By: #### C BC #### [facility] [address] [place] [address] Dr. Dillon Pepe MANUAL DIFF REQ NO Normal [facility] Comment on above: Performed By: #### C BC #### [facility] [address] [place] [address] Dr. Dillon Pepe MCH (RBC) [Entitic mass] 30.1 pg Normal 26.7-34.0 [facility] Comment on above: Performed By: #### C BC #### [facility] [address] [place] [address] Dr. Dillon Pepe MCHC (RBC) [Mass/Vol] 34.6 g/dL Normal 29.9-35.2 [facility] Comment on above: Performed By: #### C BC #### [facility] [address] [place] [address] Dr. Dillon Pepe MCV (RBC) [Entitic vol] 87.2 fL Normal 81.0-99.0 [facility] Comment on above: Performed By: #### C BC #### [facility] [address] [place] [address] Dr. Dillon Pepe MONO # 1.0 103/ul Critically high 0.3-0.8 [facility] Comment on above: Performed By: #### C BC #### [facility] [address] [place] [address] Dr. Dillon Pepe Monocytes/100 WBC (Bld) 4.6 % Normal 1.7-12.0 [facility] Comment on above: Performed By: #### C BC #### [facility] [address] [place] [address] Dr. Dillon Pepe NEUT # 18.4 103/ul Critically high 1.4-6.5 [facility] Comment on above: Performed By: #### C BC #### [facility] [address] [place] [address] Dr. Dillon Pepe Neutrophils/100 WBC (Bld) 86.8 % Critically high 43.0-75.0 [facility] Comment on above: Performed By: #### C BC #### [facility] [address] [place] [address] Dr. Dillon Pepe Platelet mean volume (Bld) [Entitic vol] 10.1 fL Normal 9.5-13.5 [facility] Comment on above: Performed By: #### C BC #### [facility] [address] [place] [address] Dr. Dillon Pepe PLT 402 103/ul Normal 150-450 [facility] Comment on above: Performed By: #### C BC #### [facility] [address] [place] [address] Dr. Dillon Pepe RBC 4.38 106/ul Normal 4.20-5.40 [facility] Comment on above: Performed By: #### C BC #### [facility] [address] [place] [address] Dr. Dillon Pepe WBC 21.2 103/ul Critically high 4.0-11.0 [facility] Comment on above: Performed By: #### C BC #### [facility] [address] [place] [address] Dr. Dillon Pepe CULTURE URINEon 05-31-2021 CULTURE URINE Culture Observations : MODERATE GROWTH OF MIXED GENITAL BLAIR. NO POTENTIAL PATHOGENS SEEN. Normal [facility] Comment on above: Performed By: #### C MP #### [facility] [address] [place] [address] Dr. Dillon Pepe Covid-19 PCR (CVDTB)on SARS-CoV-2 (COVID-19) RNA ERIK+probe Ql (Unsp spec) Not detected Normal NOT DETECTED [facility] Comment on above: Result Comment: This test is not yet approved or cleared by the [place] FDA. When there are no FDA-approved or cleared tests available, and other criteria are met, FDA can make tests available under an emergency access mechanism called an Emergency Use Authorization (EUA). The EUA for this test is supported by the [place] of Health and Human Service's (HHS's) declaration [...] Performed By: #### U MICRO, UACSIND #### [facility] [address] [place] [address] Dr. Dillon Pepe ER URINE PROFILEon 2 Bilirubin Ql (U) SMALL Abnormal NEGATIVE [facility] Comment on above: Performed By: #### C MP #### [facility] [address] [place] [address] Dr. Dillon Pepe Clarity (U) CLEAR Normal CLEAR [facility] Comment on above: Performed By: #### C MP #### [facility] [address] [place] [address] Dr. Dillon Pepe Color (U) YELLOW Normal YELLOW [facility] Comment on above: Performed By: #### C MP #### [facility] [address] [place] [address] Dr. Dillon Pepe ERUAHD A micrscopic examination will be performed if indicated. Normal [facility] Comment on above: Performed By: #### C MP #### [facility] [address] [place] [address] Dr. Dillon Pepe Glucose Ql (U) Negative Normal NEGATIVE [facility] Comment on above: Performed By: #### C MP #### [facility] [address] [place] [address] Dr. Dillon Pepe Hemoglobin Ql (U) Negative Normal NEGATIVE [facility] Comment on above: Performed By: #### C MP #### [facility] [address] [place] [address] Dr. Dillon Pepe Ketones Ql (U) >=80 Abnormal NEGATIVE [facility] Comment on above: Performed By: #### C MP #### [facility] [address] [place] [address] Dr. Dillon Pepe LEUKOCYTES Negative Normal NEGATIVE [facility] Comment on above: Performed By: #### C MP #### [facility] [address] [place] [address] Dr. Dillon Pepe Nitrite Ql (U) Negative Normal NEGATIVE [facility] Comment on above: Performed By: #### C MP #### [facility] [address] [place] [address] Dr. Dillon Pepe pH (U) 6.0 [pH] Normal 5-9 [facility] Comment on above: Performed By: #### C MP #### [facility] [address] [place] [address] Dr. Dillon Pepe Protein (U) [Mass/Vol] 30 mg/dL Abnormal NEGATIVE/ TRACE [facility] Comment on above: Performed By: #### C MP #### [facility] [address] [place] [address] Dr. Dillon Pepe SPEC GRAVITY >=1.030 Abnormal 1.005-<=1.02 5 [facility] Comment on above: Performed By: #### C MP #### [facility] [address] [place] [address] Dr. Dillon Pepe UR MICRO IND INDICATED Normal [facility] Comment on above: Performed By: #### C MP #### [facility] [address] [place] [address] Dr. Dillon Pepe Urobilinogen Qn (U) 1.0 {Elio'U}/dL Normal 0.2 - 1. 0 [facility] Comment on above: Performed By: #### C MP #### [facility] [address] [place], [place] [id number] Dr. Dillon Pepe PROF 14(COMP METB)on 022 Albumin [Mass/Vol] 3.5 g/dL Normal 3.4-5.0 [facility] Comment on above: Performed By: #### C MP #### [facility] [address] [place] [address] Dr. Dillon Pepe Albumin/Globulin [Mass ratio] 0.8 {ratio} Normal [facility] Comment on above: Performed By: #### C MP #### [facility] [address] [place] [address] Dr. Dillon Pepe ALP [Catalytic activity/Vol] 84 U/L Normal 46-116 [facility] Comment on above: Performed By: #### C MP #### [facility] [address] [place] [address] Dr. Dillon Pepe ALT [Catalytic activity/Vol] 17 U/L Normal 14-59 [facility] Comment on above: Performed By: #### C MP #### [facility] [address] [place] [address] Dr. Dillon Pepe Anion gap [Moles/Vol] 19.2 mmol/L Normal [facility] Comment on above: Performed By: #### C MP #### [facility] [address] [place] [address] Dr. Dillon Pepe AST [Catalytic activity/Vol] 10 U/L Critically low 15-37 [facility] Comment on above: Performed By: #### C MP #### [facility] [address] [place] [address] Dr. Dillon Pepe Bilirubin [Mass/Vol] 0.6 mg/dL Normal 0.2-1.3 [facility] Comment on above: Performed By: #### C MP #### [facility] [address] [place] [address] Dr. Dillon Pepe Calcium [Mass/Vol] 9.3 mg/dL Normal 8.5-10.1 [facility] Comment on above: Performed By: #### C MP #### [facility] [address] [place] [address] Dr. Dillon Pepe Chloride [Moles/Vol] 98 mmol/L Normal 98-107 [facility] Comment on above: Performed By: #### C MP #### [facility] [address] [address] [address] Dillon Pepe CO2 [Moles/Vol] 20.7 mmol/L Critically low 22.0-30.0 [facility] Comment on above: Performed By: #### C MP #### [facility] [address] [address] [address] Dillon Pepe Creatinine [Mass/Vol] 0.51 mg/dL Critically low 0.52-1.04 [facility] Comment on above: Performed By: #### C MP #### [facility] [address] [place] [address] Dr. Dillon Pepe EGFR-AF IRISH =60 Normal >=60 [facility] Comment on above: Performed By: #### C MP #### [facility] [address] [address] [address] Dillon Pepe EGFR-NON AF IRISH >60 Normal >=60 [facility] Comment on above: Performed By: #### C MP #### [facility] [address] [place] [address] Dr. Dillon Pepe Globulin (S) [Mass/Vol] 4.5 g/dL Normal [facility] Comment on above: Performed By: #### C MP #### [facility] [address] [place] [address] Dr. Dillon Pepe Glucose [Mass/Vol] 106 mg/dL Normal 74-106 [facility] Comment on above: Performed By: #### C MP #### [facility] [address] [address] [address] Dillon Pepe Potassium [Moles/Vol] 2.9 mmol/L Critically low 3.4-5.0 [facility] Comment on above: Performed By: #### C MP #### [facility] [address] [place] [address] Dr. Dillon Pepe Protein [Mass/Vol] 8.0 g/dL Normal 6.1-8.2 [facility] Comment on above: Performed By: #### C MP #### [facility] [address] [address] [address] Dillon Pepe Sodium [Moles/Vol] 136 mmol/L Critically low 137-145 [facility] Comment on above: Performed By: #### C MP #### [facility] [address] [address] [address] Dillon Pepe Urea nitrogen [Mass/Vol] 7.0 mg/dL Normal 7.0-18.0 [facility] Comment on above: Performed By: #### C MP #### [facility] [address] [address] [address] Dillon Pepe Urea nitrogen/Creatinine [Mass ratio] 13.7 mg/mg Normal [facility] Comment on above: Performed By: #### C MP #### [facility] [address] [address] [address] Dillon Pepe URINE MICROSCOPIC ONLYon BACTERIA SMALL Abnormal NONE SEEN [facility] Comment on above: Performed By: #### U MICRO, UACSIND #### [facility] [address] [address] [address] Dillon Pepe Bacteria identified Cx Nom (U) INDICATED Normal [facility] Comment on above: Performed By: #### U MICRO, UACSIND #### [facility] [address] [address] [address] Dillon Pepe CAST NONE SEEN Normal NONE SEEN [facility] Comment on above: Performed By: #### U MICRO, UACSIND #### [facility] [address] [address] [address] Dillon Pepe Crystals LM Nom (Urine sed) NONE SEEN Normal NONE SEEN [facility] Comment on above: Performed By: #### U MICRO, UACSIND #### [facility] [address] [address] [address] Dillon Pepe Epithelial cells LM Ql (Urine sed) FEW Abnormal NONE SEEN /RARE [facility] Comment on above: Performed By: #### U MICRO, UACSIND #### [facility] [address] [address] [address] Dillon Pepe MUCOUS LARGE Abnormal NONE SEEN [facility] Comment on above: Performed By: #### U MICRO, UACSIND #### [facility] [address] [address] [address] Dillon Pepe RBC NONE SEEN Abnormal 0-2 [facility] Comment on above: Performed By: #### U MICRO, UACSIND #### [facility] [address] [address] [address] Dillon Pepe WBC 0-2 Abnormal NONE SEEN [facility] Comment on above: Performed By: #### U MICRO, UACSIND #### [facility] [address] [address] [address] Dillon Pepe US PREG ANATOMY SINGLEon [...] by: CARLO DENNISON Date: 2021-05-31 19:53 Normal [facility] Vital Signs Date Time Vital Sign Value Performing Clinician Vineet glasgow 08-23-2024 15:51-0400 Body mass index (BMI) [Ratio] 41.44 kg/m2 Marcus Diamond DO Work Phone: [facility] 08-23-2024 15:51-0400 Body weight 112.95 kg Marcus Diamond DO Work Phone: [facility] 08-23-2024 15:51-0400 Diastolic blood pressure 72 mm[Hg] Marcus Diamond DO Work Phone: [facility] 08-23-2024 15:51-0400 Systolic blood pressure 124 mm[Hg] Marcus Diamond DO Work Phone: [facility] 08-02-2024 15:57-0400 Body mass index (BMI) [Ratio] 41.57 kg/m2 Marcus Diamond DO Work Phone: [facility] 08-02-2024 15:57-0400 Body weight 113.31 kg Marcus Diamond DO Work Phone: [facility] 08-02-2024 15:57-0400 Diastolic blood pressure 70 mm[Hg] Marcus Diamond DO Work Phone: [facility] 08-02-2024 15:57-0400 Systolic blood pressure 122 mm[Hg] Marcus Diamond DO Work Phone: [facility] 11-17-2023 11:23-0400 Blood Pressure Location [facility] 11-17-2023 11:23-0400 Body temperature 98.6 [degF] [facility] 11-17-2023 11:23-0400 Diastolic blood pressure 72 mm[Hg] [facility] 11-17-2023 11:23-0400 [facility] 88 /[facility] 11:23-0400 Respiratory rate 18 /min Mallory Gibran [facility] 11-17-2023 11:23-0400 SaO2% (BldA) [Mass fraction] 99 % Mallory Gibran [facility] 11-17-2023 11:23-0400 Systolic blood pressure 130 mm[Hg] Mallory Gibran [facility] 07-22-2023 10:26-0400 Blood Pressure Location Christopher BROWN [facility] 07-22-2023 10:26-0400 Diastolic blood pressure 80 mm[Hg] Christopher BROWN [facility] 07-22-2023 10:26-0400 Heart rate 88 /min Christopher BROWN [facility] 07-22-2023 10:26-0400 Respiratory rate 16 /min Christopher BROWN [facility] 07-22-2023 10:26-0400 SaO2% (BldA) [Mass fraction] 100 % Christopher BROWN [facility] 07-22-2023 10:26-0400 Systolic blood pressure 134 mm[Hg] Christopher BROWN [facility] 07-19-2023 20:02-0400 Diastolic blood pressure 80 mm[Hg] Pedro Mckeon [facility] 07-19-2023 20:02-0400 Heart rate 87 /min Pedro Randlee [facility] 07-19-2023 20:02-0400 Mean blood pressure 93 mm[Hg] Pedro Mckeon [facility] 07-19-2023 20:02-0400 Respiratory rate 16 /min Pedro Randlee [facility] 07-19-2023 20:02-0400 SaO2% (BldA) [Mass fraction] 100 % Pedro Mike [facility] 07-19-2023 20:02-0400 Systolic blood pressure 118 mm[Hg] Pedro Mike [facility] 07-19-2023 18:54-0400 Heart rate 84 /min Pedro Randlee [facility] 07-19-2023 18:54-0400 Respiratory rate 18 /min Pedro Randlee [facility] 07-19-2023 18:54-0400 SaO2% (BldA) [Mass fraction] 100 % Pedro Randlee [facility] 07-19-2023 17:39-0400 Body temperature 99.32 [degF] Pedro Randlee [facility] 07-19-2023 17:39-0400 Diastolic blood pressure 60 mm[Hg] Pedro Randlee [facility] 07-19-2023 17:39-0400 Heart rate 102 /min Pedro Randlee [facility] 07-19-2023 17:39-0400 Respiratory rate 20 /min Pedro Randlee [facility] 07-19-2023 17:39-0400 SaO2% (BldA) [Mass fraction] 97 % Pedro Mike [facility] 07-19-2023 17:39-0400 Systolic blood pressure 117 mm[Hg] Pedro Mike [facility] 07-19-2023 15:03-0400 Body temperature 97.52 [degF] Pedro Mike [facility] 07-19-2023 15:03-0400 Diastolic blood pressure 84 mm[Hg] Pedro Mckeon [facility] 07-19-2023 15:03-0400 Heart rate 95 /min Pedro Mckeon [facility] 07-19-2023 15:03-0400 Respiratory rate 18 /min Pedro Mckeon [facility] 07-19-2023 15:03-0400 SaO2% (BldA) [Mass fraction] 99 % Pedro Mckeon [facility] 07-19-2023 15:03-0400 Systolic blood pressure 165 mm[Hg] Pedro Mckeon [facility] 12-28-2022 15:50-0500 Blood Pressure Location Tabby Barnett [facility] 12-28-2022 15:50-0500 Body temperature 98.06 [degF] Tabby Barnett [facility] 12-28-2022 15:50-0500 Diastolic blood pressure 72 mm[Hg] Tabby Barnett [facility] 12-28-2022 15:50-0500 Heart rate 110 /min Tabby Barnett [facility] 12-28-2022 15:50-0500 Respiratory rate 18 /min Tabby Barnett [facility] 12-28-2022 15:50-0500 SaO2% (BldA) [Mass fraction] 99 % Tabby Barnett [facility] 12-28-2022 15:50-0500 Systolic blood pressure 124 mm[Hg] Tabby Barnett [facility] 12-21-2022 11:00-0400 Blood Pressure Location Christopher BROWN [facility] 12-21-2022 11:00-0400 Diastolic blood pressure 78 mm[Hg] Christopher BROWN [facility] 12-21-2022 11:00-0400 Heart rate 84 /min Christopher BROWN [facility] 12-21-2022 11:00-0400 Respiratory rate 16 /min Christopher BROWN [facility] 12-21-2022 11:00-0400 SaO2% (BldA) [Mass fraction] 97 % Christopher BROWN [facility] 12-21-2022 11:00-0400 Systolic blood pressure 112 mm[Hg] Christopher BROWN [facility] 10-23-2022 14:47-0400 Blood Pressure Location Christcarler BROWN [facility] 10-23-2022 14:47-0400 Diastolic blood pressure 78 mm[Hg] Christopher BROWN [facility] 10-23-2022 14:47-0400 Heart rate 87 /min Christopher BROWN [facility] 10-23-2022 14:47-0400 Respiratory rate 16 /min Christopher BROWN [facility] 10-23-2022 14:47-0400 SaO2% (BldA) [Mass fraction] 98 % Christopher BROWN [facility] 10-23-2022 14:47-0400 Systolic blood pressure 118 mm[Hg] Damon KIRBY [facility] 03-31-2022 17:26-0500 Blood Pressure Location Damon KIRBY [facility] 03-31-2022 17:26-0500 Diastolic blood pressure 74 mm[Hg] Damon KIRBY [facility] 03-31-2022 17:26-0500 Heart rate 85 /min Damon KIRBY [facility] 03-31-2022 17:26-0500 Respiratory rate 20 /min Damon IKRBY [facility] 03-31-2022 17:26-0500 SaO2% (BldA) [Mass fraction] 99 % Damon KIRBY [facility] 03-31-2022 17:26-0500 Systolic blood pressure 122 mm[Hg] Damon KIRBY [facility] Encounters Encounter Date Encounter Type Care Provider Facility Start: 09-15-2024 End: 09-15-2024 Clinisync Result Encounter Marcus Diamond DO Work Phone: [facility] Unsolicited Start: 09-15-2024 End: 09-15-2024 Clinisync Result Encounter Marcus Diamond DO Work Phone: [facility] Unsolicited Start: 09-07-2024 End: 09-07-2024 Clinisync Result Encounter Marcus Diamond DO Work Phone: [facility] Unsolicited Start: 09-07-2024 End: 09-07-2024 Clinisync Result Encounter Marcus Diamond DO Work Phone: [facility] Unsolicited Start: 08-29-2024 End: 08-29-2024 ambulatory Damon KIRBY Facility: [facility] Start: 08-29-2024 End: 08-29-2024 Patient encounter procedure Damon KIRBY [facility] Start: 08-28-2024 End: 08-28-2024 ambulatory Sumeet [place] Facility:[facility] Start: 08-23-2024 End: 08-23-2024 Patient encounter procedure Marcus Diamond DO Work Phone: [facility] Start: 08-23-2024 End: 08-23-2024 Periodic preventive med est patient 18-39 yrs Marcus Diamond DO Work Phone: [facility] Comment on above: Pre-op examination; Menorrhagia with regular cycle; Pelvic pain; Abnormal uterine bleeding (AUB); Well woman exam with routine gynecological exam Start: 08-23-2024 End: 08-23-2024 Preprocedural examination done Marcus Diamond DO Work Phone: [facility] Start: 08-23-2024 End: 08-23-2024 ambulatory MARCUS [...] Start: 08-02-2024 End: 08-02-2024 ambulatory Marcus Diamond Facility:[facility] Start: 07-24-2024 End: 07-24-2024 Bamboo flowsheet Marcus Diamond DO Work Phone: [facility] Start: 07-24-2024 End: 07-24-2024 Bamboo flowsheet Marcus Diamond DO Work Phone: [facility] Start: 07-24-2024 End: 07-24-2024 Office outpatient visit 15 minutes Marcus Diamond DO Work Phone: [facility] Comment on above: Dyspareunia in femal e (Primary Dx); Menorrhagia with regular cycle Start: 07-24-2024 End: 07-24-2024 ambulatory MARCUS DIAMOND Not Available Start: 11-17-2023 End: 11-17-2023 ambulatory Mallory Leary Facility:[facility] Start: 11-17-2023 End: 11-17-2023 Encounter for general adult medical examination with abnormal findings Mallory Leary [facility] Start: 11-17-2023 End: 11-17-2023 Patient encounter procedure Mallory Leary [facility] Start: 09-21-2023 End: 09-21-2023 ambulatory Damon KIRBY Facility:[facility] Start: 09-21-2023 End: 09-21-2023 Patient encounter procedure Damon KIRBY [facility] Start: 07-22-2023 End: 07-22-2023 Patient encounter procedure Damon KIRBY [facility] Start: 07-19-2023 End: 07-19-2023 Emergency department patient visit Pedro Mckeon [facility] Start: 07-19-2023 End: 07-19-2023 Emergency department patient visit Pedro Mckeon [facility] Start: 01-07-2023 End: 01-07-2023 Patient encounter procedure Tabby Barnett [facility] Start: 12-28-2022 End: 12-28-2022 Patient encounter procedure Tabby Barnett [facility] Start: 12-21-2022 End: 12-21-2022 Patient encounter procedure Damon KIRBY [facility] Start: 10-23-2022 End: 10-23-2022 Patient encounter procedure Damon KIRBY [facility] Start: 05-23-2022 End: 05-24-[address] MARCUS FIELDS . Facility:[facility] Start: 05-09-[address] MARCUS FIELDS . Facili ty:[facility] Start: 03-31-2022 End: 03-31-2022 Patient encounter procedure Damon KIRBY [facility] Start: 10-19-2021 End: 10-21-2021 Evaluation and management of inpatient DR NATALIE ARTEAGA . Facility:[facility] Start: 09-29-2021 End: 09-29-[address] MARCUS FIELDS . Facility:[facility] Start: 09-08-2021 End: 09-09-[address] MARCUS FIELDS . Facility:[facility] Start: 08-08-2021 ambulatory NONE LISTED REQUEST Facility:[facility] Start: 08-07-2021 End: 08-07-[address] NONE LISTED REQUEST Facility:[facility] Start: 08-06-2021 End: 08-06-2021 Patient encounter procedure Marcus FIELDS [facility] Start: 07-17-[address] MARCUS FIELDS . Facili ty:[facility] Start: 06-22-2021 End: 06-23-[address] GARETH SANDS . Facility: Start: 06-17-[address] MARCUS FIELDS . Facili ty:[facility] Start: 05-31-2021 End: 06-01-[address] NATALIE ARTEAGA . Facility: Procedures Date Procedure Procedure Detail Performing Clinician Start: 09-15-2024 ALL CBC WITH AUTO DIFF Marcus Keitao DO Work Phone: Start: 09-07-2024 XR CHEST 2V Marcus Keita o DO Work Phone: Start: 08-23-2024 IGP,APTIMA HPV,AGE GDLN Marcus Keitao DO Work Phone: Start: 08-02-2024 ENDOMETRIAL BIOPSY Core y Diamond DO Work Phone: Start: 08-02-2024 Urine test visual color cmprsn meths Marcus Fields DO Work Phone: Start: 12-23-2022 Bilateral tubal ligation Damon KIRBY Start: 10-20-2021 Delivery of Products of Conception, External Approach DR MARCUS FIELDS . Start: 10-20-2021 Repair Vulva, Electric Wirer al Approach DR MARCUS FIELDS . None (qualifier value) Marcus FIELDS Plan of Treatment Date Care Activity Detail Author Start: 08-27-2025 End: 08-27-2025 Patient encounter procedure 08/27/2025 11:00 AM EDT Office Visit [facility] [address] [place] [address] Marcus Fields DO [address] [place] [address] [facility] Start: 09-25-2024 End: 09-25-2024 Patient encounter procedure 09/25/2024 11:30 AM EDT Office Visit [facility] [address] [id number] Eloise Nazario PA [address] [place] [address] [facility] Start: 08-23-2024 End: 08-23-2024 Patient encounter procedure 08/23/2024 3:40 PM EDT Office Visit [facility] [address] [facility] [id number] Marcus Fields, DO [address] [place] [address] [facility] Start: 08-02-2024 End: 08-02-2024 Patient encounter procedure 08/02/2024 3:30 PM EDT Procedure Visit [facility] [address] [facility] [id number] Marcus Fields, DO [address] [place] [address] [facility] Start: 07-24-2024 End: 07-24-2024 Patient encounter procedure 07/24/2024 9:10 AM EDT Office Visit [facility] [address] [facility] [id number] Marcus Fields, DO [address] [place] [address] Arrived [facility] Comment on above: Arrived Cytology Cervical or vaginal smear or scraping study Pap Smear Pathology and Cytology Routine Well woman exam with routine gynecological exam Ordered: 08/23/2024 [facility] Work Phone: Comment on above: Ordered: 08/23/2024 Immunizations Immunization Date Immunization Notes Care Provider Fa [facility] 10-21-2021 measles, mumps and rubella virus vaccine aDmon KIRBY [facility] 01-08-2020 influenza virus vaccine, unspecified formulation Marcus DIAMOND [facility] NEGATED: Highlighted row has not occurred!12-21-2022 influenza virus vaccine, unspecified formulation Damon KIRBY [facility] NEGATED: Highlighted row has not occurred!12-21-2022 SARS-CoV-2 mRNA (tozinameran 5y-11y) vaccine Damon KIRBY [facility] NEGATED: Highlighted row has not occurred!10-23-2022 SARS-CoV-2 mRNA (tozinameran 5y-11y) vaccine Damon [facility] [facility] NEGATED: Highlighted row has not occurred!05-05-2022 influenza virus vaccine, unspecified formulation Damon KIRBY [facility] [place] NEGATED: Highlighted row has not occurred!05-05-2022 SARS-CoV-2 mRNA (tozinameran 5y-11y) vaccine Damon KIRBY [facility] [place] NEGATED: Highlighted row has not occurred!03-31-2022 influenza virus vaccine, unspecified formulation Damon KIRBY [facility] NEGATED: Highlighted row has not occurred!02-20-2021 SARS-CoV-2 (COVID-19) Ad26 vaccine, recombinant Marcus DIAMOND [facility] NEGATED: Highlighted row has not occurred!02-20-2021 influenza virus vaccine, unspecified formulation Marcus DIAMOND [facility] Payers Date Payer Category Payer Medicaid [id number] 1996 Unknown [id number] 2.16.84 0.1.882111.3.579.2.593 1996 Unknown [id number] 2.16.84 0.1.111187.3.579.2.593 1996 Unknown [id number] 2.16.84 0.1.053379.3.579.2.593 1996 Unknown [id number] 2.16.84 0.1.423576.3.579.2.593 1996 Unknown [id number] 2.16.84 0.1.641645.3.579.2.593 1996 Unknown [id number] 2.16.84 0.1.325147.3.579.2.593 1996 Unknown [id number] 2.16.84 0.1.483261.3.579.2.593 1996 Unknown [id number] 2.16.84 0.1.531358.3.579.2.593 1996 Unknown [id number] 2.16.84 0.1.933304.3.579.2.593 1996 Unknown [id number] 2.16.84 0.1.483028.3.579.2.593 1996 Unknown [id number] 2.16.84 0.1.307125.3.579.2.593 1996 Unknown [id number] 2.16.84 0.1.473797.3.579.2.593 1996 Unknown [id number] 2.16.8 40.1.646741.3.579.2.1259 1996 Unknown [id number] 2.16.8 40.1.694265.3.579.2.1259 1996 Unknown [id number] 2.16.84 0.1.972538.3.579.2.1259 1996 Unknown [id number] 2.16.8 40.1.706473.3.579.2.727 1996 Unknown [id number] 2.16.8 40.1.681264.3.579.2.727 1996 Unknown [id number] 2.16.8 40.1.737452.3.579.2.727 1959 Medicaid [id number] 1958 Self-pay Unknown [id number] 2.16.8 40.1.136050.3.579.2.531 Social History Date Type Detail Facility Start: 02-20-2021 End: 07-16-2022 Tobacco smoking status Never smoked tobacco (finding) [facility] Tobacco smoking status Never [facility] Start: 03-18-2023 End: 08-23-2024 Sex Assigned At Female [facility] Start: 07-16-2022 Tobacco use and exposure Smokeless tobacco non-user [facility] Start: 03-18-2023 End: 08-23-2024 Alcoholic beverage intake Current drinker of alcohol (finding) [facility] Start: 03-18-2023 End: 08-23-2024 History of Social function [facility] Start: 07-15-[address] syed alcohol [facility] Start: 1996 Sex assigned at Not on file [facility] Sexual Orientation [facility] Start: 06-05-2009 Sex Female (finding) [facility] Functional Status Date Assessment Result Facility 11-17-2023 Functional Status N/A [facility] 07-22-2023 Functional Status N/A [facility] 07-19-2023 Functional Status N/A [facility] 07-19-2023 Functional Status N/A [facility] 12-28-2022 Functional Status N/A [facility] 12-21-2022 Functional Status N/A [facility] 10-23-2022 Functional Status N/A [facility] 03-31-2022 Functional Status N/A [facility] Clinical Notes 03-31-2022 to 08-26-2024 Marichuy Robert - 08/23/2024 3:40 PM EDTViktorgregor Jomar, MANUFACTURING DIRECTOR - 08/02/2024 3:30 PM EDTYolande Hickey NP - 07/24/2024 9:10 AM EDT Note Date & Type Note Facility 08-26-2024 Evaluation + Plan note Future Scheduled TestsLipid Panel 08/26/24 [facility] 08-26-2024 Hospital Discharge instructions Patient Education [...] and fumes from perfume, candles, and household primary education professor. Other triggers, such as: ?Certain medicines. This [...] improve your quality of life. Medicines Take xqbq-lss-xreongi and prescription medicines only as told by [...] Centers for Disease Control and Prevention: www.cdc.gov [place] Lung Association: www.lung.org National Heart, Lung, and Blood [place]: www.nhlbi.nih.gov World Health Organization: www.who.int Get help [...] provider. Document Revised: 08/06/2021 Document Reviewed: 08/06/2021 [employer] Patient Education 2023 Alaris Royalty. [facility] [place] 08-26-2024 Note Patient Education Pulmonary Medicine Asthma [...] and fumes from perfume, candles, and household primary education professor. ??? Other triggers, such as: ? Certain [...] your quality of life. Medicines ??? Take hkkn-kzf-qendqmk and prescription medicines only as told by [...] how to manag (more content not included)... [facility] 08-23-2024 History of Present illness Narrative Reason for Appointment: Patient ID: Leyda Segal is a 29 y.o. female who presents for Pre-op Visit and Gynecologic Exam Patient presents today for Pre Op/Annual appointment. Patient is scheduled to undergo Endometrial Ablation with Kaycee on 09-15-[address] Fields at [facility]. MEDICATIONS No current outpatient medications ALLERGIES Allergies Allergen Reactions Sulfamethoxazole-Trimethoprim Other Reaction(s): Hemoptysis seen thru [facility] Cat Dander Dust Mite Extract Grass Pollen(K-O-R-T-Swt Prosper) Morphine Unknown Other Reaction(s): Syncope, Vomiting, vomiting and loss of consciousness Tall Ragweed PROBLEMS Active Ambulatory Problems Diagnosis Date Noted Other atopic dermatitis 07/06/2022 Resolved Ambulatory Problems Diagnosis Date Noted No Resolved Ambulatory Problems Past Medical History: Diagnosis Date 6 weeks follow-up ([facility]) Abdominal pain affecting , antepartum ([facility]) Acute asthma exacerbation (HCC) ADHD (attention deficit hyperactivity disorder) Encounter for Rh incompatibility status Encounter for supervision of normal first ([facility]) Hyperemesis gravidarum ([facility]) Large for gestational age fetus affecting management of mother, delivered ([facility]) Mood changes Nausea/vomiting in ([facility]) Obesity (BMI 30-39.9) Vaginal delivery ([facility]) HISTORY PAST MEDICAL HISTORY SOCIAL HISTORY Past Medical History: Diagnosis Date 6 weeks follow-up ([facility]) Abdominal pain affecting , antepartum ([facility]) Acute asthma exacerbation (HCC) ADHD (attention deficit hyperactivity disorder) Encounter for Rh incompatibility status Encounter for supervision of normal first ([facility]) Hyperemesis gravidarum ([facility]) Large for gestational age fetus affecting management of mother, delivered ([facility]) Mood changes Nausea/vomiting in ([facility]) Obesity (BMI 30-39.9) Vaginal delivery ([facility]) Social History Tobacco Use Smoking status: [...] nursing note reviewed. Exam conducted with a lawn care professional present. Vitals: Estimated body mass index is [...] reviewed, and patient is to proceed to [facility] OR. Follow Up: Patient is to follow up between 1-2 weeks post op to assess proper healing and recovery from procedure. Documented by Alethea Hadley LPN on behalf of: Marcus Fields DO documented in this encounter [facility] 08-02-2024 History of Present illness Narrative Associated [...] Reactions Sulfamethoxazole-Trimethoprim Other Reaction(s): Hemoptysis [facility] [place] [facility] Cat Dander Dust Mite Extract Grass [...] exacerbation (CMS/HCC) ADHD (attention deficit hyperactivity disorder) (CMS/[facility]) Encounter for Rh incompatibility status Encounter for supervision of normal first Hyperemesis gravidarum (HHS-HCC) Large for gestational age fetus affecting management of mother, delivered Mood changes Nausea/vomiting in Obesity (BMI 30-39.9) Vaginal delivery HISTORY PAST MEDICAL HISTORY SOCIAL HISTORY Past Medical History: Diagnosis Date 6 weeks follow-up Abdominal pain affecting , antepartum Acute asthma exacerbation (CMS/HCC) ADHD (attention deficit hyperactivity disorder) (CMS/HCC) Encounter for Rh incompatibility status Encounter for [...] nursing note reviewed. Exam conducted with a lawn care professional present. Vitals: Estimated body mass index is [...] Marcus Fields DO documented in this encounter [facility] 07-24-2024 History of Present illness Narrative Reason for Appointment: Patient ID: Leyda Segal is a 29 y.o. female who presents for discuss periods Patient presents today for Acute Visit. MEDICATIONS No current outpatient medications ALLERGIES Allergies Allergen Reactions Sulfamethoxazole-Trimethoprim Other Reaction(s): Hemop[facility]sis [facility] [place] [facility] Cat Dander Dust Mite Extract Grass Pollen(K-O-R-T-Swt Prosper) Morphine Unknown Other Reaction(s): Syncope, Vomiting, vomiting and loss of consciousness Tall Ragweed PROBLEMS Active Ambulatory Problems Diagnosis Date Noted Other atopic dermatitis 07/06/2022 Resolved Ambulatory Problems Diagnosis Date Noted No Resolved Ambulatory Problems Past Medical History: Diagnosis Date 6 weeks follow-up Abdominal pain affecting , antepartum Acute asthma exacerbation ([facility]) ADHD (attention deficit hyperactivity disorder) ([facility]) Encounter for Rh incompatibility status Encounter for supervision of normal first Hyperemesis gravidarum Large for gestational age fetus affecting management of mother, delivered Mood changes Nausea/vomiting in Obesity (BMI 30-39.9) Vaginal delivery HISTORY PAST MEDICAL HISTORY SOCIAL HISTORY Past Medical History: Diagnosis Date 6 weeks follow-up Abdominal pain affecting , antepartum Acute asthma exacerbation ([facility]) ADHD (attention deficit hyperactivity disorder) ([facility]) Encounter for Rh incompatibility status Encounter for [...] nursing note reviewed. Exam conducted with a lawn care professional present. Vitals: Estimated body mass index is [...] Marcus Fields DO documented in this encounter [facility] 11-17-2023 Hospital Discharge instructions [...] Centers for Disease Control and Prevention: www.cdc.gov [place] Lung Association: www.lung.org This information is not intended to replace advice given to you by your health care provider. Make sure you discuss any questions you have with your health care provider. Document Revised: 04/03/2021 Document Reviewed: 04/03/2021 [employer] Patient Education 2023 [employer]aris Royalty. [facility] [place] 11-17-2023 Note Patient Education Immunology Asthma Action [...] for Disease Control and Prevention: www.cdc.gov ? [place] Lung Association: www.lung.org This information is not intended to replace advice given to you by your health care provider. Make sure you discuss any questions you have with your health care provider. Document Revised: 04/03/2021 Document Reviewed: 04/03/2021 [employer] Patient Education ? [address] [facility] 09-18-2023 Hospital Discharge instructions Patient Education 09/18/2023 [...] Follow these instructions at home: Medicines Take rzum-hem-msnzfdg and prescription medicines only as told by [...] powder, vinegar, hot sauces, and barbecue sauce. ?[place] fruit juices and citrus fruits, such as oranges, lina, and limes. ?Tomato-based foods, such as red sauce, chili, salsa, and pizza with red sauce. ?Fried and fatty foods, such as donuts, macanese fries, potato chips, and high-fat dressings. ?High-fat [...] provider. Document Revised: 08/19/2020 Document Reviewed: 08/19/2020 [employer] Patient Education 2022 [employer]aris Royalty. [facility] [place] 09-18-2023 Note Patient Education Gastroenterology Esophagitis Esophagitis [...] these instructions at home: Medicines ? Take xlwh-dmh-tpmvocz and prescription medicines only as told by [...] vinegar, hot sauces, and barbecue sauce. ? [place] fruit juices and citrus fruits, such as oranges, lina, and limes. ? Tomato-based foods, such as red sauce, chili, salsa, and pizza with red sauce. ? Fried and fatty foods, such as donuts, macanese fries, potato chips, and high-fat dressings. ? [...] that causes pr (more content not included)... [facility] 07-22-2023 Hospital Discharge instructions Patient Education 07/22/2023 [...] as coffee and soda. Take and apply tfis-ino-zfbcfwq and prescription medicines only as told by [...] provider. Document Revised: 06/08/2022 Document Reviewed: 06/08/2022 [employer] Patient Education 2022 Alaris Royalty. 07/21/2023 11:23:59 Skin Abscess Skin Abscess A [...] Follow these instructions at home: Medicines Take wtgm-goi-pnfrjwx and prescription medicines only as told by [...] and water are not available, use hand cable respooler. Check your abscess every day for signs [...] provider. Document Revised: 05/14/2022 Document Reviewed: 11/17/2021 [employer] Patient Education 2022 [employer]aris Royalty. Follow Up Care 07/20/2023 09:40:21 With:FRANC SULLIVAN, JESUSITA Jose Address: When:Within 2 Month(s) [facility] 07-19-2023 Hospital Discharge instructions Patient Education 07/19/2023 20:03:53 Nausea and Vomiting, Adult, Fvau-tc-Cjdv Nausea and Vomiting, Adult Nausea is feeling [...] fruit juice). ?Low-calorie sports drinks. Eat bland, hvtb-mr-lzmqbh foods in small amounts as you are able, such as: ?Bananas. ?Applesauce. ?Rice. ?Low-fat (lean) meats. ?[place]. ?Crackers. Avoid drinking fluids that have a lot of sugar or caffeine in them. This includes energy drinks, sports drinks, and soda. Avoid alcohol. Avoid spicy or fatty foods. General instructions Take weei-ndu-opljgbp and prescription medicines only as told by your doctor. Drink enough fluid to keep your pee (urine) pale yellow. Wash your hands often with soap and water for at least 20 seconds. If you cannot use soap and water, use hand cable respooler. Make sure that everyone in your home [...] your doctor about eating and drinking. Take zvdg-mmm-ckpphzo and prescription medicines only as told by your doctor. Contact your doctor if your symptoms get worse or you have new symptoms. Keep all follow-up visits. This information is not intended to replace advice given to you by your health care provider. Make sure you discuss any questions you have with your health care provider. Document Revised: 08/15/2021 Document Reviewed: 08/15/2021 [employer] Patient Education 2022 [employer]aris Royalty. 07/19/2023 20:03:53 Hematemesis Hematemesis Hematemesis is when [...] tarry. Follow these instructions at home: Take swrf-nax-qxnqxlu and prescription medicines only as told by [...] drink alcohol, or use tobacco products. Take wqzq-wsa-clzxkaw and prescription medicines only as told by your health care provider. This information is not intended to replace advice given to you by your health care provider. Make sure you discuss any questions you have with your health care provider. Document Revised: 09/17/2021 Document Reviewed: 09/17/2021 [employer] Patient Education 2022 [employer]aris Royalty. Follow Up Care 07/19/2023 17:37:03 With:Shirley Naranjo Address: [address], [address] [place] [address]- [phone] Business (1) When:07/22/2023 19:32:52 Comments:Call for diagnosis based follow up With:Damon KIRBY Address: [address] [place] [address]- Business (1) When:07/22/2023 19:32:47 Comments:Call Dr for diagnosis based follow up [facility] 07-19-2023 Hospital Discharge instructions Patient Education 07/19/2023 [...] Follow these instructions at home: Medicines Take jqui-dqy-qqlhmmn and prescription medicines only as told by [...] and water are not available, use hand cable respooler. Check your abscess every day for signs [...] provider. Document Revised: 05/14/2022 Document Reviewed: 11/17/2021 [employer] Patient Education 2022 Alaris Royalty. Follow Up Care 07/19/2023 14:53:35 With:Damon KIRBY Address: [address] [place], [place] [phone] Business (1) When:07/22/2023 15:31:39 Comments:Call Dr for diagnosis based follow up [facility] 01-03-2023 Hospital Discharge instructions Patient Education 01/03/2023 [...] Follow these instructions at home: Medicines Take dtic-kfp-hvlskht and prescription medicines only as told by [...] provider. Document Revised: 12/19/2020 Document Reviewed: 12/19/2020 [employer] Patient Education 2022 Alaris Royalty. [facility] [place] 12-06-2022 Hospital Discharge instructions Patient Education 12/06/2022 [...] pray, or go to a place of denominational. Do some deep breathing. To do this, [...] sugars, or salt (sodium). General instructions Take gzwg-qjt-wzamzsk and prescription medicines only as told by [...] (ADAA): www.adaa.org Mental Health Saritha: www.mentalhealthamerica.net National [place] on Mental Illness: www.rakesh.org Contact a health [...] department or: Call your local emergency services (621 in the [place] Call a suicide crisis helpline, such as the National Suicide Prevention Lifeline at or 414 in the [place] This is open 24 hours a day in the [place] Text the Crisis Text Line at 328063 (in the [place] Summary If you are [...] provider. Document Revised: 09/03/2021 Document Reviewed: 12/20/2019 [employer] Patient Education 2022 [employer]aris Royalty. Follow Up Care 10/23/2022 15:26:01 With:Damon KIRBY MD, FAM Address: When: only if needed Comments:pt to call pulse/HR to me in 4-[address] [facility] [place] 10-23-2022 Hospital Discharge instructions Patient Education 10/23/2022 [...] pray, or go to a place of denominational. Do some deep breathing. To do this, [...] sugars, or salt (sodium). General instructions Take oedp-qop-yzrjzcx and prescription medicines only as told by [...] (ADAA): www.adaa.org Mental Health Saritha: www.mentalhealthamerica.net National [place] on Mental Illness: www.rakesh.org Contact a health [...] department or: Call your local emergency services (129 in the [place] Call a suicide crisis helpline, such as the National Suicide Prevention Lifeline at or 002 in the [place] This is open 24 hours a day in the [place] Text the Crisis Text Line at 843475 (in the [place] Summary If you are [...] provider. Document Revised: 09/03/2021 Document Reviewed: 12/20/2019 [employer] Patient Education 2022 [employer] Inc[employer] 10/21/2022 20:33:36 Living With Attention Deficit [...] you. Follow these instructions at home: Take mfdt-sol-ufksgwz and prescription medicines only as told by [...] a problem, search for a local or [facility] mental health care center. Public mental [...] ADHD, be patient and communicate openly. Take sejp-bop-zfdxamq and prescription medicines only as told by your health care provider. Check with your health care provider before taking any new medicines. This information is not intended to replace advice given to you by your health care provider. Make sure you discuss any questions you have with your health care provider. Document Revised: 06/21/2020 Document Reviewed: 07/24/2020 [employer] Patient Education 2022 [employer]aris Royalty. Follow Up Care 09/10/2022 14:54:18 With:FRANC SULLIVAN, Damon [facility] Address: When:6 weeks Comments: [facility] [place] 03-31-2022 Hospital Discharge instructions Patient Education 03/31/2022 [...] skin caused by scratching. Take or apply eogi-nei-fotrwkl and prescription medicines only as told by [...] 02/05/2001 Document Revised: 05/30/2019 Document Reviewed: 03/12/2017 [employer] Patient Education 2020 Alaris Royalty. 03/29/2022 19:21:47 BMI for Adults BMI for [...] height. This can be done either in [place]z ([place] or metric measurements. Note that charts are available to help you find your BMI quickly and easily without having to do these calculations yourself. To calculate your BMI in [place]z ([place] measurements, your health care provider will: [...] medical problems. BMI can be measured using Kyrgyz measurements or metric measurements. To interpret your [...] 10/20/2004 Document Revised: 01/21/2018 Document Reviewed: 12/22/2017 [employer] Patient Education 2020 [employer]aris Royalty. Follow Up Care 03/19/2022 11:26:33 With:Damon KIRBY MD, FAM Address: When: only if needed Comments:pt to call dermatology referral names to office soon [facility] [place] Evaluation + Plan note No data available for this section [facility] Evaluation + Plan note Future Appointments Appointment Date:12/08/2022 06:00:00 PM Scheduled Provider:[facility]amon [facility]B [facility] Evaluation + Plan note Future Appointments Appointment Date:01/04/2023 04:40:00 PM Scheduled Provider:Damon KIRBY MD Location:[facility] Appointment Type:[facility] Evaluation + Plan note Future Appointments Appointment Date:01/22/2023 11:00:00 AM Scheduled Provider:Tabby Barnett PA-C Location:[facility] Appointment Type:[facility] [place] Evaluation + Plan note Future Appointments Appointment Date:09/21/2023 08:20:00 AM Scheduled Provider:Damon KIRBY MD Location:[facility] [place] Appointment Type:[facility] [place] Evaluation note Diagnosis Dyspareunia in female- Primary Menorrhagia with regular cycle [facility] Diagnosis Menorrhagia with regular cycle Dyspareunia in female Pelvic pain [facility] Diagnosis Pre-op examination Menorrhagia with regular cycle Pelvic pain Abnormal uterine bleeding (AUB) Well woman exam with routine gynecological exam Routine gynecological examination [facility] No data available for this section [facility] No data available for this section [facility] Summary Purpose Family History No Family History [...] Care Team (unrecognized sect ion and content) General Merchandise Manager Relationship Specialty Start Date End Date Damon Kirby MD PCP - General 11/24/22 General Merchandise Manager Relationship Specialty Start Date End Date Damon Kirby MD PCP - General 11/24/22 General Merchandise Manager Relationship Specialty Start Date End Date Damon Kirby MD [address] [place] [address] PCP - General 11/24/22 General Merchandise Manager Relationship Specialty Start Date End Date Damon Kirby MD [address] [place] [address] PCP - General 11/24/22 INFORMATION SOURCE (unrecogn ized section and content) DATE CREATED AUTHOR 05/30/2022 [facility] DATE CREATED AUTHOR AUTHOR'S ORGANIZ ATION 07/19/2023 [facility] DATE CREATED AUTHOR AUTHOR'S ORGANIZ ATION 07/20/2024 [facility] DATE CREATED AUTHOR AUTHOR'S ORGANIZ ATION 08/09/2024 [facility] DATE CREATED AUTHOR AUTHOR'S ORGANIZ ATION 08/26/2024 [facility] EPIC DATE CREATED AUTHOR AUTHOR'S ORGANIZ ATION 08/31/2024 [facility] Reason for Visit (unrecogniz ed [...] BE BASED ON THE PRIMARY CLINICAL RECORDS. [employer] provides no warranty or guarantee of the accuracy or completeness of information in this document.
--- NOTE | 2024-09-15 11:50 | PM.ONB ---
Brief Operative Note Date of procedure: 09/15/24 Pre-op diagnosis general: menorrhagia Post-op diagnosis: same as pre-op Procedure: NAME OF PROCEDURE: Kaycee endometrial ablation with hysteroscopy. PROCEDURE: The patient was taken back to the OR where she was prepped and draped in the normal sterile fashion after being placed in the dorsal lithotomy position, after being placed under general anesthesia without difficulty.? A weighted speculum was placed into the vagina. The anterior lip was grasped with a single tooth tenaculum. The patient was then sounded to approximated 8cm. The patient?s cervix was gently dilated using hegardilators. The hysteroscope was passed through the cervix into the uterus where both ostia were seen. No gross evidence of polyps, fibroids or malignancy. The cervical length was noted to be 4 cm. The total cavity length is 4cm.? The Kaycee ablation apparatus was set to approximately 4cm in length. This was placed through the cervix and into the uterus. After the seal was tested, at that time the total ablation of 120 seconds was performed with the Kaycee without difficulty. All instruments were removed from the vagina. Excellent hemostasis noted.? Sponge and lap count correct times 2.? Patient taken to recovery in stable condition. Anesthesia: MAC Surgeon: Marcus Fields Estimated blood loss (mL): 5 Pathology: none sent Condition: stable Disposition: PACU Urinary Catheter Management Urinary Catheter Management Straight: Cath placed during this visit: no
[2024-09-15] MEDS: PROMETHAZINE HCL 25 MG TABLET PO (12:33)
[2024-09-15] MEDS: HYDROCODONE/ACET 5-325 MG TABLET 1 TAB PO (12:33)
[2024-09-15] MEDS: ONDANSETRON 4 MG RAPDIS TABLET SL (13:24)
[2024-09-15] MEDS: HALOPERIDOL LACTATE 5 MG/ML VIAL IM (13:53)
--- NOTE | 2024-09-15 14:51 | PC.NURSE ---
Patient started with slight nausea and abdominal cramping on arrival to Phase 2. Patient had requested a cookie and water although educated to go slow with the complaints she was having. Patient was medicated with Hoven and po Phenergan initially. Patient was also provided a warm pack for her abdomen. Patient did well initially and was taken to the bathroom to void and this internal communications writer was taking her IV out to go home. Patient then became nauseated again. Dr. Abel ordered SL Zofran for the patient. This did not cease the nausea and vomiting. Dr. Abel spoke with pharmacist regarding using Haldol IM for this patient. Patient was given a dose of 0.5 mg Haldol IM to right deltoid. This internal communications writer waited about half an hour to evaluate affect. Patient continued with intermittent waves of nausea. This patient states she gets like this every time she has her menses. Patient wishes to go home and take hot shower, as this sometimes will help. Patient aware to return to ER if she continues with nausea and vomiting. GABRIEL Mazariegos aware of patients wishes and is ok with this plan.
== END 2024-09-15 14:45 | disposition home or self-care (01) ==
LOC: SURGOUT 08:57
PROVIDERS: PCP Family Medicine; Visit Provider Obstetrics & Gynecology
PROC: (CPT 952; principal; 2024-09-15 10:15)
DX: N92.0 Excessive and frequent menstruation with regular cycle (principal); N93.9 Abnormal uterine and vaginal bleeding, unspecified; R10.2 Pelvic and perineal pain; K21.9 Gastro-esophageal reflux disease without esophagitis; E66.01 Morbid (severe) obesity due to excess calories; Z68.36 Body mass index [BMI] 36.0-36.9, adult; F17.290 Nicotine dependence, other tobacco product, uncomplicated; F31.9 Bipolar disorder, unspecified; F41.9 Anxiety disorder, unspecified
CPT/HCPCS: 58563; 36415; 84702; 85025; J1630; J1885; J2250; J2704; J3010; Q0162; Q0169